=== PATIENT | male | born 1945 | race Caucasian/White ===

== ENCOUNTER → 2017-10-14 12:27 | Outpatient (CLI) | payer MEDICARE, SELFPAY ==
--- NOTE | 2017-10-17 10:13 | PFT ---
INTRODUCTION: The patient is a 72-year-old male that presents for pulmonary function testing secondary to a diagnosis of COPD. Respiratory therapy reports good patient effort. Bronchodilators were used during testing. INTERPRETATION: Forced expiration spirometry demonstrates the presence of a moderate large airways obstructive ventilatory defect. There was no significant response to aerosolized bronchodilators, based upon strict ATS criteria. Spirograms are of good quality and do not plateau indicating slow emptying of the lungs. The respiratory flow volume loop reveals decreased expiratory flow rates at all lung volumes consistent with airways obstruction. Body plethysmography was performed and reveals an elevated TLC and RV, indicative of underlying hyperinflation and air-trapping. Diffusing capacity by single breath CO is relatively preserved at 71% of predicted. When compared to previous pulmonary function studies dated October 2016, there has been a significant improvement in the patient's FEV1, with significant increases in TLC and RV. IMPRESSION: These pulmonary function studies demonstrate the presence of an irreversible moderate large airways obstructive ventilatory defect with associated hyperinflation and air-trapping. There have been changes in the patient's PFTs since 2016, as noted above.
== END ==
PROVIDERS: Family Provider Family Medicine; PCP Family Medicine; Visit Provider Internal Medicine Critical Care Medicine
DX: J44.9 Chronic obstructive pulmonary disease, unspecified (principal)
CPT/HCPCS: 94060; 94726; 94729

== ENCOUNTER → 2017-10-17 12:02 | Outpatient (CLI) | payer MEDICARE, SELFPAY ==
[2017-10-17 12:28] VITALS: PULSE 100; PULSE 60; PULSE 65; PULSE 80; PULSE 83; PULSE 88; PULSE 94; O2SAT 92; O2SAT 93; O2SAT 94; O2SAT 96; O2SAT 98
--- NOTE | 2017-10-17 16:31 | WT_ITS ---
PSN 6 Minute Walk Test - 6 Minute Walk Test 6 Minute Walk Test: 6 Minute Walk Test PSN:6-Minute Walk Test Start: 10/17/17 12: 28 Freq: Status: Active Protocol: RESP.6MINW Document 10/17/17 12:28 MANUELA (Rec: 10/17/17 12:32 MANUELA [id number]) 6 Minute Walk Test Date Performed 10/17/17 Time Performed 12:20 Height 5 ft 10.5 in Weight: 117.934 kg Weight in Pounds 260.[address]: Walter Jimenez Assistive device used: None Pre-test Oxygen Delivery Method Room Air Pulse Ox (%) 98 Pulse Rate (60-100 beats/min) 65 Dyspnea Juliette Scale (0-10) 0 Exertion Juliette Scale (6-20) 6 1st minute Oxygen Delivery Method Room Air Pulse Ox (%) 96 Pulse Rate (60-100 beats/min) 60 2nd minute Oxygen Delivery Method Room Air Pulse Ox (%) 94 Pulse Rate (60-100 beats/min) 80 3rd minute Oxygen Delivery Method Room Air Pulse Ox (%) 94 Pulse Rate (60-100 beats/min) 88 4th minute Oxygen Delivery Method Room Air Pulse Ox (%) 92 Pulse Rate (60-100 beats/min) 83 5th minute Oxygen Delivery Method Room Air Pulse Ox (%) 93 Pulse Rate (60-100 beats/min) 100 6th minute Oxygen Delivery Method Room Air Pulse Ox (%) 94 Pulse Rate (60-100 beats/min) 94 Dyspnea Juliette Scale (0-10) 0.5 Exertion Juliette Scale (6-20) 11 Post-test Oxygen Delivery Method Room Air Pulse Ox (%) 98 Pulse Rate (60-100 beats/min) 80 Full Laps Walked 14 Partial Lap, Number of Tiles Walked 25 Total Distance Walked (ft) 851 - Interpretation Interpretation: The patient was able to ambulate 851 feet over the course of 6 minutes on room air with no assistive devices or breaks. The patient experienced significant desaturation from a baseline of 98%, to as low as 92%. Some reflexive tachycardia was appreciated. These findings are consistent with a respiratory limitation exercise tolerance. - Recommendations Recommendations: No supplemental oxygen is indicated at this time.
== END ==
PROVIDERS: Family Provider Family Medicine; PCP Family Medicine; Visit Provider Internal Medicine Critical Care Medicine
DX: R00.0 Tachycardia, unspecified (principal)
CPT/HCPCS: 94618

== ENCOUNTER → 2018-01-04 12:47 | Outpatient (CLI) | payer MEDICARE, SELFPAY ==
--- NOTE | 2018-01-04 12:49 | ECHOD_ITS ---
Version 2 Reason For Study: MUrmur Procedure This was a 2D Doppler, Color Flow transthoracic echocardiogram. Did not use Definity due to increased PAP. Exam performed in department. Left Ventricle Normal LV size. Mild concentric left ventricular hypertrophy. The estimated ejection fraction is 45 %. Mild global left ventricular systolic dysfunction. Unable to assess diastolic dysfunction due to arrhythmia. No regional wall motion abnormalities noted. Right Ventricle Normal RV size. Normal systolic function. Atria The left atrium is severely enlarged. The right atrium is moderately enlarged. Patent foramen ovale. Mitral Valve Bileaflet diffuse mitral valve thickening. Mild (1+) eccentric mitral valve insufficiency. Tricuspid Valve Normal tricuspid valve. Mild to moderate (1-2+) tricuspid valve insufficiency. Pulmonary artery systolic pressure is 64 mmHg. Severe pulmonary hypertension. Aortic Valve Trisinus/trileaflet aortic valve. Moderate focal aortic valve calcification. Peak aortic valve gradient 68 mmHg. Mean aortic valve gradient 41 mmHg. Severe aortic stenosis. Calculated aortic valve area (continuity equation) is 0.96 cm2. Mild (1+) aortic valve insufficiency. Great Vessels Normal aortic root. The pulmonary artery is normal size. Normal inferior vena cava. Pericardium/Pleural No pericardial effusion. MMode/2D Measurements & Calculations LVIDd: 5.4 cm IVSd: 1.4 cm LVOT diam: 2.2 cm LVIDs: 4.1 cm LVPWd: 1.1 cm LVOT area: 3.8 cm2 RVDd: 4.9 cm FS: 23.9 % Ao root diam: 3.3 cm LAV(MOD-bp): 178.7 ml LA A4 area: 42.8 cm2 LA dimension: 5.5 cm LAV(MOD-bp) Indexed: 77.9 ml/m2 LAV(MOD-sp2): 162.9 ml LAV(MOD-sp4): 191.3 ml RA A4 area: 28.8 cm2 Doppler Measurements & Calculations MV E max simeon: 96.9 cm/sec Ao V2 max: 413.4 cm/sec AI max simeon: 416.5 cm/sec Ao max P.5 mmHg AI max P.7 mmHg Ao V2 mean: 307.2 cm/sec AI dec slope: 222.9 cm/sec2 Ao mean P.4 mmHg AI P1/2t: 547.2 msec Ao V2 VTI: 88.0 cm SABIHA(I,D): 0.88 cm2 SABIHA(V,D): 0.96 cm2 LV V1 max: 105.4 cm/sec SV(LVOT): 77.7 ml PA V2 max: 91.0 cm/sec LV V1 max P.5 mmHg LV V1 mean P.6 mmHg LV V1 mean: 76.3 cm/sec LV V1 VTI: 20.7 cm TR max simeon: 387.6 cm/sec TR max P.1 mmHg Interpretation Summary Normal LV size. Mild concentric left ventricular hypertrophy. The estimated ejection fraction is 45 %. Mild global left ventricular systolic dysfunction. Unable to assess diastolic dysfunction due to arrhythmia. The left atrium is severely enlarged. The right atrium is moderately enlarged. Mild (1+) eccentric mitral valve insufficiency. Severe aortic stenosis. Mean aortic valve gradient 41 mmHg. Pulmonary artery systolic pressure is 64 mmHg. In comparison to the previous the AV area is worse Compared to prior study, changes are noted. Ordering Physician: Usman Aaron Referring Physician: Fer Caruso Performed By: Leandra Diaz RDCS, RVT
== END ==
PROVIDERS: Family Provider Family Medicine; PCP Family Medicine; Referring Provider Internal Medicine Cardiovascular Disease; Visit Provider Internal Medicine Cardiovascular Disease
DX: R01.1 Cardiac murmur, unspecified (principal); G47.33 Obstructive sleep apnea (adult) (pediatric)
CPT/HCPCS: 93306

== ENCOUNTER 2018-01-23 07:41 | Day surgery (SDC) | payer MEDICARE, SELFPAY ==
--- NOTE | 2018-01-09 10:57 | RAD_ITS ---
STUDY: X-RAY CHEST REASON FOR EXAM: Male, 72 years old. Preoperative exam TECHNIQUE: Frontal and lateral views of the chest COMPARISON: 08/28/2015 FINDINGS: The lungs are clear. There are no pleural effusions. There is no pneumothorax. The heart is normal in size. There are stable postsurgical changes in the left shoulder. RAD/Chest PA and Lateral IMPRESSION: No acute thoracic pathology. Electronically Signed: Francesco Ferrer, at 22:04 EDT Tel , Service support ,
[2018-01-09 12:34] LABS: Anion Gap 9 (5-15); BUN 13 mg/dL (7-18); BUN/Creat Ratio 12.7 RATIO (10-20); Calcium,Total 9.3 mg/dL (8.5-10.1); Chloride 100 mmol/L (98-107); Creatinine, Serum 1.02 mg/dL (0.70-1.30); EST Glomerular Filtration Rate 76 mL/min (>60); Est Glom Filt Rate - Afr Amer 92 mL/min (>60); Glucose 247 mg/dL (74-106); Potassium 4.1 mmol/L (3.5-5.1); Sodium Level 140 mmol/L (136-145)
[2018-01-09 14:31] LABS: International Normalized Ratio 2.2; Partial Thromboplast Time 41.4 Seconds (24.1-36.2); Prothrombin Time (Protime)PT. 24.4 SECONDS (11.7-14.9)
[2018-01-09 15:29] LABS: Absolute Neutrophil Count 5.4 X10^3/uL (2.0-7.7); Basophil% 0.3 % (0-1); Eosinophils% 1.1 % (0-5); Hematocrit 39.8 % (40-54); Hemoglobin 13.8 g/dl (13.0-16.5); Lymphocyte # 1.27 X10^3/ul (4.0); Lymphocyte % 17.4 % (19-41); Mean Corp Hgb Conc 34.7 g/gl (32-36); Mean Corpuscular Hgb 32.2 pg (27.0-32.0); Mean Platelet Vol. 11.4 fl (6.2-12.0); Monocyte% 6.9 % (0-10); Platelet Count 200 K/mm3 (150-450); RBC Distribution Width CV 13.6 % (11.6-14.6); RBC Distribution Width SD 44.9 fl (35.1-43.9); Red Blood Count 4.28 M/mm3 (4.6-6.2); White Blood Count 7.3 K/mm3 (4.4-11.0)
[2018-01-09 15:30] LABS: Absolute Lymphocyte Count 1.27 X10^3/ul (0.83-4.51); Basophil# 0.02 X10^3/uL; Eosinophil# 0.08 X10^3/uL; POSITIVE COUNT NO; POSITIVE DIFFERENTIAL NO; POSITIVE MORPHOLOGY NO
[2018-01-20 11:08] VITALS: BMI 38.2
[2018-01-23 08:06] LABS: Prothrombin Time Fingerstick 13.7 SEC (11.9-14.4)
--- NOTE | 2018-01-23 09:55 | CL.D_ITS ---
Patient Name: GABRIEL STEPHENS Study Date: 01/23/2018 Performing: Usman Aaron MD Ht: 70.07 inches 178 cm : 1945 Wt: 266.76 lbs 121 kg Age: 72 Gender: male BSA: 2.36 PROCEDURE(S) PERFORMED DC11-AO ROOT ANGIO WITH HEART CATH NJ21-JMR/LHC/COR CLINICAL PROFILE AND INDICATIONS Indications: Valvular Disease Heart Failure: NYHA Class: 2 Stress/Imaging Stress/Image Study Performed: No CAD Presentations: No Sxs, no angina. CONCLUSIONS Minimal coronary artery disease, moderately severe aortic stenosis, moderate pulmonary hypertension RECOMMENDATIONS Surgery consult for Valve Replacement surgery DESCRIPTION OF PROCEDURE The patient arrived to the procedure lab. The risks and benefits of the procedure as well as a full d escription of our services here and current unavailability of surgical backup were fully explained to the patient and/or their significant other prior to the catheterization. The Timeout was completed, verifying the correct patient and procedure. The patient's procedural site was prepped and draped in the usual fashion. Local anesthetic was given subcutaneously to right groin region with Lidocaine 2%. Using a modified Seldinger technique, arterial access was obtained via the right femoral artery, a 5 Fr sheath was inserted. Venous access was obtained via the right femoral vein, a 7Fr sheath was inser vivek. Left Coronary Artery selective angiography was performed in multiple views using a 5 Fr. JL4 cat heter. Right Coronary Artery selective angiography was then performed in multiple views using a 5 Fr. 3DRC (Lucas) catheter. A 7Fr thermal dilution catheter was inserted and right heart pressures wer e recorded, it was then advanced to PA position for cardiac outputs. Thermal dilution cardiac outputs were then recorded. O2 saturations were then obtained. The Thermal dilution catheter was then remove d.The arterial sheath was pulled and manual compression applied until hemostasis is achieved. CORONARY ANGIOGRAPHY DOMINANCE: Right Dominant LEFT HEART ASSESSMENT RIGHT HEART ASSESSMENT Thermal CO: 7.1 Thermal CI: 3.01 Lu CO: 5.39 Lu CI: 2.28 PW: / 14 PA: 56/22 37 RV: 57/0 4 RA: /11 8 PVR: 259 SVR: 1014 Right Heart pressures - elevated LEFT MAIN: Angiographically normal LEFT ANTERIOR DECENDING ARTERY: Mild luminal irregularities less than 30% CIRCUMFLEX ARTERY: Mild luminal irregularities less than 30% RIGHT CORONARY ARTERY: Mild luminal irregularities less than 30% VALVE FINDINGS: Aortic Valve Stenosis - severe AORTIC ROOT: Dilated COMPLICATIONS No Complications PROCEDURE MEDICATIONS Versed 1 mg IV Versed 1 mg IV SUMMARY OF HEMODYNAMIC DATA Time AIR REST ECG 08:27:38 AO 131/79 (98) SA 09:21:34 RA /11 (8) SV 09:37:21 RV 57/0, 4 09:37:40 PW /19 (14) PV 09:39:00 PA 56/22 (37) PA 09:39:50 Type SV CO (l/m) CI (l/m/ HR Time AIR REST Thermal 84.50 7.10 3.01 84 08:22:11 Lu 64.20 5.39 2.28 84 08:22:11 Label % O2 Pres/Loc Time AIR REST PA 65 PA 09:50:57 RA 64 SV 09:51:01 AO 95 PV 09:51:06 Signed By Usman Aaron MD On 01/23/2018 09:54:30 Usman Aaron MD
[2018-01-23 10:11] LABS: Blood Gas Specimen Type VEN; VBG BASE EXCESS -1 mmol/L (-1.0-3.5); VBG Bicarbonate 23 mmol/L (22-26); VBG Oxygen Content 25 mmol/L (23-33); VBG PO2 34 mmHg (25-40); VBG SO2 65 % (50-70); VBG pCO2 37.2 mmHg (41-51); VBG pH 7.41 (7.32-7.42)
[2018-01-23 10:11] LABS: Blood Gas Specimen Type VEN; VBG BASE EXCESS -2 mmol/L (-1.0-3.5); VBG Bicarbonate 23 mmol/L (22-26); VBG Oxygen Content 24 mmol/L (23-33); VBG PO2 34 mmHg (25-40); VBG SO2 64 % (50-70); VBG pCO2 37.9 mmHg (41-51); VBG pH 7.38 (7.32-7.42)
[2018-01-23 10:11] LABS: Base Excess -3 mmol/L (-2 to +2); Bicarbonate 21.7 mmol/L (22-26); Blood Gas Specimen Type ART; PO2 73 mmHG (75-100); SO2 95 % (95-99); Total Carbon Dioxide 23 mmol/L; pCO2 32.7 mmHg (35-45); pH 7.43 (7.35-7.45)
== END 2018-01-23 15:20 | disposition home or self-care (01) ==
LOC: CLSP 07:43
PROVIDERS: Family Provider Family Medicine; PCP Family Medicine; Referring Provider Internal Medicine Cardiovascular Disease; Visit Provider Internal Medicine Cardiovascular Disease
DX: I25.10 Atherosclerotic heart disease of native coronary artery without angina pectoris (principal); I35.0 Nonrheumatic aortic (valve) stenosis; I27.20 Pulmonary hypertension, unspecified; I50.32 Chronic diastolic (congestive) heart failure; I48.1 Persistent atrial fibrillation; I10 Essential (primary) hypertension; G47.33 Obstructive sleep apnea (adult) (pediatric); Z87.891 Personal history of nicotine dependence; Z79.82 Long term (current) use of aspirin; E78.5 Hyperlipidemia, unspecified
CPT/HCPCS: 36415; 36416; 71046; 80048; 82803; 85025; 85610; 85730; 93457; 93567; 99152; 99153; J7040; Q9967; C1751; C1894

== ENCOUNTER → 2018-03-20 08:57 | Outpatient (CLI) | payer MEDICARE, SELFPAY ==
[2018-01-20 11:08] VITALS: BMI 38.2
[2018-03-20 10:46] LABS: International Normalized Ratio 1.4; Prothrombin Time (Protime)PT. 17.2 SECONDS (11.7-14.9)
== END ==
PROVIDERS: Family Provider Family Medicine; PCP Family Medicine; Referring Provider Internal Medicine Cardiovascular Disease; Visit Provider Internal Medicine Cardiovascular Disease
DX: Z79.01 Long term (current) use of anticoagulants (principal)
CPT/HCPCS: 36415; 85610

== ENCOUNTER 2018-03-31 14:45 | Emergency (ER) | payer MEDICARE, SELFPAY ==
[2018-03-31] VITALS (10 sets, daily range): BP systolic 49–148; BP diastolic 32–83; PULSE 20–60; RESP 11–20; TEMP 36.4; O2SAT 94–100; BMI 36.6
--- NOTE | 2018-03-31 15:09 | EKG12_ITS ---
Test Reason : BRADYCARDIA Blood Pressure : / mmHG Vent. Rate : 045 BPM Atrial Rate : 024 BPM P-R Int : 000 ms QRS Dur : 212 ms QT Int : 592 ms P-R-T Axes : 000 -72 103 degrees QTc Int : 512 ms Ventricular-paced rhythm with failure to capture Abnormal ECG Confirmed by TODD FONTAINE ([id number]), web editor JEWELS GARCIA ([id number]) on 04/03/2018 1:07:14 PM Referred By: JODY Confirmed By:TODD FONTAINE
--- NOTE | 2018-03-31 15:11 | ED.RN ---
PT STATES THAT HIS HEAD FEEL FUZZY.
--- NOTE | 2018-03-31 15:13 | NURSING ---
DR LONDON PAGED
[2018-03-31 15:15] LABS: Bedside Glucose 159 mg/dL (70-110)
[2018-03-31] MEDS: Atropine Sulfate 1 MG/10 ML Syringe 0.5 MG IV (15:15)
--- NOTE | 2018-03-31 15:15 | RAD_ITS ---
STUDY: X-RAY CHEST REASON FOR EXAM: Male, 72 years old. Bradycardia. Hypotension. TECHNIQUE: Single AP portable view of the chest. COMPARISON: Comparison is made with prior study dated January 09, 2018. FINDINGS: EKG electrodes are seen. There is evidence of vascular congestion and mild degree of CHF. There is no demonstrated pleural abnormality. There is mild cardiac enlargement. Normal mediastinum and rangel. Normal visualized pulmonary arteries. There is atherosclerotic tortuosity of the aortic arch and descending thoracic aorta. There are diffuse degenerative changes of the visualized thoracic spine. Fixation device in the proximal left humerus. There is no demonstrated abnormality of the visualized soft tissue structures of the upper abdomen. RAD/Chest 1 View (Portable) IMPRESSION: Cardiomegaly and mild degree of CHF. Electronically Signed: Kenyon Cross MD at 15:36 EST Tel [phone], Service support ,
--- NOTE | 2018-03-31 15:25 | NURSING ---
CALLING [facility] FOR TRANSFER.
[2018-03-31 15:50] LABS: Absolute Lymphocyte Count 1.61 X10^3/ul (0.83-4.51); Absolute Neutrophil Count 7.1 X10^3/uL (2.0-7.7); Basophil# 0.02 X10^3/uL; Basophil% 0.2 % (0-1); Eosinophil# 0.04 X10^3/uL; Eosinophils% 0.4 % (0-5); Hematocrit 43.2 % (40-54); Hemoglobin 14.4 g/dl (13.0-16.5); Lymphocyte # 1.61 X10^3/ul (4.0); Lymphocyte % 16.2 % (19-41); Mean Corp Hgb Conc 33.3 g/gl (32-36); Mean Corpuscular Hgb 31.1 pg (27.0-32.0); Mean Corpuscular Volume 93.3 fL (80-94); Mean Platelet Vol. 12.4 fl (6.2-12.0); Monocyte# 1.11 X10^3/uL; Monocyte% 11.2 % (0-10); Neutrophil # 7.13 X10^3/uL (2.7-7.7); Neutrophil % 71.9 % (47-70); POSITIVE COUNT NO; POSITIVE DIFFERENTIAL NO; POSITIVE MORPHOLOGY NO; Platelet Count 166 K/mm3 (150-450); RBC Distribution Width CV 13.7 % (11.6-14.6); RBC Distribution Width SD 46.5 fl (35.1-43.9); Red Blood Count 4.63 M/mm3 (4.6-6.2); White Blood Count 9.9 K/mm3 (4.4-11.0)
--- NOTE | 2018-03-31 15:50 | ED.RN ---
PT STATES HE DOES NOT FEEL WELL. BEGAN TO VOMIT. SKIN ASHEN, CLAMMY, AND COOL. MENTAL STATUS CHANGE. ER DR IN ROOM WITH PATIENT. EXTERNAL PACING INITIATED. PT TOLERATING WELL.
[2018-03-31] MEDS: Ondansetron 4 MG/2 ML Vial IV (15:55)
[2018-03-31] MEDS: fentaNYL 100 MCG/2 ML Ampul 50 MCG IV ×2 (15:57→16:06)
[2018-03-31 15:58] LABS: Anion Gap 12 (5-15); BUN 19 mg/dL (7-18); BUN/Creat Ratio 11.2 RATIO (10-20); Calcium,Total 9.1 mg/dL (8.5-10.1); Chloride 98 mmol/L (98-107); Creatinine, Serum 1.69 mg/dL (0.70-1.30); EST Glomerular Filtration Rate 43 mL/min (>60); Est Glom Filt Rate - Afr Amer 52 mL/min (>60); Glucose 181 mg/dL (74-106); Potassium 5.3 mmol/L (3.5-5.1); Sodium Level 135 mmol/L (136-145)
--- NOTE | 2018-03-31 16:05 | ED.VISSUMM ---
- ER Visit Summary Date of Service: 03/31/18 Chief Complaint: Decreased blood pressure and weakness History of Present Illness: The patient is a 72 M who presents with low blood pressure and weakness at home. He had an aortic valve replaced at [facility] on Tuesday. After that surgery he had to have a pacemaker placed. He went home yesterday and was feeling well. Today he woke up feeling weak. He checked his blood pressure and it was low. He has some mild chest discomfort but does not describe as chest pain. Physical Examination: Vital signs reviewed. Heart rate is in the 30s. Current blood pressure is 117/54. HEENT exam unremarkable. Heart is bradycardic with no murmurs. Lungs are clear bilaterally. Abdomen soft. Extremity exam reveals some ecchymosis in the right groin secondary to his surgeries. Currently his neurologic exam is normal. Test Results: EKG is a wide complex paced rhythm with a rate in the 30s. Chest x-ray reveals CHF and mild cardiomegaly. Emergency Department Course and Treatment: Give the patient half a milligram of atropine which did nothing. His mental status is normal blood pressure is a little bit low but not hypotensive at this point. I discussed with Dr. Ayon who recommended sending the patient back to [facility]. I discussed with [facility] and they will accept the patient. While awaiting transport the patient started having altered mental status with a long bradycardic pause. He is now externally paced. He was given Zofran, fentanyl and Versed. Patient will be transferred via critical care to [facility] Treatment Plan: [] Disposition: Transfer Impression: Symptomatic bradycardia, pacemaker malfunction, recent aortic valve replacement Critical care time 45 minutes This note was generated with [employer] dictation software. It may contain incorrect words, spelling, and punctuation that were not noted in review of the chart prior to signing ED Disposition - Plan for ED Patient: Chief Complaint: Hypotension Referrals: Fer Caruso MD [Primary Care Provider] -
--- NOTE | 2018-03-31 16:08 | ED.DCSUM_ITS ---
- ER Visit Summary Date of Service: 03/31/18 Chief Complaint: Decreased blood pressure and weakness History of Present Illness: The patient is a 72 M who presents with low blood pressure and weakness at home. He had an aortic valve replaced at [facility] on Tuesday. After that surgery he had to have a pacemaker placed. He went home yesterday and was feeling well. Today he woke up feeling weak. He checked his blood pressure and it was low. He has some mild chest discomfort but does not describe as chest pain. Physical Examination: Vital signs reviewed. Heart rate is in the 30s. Current blood pressure is 117/54. HEENT exam unremarkable. Heart is bradycardic with no murmurs. Lungs are clear bilaterally. Abdomen soft. Extremity exam reveals some ecchymosis in the right groin secondary to his surgeries. Currently his neurologic exam is normal. Test Results: EKG is a wide complex paced rhythm with a rate in the 30s. Chest x-ray reveals CHF and mild cardiomegaly. Emergency Department Course and Treatment: Give the patient half a milligram of atropine which did nothing. His mental status is normal blood pressure is a little bit low but not hypotensive at this point. I discussed with Dr. Ayon who recommended sending the patient back to [facility]. I discussed with [facility] and they will accept the patient. While awaiting transport the patient started having altered mental status with a long bradycardic pause. He is now externally paced. He was given Zofran, fentanyl and Versed. Patient will be transferred via critical care to [facility] Treatment Plan: [] Disposition: Transfer Impression: Symptomatic bradycardia, pacemaker malfunction, recent aortic valve replacement Critical care time 45 minutes This note was generated with [employer] dictation software. It may contain incorrect words, spelling, and punctuation that were not noted in review of the chart prior to signing ED Disposition - Plan for ED Patient: Chief Complaint: Hypotension Referrals: Fer Caruso MD [Primary Care Provider] -
--- NOTE | 2018-03-31 16:10 | NURSING ---
ETA 30 MIN GROUND
--- NOTE | 2018-03-31 16:20 | ED.RN ---
PT IS ON BIPAP PER FAMILY.
--- NOTE | 2018-03-31 17:20 | ED.RN ---
MULTIPLE ATTEMPTS TO CALL REPORT TO [facility] AT [facility] WITH NO ANSWER. REPORT GIVEN TO AUGUSTIN HEARD [employer].
== END 2018-03-31 17:02 | disposition short-term general hospital (02) ==
PROVIDERS: Emergency Provider Emergency Medicine; Family Provider Family Medicine; PCP Family Medicine
DX: R00.1 Bradycardia, unspecified (principal); Z95.2 Presence of prosthetic heart valve; T82.9XXA Unspecified complication of cardiac and vascular prosthetic device, implant and graft, initial encounter; I50.9 Heart failure, unspecified; I51.7 Cardiomegaly
CPT/HCPCS: 71045; 80048; 82962; 84484; 85025; 92953; 93005; 96374; 99285; J7030; A4216; J2405

== ENCOUNTER → 2018-05-04 11:29 | Outpatient (CLI) | payer MEDICARE, SELFPAY ==
[2018-04-25 12:37] VITALS: BMI 35.8
--- NOTE | 2018-05-04 13:06 | PCM.CR.HP2 ---
CR - History & Physical - General Arrival date:: 05/04/18 Arrival time:: 13:06 Date of Referral:: 05/04/18 Date of CR Evaluation:: 05/04/18 Referring Physician: Dr. aSmir Chong Primary Diagnosis: TAVR - History of Present Cardiac Event Onset Date: Enter Onset Date of cardiac illnesses in Comment field below Current stable Angina Pectoris:: No Acute Myocardial Infarction within 12 months:: No Coronary Artery Bypass Graft:: No Heart valve replacement or repair:: Yes - 03/23/18 PTCA or coronary stenting:: No Heart or Heart-Lung Transplant:: No Heart Failure EF <35%:: No Type of Symptoms:: fatigue, sob. Interventions with present event:: Pacer placed 03/24/18 Were there any complications?: pacer, in chronic afib - Medications Home Medications: Ambulatory Orders Medication Instructions Recorded Aspirin [Aspirin, Baby] 81 mg PO DAILY@0800 09/24/14 Glimepiride [Amaryl] 1 mg PO DAILY #30 tab 04/17/15 gabapentin 600 mg tablet 600 mg PO BID #60 tab 05/09/17 metformin 500 mg tablet 1,000 mg PO BID tab 06/07/17 furosemide 40 mg tablet 40 mg PO BID #180 tab 10/21/17 potassium chloride ER 20 mEq 20 meq PO BID #30 tab 01/11/18 tablet,extended release albuterol sulfate HFA 90 2 puff INHALATION Q4H PRN PRN #18 g 01/24/18 mcg/actuation aerosol inhaler spironolactone 25 mg tablet 50 mg PO QDAY #60 tab 02/17/18 metoprolol tartrate 50 mg tablet 75 mg PO BID #90 tab 03/01/18 warfarin 5 mg tablet 5 mg PO DAILY 03/20/18 Glipizide [Glipizide ER] 10 mg PO DAILY 03/31/18 umeclidinium 62.5 mcg/actuation 1 inh INHALATION DAILY #30 ea 04/25/18 blister powder for inhalation Aclidinium [place] [Tudorza 400 mcg IH BID 05/04/18 Pressair] Clopidogrel Bisulfate [Clopidogrel] 75 mg PO DAILY 05/04/18 - Allergies Allergies/Adverse Reactions: Allergies prochlorperazine [From Compazine] Adverse Reaction (Severe, Verified 04/25/18 10:53) Other extrapyramidal symptoms, sedation was taking also pramipexole at the time - Sleep Disorder Evaluation Hx of Sleep Apnea: Yes STOP Results: on bipap already Advanced Directives - Advanced Directives Power of Kiln Firer: Yes Living Will: Yes Advance Directives Information Provided: No Advance Directives on File: Yes Past Medical History - Past Medical Illness Medical History: Past Medical History (Last Reviewed 04/25/18 @ 10:53 by Nadine Cabrera) intermediate current use of anticoagulant (Chronic) Z79.01 Long-term use of high-risk medication (Chronic) Z79.899 Chronic diastolic (congestive) heart failure (Chronic) I50.32 Persistent atrial fibrillation (Chronic) I48.1 Nonrheumatic mitral valve regurgitation (Acute) I34.0 Nonrheumatic tricuspid (valve) insufficiency (Acute) I36.1 Nonrheumatic aortic (valve) stenosis (Chronic) I35.0 Bicuspid aortic valve (Chronic) Q23.1 Cardiomyopathy in disease classified elsewhere (Chronic) I43 Dyspnea (Acute) R06.00 Edema (Acute) R60.9 Benign essential HTN (Chronic) I10 Pulmonary hypertension, moderate to severe (Chronic) I27.2 PASP 57 mmHg Shortness of breath (Acute) R06.02 HLD (hyperlipidemia) (Chronic) E78.5 DENISA (obstructive sleep apnea) G47.33 Stage 3 severe COPD by GOLD classification J44.9 Type 2 diabetes mellitus E11.9 Aortic valve stenosis (Inactive) I35.0 Atrial fibrillation (Inactive) I48.91 on coumadin Bradycardia (Inactive) R00.1 CHF (congestive heart failure) (Inactive) I50.9 COPD, mild (Inactive) J44.9 Diabetes mellitus type II (Inactive) Hypotension (Inactive) I95.9 termite control representative use of drug Z79.899 Moderate aortic stenosis (Inactive) I35.0 Morbid obesity (Inactive) E66.01 Nonrheumatic mitral valve regurgitation I34.0 Nonrheumatic tricuspid valve regurgitation I36.1 DENISA (obstructive sleep apnea) (Inactive) G47.33 Baseline BiPAP 21/17 Stage 3 severe COPD by GOLD classification (Inactive) J44.9 - Past Surgical History Surgical History: Past Surgical History (Last Reviewed 04/25/18 @ 10:53 by Nadine Cabrera) Status post radiofrequency ablation for arrhythmia (Chronic) Z98.890, Z86.79 History of hernia repair Z98.890, Z87.19 History of tonsillectomy Z98.890, Z90.89 History of tonsillectomy (Inactive) Z98.890, Z90.89 Hx of hernia repair (Inactive) Z98.890, Z87.19 Surgical History: herniorrhaphy, tonsillectomy - Family History Summary Family History: Family History (Last Reviewed 04/25/18 @ 10:53 by Nadine Cabrera) Father CAD (coronary artery disease) Hypertension Mother Hypertension Brother Hypertension Hyperlipemia Sister Hypertension Social History - Smoking History Smoking Status: Former smoker Years Smokin Packs Smoked per Day: 5 - cigars only Hx Smoking Cessation Date: Apr 1999 Hx Tobacco Use: No Hx Smoking Exposure: Yes - son, but he smokes outside - Alcohol Use Alcohol Usage: Yes - beer- 1-2 daily - Substance Abuse Hx Substance Use: No - Occupation Occupation (List type of work in comments):: Retired - Hobbies, Recreation, Social Activities Hobbies: Sports Recreational Activities: I am able to engage in all my recreational activities Social Environment - Status Marital Status: - Current Living Arrangements Living Environment:: Family - son and friend live with him - Children How many children do you have?: 1 - 1 living Do any of your children live nearby?: Yes - Safety Do you feel safe in your surroundings?: Yes - Assistance Do you need any assistance at home?: no Review of Systems - Review of Systems Hints: Right click = Denies ([place]). Left click = Reports ([place]) Review of Present Symptoms: Reports: Shortness of Breath with Exertion, Fatigue, Appetite - Special Diet - watches what he eats, uses some Na, eats small portions., Sleep - Normal. Denies: Shortness of Breath at Rest, PVD, Operative Discomfort, Angina, Wound Healing, Dizziness/Lightheadedness, Heart Arrhythmia/Irregularities, Appetite - Normal - 100 lb weight loss over 3 years, Sexual Changes - Pain Is Patient Pain Free?: Yes Previous experience dealing with pain?: Tylenol prn Risk Factor Assessment - Vital Signs Pulse Ox: 96 - Pulse Pulse Rate: 59 Pulse Rhythm: Irregular - Hypertension How long have you been treated?: 1966 in [employer] On medication(s)?: yes Blood Pressure Sitting - Right Arm: 120/62 - Diabetes Diabetic History: Type II Nutrition Referral for Diabetes: Yes - Obesity Height: 5 ft 11 in Weight:: 258 lb Weight in Pounds: 258.0 lbs Weight Source: Standing Scale Body Mass Index (BMI): 35.9 Desired Body Weight: 200 Realistic Weight Goal (Loss of 1-2 lbs/week): 234 Nutritional Referral for Obesity: Yes - Risk Stratification Risk Guidelines: Lowest Risk: Risk Factor for Smoking, Risk Factor for Dyslipidemia, Risk Factor for Hypertension, Risk Factor for Depression, Moderate Risk: Risk Factor for Diabetes, Risk Factor for Obesity, Risk Factor for Sedentary Lifestyle - For Smoking Smoking Risk Guidelines: Smoking Low Risk: None or quit greater than 6 months ago. Smoking Moderate Risk: Smoker or quit 6 months or less ago. Smoking High Risk: Smoker - For Dyslipidemia Dyslipidemia Risk Guidelines: Low Risk: Moderate Risk: High Risk: 15-25% fat 25.1-29% fat >/= 30% fat. <7% sat fat 7-9% sat fat >9% sat fat. <150 mg chol 150-299 mg chol >/= 300 mg chol. LDL <100 LDL 100-129 LDL >/= 130. Chol/HDL ratio <5.0 Chol/HDL ratio 5.0-6.0 Chol/HDL ratio >6.0. Triglycerides <100 Triglycerides 100-149 Triglycerides >/= 150 - For Diabetes Mellitus Diabetes Risk Guidelines: Diabetes Low Risk: HgA1c <6.5% and/or FBG <120. Diabetes Moderate Risk: HgA1c 6.6-7.9% and/or FBG 120-180. Diabetes High Risk: HgA1c >/= 8% and/or FBG >180 - For Obesity/Overweight Obesity/Overweight Risk Guidelines: Obesity Low Risk: BMI <25.0. Obesity Moderate Risk: BMI 25-29.9. Obesity High Risk: BMI >/= 30.0 - For Hypertension Hypertension Risk Guidelines: Hypertension Low Risk: Systolic <120 and Diastolic <80. Hypertension Moderate Risk: Systolic 120-139 and Diastolic 80-89. Hypertension High Risk: Systolic >/= 140 and Diastolic >/= 90 - For Sedentary Lifestyle Sedentary Lifestyle Risk Guidelines: Sedentary Lifestyle Low Risk: >/= 1,500 kcal/week. Sedentary Lifestyle Moderate Risk: 700-1,499 kcal/week. Sedentary Lifestyle High Risk: < 700 kcal/week - For Depression Depression Risk Guidelines: Depression Low Risk: Not clinically depressed. Depression Moderate Risk: Mildly depressed. Depression High Risk: Clinically depressed - Family History Family History: Family History (Last Reviewed 04/25/18 @ 10:53 by Nadine Cabrera) Father CAD (coronary artery disease) Hypertension Mother Hypertension Brother Hypertension Hyperlipemia Sister Hypertension Motivation - Motivation to Participate On a scale of 1 to 10, how prepared are you to commit to attending program?: 10
[2018-05-04 13:56] VITALS: BP 120/62; PULSE 59; O2SAT 96; BMI 35.9
--- NOTE | 2018-05-04 13:59 | PCM.CR.ITP ---
General Information - General Information Admitting Diagnosis: TAVR - Education/Goals Barriers to Learning: None Individual Counseling: Initial Assessment: Abnormal Cholesterol Levels, High Blood Pressure, Overweight/Obesity, Diabetes, Hypertension, Sedentary Lifestyle, Family History of Heart Disease (under 65 years) Cardiac Rehabilitation Goals: 1. Maintain the individual as the primary focus of care. 2. To improve the patient's quality of life. 3. Identification of cardiac risk factors and provide cardiac risk factor management. 4. Enhance the psychosocial status of the patient. 5. Reconditioning enough to allow the patient to resume customary activities. 6. Control symptoms of cardiac disease Scale for measuring improvement of personal goals: Enter appropriate number in Comments. 2 = Unchanged. 3 = Slightly Better. 4 = Moderate Improvement. 5 = Met my Goal Personal Goals: Initial Assessment: Participate in home exercise program, Get back to work, or to resume activities faster, Improve knowledge of cardiac disease, Improve muscle strength and endurance, Improve diet and eating habits (eat healthier), Control risk factors (learn risk factor modification) Exercise - Initial Assessment - Visit Date of Eval: 05/04/18 - Stages of Change Stages of Change:: Action - Exercise Prescription Mode:: Treadmill, Biodyne, Rower, Airdyne, NuStep - Hypertension Do any of the following apply?: Yes, Medication, Diet - Intervention Home Exercise/Activity Goal:: Moderate Exercise 30 min/day x 5 days/wk - Education Goals:: Warm-up, RPE GEREMIAS Scale, S/S, Safe Exercise, Self-Monitoring - Exercise Program Goals Exercise Program Goals: Aerobic Activity >30 min Nutrition - Initial Assessment - Program Goals Nutrition Program Goals: LDL <70. Total Cholesterol <200. HDL >45. Triglycerides <150. HgbA1C <7%. BMI <25 - Visit Date of Assessment:: 05/04/18 - Stages of Change Stages of Change:: Action - Diabetes Diabetes:: Yes Non-Insulin Dependent?: Yes - Weight Management Height: 5 ft 11 in Weight:: 258 lb Weight Goal (kg):: 200 lb Body Fat %:: 35.8 Goal % Body Fat:: 25 - Intervention Referral to dietitian:: Yes Referral to Diabetic Clinic:: Yes Will attend diet classes:: Yes - Education Gave educational materials for:: Signs & symptoms of hypoglycemia, Signs & symptoms of hyperglycemia, Relate diabetes to coronary artery disease, Healthy eating Tobacco - Initial Assessment - Program Goals Tobacco Program Goals: Complete smoking cessation. Attend education classes. Improve Knowledge Test score - Stage of Change Stages of Change:: Maintenance - Learning Barriers Learning Barriers: Ready to Learn Total Score:: 14 - Family Support Do you have family support?: Yes - Tobacco Use Tobacco Use: Non-smoker How long ago did you quit using tobacco products?: Greater than or equal to 6 months ago Years Smokin - cigars Do you use smokeless tobacco?: No - Intervention Smoking Cessation Referral:: No Individual Education/Counseling:: No Education Schedule Given:: Yes - Education Gave educational material for:: Coronary artery disease, Risk factors, Sexuality, Medical compliance, Cardiac A&P, Angina signs & symptoms Psychosocial - Initial Assess - Target Goals Target Goals: Assess presence or absence of depression. Using a valid screening tool, maximizes coping skills. Positive support system - Stages of Change Stages of Change:: Action - Psychosocial Test Tool Used:: HANDS Depression Questionnaire Self-reported stress:: no Total Mood Screening Score:: 6 Self-Efficacy Score:: 9 - Intervention PS - Interventions: Yes Attend Stress Management Classes, Yes Uses Stress Management Skills, No Referral to Mental Health, No Referral to [facility] Case Management, No Referral to Physician - Education Gave educational materials for:: Coping techniques, Signs & symptoms of depression, Stress management, Relaxation techniques - Patient/Program Goal Preventative Medication(s):: Aspirin, SALLY inhibitor, Clopidogrel, Beta bossman, Statin/lipid - Assistive Devices Assistive Devices:: None Fall Risk Assessed:: Yes Patient Health Questionnaire Initial Assessment 1. Little interest or pleasure in doing things: Several days 2. Feeling down, depressed, or hopeless: Not at all 3. Trouble falling or staying asleep, or sleeping too much: Several days 4. Feeling tired or having little energy: Several days 5. Poor appetite or overeating: Several days 6. Feeling bad about yourself -- or that you are a failure or have let yourself or your family down: Not at all 7. Trouble concentrating on things, such as reading the newspaper or watching television: More than half the days 8. Moving or speaking so slowly that other people could have noticed. Or the opposite - being so fidgety or restless that you have been moving around a lot more than usual: Not at all 9. Thoughts that you would be better off , or of hurting yourself in some way: Not at all How difficult have these problems made it for you to do your work, take care of things at home, or get along with other people?: Not difficult at all Total Score: 6 BRADEN-Q SV Test - Statements CAD is a disease of the arteries in the heart: False Examples of risk factors for heart disease: True Angina is chest pain or discomfort: True The benefits of resistance training include: I Don't Know Eating more meat and dairy products: False Anti-platelet medications such as aspirin are important: I Don't Know The only effective way to manage stress: True An exercise warm-up slowly increases heart rate: False Prepared, processed foods usually have high sodium: True Depression is common after a heart attack: True The statin medications lower cholesterol: True To control blood pressure, lower the amount of sodium: True If someone gets chest discomfort during walking: False Transfats are partially hydrogenated vegetable oils: True Sleep apnea that is not treated increases the risk: False To control cholesterol, one should become a vegetarian: True Someone knows if he/she is exercising at the right level: False Diabetes cannot be prevented with exercise & health eating: False Stress is a large risk for heart attack: True A diet that can help lower blood pressure is rich in: True - Total Score Total Correct Responses: 14 Self-Efficacy Initial Assessment We would like to know how confident you are in doing certain activities. Please select your confidence level for:: Select your confidence level for the following using the scale 1-10 where 1 is not at all confident and 10 is totally confident. Your score is the average of all 6 responses. Fatigue: How confident are you that you can keep the fatigue caused by your disease from interfering with the things you want to do? Select Number: 9 Physical Discomfort or Pain: How confident are you that you can keep the physical discomfort or pain of your disease from interfering with the things you want to do? Select Number: 9 Emotional Distress: How confident are you that you can keep the emotional distress caused by your disease from interfering with the things you want to do? Select Number: 8 Other Symptoms or Health Problems: How confident are you that you can keep other symptoms or health problems from interfering with the things you want to do? Select Number: 9 Different Tasks and Activities: How confident are you that you can do the different tasks and activities needed to manage your health condition so as to reduce your need to see a doctor? Select Number: 9 Medication: How confident are you that you can do things other than just taking medication to reduce how much your illness affects your everyday life? Select Number: 10 Total Score:: 9 Nutrition Survey - Nutrition Survey Instructions Scoring Instructions: Scoring is as follows: Yes = 1 points. No = 0 point. Patient score that is >/=12 is considered to be at potential nutritional risk and could benefit from a referral to a registered dietitian. - Nutrition Survey Initial Have you lost >10 lbs over the past 2 months without trying?: Yes Are you following a special diet at home for diabetes, low fat, or low salt?: No Are you interested in meeting with a dietitian for help understanding your diet?: Yes Do you eat less than 3 meals a day?: Yes Do you eat fatty meats (fitzpatrick, sausage, ribs, etc), fried foods, desserts, large amounts of salad dressings, margarine, butter, or cheese most days?: Yes Do you have food allergies? [Enter types in comment field]: No Do you eat in restaurants more than 3 times a week?: No Do you season food with salt, seasoning salt, or garlic salt?: Yes Do you used canned, boxed, frozen meals, or soups, seasoning packets?: Yes Total Score:: 6
== END ==
PROVIDERS: Family Provider Family Medicine; PCP Family Medicine
DX: Z98.890 Other specified postprocedural states (principal); Z86.79 Personal history of other diseases of the circulatory system

== ENCOUNTER 2018-06-04 11:05 | Emergency (ER) | payer MEDICARE, SELFPAY ==
[2018-05-04 13:56] VITALS: BMI 35.9
[2018-06-04 11:06] VITALS: BP 156/86; PULSE 60; RESP 22; TEMP 36.8; O2SAT 92; BMI 36.3
--- NOTE | 2018-06-04 11:25 | EKG12_ITS ---
Test Reason : CP Blood Pressure : / mmHG Vent. Rate : 060 BPM Atrial Rate : 033 BPM P-R Int : 000 ms QRS Dur : 162 ms QT Int : 500 ms P-R-T Axes : 000 -72 104 degrees QTc Int : 500 ms Ventricular-paced rhythm Abnormal ECG Confirmed by SURYA MCBRIDE, ARELI ([id number]), senior editor MARCI VICENTE ([id number]) on 06/06/2018 4:35:10 PM Referred By: Samir Chong Confirmed By:ARELI LONDON MD
--- NOTE | 2018-06-04 11:25 | RAD_ITS ---
STUDY: X-RAY CHEST REASON FOR EXAM: Male, 73 years old. Shortness of breath TECHNIQUE: AP COMPARISON: 03/31/2018 FINDINGS: EKG leads project over the chest. Cardiac monitoring device projects over the left chest. The lungs are clear and expanded. There is no demonstrated pleural abnormality. There is moderate cardiac enlargement. Normal mediastinum and rangel. Normal visualized pulmonary arteries. There is atherosclerotic calcification of the aortic arch with tortuosity. No acute bony process. There are operative changes of the left proximal humerus. There is no demonstrated abnormality of the visualized soft tissue structures of the upper abdomen. RAD/Chest 1 View (Portable) IMPRESSION: Stable, nonacute portable x-ray examination of the chest. Electronically Signed: Edouard Aragon MD at 11:48 EST , Service support ,
[2018-06-04 11:44] LABS: Absolute Lymphocyte Count 0.71 X10^3/ul (0.83-4.51); Absolute Neutrophil Count 5.7 X10^3/uL (2.0-7.7); Basophil# 0.02 X10^3/uL; Basophil% 0.3 % (0-1); Eosinophil# 0.03 X10^3/uL; Eosinophils% 0.4 % (0-5); Hematocrit 44.3 % (40-54); Hemoglobin 14.3 g/dl (13.0-16.5); Lymphocyte # 0.71 X10^3/ul (4.0); Lymphocyte % 10.1 % (19-41); Mean Corp Hgb Conc 32.3 g/gl (32-36); Mean Corpuscular Hgb 30.9 pg (27.0-32.0); Mean Corpuscular Volume 95.7 fL (80-94); Mean Platelet Vol. 12.2 fl (6.2-12.0); Monocyte# 0.55 X10^3/uL; Monocyte% 7.8 % (0-10); Neutrophil # 5.73 X10^3/uL (2.7-7.7); Neutrophil % 81.1 % (47-70); POSITIVE COUNT NO; POSITIVE DIFFERENTIAL NO; POSITIVE MORPHOLOGY NO; Platelet Count 172 K/mm3 (150-450); RBC Distribution Width SD 55.3 fl (35.1-43.9); Red Blood Count 4.63 M/mm3 (4.6-6.2); White Blood Count 7.1 K/mm3 (4.4-11.0)
--- NOTE | 2018-06-04 11:44 | ED.VISSUMM ---
- ER Visit Summary Date of Service: 06/04/18 Chief Complaint: Weakness History of Present Illness: The patient is a 73 M who arrives by EMS. Patient states that when he woke this morning he felt hollow. He states that he noted that his blood pressure was elevated in the 170-180 systolic range. His heart rate was 60.. He states he took his morning medications and his blood pressure came down. He states he may be felt somewhat nauseous but was able to eat breakfast. He had a normal bowel movement. He went to [employer] and started working there. At that point he states that the hollow feeling got worse. He was concerned he may pass out. He did not have chest pain. He states that maybe he had shortness of breath. EMS arrived. He was in a paced rhythm on the monitor. He states he is feeling better now. Physical Examination: Afebrile vital signs are stable Gen: Well-nourished well-developed obese Head: Normocephalic atraumatic Eyes: Perrl EOMI ENT: TMs clear no rhinorrhea moist mucous membranes Neck: Supple no lymphadenopathy no JVD nontender CVS: Regular rate rhythm no murmurs normal S1-S2 Respiratory: No distress clear to auscultation bilaterally chest nontender Abdomen: Soft nontender nondistended normal bowel sounds no masses Back: Nontender Extremity: Nontender 1+ bilateral edema Skin: Normal color no rash Neuro: alert orientated ?3 CN II-XII intact normal strength sensation reflexes gait cerebellar Psych: Normal affect normal mood Test Results: EKG shows a ventricular paced rhythm at a rate of 60. Chest x-ray showed chronic changes no acute. INR is 2.9. Troponin 0.051. Looking over the trend of troponins in the past he is typically 0.04-0.05. Hemoglobin is normal. Creatinine normal. Electrolytes are normal. Chest x-ray showed no acute findings. Emergency Department Course and Treatment: Patient was observed on the monitor. There have been no events on the monitor. He has been observed for over 3 hours. Delta troponin is 0.58. He feels good. Patient will be discharged home. Impression: 1. Weakness This note was generated with [employer] dictation software. It may contain incorrect words, spelling, and punctuation that were not noted in review of the chart prior to signing ED Disposition - Plan for ED Patient: Disposition: Home or Assisted Living Instructions: ED Weakness O Referrals: Fer Caruso MD [Primary Care Provider] - 3-5 Days
[2018-06-04 11:50] LABS: Albumin, Serum 3.8 g/dL (3.2-5.0); BUN 19 mg/dL (7-18); BUN/Creat Ratio 14.7 RATIO (10-20); Creatinine, Serum 1.29 mg/dL (0.70-1.30); EST Glomerular Filtration Rate 58 mL/min (>60); Est Glom Filt Rate - Afr Amer 70 mL/min (>60); Estimated Creatinine Clearance 55.13 ml/min; Glucose 221 mg/dL (74-106); Protein, Total 7.5 g/dL (6.4-8.2)
[2018-06-04 11:51] LABS: AST(SGOT) 28 U/L (15-37); Alanine Aminotransfer ALT/SGPT 23 U/L (16-61); Alkaline Phosphatase 84 U/L (45-117); Anion Gap 13 (5-15); Calcium,Total 8.6 mg/dL (8.5-10.1); Chloride 104 mmol/L (98-107); Globulin 3.7 g/dL (2.2-4.2); Potassium 4.9 mmol/L (3.5-5.1); Sodium Level 139 mmol/L (136-145)
[2018-06-04 11:52] VITALS: BP 142/81; PULSE 61; RESP 21; O2SAT 92
[2018-06-04 11:52] LABS: Bacteria 0 SEEN /hpf (None Seen); Mucous, Urine 0 SEEN /hpf (<or=2+); Red Blood Cells-Urine 0 SEEN /hpf (0-5); Squamous Epithelial Cells - UA 0 SEEN /hpf (0-5); White Blood Cells 0 SEEN /hpf (0-5)
[2018-06-04 11:56] LABS: Color, Urine Yellow (Yellow); Glucose, Dipstick Normal (Normal); Ketone-Dipstick Negative (Negative); Leukocyte Esterase-Dipstick Negative /ul (Negative); Nitrite-Dipstick Negative (Negative); Occult Blood-Urine Negative /ul (Negative); Protein-Dipstick 15 mg/dl (Negative); Specific Gravity, Urine 1.015 (1.002-1.030); Urine Bilirubin Dipstick Negative (Negative); Urine Clarity Clear (Clear); Urine Urobilinogen 4 mg/dl (Normal)
[2018-06-04 12:09] LABS: International Normalized Ratio 2.9; Prothrombin Time (Protime)PT. 30.8 SECONDS (11.7-14.9)
[2018-06-04 13:21] VITALS: BP 134/72; PULSE 62; RESP 22; O2SAT 93
[2018-06-04 14:02] VITALS: BP 140/77; PULSE 59; RESP 18; O2SAT 93
[2018-06-04 14:58] VITALS: BP 127/80; PULSE 60; RESP 16; O2SAT 93
[2018-06-04 15:42] VITALS: BP 136/85; PULSE 60; RESP 13; O2SAT 95
== END 2018-06-04 15:43 | disposition home or self-care (01) ==
PROVIDERS: Emergency Provider Emergency Medicine; Family Provider Family Medicine; PCP Family Medicine
DX: R53.1 Weakness (principal); R11.0 Nausea; E11.9 Type 2 diabetes mellitus without complications; E66.9 Obesity, unspecified; R06.02 Shortness of breath; Z79.01 Long term (current) use of anticoagulants; Z95.2 Presence of prosthetic heart valve
CPT/HCPCS: 36415; 71045; 80053; 81001; 84484; 85025; 85610; 93005; 99285; A4216

== ENCOUNTER 2018-06-07 11:30 | Outpatient (RCR) | payer MEDICARE, SELFPAY ==
[2018-05-04 13:56] VITALS: BMI 35.9
--- NOTE | 2018-06-05 09:41 | CR.ITP_ITS ---
Exercise - 30-day Assessment - Visit Date of Eval: 06/05/18 Session #:: 8 - Patient wa in emergency room c/o weakness and shortness of breath. - Stages of Change Stages of Change:: Relapse - Exercise Prescription Mode:: Treadmill, Airdyne, NuStep Frequency (x/week): 3 Duration:: 30-45 METs - Progression: 0.5-1 MET as tolerated: 2.0 Target Heart Rate:: 104-112 - Hypertension Resting Blood Pressure:: 122/60 Medication Changes:: No - Intervention Home Exercise/Activity Goal:: Moderate Exercise 30 min/day x 5 days/wk - Education Goals:: Warm-up, RPE GEREMIAS Scale, S/S, Safe Exercise, Self-Monitoring - Exercise Program Goals Exercise Program Goals: Aerobic Activity >30 min Nutrition - 30-Day Assessment - Program Goals Nutrition Program Goals: LDL <70. Total Cholesterol <200. HDL >45. Triglycerides <150. HgbA1C <7%. BMI <25 - Visit Date of Eval: 06/05/18 - Stages of Change Stages of Change:: Action - Lipids Has the patient seen the dietitian?: No - Diabetes Diabetes:: No Insulin: No Non-Insulin Dependent?: No - Weight Management Weight:: 258 lb - Intervention Referral to dietitian:: Yes Referral to Diabetic Clinic:: No Will attend diet classes:: Yes - Education Attended class for:: Healthy eating Tobacco - Initial Assessment - Program Goals Tobacco Program Goals: Complete smoking cessation. Attend education classes. Improve Knowledge Test score - Learning Barriers Learning Barriers: Ready to Learn Tobacco - 30-Day Assessment - Program Goals Tobacco Program Goals: Complete smoking cessation. Attend education classes. Improve Knowledge Test score - Stage of Change Stages of Change:: Action - Learning Barriers Learning Barriers: Participates in education - Family Support Do you have family support?: Yes - Tobacco Use Tobacco Use: Non-smoker Do you use smokeless tobacco?: No - Intervention Smoking Cessation Referral:: No Individual Education/Counseling:: No Education Schedule Given:: Yes - Education Attended class for:: Coronary artery disease, Risk factors, Sexuality, Medical compliance, Cardiac A&P, Angina signs & symptoms Psychosocial - Initial Assess - Target Goals Target Goals: Assess presence or absence of depression. Using a valid screening tool, maximizes coping skills. Positive support system - Psychosocial Test Tool Used:: HANDS Depression Questionnaire - Assistive Devices Fall Risk Assessed:: Yes Psychosocial - 30-Day Assess - Target Goals Target Goals: Assess presence or absence of depression. Using a valid screening tool, maximizes coping skills. Positive support system - Stages of Change Stages of Change:: Action - Psychosocial Test Tool Used:: HANDS Depression Questionnaire - Intervention PS - Interventions: Yes Attend Stress Management Classes, No Referral to Mental Health, No Referral to [facility] Case Management, No Referral to Physician, No Uses Stress Management Skills - Education Attended classes for:: Coping techniques, Signs & symptoms of depression, Stress management, Relaxation techniques - Patient/Program Goal Preventative Medication(s):: Aspirin, Clopidogrel, Beta bossman, Statin/lipid - Assistive Devices Assistive Devices:: None, Cane - if walking long distances for balance/stability Fall Risk Assessed:: Yes Patient Health Questionnaire 30-Day Re-eval Assessment 1. Little interest or pleasure in doing things: Not at all 2. Feeling down, depressed, or hopeless: Not at all 3. Trouble falling or staying asleep, or sleeping too much: Not at all 4. Feeling tired or having little energy: Not at all 5. Poor appetite or overeating: Not at all 6. Feeling bad about yourself -- or that you are a failure or have let yourself or your family down: Not at all 7. Trouble concentrating on things, such as reading the newspaper or watching television: Not at all 8. Moving or speaking so slowly that other people could have noticed. Or the opposite - being so fidgety or restless that you have been moving around a lot more than usual: Not at all 9. Thoughts that you would be better off , or of hurting yourself in some way: Not at all Total Score: 0 Self-Efficacy 30-Day Re-eval Assessment We would like to know how confident you are in doing certain activities. Please select your confidence level for:: Select your confidence level for the following using the scale 1-10 where 1 is not at all confident and 10 is totally confident. Your score is the average of all 6 responses. Fatigue: How confident are you that you can keep the fatigue caused by your disease from interfering with the things you want to do? Select Number: 9 Physical Discomfort or Pain: How confident are you that you can keep the physical discomfort or pain of your disease from interfering with the things you want to do? Select Number: 9 Emotional Distress: How confident are you that you can keep the emotional distress caused by your disease from interfering with the things you want to do? Select Number: 10 Other Symptoms or Health Problems: How confident are you that you can keep other symptoms or health problems from interfering with the things you want to do? Select Number: 8 Different Tasks and Activities: How confident are you that you can do the different tasks and activities needed to manage your health condition so as to reduce your need to see a doctor? Select Number: 9 Medication: How confident are you that you can do things other than just taking medication to reduce how much your illness affects your everyday life? Select Number: 9 Total Score:: 9
[2018-06-05 09:44] VITALS: BP 122/60
== END 2018-06-08 23:59 ==
LOC: CR 11:30
PROVIDERS: Family Provider Family Medicine; PCP Family Medicine
DX: Z95.2 Presence of prosthetic heart valve (principal)
CPT/HCPCS: 93798

== ENCOUNTER → 2018-06-12 09:47 | Outpatient (CLI) | payer MEDICARE, SELFPAY ==
[2018-06-12 09:01] VITALS: BMI 34.0
--- NOTE | 2018-06-12 09:48 | RAD_ITS ---
STUDY: X-RAY CHEST REASON FOR EXAM: Male, 73 years old. Cough with increasing shortness of breath TECHNIQUE: PA and lateral views of the chest. COMPARISON: 06/04/2018 and 01/09/2018 FINDINGS: There is hyperinflation of the lungs consistent with chronic obstructive lung disease (COPD). There is probable chronic interstitial thickening throughout the lung bases. No definite acute airspace disease is noted. There is moderate cardiac enlargement. Normal mediastinum and rangel. Normal visualized pulmonary arteries. There is atherosclerotic tortuosity of the aortic arch and descending thoracic aorta. There are diffuse degenerative changes of the visualized thoracic spine. There is degenerative osteoarthritis of the bilateral shoulders. There is no demonstrated abnormality of the visualized soft tissue structures of the upper abdomen. RAD/Chest PA and Lateral IMPRESSION: COPD with appearance of chronic interstitial thickening in the lung bases. No acute findings. Electronically Signed: Iban Swift DO at 9:53 EST Tel , Service support ,
[2018-06-12 11:03] LABS: International Normalized Ratio 1.7; Prothrombin Time (Protime)PT. 19.4 SECONDS (11.7-14.9)
[2018-06-12 11:23] LABS: BNP,B-Type NATRIURETIC PEPTIDE 779.8 pg/mL (0-100)
== END ==
PROVIDERS: Internal Medicine Cardiovascular Disease; Family Provider Family Medicine; PCP Family Medicine; Referring Provider Nurse Practitioner Family; Visit Provider Nurse Practitioner Family
DX: R06.09 Other forms of dyspnea (principal); I48.1 Persistent atrial fibrillation; Z79.01 Long term (current) use of anticoagulants
CPT/HCPCS: 36415; 71046; 83880; 85610

== ENCOUNTER 2018-07-07 11:30 | Outpatient (RCR) | payer MEDICARE, SELFPAY ==
[2018-06-09 00:21] VITALS: BP 122/60; BMI 35.9
--- NOTE | 2018-07-03 09:06 | PCM.CR.ITP ---
General Information - General Information Admitting Diagnosis: TAVR - Education/Goals Cardiac Rehabilitation Goals: 1. Maintain the individual as the primary focus of care. 2. To improve the patient's quality of life. 3. Identification of cardiac risk factors and provide cardiac risk factor management. 4. Enhance the psychosocial status of the patient. 5. Reconditioning enough to allow the patient to resume customary activities. 6. Control symptoms of cardiac disease Scale for measuring improvement of personal goals: Enter appropriate number in Comments. 2 = Unchanged. 3 = Slightly Better. 4 = Moderate Improvement. 5 = Met my Goal Exercise - 60-Day Assessment - Visit Date of Eval: 07/03/18 Session #:: 18 - Stages of Change Stages of Change:: Action - Physician Prescribed Exercise Modalities: Treadmill, Airdyne, NuStep Frequency (days/week): 3 Duration (Minutes):: 30-45 Intensity: 60-80% age predicted maximum heart rate reserve METs - Progression: 0.5-1.0 MET, RPE 11-14 WEEK: 2.1 Target Heart Rate:: 104-112 Max HR 87 - Hypertension Resting Blood Pressure:: 112/64 Peak Exercise Blood Pressure:: 122/78 - Intervention Home Exercise/Activity Goal:: Sitting Time <3 hrs/day - Education Goals:: Warm-up, RPE GEREMIAS Scale, S/S, Safe Exercise, Self-Monitoring - Exercise Program Goals Exercise Program Goals: Aerobic Activity >30 min, B/P <130/80 Nutrition - 60-Day Assessment - Program Goals Nutrition Program Goals: LDL <70. Total Cholesterol <200. HDL >45. Triglycerides <150. HgbA1C <7%. BMI <25 - Visit Date of Eval: 07/03/18 - Stages of Change Stages of Change:: Action - Diabetes Diabetes:: No - Weight Management Weight:: 113.398 kg - Intervention Referral to dietitian:: Yes Referral to Diabetic Clinic:: No Will attend diet classes:: Yes - Education Attended class for:: Signs & symptoms of hypoglycemia, Signs & symptoms of hyperglycemia, Relate diabetes to coronary artery disease, Healthy eating Tobacco - Initial Assessment - Program Goals Tobacco Program Goals: Complete smoking cessation. Attend education classes. Improve Knowledge Test score - Learning Barriers Learning Barriers: Ready to Learn Tobacco - 60-Day Assessment - Program Goals Tobacco Program Goals: Complete smoking cessation. Attend education classes. Improve Knowledge Test score - Learning Barriers Learning Barriers: Participates in education - Family Support Do you have family support?: Yes - Tobacco Use Tobacco Use: Non-smoker Do you use smokeless tobacco?: No - Intervention Smoking Cessation Referral:: No Individual Education/Counseling:: No Education Schedule Given:: Yes - Education Attended class for:: Tobacco triggers, Coronary artery disease, Risk factors, Sexuality, Medical compliance, Cardiac A&P, Angina signs & symptoms Psychosocial - Initial Assess - Target Goals Target Goals: Assess presence or absence of depression. Using a valid screening tool, maximizes coping skills. Positive support system - Psychosocial Test Tool Used:: HANDS Depression Questionnaire - Assistive Devices Fall Risk Assessed:: Yes Psychosocial - 60-Day Assess - Target Goals Target Goals: Assess presence or absence of depression. Using a valid screening tool, maximizes coping skills. Positive support system - Stages of Change Stages of Change:: Action - Psychosocial Test Tool Used:: HANDS Depression Questionnaire - Intervention PS - Interventions: Yes Attend Stress Management Classes, Yes Uses Stress Management Skills, No Referral to Mental Health, No Referral to [facility] Case Management, No Referral to Physician - Education Attended classes for:: Coping techniques, Signs & symptoms of depression, Stress management - Assistive Devices Assistive Devices:: None Fall Risk Assessed:: Yes Patient Health Questionnaire 60-Day Re-eval Assessment 1. Little interest or pleasure in doing things: Not at all 2. Feeling down, depressed, or hopeless: Not at all 3. Trouble falling or staying asleep, or sleeping too much: Not at all 4. Feeling tired or having little energy: Not at all 5. Poor appetite or overeating: Not at all 6. Feeling bad about yourself -- or that you are a failure or have let yourself or your family down: Not at all 7. Trouble concentrating on things, such as reading the newspaper or watching television: Not at all 8. Moving or speaking so slowly that other people could have noticed. Or the opposite - being so fidgety or restless that you have been moving around a lot more than usual: Not at all 9. Thoughts that you would be better off , or of hurting yourself in some way: Not at all How difficult have these problems made it for you to do your work, take care of things at home, or get along with other people?: Not difficult at all Total Score: 0 Self-Efficacy 60-Day Re-eval Assessment We would like to know how confident you are in doing certain activities. Please select your confidence level for:: Select your confidence level for the following using the scale 1-10 where 1 is not at all confident and 10 is totally confident. Your score is the average of all 6 responses. Fatigue: How confident are you that you can keep the fatigue caused by your disease from interfering with the things you want to do? Select Number: 9 Physical Discomfort or Pain: How confident are you that you can keep the physical discomfort or pain of your disease from interfering with the things you want to do? Select Number: 9 Emotional Distress: How confident are you that you can keep the emotional distress caused by your disease from interfering with the things you want to do? Select Number: 10 Other Symptoms or Health Problems: How confident are you that you can keep other symptoms or health problems from interfering with the things you want to do? Select Number: 8 Different Tasks and Activities: How confident are you that you can do the different tasks and activities needed to manage your health condition so as to reduce your need to see a doctor? Select Number: 9 Medication: How confident are you that you can do things other than just taking medication to reduce how much your illness affects your everyday life? Select Number: 9 Total Score:: 9
[2018-07-03 09:13] VITALS: BP 112/64; BP 122/78
== END 2018-07-09 23:59 ==
LOC: CR 11:30
PROVIDERS: Family Provider Family Medicine; PCP Family Medicine
DX: Z95.2 Presence of prosthetic heart valve (principal)
CPT/HCPCS: 93798

== ENCOUNTER 2018-07-11 00:18 | Emergency (ER) | payer MEDICARE, SELFPAY ==
[2018-07-10 14:44] VITALS: BMI 34.0
[2018-07-11 00:19] VITALS: BP 143/89; PULSE 67; RESP 18; TEMP 37.7; O2SAT 98; BMI 35.6
--- NOTE | 2018-07-11 00:59 | EKG12_ITS ---
Test Reason : SOB Blood Pressure : / mmHG Vent. Rate : 078 BPM Atrial Rate : 081 BPM P-R Int : 000 ms QRS Dur : 208 ms QT Int : 464 ms P-R-T Axes : 000 -77 094 degrees QTc Int : 528 ms Ventricular-paced rhythm Abnormal ECG Confirmed by KAYE MCBRIDE, ELVIRA ([id number]), features editor SARAH GUILLEN ([id number]) on 07/14/2018 11:36:50 AM Referred By: Samir Chong Confirmed By:ELVIRA RESTREPO MD
--- NOTE | 2018-07-11 01:03 | ED.DCSUM_ITS ---
History of Present Illness Chief Complaint: Cough Narrative: She stated he has had some progressive weakness over the last several weeks. He does not feel like it is anything in particular but just feels weak. He has had a chronic cough. He feels like he is having some wheezing. He does have an albuterol inhaler. He does have a history of COPD. The patient denies any chest pain. He does have a history of an ICD that was placed just before . He also has a heart valve that was fixed before as well. He is in cardiac rehab for these previous surgeries. He had been done in [facility]. Patient stated that he feels a little bit dehydrated. Came in for further evaluation. Stated he had a negative chest x-ray a few weeks ago. - Past Medical History (1) Dyspnea Status: Acute (2) Dyspnea on exertion Status: Acute (3) Edema Status: Acute (4) Shortness of breath Status: Acute (5) BMI 37.0-37.9, adult Status: Chronic (6) Benign essential HTN Status: Chronic (7) Bicuspid aortic valve Status: Chronic (8) Cardiac pacemaker in situ Status: Chronic Comment: S/P leadless Micra device by Dr. 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 Chong on 03/27/2018 with a 34mm Corevalve Evolute (bio-prosthesis); (15) Nonrheumatic mitral valve regurgitation Status: Chronic (16) Nonrheumatic tricuspid (valve) insufficiency Status: Chronic (17) DENISA (obstructive sleep apnea) Status: Chronic Comment: BiPAP 20/14 cm of water (18) Persistent atrial fibrillation Status: Chronic (19) Pulmonary hypertension, moderate to severe Status: Chronic Comment: PASP 57 mmHg (20) S/p TAVR (transcatheter aortic valve replacement), bioprosthetic Status: Chronic Comment: S/P TAVR at [facility] by Dr. Chong on 03/27/2018 with a 34mm Corevalve Evolute (bio-prosthesis); (21) Stage 2 moderate COPD by GOLD classification Status: Chronic Comment: FEV1 67% of predicted (22) Status post radiofrequency ablation for arrhythmia Status: Chronic (23) Systolic congestive heart failure Status: Chronic Past Medical History - Allergies and Home Meds Allergies/Adverse Reactions: Allergies prochlorperazine [From Compazine] Adverse Reaction (Severe, Verified 07/11/18 00:20) Other extrapyramidal symptoms, sedation was taking also pramipexole at the time Primary Care Physician: Fer Caruso MD [Primary Care Provider] - Prior records reviewed: Yes Surgical History: herniorrhaphy, tonsillectomy Lives: With Family Smoking Status: Never smoker Alcohol: None Drugs: None - Family History Paternal Family History: Family History (Last Reviewed 06/12/18 @ 09:08 by Randa Beasley) Father CAD (coronary artery disease) Hypertension Mother Hypertension Brother Hypertension Hyperlipemia Sister Hypertension Family History: Reports: Heart Disease - CAD; MD; HTN Sibling Family History: Family History (Last Reviewed 06/12/18 @ 09:08 by Randa Beasley) Father CAD (coronary artery disease) Hypertension Mother Hypertension Brother Hypertension Hyperlipemia Sister Hypertension Family History: Reports: Heart Disease - HTN Maternal Family History: Family History (Last Reviewed 06/12/18 @ 09:08 by Randa Beasley) Father CAD (coronary artery disease) Hypertension Mother Hypertension Brother Hypertension Hyperlipemia Sister Hypertension Family History: Reports: Heart Disease - HTN, No pertinent history Review of Systems General: Denies: Chills, Fever, Sweats Eyes: Denies: Visual changes - bilaterally, Diplopia ENT: Denies: Rhinorrhea, Sore throat Cardiovascular: Denies: Chest pain, Palpitations Respiratory: Reports: Cough. Denies: Dyspnea, Dyspnea on exertion Gastrointestinal: Denies: Abdominal pain, Nausea, Vomiting, Diarrhea, Melena, Hematochezia Genitourinary: Denies: Dysuria, Hematuria, Frequency Musculoskeletal: Denies: Back pain, Extremity Pain Skin: Denies: Rash, Wounds Neurological: Reports: Weakness. Denies: Headache, Numbness Physical Exam Vital Signs/Narrative: Vital Signs Temp Pulse Resp BP Pulse Ox 07/11/18 00:19 99.8 F H 67 18 143/89 H 98 General: Well nourished, Well developed, No Acute Distress Head: Normocephalic, Atraumatic Eyes: Perrl, EOMI ENT: Moist mucous membranes, No rhinorrhea Neck: Supple, Nontender Cardiovascular: Regular rate, Regular rhythm, No murmurs Respiratory: No distress, Chest nontender, Wheezing - Diffuse expiratory wheezes throughout all lung cook. Negative for: CTA bilaterally Abdomen: Soft, Nontender, Nondistended, Normal bowel sounds Back: Nontender, Normal Inspection Extremities: Nontender, No edema Skin: Normal color, No rash Neurological: Alert, Oriented x3, Cranial nerves II-XII grossly intact, Normal Strength, Normal Sensation Psychological: Normal affect, Normal Mood Diagnostic/Tx/Re-eval - Medical Decision Making Given breathing treatments. Lab work and chest x-ray and EKG obtained. Chest x-ray shows nothing acute. EKG shows a paced rhythm at a rate of 78. Unchanged from prior. Lab work shows a very slightly low platelet count. CBC and hemoglobin okay. Electrolytes show no significant abnormality. Troponins indeterminate. They have been running indeterminate however over the last several episodes. I do not think this is cardiac related. He felt better after breathing treatments. He had some wheezing that is only slight now. He does have albuterol at home. I do not think any steroids. I feel he can follow-up as an outpatient. ED Disposition - Plan for ED Patient: Diagnosis: Weakness, COPD (chronic obstructive pulmonary disease) Instructions: ED COPD Flare Referrals: Fer Caruso MD [Primary Care Provider] -
[2018-07-11] MEDS: Albuterol 2.5 MG/3 ML VIAL.NEB. INHALATION ×3 (01:09→01:27)
[2018-07-11] MEDS: Ipratropium/Albuterol Sulfate 3 ML AMPUL.NEB INHALATION (01:09)
[2018-07-11 01:10] VITALS: PULSE 80; RESP 21
[2018-07-11 01:15] VITALS: BP 144/85; PULSE 81; RESP 24; O2SAT 98
[2018-07-11 01:18] VITALS: PULSE 80; RESP 21
[2018-07-11 01:27] VITALS: PULSE 84; RESP 19
[2018-07-11 01:36] LABS: Absolute Lymphocyte Count 0.51 X10^3/ul (0.83-4.51); Absolute Neutrophil Count 5.2 X10^3/uL (2.0-7.7); Basophil# 0.02 X10^3/uL; Basophil% 0.3 % (0-1); Eosinophil# 0.01 X10^3/uL; Eosinophils% 0.2 % (0-5); Hemoglobin 14.6 g/dl (13.0-16.5); Lymphocyte # 0.51 X10^3/ul (4.0); Lymphocyte % 7.7 % (19-41); Mean Corpuscular Hgb 31.1 pg (27.0-32.0); Mean Corpuscular Volume 91.7 fL (80-94); Mean Platelet Vol. 11.8 fl (6.2-12.0); Monocyte# 0.92 X10^3/uL; Monocyte% 13.8 % (0-10); Neutrophil # 5.19 X10^3/uL (2.7-7.7); Platelet Count 149 K/mm3 (150-450); RBC Distribution Width CV 15.7 % (11.6-14.6); RBC Distribution Width SD 51.8 fl (35.1-43.9); Red Blood Count 4.69 M/mm3 (4.6-6.2); White Blood Count 6.7 K/mm3 (4.4-11.0)
[2018-07-11 01:37] LABS: Differential Indicated SCAN CRITERIA MET; POSITIVE COUNT NO; POSITIVE DIFFERENTIAL YES; POSITIVE MORPHOLOGY NO
--- NOTE | 2018-07-11 01:40 | RAD_ITS ---
STUDY: X-RAY CHEST REASON FOR EXAM: Male, 73 years old. Cough for one week. TECHNIQUE: Frontal and lateral views of the chest. COMPARISON: None. FINDINGS: The lungs are clear and expanded. There is no demonstrated pleural abnormality. Normal size heart. Normal mediastinum and rangel. Normal visualized pulmonary arteries. There is atherosclerotic tortuosity of the aortic arch and descending thoracic aorta. There are diffuse degenerative changes of the visualized thoracic spine. There is degenerative osteoarthritis of the bilateral shoulders. There is no demonstrated abnormality of the visualized soft tissue structures of the upper abdomen. RAD/Chest PA and Lateral IMPRESSION: Degenerative changes, as described above. No demonstrated acute cardiopulmonary process. Electronically Signed: Cassie Waters, at 3:36 EDT Tel , Service support ,
[2018-07-11 01:44] LABS: Anion Gap 10 (5-15); BUN 18 mg/dL (7-18); BUN/Creat Ratio 16.1 RATIO (10-20); Calcium,Total 8.8 mg/dL (8.5-10.1); Chloride 101 mmol/L (98-107); Creatinine, Serum 1.12 mg/dL (0.70-1.30); EST Glomerular Filtration Rate 68 mL/min (>60); Est Glom Filt Rate - Afr Amer 83 mL/min (>60); Glucose 90 mg/dL (74-106); Sodium Level 134 mmol/L (136-145)
[2018-07-11 04:00] VITALS: BP 134/68; PULSE 70; RESP 20; O2SAT 96
== END 2018-07-11 04:01 | disposition home or self-care (01) ==
PROVIDERS: Emergency Provider Emergency Medicine; Family Provider Family Medicine; PCP Family Medicine
DX: R53.1 Weakness (principal); J44.9 Chronic obstructive pulmonary disease, unspecified; I50.22 Chronic systolic (congestive) heart failure; I27.20 Pulmonary hypertension, unspecified; I48.1 Persistent atrial fibrillation; G47.33 Obstructive sleep apnea (adult) (pediatric); E78.5 Hyperlipidemia, unspecified; Z95.0 Presence of cardiac pacemaker; Q23.1 Congenital insufficiency of aortic valve; I10 Essential (primary) hypertension
CPT/HCPCS: 71046; 80048; 84484; 85025; 87804; 93005; 94640; 96360; 96361; 99285; J7040; A4216

== ENCOUNTER 2018-08-07 11:30 | Outpatient (RCR) | payer MEDICARE, SELFPAY ==
[2018-07-10 00:23] VITALS: BP 112/64; BP 122/78; BMI 36.3
--- NOTE | 2018-08-02 07:22 | PCM.CR.ITP ---
General Information - General Information Admitting Diagnosis: TAVR - Education/Goals Barriers to Learning: None Cardiac Rehabilitation Goals: 1. Maintain the individual as the primary focus of care. 2. To improve the patient's quality of life. 3. Identification of cardiac risk factors and provide cardiac risk factor management. 4. Enhance the psychosocial status of the patient. 5. Reconditioning enough to allow the patient to resume customary activities. 6. Control symptoms of cardiac disease Scale for measuring improvement of personal goals: Enter appropriate number in Comments. 2 = Unchanged. 3 = Slightly Better. 4 = Moderate Improvement. 5 = Met my Goal Exercise - 90-Day Assessment - Visit Date of Eval: 08/02/18 Session #:: 26 - Stages of Change Stages of Change:: Action - Physician Prescribed Exercise Modalities: Treadmill, Airdyne, NuStep Intensity: 60-80% age predicted maximum heart rate reserve METs - Progression: 0.5-1.0 MET, RPE 11-14 WEEK: 2.1 Target Heart Rate:: 104-112 Max HR 79 - Hypertension Resting Blood Pressure:: 120/64 Peak Exercise Blood Pressure:: 126/70 - Intervention Home Exercise/Activity Goal:: Sitting Time <3 hrs/day - Education Goals:: Warm-up, RPE GEREMIAS Scale, S/S, Safe Exercise, Self-Monitoring - Exercise Program Goals Exercise Program Goals: Aerobic Activity >30 min, B/P <130/80 Nutrition - 90-Day Assessment - Program Goals Nutrition Program Goals: LDL <70. Total Cholesterol <200. HDL >45. Triglycerides <150. HgbA1C <7%. BMI <25 - Visit Date of Eval: 08/02/18 - Stages of Change Stages of Change:: Action - Weight Management Weight:: 113.398 kg - Intervention Referral to dietitian:: Yes Referral to Diabetic Clinic:: No Will attend diet classes:: Yes - Education Attended class for:: Signs & symptoms of hypoglycemia, Signs & symptoms of hyperglycemia, Relate diabetes to coronary artery disease, Healthy eating Tobacco - Initial Assessment - Program Goals Tobacco Program Goals: Complete smoking cessation. Attend education classes. Improve Knowledge Test score - Learning Barriers Learning Barriers: Ready to Learn Tobacco - 90-Day Assessment - Program Goals Tobacco Program Goals: Complete smoking cessation. Attend education classes. Improve Knowledge Test score - Stage of Change Stages of Change:: Action - Learning Barriers Learning Barriers: Participates in education - Family Support Do you have family support?: Yes - Tobacco Use Tobacco Use: Non-smoker - Intervention Smoking Cessation Referral:: No Individual Education/Counseling:: No Education Schedule Given:: Yes - Education Attended class for:: Tobacco triggers, Coronary artery disease, Risk factors, Sexuality, Medical compliance, Cardiac A&P, Angina signs & symptoms Psychosocial - Initial Assess - Target Goals Target Goals: Assess presence or absence of depression. Using a valid screening tool, maximizes coping skills. Positive support system - Psychosocial Test Tool Used:: HANDS Depression Questionnaire - Assistive Devices Fall Risk Assessed:: Yes Psychosocial - 90-Day Assess - Target Goals Target Goals: Assess presence or absence of depression. Using a valid screening tool, maximizes coping skills. Positive support system - Stages of Change Stages of Change:: Action - Psychosocial Test Tool Used:: HANDS Depression Questionnaire - Intervention PS - Interventions: Yes Attend Stress Management Classes, Yes Uses Stress Management Skills, No Referral to Mental Health, No Referral to [facility] Case Management, No Referral to Physician - Education Attended classes for:: Coping techniques, Signs & symptoms of depression, Stress management, Relaxation techniques - Assistive Devices Assistive Devices:: None Fall Risk Assessed:: Yes Patient Health Questionnaire 60-Day Re-eval Assessment 1. Little interest or pleasure in doing things: Not at all 2. Feeling down, depressed, or hopeless: Not at all 3. Trouble falling or staying asleep, or sleeping too much: Not at all 4. Feeling tired or having little energy: Not at all 5. Poor appetite or overeating: Not at all 6. Feeling bad about yourself -- or that you are a failure or have let yourself or your family down: Not at all 7. Trouble concentrating on things, such as reading the newspaper or watching television: Not at all 8. Moving or speaking so slowly that other people could have noticed. Or the opposite - being so fidgety or restless that you have been moving around a lot more than usual: Not at all 9. Thoughts that you would be better off , or of hurting yourself in some way: Not at all How difficult have these problems made it for you to do your work, take care of things at home, or get along with other people?: Not difficult at all Total Score: 0 Self-Efficacy 60-Day Re-eval Assessment We would like to know how confident you are in doing certain activities. Please select your confidence level for:: Select your confidence level for the following using the scale 1-10 where 1 is not at all confident and 10 is totally confident. Your score is the average of all 6 responses. Fatigue: How confident are you that you can keep the fatigue caused by your disease from interfering with the things you want to do? Select Number: 9 Physical Discomfort or Pain: How confident are you that you can keep the physical discomfort or pain of your disease from interfering with the things you want to do? Select Number: 9 Emotional Distress: How confident are you that you can keep the emotional distress caused by your disease from interfering with the things you want to do? Select Number: 10 Other Symptoms or Health Problems: How confident are you that you can keep other symptoms or health problems from interfering with the things you want to do? Select Number: 8 Different Tasks and Activities: How confident are you that you can do the different tasks and activities needed to manage your health condition so as to reduce your need to see a doctor? Select Number: 9 Medication: How confident are you that you can do things other than just taking medication to reduce how much your illness affects your everyday life? Select Number: 9 Total Score:: 9
[2018-08-02 07:27] VITALS: BP 120/64; BP 126/70
== END 2018-08-08 23:59 ==
LOC: CR 11:30
PROVIDERS: Family Provider Family Medicine; PCP Family Medicine
DX: Z95.2 Presence of prosthetic heart valve (principal)
CPT/HCPCS: 93798

== ENCOUNTER → 2018-08-14 10:06 | Outpatient (CLI) | payer MEDICARE, SELFPAY ==
[2018-08-14 10:05] VITALS: BMI 35.6
== END ==
PROVIDERS: Family Provider Family Medicine; PCP Family Medicine; Visit Provider Nurse Practitioner Acute Care
DX: R63.4 Abnormal weight loss (principal)

== ENCOUNTER → 2018-08-16 22:56 | Outpatient (CLI) | payer MEDICARE, SELFPAY ==
[2018-08-14 10:05] VITALS: BMI 35.6
== END ==
PROVIDERS: Family Provider Family Medicine; PCP Family Medicine; Referring Provider Nurse Practitioner Acute Care; Visit Provider Nurse Practitioner Acute Care
DX: G47.33 Obstructive sleep apnea (adult) (pediatric) (principal); G47.61 Periodic limb movement disorder
CPT/HCPCS: 93798; 95811

== ENCOUNTER 2018-08-28 11:30 | Outpatient (RCR) | payer MEDICARE, SELFPAY ==
[2018-08-09 00:39] VITALS: BP 120/64; BP 126/70; BMI 34.0
== END 2018-09-08 23:59 ==
LOC: CR 11:30
PROVIDERS: Family Provider Family Medicine; PCP Family Medicine
DX: I35.0 Nonrheumatic aortic (valve) stenosis (principal); Z95.2 Presence of prosthetic heart valve
CPT/HCPCS: 93798

== ENCOUNTER → 2018-09-28 10:35 | Outpatient (CLI) | payer MEDICARE, SELFPAY ==
[2018-04-25 12:37] VITALS: BMI 35.8
[2018-08-14 10:05] VITALS: BMI 35.6
--- NOTE | 2018-09-29 10:53 | PFT ---
INTRODUCTION: The patient is a 73-year-old male that presents for pulmonary function studies secondary to a diagnosis of COPD. Respiratory therapy reports good patient effort. Bronchodilators were used during testing. INTERPRETATION: Forced expiration spirometry demonstrates the presence of a moderate large airways obstructive ventilatory defect. There was a significant response to aerosolized bronchodilators, based upon change noted in FEV1. Spirograms are of good quality and do not plateau indicating slow emptying of the lungs. Body plethysmography was performed and reveals lung volumes to be within normal limits. Diffusing capacity by single breath CO is preserved at 76% of predicted. IMPRESSION: Partially reversible moderate large airways obstructive ventilatory defect.
== END ==
PROVIDERS: Family Provider Family Medicine; PCP Family Medicine; Referring Provider Internal Medicine Critical Care Medicine; Visit Provider Internal Medicine Critical Care Medicine
DX: J44.9 Chronic obstructive pulmonary disease, unspecified (principal); I27.20 Pulmonary hypertension, unspecified
CPT/HCPCS: 94060; 94726; 94729

== ENCOUNTER → 2018-10-03 10:57 | Outpatient (CLI) | payer MEDICARE, SELFPAY ==
[2018-04-25 12:37] VITALS: BMI 35.8
[2018-08-14 10:05] VITALS: BMI 35.6
[2018-10-03 11:34] VITALS: PULSE 101; PULSE 104; PULSE 106; PULSE 86; PULSE 93; PULSE 94; PULSE 98; PULSE 99; O2SAT 91; O2SAT 92; O2SAT 96; O2SAT 98
--- NOTE | 2018-10-03 15:23 | PCM.PSN.6M ---
PSN 6 Minute Walk Test - 6 Minute Walk Test 6 Minute Walk Test: 6 Minute Walk Test PSN:6-Minute Walk Test Start: 10/03/18 11:33 Freq: Status: Active Protocol: [id number].6MINW Document 10/03/18 11:34 SMB (Rec: 10/03/18 11:35 SMB [id number]) 6 Minute Walk Test Date Performed 10/03/18 Time Performed 11:04 Height 5 ft 11 in Weight: 108.862 kg Weight in Pounds 240.[address]: Walter Jimenez Assistive device used: None Pre-test Oxygen Delivery Method Room Air Pulse Ox (%) 98 Pulse Rate (60-100 beats/min) 86 Dyspnea Juliette Scale (0-10) 0 Exertion Juliette Scale (6-20) 11 1st minute Oxygen Delivery Method Room Air Pulse Ox (%) 98 Pulse Rate (60-100 beats/min) 93 2nd minute Oxygen Delivery Method Room Air Pulse Ox (%) 96 Pulse Rate (60-100 beats/min) 98 3rd minute Oxygen Delivery Method Room Air Pulse Ox (%) 92 Pulse Rate (60-100 beats/min) 99 4th minute Oxygen Delivery Method Room Air Pulse Ox (%) 92 Pulse Rate (60-100 beats/min) 101 H 5th minute Oxygen Delivery Method Room Air Pulse Ox (%) 91 Pulse Rate (60-100 beats/min) 104 H 6th minute Oxygen Delivery Method Room Air Pulse Ox (%) 92 Pulse Rate (60-100 beats/min) 106 H Post-test Oxygen Delivery Method Room Air Pulse Ox (%) 98 Pulse Rate (60-100 beats/min) 94 Dyspnea Juliette Scale (0-10) 0 Exertion Juliette Scale (6-20) 12 Full Laps Walked 16 Partial Lap, Number of Tiles Walked 7 Total Distance Walked (ft) 951 - Interpretation Interpretation: The patient was able to ambulate 951 feet over the course of 6 minutes on room air with no assistive devices or breaks. The patient did have significant desaturation from a baseline of 98% to as low as 91% with ambulation. Some reflexive tachycardia was appreciated. These findings are consistent with a respiratory limitation exercise tolerance. - Recommendations Recommendations: No supplemental oxygen is indicated at this time. However, patient will need to be followed closely given level of desaturation.
== END ==
PROVIDERS: Family Provider Family Medicine; PCP Family Medicine; Referring Provider Internal Medicine Critical Care Medicine; Visit Provider Internal Medicine Critical Care Medicine
DX: J44.9 Chronic obstructive pulmonary disease, unspecified (principal); I27.20 Pulmonary hypertension, unspecified
CPT/HCPCS: 94618

== ENCOUNTER → 2018-10-31 13:51 | Outpatient (CLI) | payer MEDICARE, SELFPAY ==
[2018-10-16 11:18] VITALS: BMI 35.6
== END ==
PROVIDERS: Family Provider Family Medicine; PCP Family Medicine; Referring Provider Nurse Practitioner Acute Care; Visit Provider Nurse Practitioner Acute Care
DX: G47.33 Obstructive sleep apnea (adult) (pediatric) (principal)

== ENCOUNTER 2019-03-06 11:02 | Inpatient (IN) | payer MEDICARE, SELFPAY ==
[2019-01-31 06:19] VITALS: BMI 34.4
[2019-03-06] VITALS (8 sets, daily range): BP systolic 124–179; BP diastolic 71–102; PULSE 60–82; RESP 15–20; TEMP 36.8–36.9; O2SAT 91–98; BMI 34.8; BMI 34.9; BMI 32.6
--- NOTE | 2019-03-06 11:36 | CT_ITS ---
STUDY: CT BRAIN WITHOUT CONTRAST REASON FOR EXAM: Male, 73 years old. RADIATION DOSAGE (If Supplied By Facility): CTDIvol = ( 44.99 ) mGy, DLP = ( 846.73 ) mGycm TECHNIQUE: Transaxial CT imaging of the brain was performed without administration of intravenous contrast material. Individualized dose optimization techniques were used for this CT. COMPARISON: No relevant priors. FINDINGS: There is prominence of the ventricular system and cerebral sulci including the sylvian fissures. There are multiple periventricular lucencies represent deep white matter ischemic changes. There is no evidence of epidural, subdural or intraparenchymal hemorrhage. There are atherosclerotic changes are seen involving the vertebral and basilar arteries including the internal carotid. The orbits and sinuses are clear. The skull base and cranial vault are intact. CT/Brain/Head without Contrast IMPRESSION: Deep white matter ischemic changes manifested by periventricular lucencies. Age-related changes Electronically Signed: Sander Michelle, at 12:24 EST Tel , Service support ,
--- NOTE | 2019-03-06 11:38 | RAD_ITS ---
STUDY: X-RAY CHEST REASON FOR EXAM: Male, 73 years old. TECHNIQUE: 1 view COMPARISON: July 11, 2018 FINDINGS: The heart is enlarged with tortuosity and calcification of the thoracic aorta. The lung cook and costophrenic angles are clear. The trachea is in the midline. There is no evidence of pleural effusion or pneumothorax. The visualized bony structures are intact. Partially seen hardware in the proximal humerus on the left . RAD/Chest 1 View (Portable) IMPRESSION: Cardiomegaly the study is otherwise negative. Electronically Signed: Sander Michelle, at 12:29 EST Tel , Service support ,
--- NOTE | 2019-03-06 11:40 | RAD_ITS ---
STUDY: X-RAY - RIGHT SHOULDER REASON FOR EXAM: Male, 73 years old. TECHNIQUE : 2 view(s) of the shoulder. COMPARISON: None. FINDINGS: Normal glenohumeral articulation. Normal acromioclavicular joint. Normal acromion. Normal humeral head and visualized proximal humerus. The soft tissue structures are unremarkable. Normal visualized pulmonary apex. RAD/Shoulder min 2 Views IMPRESSION: Normal x-ray examination of the shoulder. Electronically Signed: Sander Michelle, at 12:29 EST Tel , Service support ,
[2019-03-06 11:55] LABS: Absolute Lymphocyte Count 0.85 X10^3/uL (0.83-4.51); Basophil# 0.04 X10^3/uL; Basophil% 0.4 % (0-1); Eosinophil# 0.01 X10^3/uL; Eosinophils% 0.1 % (0-5); Hematocrit 49.3 % (40-54); Hemoglobin 16.4 g/dL (13.0-16.5); Lymphocyte # 0.85 X10^3/ul (4.0); Lymphocyte % 8.6 % (19-41); Mean Corp Hgb Conc 33.3 g/dL (32-36); Mean Corpuscular Hgb 32.9 pg (27.0-32.0); Mean Corpuscular Volume 98.8 fL (80-94); Mean Platelet Vol. 11.4 fl (6.2-12.0); Monocyte# 0.89 X10^3/uL; Monocyte% 9.1 % (0-10); NRBC Flagged by Analyzer 0 % (0-5); Neutrophil # 7.99 X10^3/uL (2.7-7.7); Neutrophil % 81.3 % (47-70); Platelet Count 162 K/mm3 (150-450); RBC Distribution Width CV 14.3 % (11.6-14.6); RBC Distribution Width SD 51.2 fl (35.1-43.9); Red Blood Count 4.99 M/mm3 (4.6-6.2); White Blood Count 9.8 K/mm3 (4.4-11.0)
[2019-03-06 11:59] LABS: Anion Gap 7 (5-15); BUN 23 mg/dL (7-18); Calcium,Total 9.8 mg/dL (8.5-10.1); Chloride 104 mmol/L (98-107); Creatinine, Serum 1.15 mg/dL (0.70-1.30); EST Glomerular Filtration Rate 66 mL/min (>60); Est Glom Filt Rate - Afr Amer 80 mL/min (>60); Estimated Creatinine Clearance 61.84 ml/min; Glucose 118 mg/dL (74-106); Potassium 4.3 mmol/L (3.5-5.1); Sodium Level 137 mmol/L (136-145)
[2019-03-06 12:01] LABS: International Normalized Ratio 2.6; Partial Thromboplast Time 40.4 Seconds (24.1-36.2); Prothrombin Time (Protime)PT. 27.8 SECONDS (11.7-14.9)
[2019-03-06 12:27] LABS: CPK Total, Creatine Kinase 1179 U/L (39-308)
[2019-03-06] MEDS: 0.9% Normal Saline 1,000 ML 1000 ML IV (13:18)
[2019-03-06 13:48] LABS: Red Blood Cells-Urine 0 SEEN /hpf (0-5)
[2019-03-06 13:50] LABS: Color, Urine Yellow (Yellow); Glucose, Dipstick Normal (Normal); Ketone-Dipstick 50 mg/dl (Negative); Leukocyte Esterase-Dipstick 25 /ul (Negative); Nitrite-Dipstick Negative (Negative); Occult Blood-Urine Negative /ul (Negative); Protein-Dipstick 30 mg/dl (Negative); Specific Gravity, Urine 1.025 (1.002-1.030); Urine Clarity Clear (Clear); Urine Urobilinogen 8 mg/dl (Normal)
[2019-03-06 13:51] LABS: Urine Bilirubin Dipstick 1 mg/dL (Negative)
[2019-03-06 13:59] LABS: Bacteria 1+ /hpf (None Seen); Hyaline Cast 0-5 SEEN /lpf (0-5); Mucous, Urine 1+ /hpf (<or=2+); Squamous Epithelial Cells - UA 0-5 SEEN /hpf (0-5); White Blood Cells 0-5 SEEN /hpf (0-5)
--- NOTE | 2019-03-06 14:58 | ED.VISSUMM ---
- ER Visit Summary Date of Service: 03/06/19 Chief Complaint: Fall History of Present Illness: The patient is a 73 M who presents after a fall last night. Patient fell out of bed. Patient's son found him laying on the floor this morning. Patient has a history of restless leg syndrome and his son states that is what causes him to fall of the bed. Patient fell out of bed 3 nights ago and again last night. Patient states he has pain in his right shoulder, right elbow, and right hip. Patient is on anticoagulant for atrial fibrillation. Patient admits to some leg weakness today and difficulty ambulating. Physical Examination: Vital signs are stable. Patient is afebrile. Patient is in no acute distress. Oral mucosa is pink and somewhat dry. Neck is supple. Trachea is midline. There is no JVD. Heart was regular rate and rhythm. Lungs are clear and equal bilaterally. Abdomen is soft. Bowel sounds are normal. There is no tenderness. Cranial nerves II through XII are intact. Strength is 5/5 bilateral knee upper and lower extremities. There are no sensory deficits noted. Test Results: CT scan of the brain was obtained. There are periventricular white matter ischemic changes but no acute intracranial bleed or infarct. Portable chest was obtained. There is no acute process. X-rays of the right shoulder were obtained. There is no acute fracture. CBC was normal. Basic metabolic profile was essentially within normal limits. INR is 2.6. PTT was 40.4. Urinalysis does not show any evidence of urinary tract infection. Total CK was 1179. Emergency Department Course and Treatment: Patient was given IV fluids here. Case was discussed with the hospitalist. Patient will be admitted to the hospital. Patient family understood and was agreeable with the plan. All questions were answered Disposition: Admit to hospital Impression: 1. Rhabdomyolysis 2. Frequent falls This note was generated with [employer] dictation software. It may contain incorrect words, spelling, and punctuation that were not noted in review of the chart prior to signing ED Disposition - Plan for ED Patient: Disposition: Acute Care Hospital [facility] Diagnosis: Rhabdomyolysis, Frequent falls Referrals: Fer Caruso MD [Primary Care Provider] -
--- NOTE | 2019-03-06 15:20 | HP.PCM_ITS ---
Problem List (1) Rhabdomyolysis Status: Acute (2) Frequent falls Status: Acute (3) Nonrheumatic mitral valve regurgitation Status: Chronic (4) Chronic diastolic (congestive) heart failure Status: Chronic (5) Complete heart block Status: Chronic (6) History of permanent cardiac pacemaker placement Status: Chronic Comment: Medtronic Micra 03/29/2018 (7) H/O aortic valve replacement Status: Chronic Comment: TAVR w/ 34 mm Corevalve Evolute 03/27/2018 (8) Asthma-chronic obstructive pulmonary disease overlap syndrome Status: Chronic (9) detention current use of anticoagulant Status: Chronic (10) DENISA (obstructive sleep apnea) Status: Chronic Comment: BiPAP 20/14 cm of water (11) Persistent atrial fibrillation Status: Chronic (12) Nonrheumatic tricuspid (valve) insufficiency Status: Chronic (13) Nonrheumatic aortic (valve) stenosis Status: Chronic Comment: TAVR with a 34mm Corevalve Evolute (bio-prosthesis) (14) Bicuspid aortic valve Status: Resolved (15) HLD (hyperlipidemia) Status: Chronic Qualifiers: History of Present Illness Date of Admission: 03/06/19 Chief Complaint: falls The patient is a 73 year old M's had several falls over the past few days. First fall was on Tuesday but afterwards, patient was doing well. Then yesterday shortly before midnight, patient fell again. The patient's son, who lives with the patient, called EMS but the patient sent EMS they were away when they arrived. Today, the son came back to find the patient lying on the floor. Patient has from what the son describes very severe restless leg syndrome where patient can literally walk himself out of the bed by just shaking his legs and he feels that that may have been what happened. Patient does not have any specific recollection of how he want up on the floor. Patient was sent to the emergency room after going to the primary care provider's office who directed him to the emergency room. Patient was found to have elevated CPK of 1179. Patient did receive IV fluids. The hospital service was consulted to further treat and evaluate the patient for rhabdomyolysis and debility. Prior to this, patient is very independent, is able to engage in exercise and the son states that the patient can go on a treadmill for extended periods of time and the patient drives himself and is pretty independent overall this was changed. 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) DENISA (obstructive sleep apnea) (Chronic) BiPAP 20/14 cm of water Persistent atrial fibrillation (Chronic) Nonrheumatic tricuspid (valve) insufficiency (Chronic) Nonrheumatic aortic (valve) stenosis (Chronic) TAVR with a 34mm Corevalve Evolute (bio-prosthesis) HLD (hyperlipidemia) (Chronic) Medical History: Medical History (Last Reviewed 03/06/19 @ 15:22 by Eleno Ravi DO) Nonrheumatic mitral valve regurgitation (Chronic) I34.0 Chronic diastolic (congestive) heart failure (Chronic) I50.32 Complete heart block (Chronic) I44.2 DENISA (obstructive sleep apnea) (Chronic) G47.33 BiPAP 20/14 cm of water Persistent atrial fibrillation (Chronic) I48.1 Nonrheumatic tricuspid (valve) insufficiency (Chronic) I36.1 Nonrheumatic aortic (valve) stenosis (Chronic) I35.0 TAVR with a 34mm Corevalve Evolute (bio-prosthesis) Bicuspid aortic valve (Resolved) Q23.1 HLD (hyperlipidemia) (Chronic) E78.5 BMI 37.0-37.9, adult Z68.37 Patent foramen ovale Q21.1 Stage 2 moderate COPD by GOLD classification J44.9 FEV1 71% of predicted Type 2 diabetes mellitus E11.9 Non-ischemic cardiomyopathy I42.8 Allergies prochlorperazine [From Compazine] Adverse Reaction (Severe, Verified 03/06/19 11:07) Other extrapyramidal symptoms, sedation was taking also pramipexole at the time Home Medications: Ambulatory Orders Medication Instructions Recorded Aspirin [Aspirin, Baby] 81 mg PO DAILY@0800 09/24/14 gabapentin 600 mg tablet 600 mg PO BID #60 tab 05/09/17 metformin 500 mg tablet 1,000 mg PO BID tab 06/07/17 Glipizide [Glipizide ER] 10 mg PO DAILY 03/31/18 albuterol sulfate HFA 90 2 puff INHALATION Q4H PRN PRN #18 g 08/11/18 mcg/actuation aerosol inhaler furosemide 40 mg tablet 40 mg PO BID #180 tab 10/23/18 rosuvastatin 10 mg tablet 10 mg PO QHS #90 tab 12/19/18 tiotropium bromide 18 mcg capsule 1 cap INHALATION DAILY #30 inh 01/05/19 with inhalation device potassium chloride ER 20 mEq 20 meq PO BID #180 tab 01/22/19 tablet,extended release Budesonide/Formoterol 160/4.5 2 puff INHALATION QHS 03/06/19 [Symbicort] Metoprolol Tartrate [Lopressor 75 mg PO BID 03/06/19 (beta bossman)] Spironolactone 50 mg PO DAILY 03/06/19 Warfarin [Coumadin (PBKC)] 4 mg PO DAILY 03/06/19 Surgical History: Surgical History (Last Reviewed 03/06/19 @ 15:22 by Eleno Ravi DO) History of permanent cardiac pacemaker placement (Chronic) Onset Date: 03/29/18 Z95.0 Medtronic Micra 03/29/2018 H/O aortic valve replacement (Resolved) Onset Date: 03/27/18 Z95.2 TAVR w/ 34 mm Corevalve Evolute 03/27/2018 Status post radiofrequency ablation for arrhythmia Onset Date: 06/08/12 Z98.890, Z86.79 RFA 06/08/2012 History of hernia repair Z98.890, Z87.19 History of tonsillectomy Z98.890, Z90.89 Surgical History: herniorrhaphy, tonsillectomy Smoking Status: Former smoker Tobacco Use: Cigars - *Family History Paternal Family History: Family History (Last Updated 03/06/19 @ 15:23 by Eleno Ravi DO) Father CAD (coronary artery disease) Hypertension Restless leg syndrome Mother Hypertension Brother Hyperlipemia Hypertension Sister Hypertension Restless leg syndrome History Items: Heart Disease - CAD; VA; HTN Sibling Family History: Family History (Last Updated 03/06/19 @ 15:23 by Eleno Ravi DO) Father CAD (coronary artery disease) Hypertension Restless leg syndrome Mother Hypertension Brother Hyperlipemia Hypertension Sister Hypertension Restless leg syndrome History Items: Heart Disease - HTN Maternal Family History: Family History (Last Updated 03/06/19 @ 15:23 by Eleno Ravi DO) Father CAD (coronary artery disease) Hypertension Restless leg syndrome Mother Hypertension Brother Hyperlipemia Hypertension Sister Hypertension Restless leg syndrome History Items: Heart Disease - HTN, No pertinent history Review of Systems Constitutional: Denies: Anorexia, Chills, Fever Eyes: Denies: Blurred vision, Double vision HEENT: Denies: Head Aches, Sinus Congestion, Sinus Drainage Cardiovascular: Denies: Chest Pain, Palpitations Respiratory: Denies: Cough, Shortness of breath at rest, Sputum production Gastrointestinal: Reports: Nausea. Denies: Abdominal Pain, Vomiting Genitourinary: Denies: Dysuria Musculoskeletal: Reports: Arm Pain - right shoulder pain post fall Skin: Denies: Dryness, Jaundice Neurological: Reports: Balance problems. Denies: Blurred vision, Double vision, Change in Speech Psychiatric: Denies: Depression Endocrine: Denies: Change in Body Habitus, Heat/ Cold Intolerance Hematologic/ Lymphatic: Reports: Easy Bruising. Denies: Easy Bleeding, Hx of blood clot Comment: All review of systems are otherwise negative except for as mentioned above in the review of systems and HPI. VTE Information - Inpt Only VTE Present on Admission: No VTE Mechan Device Prophylaxis: None VTE Pharm Prophylaxis ordered?: No Patient Problems: Active and Suspected Problems (Last Reviewed 01/31/19 @ 10:23 by Mariah richards) Rhabdomyolysis (Acute) Frequent falls (Acute) - Physical Exam Vitals/I&O's: Vital Signs Temp Pulse Resp BP Pulse Ox 36.8 C 71 17 179/90 H 93 03/06/19 11:03 03/06/19 14:40 03/06/19 14:40 03/06/19 14:40 03/06/19 14:40 Oxygen Delivery Method Room Air Weight: 113.398 kg Body Mass Index (BMI) 34.8 Finger Stick Blood Glucose 159 Intake and Output for Last 24 Hours 03/04/19 03/05/19 03/06/19 23:59 23:59 23:59 Intake Total 1500 / 1500 Balance 1500 / 1500 General: Alert, Cooperative, No apparent distress, - - Hard of hearing HEENT: Atraumatic, Normocephalic Oral: No Gingival or Mucosal Lesions/ Ulcerations, Dry Mucosa Neck: No Nodes, Trachea Midline Lungs: Clear to auscultation, Normal air movement, No rhonchi, No wheeze, No rales Cardiovascular: Regular rate, Regular Rhythm, Normal S1, Normal S2, No murmurs Abdomen: Bowel Sounds Present, Soft, Non Tender, Non-Distended, No Hepato- splenomegaly Extremities: No edema, No Calf Tenderness Skin: No rashes, No breakdown Musculoskeletal: No Tenderness to Palpation of Joints or Extremities, No Muscle Wasting Neurological: Cranial nerves II-XII grossly intact, Motor Exam 5/5 strength throughout Psych/Mental Status: Normal Affect, Appropriate Laboratory Results 03/06/19 11:27: WBC 9.8, RBC 4.99, Hgb 16.4, Hct 49.3, MCV 98.8 H, MCH 32.9 H, MCHC 33.3, RDW Std Deviation 51.2 H, RDW Coeff of [place] 14.3, Plt Count 162, MPV 11.4, Immature Gran % (Auto) 0.500, Neut % (Auto) 81.3 H, Lymph % (Auto) 8.6 L, [place] % (Auto) 9.1, Eos % (Auto) 0.1, Baso % (Auto) 0.4, Absolute Neuts (auto) 8.0 H, Absolute Lymphs (auto) 0.85, Nucleated RBC % 0 03/06/19 11:27: PT 27.8 H, INR 2.6, APTT 40.4 H 03/06/19 11:27: Sodium 137, Potassium 4.3, Chloride 104, Carbon Dioxide 26.0, Anion Gap 7, BUN 23 H, Creatinine 1.15, Estim Creat Clear Calc 61.84, Est GFR (MDRD) Af Amer 80, Est GFR (MDRD) Non-Af 66, BUN/Creatinine Ratio 20.0, Glucose 118 H, Calcium 9.8 03/06/19 11:27: Total Creatine Kinase 1179 H 03/06/19 13:40: Urine Color Yellow, Urine Clarity Clear, Urine pH 5.0, Ur Specific [place] 1.025, Urine Protein 30 H, Urine Glucose (UA) Normal, Urine Ketones 50 H, Urine Occult Blood Negative, Urine Nitrite Negative, Urine Bilirubin 1 H, Urine Urobilinogen 8 H, Ur Leukocyte Esterase 25 H, Urine RBC 0 SEEN, Urine WBC 0-5 SEEN, Ur Squamous Epith Cells 0-5 SEEN, Urine Bacteria 1+, Hyaline Casts 0-5 SEEN, Urine Mucus 1+ Clinical Impression(s) from Imaging Studies Brain CT 03/06/19 11:36 IMPRESSION: Deep white matter ischemic changes manifested by periventricular lucencies. Age-related changes Electronically Signed: Sander Michelle, at 12:24 EST Tel , Service support , Chest X-Ray 03/06/19 11:38 IMPRESSION: Cardiomegaly the study is otherwise negative. Electronically Signed: Sander Michelle, at 12:29 EST Tel , Service support , Shoulder X-Ray 03/06/19 11:40 IMPRESSION: Normal x-ray examination of the shoulder. Electronically Signed: Sander Michelle, at 12:29 EST Tel , Service support , Assessment/Plan All Active Problems (Last Reviewed 01/31/19 @ 10:23 by Mariah Mlies) Rhabdomyolysis (Acute) Frequent falls (Acute) Bicuspid aortic valve (Resolved) Dyspnea on exertion (Resolved) 1. Acute rhabdomyolysis * Secondary to fall and being on the ground for several hours, unclear how long patient was actually down * Not severe but the patient will be receiving IV fluids and will check CPK in the morning 2. Dehydration * Clinical * We will continue to give the patient IV fluids as well as hold off on his d iuretics * No evidence of acute kidney injury 3. Debility * Unclear why the dramatic change but patient is dehydrated which is certainly adding to its no clear evidence of any infection at this time * Physical and occupational therapy evaluate and treat to see if patient requires any kind of skilled services. 4. Atrial fibrillation * Patient is paced * Continue with warfarin as well as Toprol as well 5. Heart failure with reduced ejection fraction * Chronic and compensated * EF 45% from echocardiogram on April 01, 2018 * Diuretics being held given the dehydration. Since we will be holding the Lasix, will additionally hold potassium takes along with that. 6. Diabetes mellitus type 2 * Continue with glipizide as well as metformin. Continue with a sliding scale insulin. 7. VTE prophylaxis: Low risk as patient is already properly anticoagulated with warfarin 8. Advanced care planning: Spent an additional 15 minutes discussing with the patient and his son at bedside about advanced care planning. Addressed directly CPR and what that entails with. And stated that no expected decision right now but clarifying that this is a conversation that she be held under more optimal circumstances so that the patient's wishes are fully addressed in the future. Code Visit Inpatient E&M: 93151 Init Hosp L3 Procedures: 69502 Advncd Care Plan 30 Min
[2019-03-06] MEDS: 0.9% Normal Saline 1,000 ML 125 ML IV (16:26)
[2019-03-06] MEDS: 0.9% Saline Lock 10 ML Syringe IV (16:26)
[2019-03-06 16:41] LABS: Bedside Glucose 96 mg/dL (70-110)
[2019-03-06] MEDS: metFORMIN HCl 500 MG Tablet 1000 MG PO (17:31)
[2019-03-06] MEDS: Ipratropium/Albuterol Sulfate 3 ML AMPUL.NEB INHALATION (19:16)
[2019-03-06] MEDS: Budesonide Respules 0.5 MG/2 ML AMPUL.NEB. INHALATION (19:46)
--- NOTE | 2019-03-06 21:00 | NURSING ---
Spoke with patient and pt's son Adeel (pt's POA) OK to give information to Camilo.
[2019-03-06] MEDS: Glucerna Shake 120 ML LIQUID PO (21:08)
[2019-03-06] MEDS: Gabapentin 600 MG Tablet PO (21:09)
[2019-03-06] MEDS: Atorvastatin Calcium 20 MG Tablet PO (21:09)
[2019-03-06] MEDS: Metoprolol Tartrate 50 MG Tablet 75 MG PO (21:09)
[2019-03-06 21:26] LABS: Bedside Glucose 111 mg/dL (70-110)
[2019-03-07] VITALS (17 sets, daily range): BP systolic 110–141; BP diastolic 58–82; PULSE 59–88; RESP 16–20; TEMP 35.7–36.7; O2SAT 93–96
[2019-03-07] MEDS: 0.9% Normal Saline 1,000 ML 125 ML IV (00:22)
--- NOTE | 2019-03-07 04:15 | CPS ---
Pt.'s SpO2 is 92% on Room Air
--- NOTE | 2019-03-07 06:03 | PN_ITS ---
Patient Problems: Active and Suspected Problems (Last Reviewed 03/06/19 @ 15:22 by Eleno Ravi DO) Rhabdomyolysis (Acute) Frequent falls (Acute) Reason for Visit: Follow-up for recurrent falls Subjective: Patient was seen and examined. He admits to feeling much better. He denies any dizziness or palpitations or chest pain. His vitals are stable. Urine output is better Vitals/I&O's: Vital Signs Temp Pulse Resp BP Pulse Ox 98.0 F 59 L 18 141/70 H 96 03/07/19 04:37 03/07/19 04:37 03/07/19 04:37 03/07/19 04:37 03/07/19 04:37 Oxygen Delivery Method Room Air Weight: 105.778 kg Body Mass Index (BMI) 32.6 Finger Stick Blood Glucose 159 Intake and Output for Last 24 Hours 03/05/19 03/06/19 03/07/19 23:59 23:59 23:59 Intake Total 1700 / 2050 1341.67 / 1341.67 Output Total 100 / 300 200 / 200 Balance 1600 / 1750 1141.67 / 1141.67 General: Alert, Oriented x3, Cooperative, No apparent distress, - - obese HEENT: Atraumatic, PERRLA, EOMI, Normocephalic Oral: Moist Mucosa Neck: Supple Lungs: Clear to auscultation, Normal air movement Cardiovascular: Regular rate, Regular Rhythm, Normal S1, Normal S2, No murmurs Abdomen: Bowel Sounds Present, Soft, Non Tender, Non-Distended, No Hepato- splenomegaly Extremities: No edema Skin: No rashes, No breakdown Musculoskeletal: No Tenderness to Palpation of Joints or Extremities Lymphatic: No Cervical, Supraclavicular, or Inguinal Adenopathy Neurological: Cranial nerves II-XII grossly intact, Neuro grossly intact Psych/Mental Status: Normal Affect, Appropriate Laboratory Results 03/06/19 11:: WBC 9.8, RBC 4.99, Hgb 16.4, Hct 49.3, MCV 98.8 H, MCH 32.9 H, MCHC 33.3, RDW Std Deviation 51.2 H, RDW Coeff of [place] 14.3, Plt Count 162, MPV 11.4, Immature Gran % (Auto) 0.500, Neut % (Auto) 81.3 H, Lymph % (Auto) 8.6 L, [place] % (Auto) 9.1, Eos % (Auto) 0.1, Baso % (Auto) 0.4, Absolute Neuts (auto) 8.0 H, Absolute Lymphs (auto) 0.85, Nucleated RBC % 0 03/06/19 11:27: PT 27.8 H, INR 2.6, APTT 40.4 H 03/06/19 11:27: Sodium 137, Potassium 4.3, Chloride 104, Carbon Dioxide 26.0, Anion Gap 7, BUN 23 H, Creatinine 1.15, Estim Creat Clear Calc 61.84, Est GFR (MDRD) Af Amer 80, Est GFR (MDRD) Non-Af 66, BUN/Creatinine Ratio 20.0, Glucose 118 H, Calcium 9.8 03/06/19 11:27: Total Creatine Kinase 1179 H 03/06/19 13:40: Urine Color Yellow, Urine Clarity Clear, Urine pH 5.0, Ur Specific [place] 1.025, Urine Protein 30 H, Urine Glucose (UA) Normal, Urine Ketones 50 H, Urine Occult Blood Negative, Urine Nitrite Negative, Urine Bilirubin 1 H, Urine Urobilinogen 8 H, Ur Leukocyte Esterase 25 H, Urine RBC 0 SEEN, Urine WBC 0-5 SEEN, Ur Squamous Epith Cells 0-5 SEEN, Urine Bacteria 1+, Hyaline Casts 0-5 SEEN, Urine Mucus 1+ 03/06/19 16:24: POC Glucose 96 03/06/19 21:02: POC Glucose 111 H Current Medications Acetaminophen (Tylenol) 650 mg PO Q6H PRN PRN PRN Reason: Pain Score 1-3/Temp > 100.7 F Albuterol Sulfate (Ventolin Aerosols) 2.5 mg INHALATION Q4H PRN PRN Reason: SOB/WHEEZING Albuterol/Ipratropium (Duoneb) 3 ml INHALATION Q6HWA.RT [facility] Last Admin: 03/06/19 19:16 Dose: 3 ml Documented by: Aspirin (Aspirin, Baby) 81 mg PO DAILY@0800 SAM Atorvastatin Calcium (Lipitor) 20 mg PO QHS [facility] Last Admin: 03/06/19 21:09 Dose: 20 mg Documented by: Budesonide (Pulmicort Aerosol) 0.5 mg INHALATION Q12H.RT [facility] Last Admin: 03/06/19 19:46 Dose: 0.5 mg Documented by: Dextrose (D50w Syringe) 0 gm IV X1 PRN; Protocol PRN Reason: Hypoglycemia Gabapentin (Neurontin) 600 mg PO BID [facility] Last Admin: 03/06/19 21:09 Dose: 600 mg Documented by: Glipizide (Glucotrol Xl) 10 mg PO DAILY@0800 [facility] Glucagon () 1 mg IM .X1 PRN PRN Reason: Hypoglycemia Insulin Human Lispro (Humalog Kwikpen (Bkc)) 0 unit SC TIDAC [facility]; Protocol Last Admin: 03/06/19 16:26 Dose: Not Given Documented by: Melatonin (Melatonin) 3 mg PO QHS PRN PRN PRN Reason: INSOMNIA Metformin HCl (Glucophage) 1,000 mg PO BIDCM [facility] Last Admin: 03/06/19 17:31 Dose: 1,000 mg Documented by: Metoprolol Tartrate (Lopressor (Beta Cherie)) 75 mg PO BID [facility] Last Admin: 03/06/19 21:09 Dose: 75 mg Documented by: Nutritional Formula (Lactose Free) (Glucerna Shake) 120 ml PO 4X/DAY [facility] Last Admin: 03/06/19 21:08 Dose: 120 ml Documented by: Ondansetron HCl (Zofran) 4 mg IV Q8H PRN PRN PRN Reason: NAUSEA/VOMITING Sodium Chloride () 10 - 40 ml IV UD PRN PRN Reason: SALINE FLUSH Last Admin: 03/06/19 16:26 Dose: 10 ml Documented by: Warfarin Sodium (Coumadin (Pbkc)) 4 mg PO DAILY@1700 [facility] Last Admin: 03/06/19 17:31 Dose: 4 mg Documented by: STROKE Vital Signs/Narrative: Vital Signs Temp Pulse Resp BP Pulse Ox 03/07/19 04:37 98.0 F 59 L 18 141/70 H 96 Medical Necessity - Tobacco Use Smoking Status: Former smoker Tobacco Use: Cigars Assessment/Plan All Active Problems (Last Reviewed 03/06/19 @ 15:22 by Eleno Ravi DO) Rhabdomyolysis (Acute) Frequent falls (Acute) Bicuspid aortic valve (Resolved) Dyspnea on exertion (Resolved) 53-year-old male with past medical history of chronic CHF, status post Micra pacemaker, status post aortic valve replacement, restless leg syndrome who was admitted with recurrent falls. Patient was said to have fallen out of bed and was on the floor for more than 2 hours before his son found him. 1. Recurrent falls, history of restless leg syndrome On gabapentin. Will wait for PT and OT evaluations We will check vitamin D levels Will have his pacemaker device checked for arrhythmias 2. Elevated CPK, admitted with CK of 1197, not quite 5 times the upper limit of normal CK this morning is 696, Would hold his atorvastatin for now; may need to be resumed if patient is better will continue on gentle IV fluids, Cautious with history of CHF to prevent fluid overload 3. Dehydration, improved with IV fluids Will be careful with IV fluids in the light of history of chronic CHF 4. Chronic atrial fibrillation, INR was therapeutic 2.6 We will continue with Coumadin, metoprolol 5. Type II DM, sugars are controlled on metformin and glipizide Continue with blood glucose checks with insulin sliding scale 6. Restless leg syndrome, continue on gabapentin 7. DVT prophylaxis-INR is therapeutic on Coumadin Code Visit Inpatient E&M: 67273 Subs Hosp L2
[2019-03-07 06:27] LABS: International Normalized Ratio 2.6; Prothrombin Time (Protime)PT. 28.1 SECONDS (11.7-14.9)
[2019-03-07 06:34] LABS: CPK Total, Creatine Kinase 696 U/L (39-308)
[2019-03-07 06:37] LABS: Anion Gap 7 (5-15); BUN 21 mg/dL (7-18); BUN/Creat Ratio 20.4 RATIO (10-20); Calcium,Total 9.1 mg/dL (8.5-10.1); Chloride 109 mmol/L (98-107); Creatinine, Serum 1.03 mg/dL (0.70-1.30); EST Glomerular Filtration Rate 75 mL/min (>60); Est Glom Filt Rate - Afr Amer 91 mL/min (>60); Estimated Creatinine Clearance 66.94 ml/min; Glucose 93 mg/dL (74-106); Potassium 4.1 mmol/L (3.5-5.1); Sodium Level 141 mmol/L (136-145)
[2019-03-07 06:50] LABS: Bedside Glucose 88 mg/dL (70-110)
--- NOTE | 2019-03-07 07:12 | SLEEP ---
Patient uses bipap nightly at home however did not have his with him on admission. He was placed on bipap device from Sleep lab for use overnight at his CURRENT home settings of 27/03 by RT. (Current home settings obtained via [employer])
[2019-03-07] MEDS: Ipratropium/Albuterol Sulfate 3 ML AMPUL.NEB INHALATION ×3 (07:35→20:17)
[2019-03-07] MEDS: Budesonide Respules 0.5 MG/2 ML AMPUL.NEB. INHALATION ×2 (07:35→20:17)
[2019-03-07] MEDS: Aspirin 81 MG TAB.CHEW PO (09:37)
[2019-03-07] MEDS: metFORMIN HCl 500 MG Tablet 1000 MG PO ×2 (09:37→17:01)
[2019-03-07] MEDS: Metoprolol Tartrate 50 MG Tablet 75 MG PO ×2 (09:38→22:53)
[2019-03-07] MEDS: 0.9% Normal Saline 1,000 ML 75 ML IV (09:41)
[2019-03-07] MEDS: glipiZIDE XL 5 MG Tablet 10 MG PO (09:41)
[2019-03-07] MEDS: 0.9% Saline Lock 10 ML Syringe IV (10:12)
[2019-03-07] MEDS: Gabapentin 600 MG Tablet PO ×2 (10:12→22:55)
[2019-03-07 11:35] LABS: Bedside Glucose 131 mg/dL (70-110)
--- NOTE | 2019-03-07 12:44 | CASEMGMT ---
DARRELL LYLE Assessment Presentation: Rhabdo, hx of severe restless leg syndrome which has caused falls from bed per pt. Intro role of CM and purpose of RN CM assessment to patient and his sister, also spoke with son who came to visit. Pt is awake, alert, sister also participated in assessment. Demographics, PCP and Pharmacy verified. Pt states he is independent, does not use ambulatory DME. Pt states his restless legs can be so severe he falls. DARRELL LYLE spoke with son who also states that falls only occur at night from bed when restless leg syndrome is severe. Pt is on medications which do not completely control symptoms. Son states pt goes to gym with him and uses treadmill. PCP: Dr. Caruso Specialists: Dr. Aaron, Dr. Jimenez Preferred Pharmacy: [facility] Insurance: [employer] Prescription Benefit: yes LNOK: Son Adeel Altamirano lives with pt. Living Arrangements: One story home. Pt states currently he is independent with ADL's, but if needed, son could assist. DARRELL LYLE let pt know PT/OT would be evaluating him and may make recommendations for safety at home. DARRELL LYLE called to [facility] OT to update on pt's falls and restless leg syndrome. Transportation: son does most of driving. DME: states no DME @ home. HHC/SNF: HHC in past after valve surgery. Does not remember which agency. Patient DC goals: Home DC PLAN: Anticipate home on dc. PT/OT evals pending. CM informed pt to notify cm if concerns re: dc arise. Bettie HERRERA RN ACM
--- NOTE | 2019-03-07 14:19 | NURSING ---
message left with [facility]- Roxanne Keenan.
--- NOTE | 2019-03-07 14:30 | CASEMGMT ---
DARRELL LYLE updated by OT that patient would benefit from FWW and outpatient therapy at discharge. DARRELL LYLE in to speak with patient, patient wants to wait and see how he does. DARRELL LYLE asked patient's permission to call son, patient agreeable. DARRELL LYLE called and spoke with son Adeel. Son states patient has rollator and wheelchair at home. Son agreeable to have scripts for FWW and outpatient therapy if they would need them. DARRELL LYLE will assist with script and place on patient's chart to give to patient at discharge.
--- NOTE | 2019-03-07 14:56 | CPS ---
Patient's own BiPAP set-up at bedside.
[2019-03-07 16:50] LABS: Bedside Glucose 85 mg/dL (70-110)
[2019-03-07] MEDS: Glucerna Shake 120 ML LIQUID PO ×2 (17:01→22:55)
[2019-03-07 23:31] LABS: Bedside Glucose 85 mg/dL (70-110)
[2019-03-08] VITALS (9 sets, daily range): BP systolic 110–119; BP diastolic 64–71; PULSE 60–71; RESP 16–20; TEMP 36.3–36.6; O2SAT 94–96
[2019-03-08 06:13] LABS: International Normalized Ratio 2.1; Prothrombin Time (Protime)PT. 23.8 SECONDS (11.7-14.9)
[2019-03-08 06:28] LABS: Anion Gap 7 (5-15); BUN 20 mg/dL (7-18); BUN/Creat Ratio 23.4 RATIO (10-20); Calcium,Total 9.1 mg/dL (8.5-10.1); Chloride 109 mmol/L (98-107); Creatinine, Serum 0.85 mg/dL (0.70-1.30); EST Glomerular Filtration Rate 93 mL/min (>60); Est Glom Filt Rate - Afr Amer 113 mL/min (>60); Estimated Creatinine Clearance 81.11 ml/min; Glucose 73 mg/dL (74-106); Potassium 3.8 mmol/L (3.5-5.1); Sodium Level 141 mmol/L (136-145)
[2019-03-08 06:51] LABS: Bedside Glucose 83 mg/dL (70-110)
[2019-03-08] MEDS: Ipratropium/Albuterol Sulfate 3 ML AMPUL.NEB INHALATION ×2 (07:26→12:47)
[2019-03-08] MEDS: Budesonide Respules 0.5 MG/2 ML AMPUL.NEB. INHALATION (07:36)
[2019-03-08] MEDS: Aspirin 81 MG TAB.CHEW PO (09:17)
[2019-03-08] MEDS: glipiZIDE XL 5 MG Tablet 10 MG PO (09:17)
[2019-03-08] MEDS: metFORMIN HCl 500 MG Tablet 1000 MG PO (09:17)
[2019-03-08] MEDS: Gabapentin 600 MG Tablet PO (09:17)
[2019-03-08] MEDS: Glucerna Shake 120 ML LIQUID PO ×2 (09:19→14:12)
[2019-03-08 10:07] LABS: CPK Total, Creatine Kinase 461 U/L (39-308)
--- NOTE | 2019-03-08 10:11 | PCM.PN.HOSP ---
Patient Problems: Active and Suspected Problems (Last Reviewed 03/06/19 @ 15:22 by Eleno Ravi DO) Rhabdomyolysis (Acute) Frequent falls (Acute) Reason for Visit: The patient was admitted with recurrent fall and has rhabdomyolysis. The patient has a pacemaker and heart rate is in 60s. He states his pacemaker is small implanted in his heart, Medtronic Micra. 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 Vitals/I&O's: Vital Signs Temp Pulse Resp BP Pulse Ox 97.8 F 60 16 114/68 95 03/08/19 09:05 03/08/19 09:16 03/08/19 09:05 03/08/19 09:05 03/08/19 09:05 Oxygen Delivery Method Room Air Weight: 233 lb 3.209 oz Body Mass Index (BMI) 32.6 Finger Stick Blood Glucose 159 Orthostatic Vital Signs Start: 03/07/19 10:14 Freq: q24h Status: Active Protocol: Activity Type Activity Date Activity User E-Sign Co-Sign Detail Recorded Client Recorded Date Recorded By Document 03/07/19 10:14 MIKEL [id number] 03/07/19 10:15 MIKEL 03/07/19 10:14 Orthostatic Vitals Standing -Blood Pressure (90/60-120/80) 141/76 H -Extremity Use Left Arm -Pulse Rate (60-100) 79 Sitting -Blood Pressure (90/60-120/80) 139/82 H -Extremity Use Left Arm -Pulse Rate (60-100) 83 Lying -Blood Pressure (90/60-120/80) 132/74 H -Extremity Use Left Arm -Pulse Rate (60-100) 88 Intake and Output for Last 24 Hours 03/06/19 03/07/19 03/08/19 23:59 23:59 23:59 Intake Total 1700 / 2050 3726.25 / 3726.25 600 / 600 Output Total 100 / 300 450 / 450 400 / 400 Balance 1600 / 1750 3276.25 / 3276.25 200 / 200 General: Alert, Oriented x3, Cooperative HEENT: Atraumatic, PERRLA, EOMI, Normocephalic Neck: Supple, No JVD, Negative Carotid Bruits Lungs: Clear to auscultation, No rhonchi, No wheeze, No rales, Diminished Cardiovascular: Regular rate, Normal S1, Normal S2, Irregular Rate, Murmur - Systolic murmur over left lower sternal border and apex, - - Patient rhythm on diagnostic cardiac sonographer Abdomen: Bowel Sounds Present, Soft, Non Tender, Non-Distended Extremities: No edema, Capillary Refill Less than 3 Seconds Skin: No rashes, No breakdown Musculoskeletal: No Tenderness to Palpation of Joints or Extremities, Arthritic Changes Neurological: Cranial nerves II-XII grossly intact, Neuro grossly intact Psych/Mental Status: Normal Affect, Appropriate Laboratory Results 03/07/19 11:26: POC Glucose 131 H 03/07/19 16:45: POC Glucose 85 03/07/19 22:39: POC Glucose 85 03/08/19 05:17: PT 23.8 H, INR 2.1 03/08/19 05:17: Sodium 141, Potassium 3.8, Chloride 109 H, Carbon Dioxide 25.0, Anion Gap 7, BUN 20 H, Creatinine 0.85, Estim Creat Clear Calc 81.11, Est GFR (MDRD) Af Amer 113, Est GFR (MDRD) Non-Af 93, BUN/Creatinine Ratio 23.4 H, Glucose 73 L, Calcium 9.1 03/08/19 05:17: Total Creatine Kinase 461 H 03/08/19 06:45: POC Glucose 83 Current Medications Acetaminophen (Tylenol) 650 mg PO Q6H PRN PRN PRN Reason: Pain Score 1-3/Temp > 100.7 F Albuterol Sulfate (Ventolin Aerosols) 2.5 mg INHALATION Q4H PRN PRN Reason: SOB/WHEEZING Albuterol/Ipratropium (Duoneb) 3 ml INHALATION Q6HWA.RT [facility] Last Admin: 03/08/19 07:26 Dose: 3 ml Documented by: Aspirin (Aspirin, Baby) 81 mg PO DAILY@0800 [facility] Last Admin: 03/08/19 09:17 Dose: 81 mg Documented by: Atorvastatin Calcium (Lipitor) 20 mg PO QHS [facility] Last Admin: 03/06/19 21:09 Dose: 20 mg Documented by: Budesonide (Pulmicort Aerosol) 0.5 mg INHALATION Q12H.RT [facility] Last Admin: 03/08/19 07:36 Dose: 0.5 mg Documented by: Dextrose (D50w Syringe) 0 gm IV X1 PRN; Protocol PRN Reason: Hypoglycemia Gabapentin (Neurontin) 600 mg PO BID [facility] Last Admin: 03/08/19 09:17 Dose: 600 mg Documented by: Glipizide (Glucotrol Xl) 10 mg PO DAILY@0800 [facility] Last Admin: 03/08/19 09:17 Dose: 10 mg Documented by: Glucagon () 1 mg IM .X1 PRN PRN Reason: Hypoglycemia Insulin Human Lispro (Humalog Kwikpen (Bkc)) 0 unit SC TIDAC [facility]; Protocol Last Admin: 03/08/19 06:52 Dose: Not Given Documented by: Melatonin (Melatonin) 3 mg PO QHS PRN PRN PRN Reason: INSOMNIA [facility] Admin: 03/08/19 09:17 Dose: 1,000 mg Documented by: Metoprolol Tartrate (Lopressor (Beta Cherie)) 50 mg PO BID [facility] Nutritional Formula (Lactose Free) (Glucerna Shake) 120 ml PO 4X/DAY [facility] Last Admin: 03/08/19 09:19 Dose: 120 ml Documented by: Ondansetron HCl (Zofran) 4 mg IV Q8H PRN PRN PRN Reason: NAUSEA/VOMITING Sodium Chloride () 10 - 40 ml IV UD PRN PRN Reason: SALINE FLUSH Last Admin: 03/07/19 10:12 Dose: 10 ml Documented by: Warfarin Sodium (Coumadin (Pbkc)) 5 mg PO DAILY@1700 [facility] STROKE Vital Signs/Narrative: Vital Signs Temp Pulse Resp BP Pulse Ox 03/08/19 09:16 60 03/08/19 09:05 97.8 F 60 16 114/68 95 03/08/19 07:26 61 20 H 95 Medical Necessity - Tobacco Use Smoking Status: Former smoker Tobacco Use: Cigars Assessment/Plan All Active Problems (Last Reviewed 03/06/19 @ 15:22 by Eleno Ravi DO) Rhabdomyolysis (Acute) Frequent falls (Acute) Bicuspid aortic valve (Resolved) Dyspnea on exertion (Resolved) This is 53-year-old male with past medical history of chronic CHF, status post Micra pacemaker, status post TAVR, restless leg syndrome who was admitted with recurrent falls. Patient was said to have fallen out of bed and was on the floor for more than 2 hours before his son found him. 1. Recurrent falls, history of restless leg syndrome; seems mainly mechanical secondary to restless leg syndrome/musculoskeletal arthritis. On gabapentin. PT and OT evaluation. Vitamin D level ordered. The patient had pacemaker placed about a year ago and was last checked about 5 months ago and adjusted couple months ago. Pacemaker interrogation is ordered. 2. Elevated CPK, admitted with CK of 1197, not quite 5 times the upper limit of normal CK this morning is 461. IV fluids 75 mill per hour. Watch for fluid overload. 3. Chronic systolic heart failure: Echo in 12/2017 reported as EF 45% with severe LA enlargement, RA moderately enlarged. Mild eccentric MR, mild to moderate 4. Chronic atrial fibrillation, INR was therapeutic 2.6; 2.1. Coumadin dose increased to 5 mg daily. Metoprolol decreased to 50 mg twice daily as heart rate, 60/min with holding parameters. 5. Type II DM, sugars are controlled; continue glipizide. Hold metformin Continue with blood glucose checks with insulin sliding scale 6. Restless leg syndrome, continue on gabapentin 7. DVT prophylaxis-INR is therapeutic on Coumadin Discussed with the patient's son, Ronald and patient's brother about the clinical course. PT and OT pending further decision about inpatient rehab or outpatient rehab to be made Code Visit Inpatient E&M: 23306 Subs Hosp L2
[2019-03-08] MEDS: 0.9% Saline Lock 10 ML Syringe IV (10:49)
[2019-03-08] MEDS: 0.9% Normal Saline 1,000 ML 75 ML IV (10:49)
--- NOTE | 2019-03-08 11:23 | DCINST_ITS ---
- Discharge Diagnoses Current Active Problems: Current Active and Chronic Problems (Last Reviewed 03/06/19 @ 15:22 by Eleno Ravi DO) Rhabdomyolysis (Acute) Frequent falls (Acute) You will use the following diet at home:: Calorie/Carbohydrate Controlled (specify 1200, 1400, etc) - 1600 ADA diet, Cardiac Your food should be the consistency of: Regular Discharge Activity: May Not Drive Weight Bearing Status: Weight bearing as tolerated Additional Activity Instructions:: Outpatient rehab to strengthen muscular strength and balance and equilibrium Call your doctor if you observe: Fever of 101 or Higher, Numbness or Tingling, Change in Color, Inability to urinate, Inability to have a bowel movement, Shortness of breath, Dizziness, Fainting spells, Swelling in the ankles Allergies/Adverse Reactions: Allergies prochlorperazine [From Compazine] Adverse Reaction (Severe, Verified 03/06/19 11:07) Other extrapyramidal symptoms, sedation was taking also pramipexole at the time Medications to take at Discharge Aspirin [Aspirin, Baby] 81 mg PO DAILY@0800 09/24/14 gabapentin 600 mg tablet 600 mg PO BID #60 tab 05/09/17 Glipizide [Glipizide ER] 10 mg PO DAILY 03/31/18 albuterol sulfate HFA 90 mcg/actuation aerosol inhaler 2 puff INHALATION Q4H PRN PRN #18 g 08/11/18 tiotropium bromide 18 mcg capsule with inhalation device 1 cap INHALATION DAILY #30 inh 01/05/19 Budesonide/Formoterol 160/4.5 [Symbicort 160/4.5 Mcg Inhaler (SP)] 2 puff INHALATION QHS 03/06/19 Furosemide 40 mg PO BID #180 tab 03/08/19 Metformin HCl [Glucophage] 1,000 mg PO BID #0 tab 03/08/19 Metoprolol Tartrate [Lopressor (beta bossman)] 50 mg PO BID #0 03/08/19 Potassium Chloride [K-Tab ER] 20 meq PO BID #180 tab 03/08/19 Rosuvastatin Calcium 10 mg PO QHS #90 tab 03/08/19 Spironolactone 50 mg PO DAILY #0 03/08/19 Warfarin [Coumadin] 4 mg PO DAILY #0 03/08/19 Primary Care Physician: Fer Caruso MD [Primary Care Provider] - Please follow up with your Primary Care Physician in: in 1-2 week Test Results: Test results from this visit will be discussed in further detail at your follow- up appointment, if applicable. Please Follow Up With: Usman Aaron MD When: as scheduled Please Follow Up With: Walter Jimenez MD
[2019-03-08 11:41] LABS: Bedside Glucose 142 mg/dL (70-110)
--- NOTE | 2019-03-08 13:26 | DS.PCM_ITS ---
Discharge Date and Diagnosis - Problem List Patient Problems: Active and Suspected Problems (Last Reviewed 03/06/19 @ 15:22 by Eleno Ravi DO) Rhabdomyolysis (Acute) Frequent falls (Acute) Date of Admission: 03/06/19 Date of Discharge: 03/08/19 - Primary Discharge Diagnosis Active and Suspected Problems (Last Reviewed 03/06/19 @ 15:22 by Eleno Ravi DO) Rhabdomyolysis (Acute) Frequent falls (Acute) - Secondary Discharge Diagnosis Chronic Problems (Last Reviewed 03/06/19 @ 15:22 by Eleno Ravi DO) Nonrheumatic mitral valve regurgitation (Chronic) Chronic diastolic (congestive) heart failure (Chronic) Complete heart block (Chronic) History of permanent cardiac pacemaker placement (Chronic 03/29/18) Medtronic Micra 03/29/2018 H/O aortic valve replacement (Chronic 03/27/18) TAVR w/ 34 mm Corevalve Evolute 03/27/2018 Asthma-chronic obstructive pulmonary disease overlap syndrome (Chronic) snf current use of anticoagulant (Chronic) DENISA (obstructive sleep apnea) (Chronic) BiPAP 20/14 cm of water Persistent atrial fibrillation (Chronic) Nonrheumatic tricuspid (valve) insufficiency (Chronic) Nonrheumatic aortic (valve) stenosis (Chronic) TAVR with a 34mm Corevalve Evolute (bio-prosthesis) HLD (hyperlipidemia) (Chronic) Hospital Course and Treatment Operations: None Summary of Care Provided: [] This is 53-year-old male with past medical history of chronic CHF, status post Micra pacemaker, status post TAVR, restless leg syndrome who was admitted with recurrent falls. Patient was said to have fallen out of bed and was on the floor for more than 2 hours before his son found him. 1. Recurrent falls, history of restless leg syndrome; seems mainly mechanical secondary to restless leg syndrome/musculoskeletal arthritis. On gabapentin. PT and OT evaluation. Patient can have vitamin D checked as an outpatient. Empirically prescription for vitamin D3 5000 units daily given. The patient had pacemaker placed about a year ago and was last checked about 5 months ago and adjusted couple months ago. Follow-up with Dr. headley and [employer] agronomy technician. 2. Elevated CPK, admitted with CK of 1197, not quite 5 times the upper limit of normal CK this morning is 461. Will need further follow-up with CK after 1 week to check if it gets normal. 3. Chronic systolic heart failure: Echo in 12/2017 reported as EF 45% with severe LA enlargement, RA moderately enlarged. Mild eccentric MR, mild to moderate Resume Lasix, spironolactone along with potassium supplement. 4. Chronic atrial fibrillation, INR was therapeutic 2.6; 2.1. Coumadin dose increased to 5 mg today and then back to 4 mg daily. Metoprolol decreased to 50 mg twice daily as heart rate, 60/min with holding parameters. 5. Type II DM, sugars are controlled; continue glipizide. Hold metformin Continue with blood glucose checks with insulin sliding scale 6. Restless leg syndrome, continue on gabapentin 7. DVT prophylaxis-INR is therapeutic on Coumadin Patient was evaluated by PT and OT. Patient walked more than 200 feet. As per PT note, recommended additional therapy. Patient had decreased strength endurance and balance. Need outpatient PT. Discharge medication reconciliation done. Discharge follow-up instructions completed. Discharge process discussed with the patient and all questions were answered to patient's satisfaction. Total time spent, exact 35 minutes on discharge meds reconciliation, examination, review of imaging and blood test and discussion with the patient on follow-up instructions. Patient Problems: Active and Suspected Problems (Last Reviewed 03/06/19 @ 15:22 by Eleno Ravi DO) Rhabdomyolysis (Acute) Frequent falls (Acute) Subjective: Patient was seen and examined. Lab findings reviewed. Patient wants to go home. Patient is discharged home. Please see progress note of today for subjective and objective physical findings. - Physical Exam Vitals/I&O's: Vital Signs Temp Pulse Resp BP Pulse Ox 97.8 F 60 20 H 114/68 95 03/08/19 09:05 03/08/19 12:47 03/08/19 12:47 03/08/19 09:05 03/08/19 09:05 Oxygen Delivery Method Room Air Weight: 233 lb 3.209 oz Body Mass Index (BMI) 32.6 Finger Stick Blood Glucose 159 Orthostatic Vital Signs Start: 03/07/19 10:14 Freq: q24h Status: Active Protocol: Activity Type Activity Date Activity User E-Sign Co-Sign Detail Recorded Client Recorded Date Recorded By Document 03/07/19 10:14 MIKEL [id number] 03/07/19 10:15 MIKEL 03/07/19 10:14 Orthostatic Vitals Standing -Blood Pressure (90/60-120/80) 141/76 H -Extremity Use Left Arm -Pulse Rate (60-100) 79 Sitting -Blood Pressure (90/60-120/80) 139/82 H -Extremity Use Left Arm -Pulse Rate (60-100) 83 Lying -Blood Pressure (90/60-120/80) 132/74 H -Extremity Use Left Arm -Pulse Rate (60-100) 88 Intake and Output for Last 24 Hours 03/06/19 03/07/19 03/08/19 23:59 23:59 23:59 Intake Total 1700 / 2050 3726.25 / 3726.25 600 / 600 Output Total 100 / 300 450 / 450 400 / 400 Balance 1600 / 1750 3276.25 / 3276.25 200 / 200 Laboratory Results 03/07/19 16:45: POC Glucose 85 03/07/19 22:39: POC Glucose 85 03/08/19 05:17: PT 23.8 H, INR 2.1 03/08/19 05:17: Sodium 141, Potassium 3.8, Chloride 109 H, Carbon Dioxide 25.0, Anion Gap 7, BUN 20 H, Creatinine 0.85, Estim Creat Clear Calc 81.11, Est GFR (MDRD) Af Amer 113, Est GFR (MDRD) Non-Af 93, BUN/Creatinine Ratio 23.4 H, Glucose 73 L, Calcium 9.1 03/08/19 05:17: Total Creatine Kinase 461 H 03/08/19 06:45: POC Glucose 83 03/08/19 10:52: POC Glucose 142 H Current Medications Acetaminophen (Tylenol) 650 mg PO Q6H PRN PRN PRN Reason: Pain Score 1-3/Temp > 100.7 F Albuterol Sulfate (Ventolin Aerosols) 2.5 mg INHALATION Q4H PRN PRN Reason: SOB/WHEEZING Albuterol/Ipratropium (Duoneb) 3 ml INHALATION Q6HWA.RT [facility] Last Admin: 03/08/19 12:47 Dose: 3 ml Documented by: Aspirin (Aspirin, Baby) 81 mg PO DAILY@0800 [facility] Last Admin: 03/08/19 09:17 Dose: 81 mg Documented by: Atorvastatin Calcium (Lipitor) 20 mg PO QHS [facility] Last Admin: 03/06/19 21:09 Dose: 20 mg Documented by: Budesonide (Pulmicort Aerosol) 0.5 mg INHALATION Q12H.RT [facility] Last Admin: 03/08/19 07:36 Dose: 0.5 mg Documented by: Dextrose (D50w Syringe) 0 gm IV X1 PRN; Protocol PRN Reason: Hypoglycemia Gabapentin (Neurontin) 600 mg PO BID [facility] Last Admin: 03/08/19 09:17 Dose: 600 mg Documented by: Glipizide (Glucotrol Xl) 10 mg PO DAILY@0800 [facility] Last Admin: 03/08/19 09:17 Dose: 10 mg Documented by: Glucagon () 1 mg IM .X1 PRN PRN Reason: Hypoglycemia Sodium Chloride () 1,000 mls @ 75 mls/hr IV .[id number] [facility] Stop: 03/08/19 23:44 Last Admin: 03/08/19 10:49 Dose: 75 mls/hr Documented by: Insulin Human Lispro (Humalog Kwikpen (Bkc)) 0 unit SC TIDAC [facility]; Protocol Last Admin: 03/08/19 10:53 Dose: Not Given Documented by: Melatonin (Melatonin) 3 mg PO QHS PRN PRN PRN Reason: INSOMNIA Metoprolol Tartrate (Lopressor (Beta Cherie)) 50 mg PO BID [facility] Nutritional Formula (Lactose Free) (Glucerna Shake) 120 ml PO 4X/DAY [facility] Last Admin: 03/08/19 09:19 Dose: 120 ml Documented by: Ondansetron HCl (Zofran) 4 mg IV Q8H PRN PRN PRN Reason: NAUSEA/VOMITING Sodium Chloride () 10 - 40 ml IV UD PRN PRN Reason: SALINE FLUSH Last Admin: 03/08/19 10:49 Dose: 10 ml Documented by: Warfarin Sodium (Coumadin (Pbkc)) 5 mg PO DAILY@1700 [facility] Discharge Activity: May Not Drive Weight Bearing Status: Weight bearing as tolerated Additional Activity Instructions:: Outpatient rehab to strengthen muscular strength and balance and equilibrium Call your doctor if you observe: Fever of 101 or Higher, Numbness or Tingling, Change in Color, Inability to urinate, Inability to have a bowel movement, Shortness of breath, Dizziness, Fainting spells, Swelling in the ankles Home Medications: Medications to take at Discharge Aspirin [Aspirin, Baby] 81 mg PO DAILY@0800 09/24/14 gabapentin 600 mg tablet 600 mg PO BID #60 tab 05/09/17 Glipizide [Glipizide ER] 10 mg PO DAILY 03/31/18 albuterol sulfate HFA 90 mcg/actuation aerosol inhaler 2 puff INHALATION Q4H PRN PRN #18 g 08/11/18 tiotropium bromide 18 mcg capsule with inhalation device 1 cap INHALATION DAILY #30 inh 01/05/19 Budesonide/Formoterol 160/4.5 [Symbicort 160/4.5 Mcg Inhaler (SP)] 2 puff INHALATION QHS 03/06/19 Furosemide 40 mg PO BID #180 tab 03/08/19 Metformin HCl [Glucophage] 1,000 mg PO BID #0 tab 03/08/19 Metoprolol Tartrate [Lopressor (beta cherie)] 50 mg PO BID #0 03/08/19 Potassium Chloride [K-Tab ER] 20 meq PO BID #180 tab 03/08/19 Rosuvastatin Calcium 10 mg PO QHS #90 tab 03/08/19 Spironolactone 50 mg PO DAILY #0 03/08/19 Warfarin [Coumadin] 4 mg PO DAILY #0 03/08/19 Primary Care Physician: Fer Caruso MD [Primary Care Provider] - Please follow up with your Primary Care Physician in: in 1-2 week Please Follow Up With: Usman Headley MD When: as scheduled Please Follow Up With: Walter Jimenez MD Medical Necessity - Tobacco Use Smoking Status: Former smoker Tobacco Use: Cigars Meaningful Use Info Meaningful Use Diagnoses (Choose all that apply): None applicable Code Visit Please disregard the progress note charge. Inpatient E&M: 35075 Disch Hosp
--- NOTE | 2019-03-08 16:03 | NURSING ---
PTS BROTHER, HONEY, WAS NOTIFIED THAT THE PT WAS TO HOLD HIS CRESTOR 10MG FOR [address] SAVAGE
--- NOTE | 2019-03-09 14:59 | CASEMGMT ---
DARRELL LYLE Discharge Follow-Up Phone Call. Padmini: Segundo Strata: 3 Discharge Date: 03/08/19 Adm Dx: Rhabdomyolysis. Call to pt to inquire about how he has been doing since being discharged from the hospital. Pt initially answered but was unable to hear DARRELL LYLE. Pt's son then got on the phone and states pt is [place] and thinks he may need new hearing aides. Son agreeable to talking with DARRELL LYLE. Son states pt has been doing well, stating he's been up walking a lot today. Son states he even went to [place] with him today and did well walking around, just needing to rest some on/off. Son states he does not have any questions about the discharge instructions,medications, or follow-up appts. He states he plans to call today yet to make an appt with Dr Caruso. He states he is aware pt is to hold the Crestor for 7 days. DARRELL LYLE thanked him for choosing [facility]. Albert HERRERA RN, CM
== END 2019-03-08 15:10 | disposition home or self-care (01) | DRG 565 ==
LOC: ED 15:03 → MS3 15:21
PROVIDERS: Internal Medicine; Emergency Provider Emergency Medicine; Family Provider Family Medicine; PCP Family Medicine; Visit Provider Internal Medicine
DX: T79.6XXA Traumatic ischemia of muscle, initial encounter (principal); I44.2 Atrioventricular block, complete; I48.19 Other persistent atrial fibrillation; M35.1 Other overlap syndromes; Q23.1 Congenital insufficiency of aortic valve; Q21.1 Atrial septal defect; I50.32 Chronic diastolic (congestive) heart failure; W06.XXXA Fall from bed, initial encounter; R29.6 Repeated falls; I34.0 Nonrheumatic mitral (valve) insufficiency; Z95.0 Presence of cardiac pacemaker; Z95.2 Presence of prosthetic heart valve; G47.33 Obstructive sleep apnea (adult) (pediatric); Z79.01 Long term (current) use of anticoagulants; E11.9 Type 2 diabetes mellitus without complications; I36.1 Nonrheumatic tricuspid (valve) insufficiency; Z91.81 History of falling; Z82.49 Family history of ischemic heart disease and other diseases of the circulatory system; J44.9 Chronic obstructive pulmonary disease, unspecified; F17.290 Nicotine dependence, other tobacco product, uncomplicated; E78.5 Hyperlipidemia, unspecified; G25.81 Restless legs syndrome
CPT/HCPCS: 36415; 70450; 71045; 73030; 80048; 81001; 82550; 82962; 85025; 85610; 85730; 92526; 92610; 94002; 94003; 94640; 97161; 97166; 97535; 97802; 99251; 99285; J7030; P9612; A4216; G0463

== ENCOUNTER 2019-05-08 15:04 | Inpatient (IN) | payer MEDICARE, SELFPAY ==
[2019-04-26 11:44] VITALS: BMI 32.5
[2019-05-08] VITALS (11 sets, daily range): BP systolic 122–149; BP diastolic 79–86; PULSE 60–71; RESP 18–59; TEMP 36.4–36.8; O2SAT 94–97; BMI 34.2; BMI 34.3; BMI 33.3
--- NOTE | 2019-05-08 15:43 | EKG12_ITS ---
Test Reason : CP Blood Pressure : / mmHG Vent. Rate : 063 BPM Atrial Rate : 073 BPM P-R Int : 000 ms QRS Dur : 208 ms QT Int : 474 ms P-R-T Axes : 000 -80 097 degrees QTc Int : 485 ms Ventricular-paced rhythm with occasional Premature ventricular complexes Abnormal ECG Confirmed by TODD FNOTAINE ([id number]), assistant production editor RICARDO LUND ([id number]) on 05/10/2019 10:23:40 AM Referred By: HADLEY Confirmed By:TODD FONTAINE
--- NOTE | 2019-05-08 15:44 | RAD_ITS ---
STUDY: X-RAY CHEST REASON FOR EXAM: Male, 74 years old. CHEST PAIN; -- PACER, VALVE REPLACEMENT TECHNIQUE: Single AP portable view of the chest. COMPARISON: Comparison is made with prior study dated March 06, 2019. FINDINGS: EKG electrodes are seen. There is evidence of vascular congestion and CHF. Mild degree of bibasilar atelectasis. There is no demonstrated pleural abnormality. There is moderate cardiac enlargement. Normal mediastinum and rangel. Normal visualized pulmonary arteries. There is atherosclerotic calcification of the aortic arch with tortuosity. Normal visualized thoracic spine. Prior ORIF of the proximal left humerus. There is no demonstrated abnormality of the visualized soft tissue structures of the upper abdomen. RAD/Chest 1 View (Portable) IMPRESSION: Cardia megaly. History congestion and CHF with bibasilar atelectasis Electronically Signed: [place], at 16:01 EST , Service support ,
[2019-05-08 15:54] LABS: Absolute Neutrophil Count 5.3 X10^3/uL (2.0-7.7); Basophil# 0.04 X10^3/uL; Basophil% 0.5 % (0-1); Eosinophil# 0.01 X10^3/uL; Eosinophils% 0.1 % (0-5); Hematocrit 45.4 % (40-54); Lymphocyte % 18.3 % (19-41); Mean Corpuscular Hgb 32.1 pg (27.0-32.0); Mean Platelet Vol. 11.4 fl (6.2-12.0); Monocyte# 0.84 X10^3/uL; NRBC Flagged by Analyzer 0 % (0-5); Neutrophil # 5.32 X10^3/uL (2.7-7.7); Neutrophil % 69.6 % (47-70); Platelet Count 152 K/mm3 (150-450); RBC Distribution Width SD 50.4 fl (35.1-43.9); Red Blood Count 4.68 M/mm3 (4.6-6.2); White Blood Count 7.7 K/mm3 (4.4-11.0)
[2019-05-08] MEDS: Aspirin 81 MG TAB.CHEW 324 MG PO (16:01)
[2019-05-08 16:02] LABS: International Normalized Ratio 2.6
[2019-05-08 16:06] LABS: Anion Gap 6 (5-15); BUN 14 mg/dL (7-18); BUN/Creat Ratio 12.8 RATIO (10-20); Calcium,Total 9.4 mg/dL (8.5-10.1); Chloride 105 mmol/L (98-107); Creatinine, Serum 1.09 mg/dL (0.70-1.30); EST Glomerular Filtration Rate 71 mL/min (>60); Est Glom Filt Rate - Afr Amer 85 mL/min (>60); Estimated Creatinine Clearance 64.29 ml/min; Glucose 133 mg/dL (74-106); Potassium 4.3 mmol/L (3.5-5.1); Sodium Level 137 mmol/L (136-145)
--- NOTE | 2019-05-08 16:42 | PCM.HP.STD ---
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 (9) DENISA (obstructive sleep apnea) Status: Chronic Comment: BiPAP 20/14 cm of water (10) Persistent atrial fibrillation Status: Chronic (11) Nonrheumatic tricuspid (valve) insufficiency Status: Chronic (12) Nonrheumatic aortic (valve) stenosis Status: Chronic Comment: TAVR with a 34mm Corevalve Evolute (bio-prosthesis) (13) HLD (hyperlipidemia) Status: Chronic Qualifiers: Hyperlipidemia type: unspecified Qualified Code(s): E78.5 - Hyperlipidemia, unspecified (14) Acute CHF Status: Acute History of Present Illness Date of Admission: 05/08/19 Chief Complaint: Shortness of breath and chest discomfort The patient is a 74 year old M with past medical history single for congestive heart failure with preserved ejection fraction, chronic A. fib, valvular heart disease with history of TAVR who presented with progressive shortness of breath, swelling involving lower extremities as well as chest discomfort. Per patient his breathing has gotten more labored for the past couple of days. He apparently had his medication adjusted by his primary care provider. Patient was on Aldactone 50 mg this was cut back to 25. He has since noticed increasing swelling involving both lower extremities. On the morning of his admission patient did develop chest discomfort which persisted subsequently presented to the emergency department. In the ED checks x-ray obtained was consistent with vascular congestion. Troponin was slightly elevated. Patient admitted to a monitored bed for further management. 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 (Chronic) DENISA (obstructive sleep apnea) (Chronic) BiPAP 20/14 cm of water Persistent atrial fibrillation (Chronic) Nonrheumatic tricuspid (valve) insufficiency (Chronic) Nonrheumatic aortic (valve) stenosis (Chronic) TAVR with a 34mm Corevalve Evolute (bio-prosthesis) HLD (hyperlipidemia) (Chronic) Medical History: Medical History (Last Reviewed 05/08/19 @ 16:43 by Fer Flores MD) Nonrheumatic mitral valve regurgitation (Chronic) I34.0 Chronic diastolic (congestive) heart failure (Chronic) I50.32 Complete heart block (Chronic) I44.2 DENISA (obstructive sleep apnea) (Chronic) G47.33 BiPAP 20/14 cm of water Persistent atrial fibrillation (Chronic) I48.1 Nonrheumatic tricuspid (valve) insufficiency (Chronic) I36.1 Nonrheumatic aortic (valve) stenosis (Chronic) I35.0 TAVR with a 34mm Corevalve Evolute (bio-prosthesis) Bicuspid aortic valve (Resolved) Q23.1 HLD (hyperlipidemia) (Chronic) E78.5 BMI 37.0-37.9, adult Z68.37 Patent foramen ovale Q21.1 Stage 2 moderate COPD by GOLD classification J44.9 FEV1 71% of predicted Type 2 diabetes mellitus E11.9 Non-ischemic cardiomyopathy I42.8 Allergies prochlorperazine [From Compazine] Adverse Reaction (Severe, Verified 05/08/19 15:06) Other extrapyramidal symptoms, sedation was taking also pramipexole at the time Home Medications: Ambulatory Orders Medication Instructions Recorded Aspirin [Aspirin, Baby] 81 mg PO DAILY 09/24/14 gabapentin 600 mg tablet 600 mg PO BID #60 tab 05/09/17 Glipizide [Glipizide ER] 10 mg PO DAILY 03/31/18 albuterol sulfate 90 mcg/actuation 2 puff INHALATION Q4H PRN PRN #18 g 08/11/18 aerosol inhaler tiotropium bromide 18 mcg capsule 1 cap INHALATION DAILY #30 inh 01/05/19 with inhalation device Budesonide/Formoterol 160/4.5 2 puff INHALATION QHS 03/06/19 [Symbicort 160/4.5 Mcg Inhaler (SP)] Furosemide 40 mg PO BID #180 tab 03/08/19 Metformin HCl [Glucophage] 1,000 mg PO BID #0 tab 03/08/19 Potassium Chloride [K-Tab ER] 20 meq PO BID #180 tab 03/08/19 Rosuvastatin Calcium 10 mg PO QHS #90 tab 03/08/19 Warfarin [Coumadin] 4 mg PO DAILY #0 03/08/19 metoprolol tartrate 50 mg tablet 50 mg PO BID #60 tab 04/19/19 spironolactone 25 mg tablet 25 mg PO DAILY #30 tab 04/26/19 Surgical History: Surgical History (Last Reviewed 05/08/19 @ 16:43 by Fer Flores MD) History of permanent cardiac pacemaker placement (Chronic) Onset Date: 03/29/18 Z95.0 Medtronic Micra 03/29/2018 H/O aortic valve replacement (Chronic) Onset Date: 03/27/18 Z95.2 TAVR w/ 34 mm Corevalve Evolute 03/27/2018 Status post radiofrequency ablation for arrhythmia Onset Date: 06/08/12 Z98.890, Z86.79 RFA 06/08/2012 History of hernia repair Z98.890, Z87.19 History of tonsillectomy Z98.890, Z90.89 Surgical History: herniorrhaphy, tonsillectomy Smoking Status: Former smoker Tobacco Use: Cigars - *Family History Paternal Family History: Family History (Last Reviewed 05/08/19 @ 16:43 by Fer Flores MD) Father CAD (coronary artery disease) Hypertension Restless leg syndrome Mother Hypertension Brother Hyperlipemia Hypertension Sister Hypertension Restless leg syndrome History Items: Heart Disease - CAD; [place]; HTN Sibling Family History: Family History (Last Reviewed 05/08/19 @ 16:43 by Fer Flores MD) Father CAD (coronary artery disease) Hypertension Restless leg syndrome Mother Hypertension Brother Hyperlipemia Hypertension Sister Hypertension Restless leg syndrome History Items: Heart Disease - HTN Maternal Family History: Family History (Last Reviewed 05/08/19 @ 16:43 by Fer Flores MD) Father CAD (coronary artery disease) Hypertension Restless leg syndrome Mother Hypertension Brother Hyperlipemia Hypertension Sister Hypertension Restless leg syndrome History Items: Heart Disease - HTN, No pertinent history Review of Systems Constitutional: Denies: Anorexia, Chills, Fever, Night Sweats, Weight Change HEENT: Denies: Head Aches, Sinus Congestion, Sinus Drainage Cardiovascular: Reports: Chest Pain, Edema. Denies: Orthopnea, Palpitations, Paroxysmal Noc. Dyspnea Respiratory: Reports: Shortness of breath at rest, Shortness of breath upon exertion. Denies: Cough Gastrointestinal: Denies: Abdominal Pain, Hematemesis, Hematochezia, Nausea, Melena Genitourinary: Denies: Dysuria, Frequency, Hematuria, Urgency Musculoskeletal: Denies: Joint Pain, Joint Tenderness Skin: Denies: Rash Neurological: Denies: Focal weakness, Numbness, Tingling Psychiatric: Denies: Homicidal Ideations, Suicidal Ideations Hematologic/ Lymphatic: Denies: Easy Bruising, Easy Bleeding VTE Information - Inpt Only VTE Present on Admission: No VTE Mechan Device Prophylaxis: None VTE Pharm Prophylaxis ordered?: Yes Patient Problems: Active and Suspected Problems (Last Reviewed 05/08/19 @ 16:43 by Fer Flores MD) Acute CHF (Acute) Acute heart failure with preserved ejection fraction (HFpEF) (Acute) Objective: GENERAL: cooperative dyspneic at rest HEENT: Atraumatic; EYES; Anicteric, Normal Conjunctiva NECK; supple, normal thyroid, RESPIRATORY: Diminished to auscultation CARDIOVASCULAR: Irregularly irregular GI: soft, normoactive bowel sounds, : No Renal angle tenderness; EXTREMITIES: Bipedal edema MUSCULOSKELETAL: no muscle waisting NEURO: Awake; no lateralizing signs. SKIN: No Rash PSYCH; Flat affect - Physical Exam Vitals/I&O's: Vital Signs Temp Pulse Resp BP Pulse Ox 98.3 F 60 21 H 136/86 H 96 05/08/19 15:06 05/08/19 16:05 05/08/19 16:05 05/08/19 16:05 05/08/19 16:05 Oxygen Delivery Method Room Air Weight: 111.4 kg Body Mass Index (BMI) 34.2 Finger Stick Blood Glucose 159 Laboratory Results 05/08/19 15:15: WBC 7.7, RBC 4.68, Hgb 15.0, Hct 45.4, MCV 97.0 H, MCH 32.1 H, MCHC 33.0, RDW Std Deviation 50.4 H, RDW Coeff of [place] 14.0, Plt Count 152, MPV 11.4, Immature Gran % (Auto) 0.500, Neut % (Auto) 69.6, Lymph % (Auto) 18.3 L, [place] % (Auto) 11.0 H, Eos % (Auto) 0.1, Baso % (Auto) 0.5, Absolute Neuts (auto) 5.3, Absolute Lymphs (auto) 1.40, Nucleated RBC % 0 05/08/19 15:15: PT 28.0 H, INR 2.6 05/08/19 15:15: Sodium 137, Potassium 4.3, Chloride 105, Carbon Dioxide 26.0, Anion Gap 6, BUN 14, Creatinine 1.09, Estim Creat Clear Calc 64.29, Est GFR (MDRD) Af Amer 85, Est GFR (MDRD) Non-Af 71, BUN/Creatinine Ratio 12.8, Glucose 133 H, Calcium 9.4, Troponin I 0.083 H Assessment/Plan All Active Problems (Last Reviewed 05/08/19 @ 16:43 by Fer Flores MD) Acute CHF (Acute) Acute heart failure with preserved ejection fraction (HFpEF) (Acute) Rhabdomyolysis (Resolved) Bicuspid aortic valve (Resolved) Dyspnea on exertion (Resolved) Patient is a 74-year-old gentleman with multiple comorbidities admitted with progressive shortness of breath bipedal edema as well as chest pain 1. Acute congestive heart failure with preserved ejection fraction ?Attributed to recent adjustment of patient diuretic therapy. Admitted to monitored bed, placed on strict input and output, daily weight, fluid restriction of 1.5 L per 24 hours patient also placed on Lasix and a 2D echo ordered for subsequent evaluation 2. Chest pain Patient initial troponin was slightly elevated. As stated above patient has been admitted to monitored bed subsequent serial cardiac enzymes ordered in addition to 2D echo and consultation placed to cardiology 3. Valvular heart disease - with history of TAVR on 03/27/2018 4. Conduction system disorder with history of complete heart block -status post pacemaker placement 5. Hypertension ~ blood pressure controlled, home medications continued with dose adjustment as needed 6. Dyslipidemia ~patient is on statin therapy, continued at home dose 7. Overlap syndrome (asthma and COPD) ?Did continue patient home aerosol regimen 8. Obstructive sleep apnea ?Patient is on BiPAP 20/14 cm of water at at bedtime 9. Chronic A. fib ?Rate controlled, Patient is on systemic anticoagulation with Coumadin with therapeutic INR. Did continue with daily monitoring of INR 10. Dyslipidemia ~patient is on statin therapy, continued at home dose 11. DVT prophylaxis ?Patient is on Coumadin 12. Diabetic neuropathy ?Patient is on gabapentin did continue Advance planning; did discuss with the patient and patient's son regarding advanced directives as well as CODE STATUS. Did explain the various scenarios involved ( FULL CODE, DNR CCA, DNR CCA with no intubation, and DNR CC and what each meant) patient elected remain full code with intubation and CPR if warranted patient also did express the fact that he would not like to be on artificial life support for prolonged.. Did explain to patient that this point his son will have to make a decision if he ever came to the. Order was placed. Time spent on discussion 18 minutes. Code Visit Inpatient E&M: 12582 Subs Hosp L3 Procedures: 80231 Advncd Care Plan 30 Min
--- NOTE | 2019-05-08 16:46 | ECHOCS_ITS ---
Reason For Study: CHF Procedure This was a 2D Doppler, Color Flow transthoracic echocardiogram. The study was technically difficult. Contrast injection was performed. Exam performed portable in patient room. Left Ventricle Normal LV size. Moderate concentric left ventricular hypertrophy. Mild global left ventricular systolic dysfunction. The estimated ejection fraction is 45 %. Right Ventricle Normal RV size. Normal systolic function. Atria The left atrium is severely enlarged. The right atrium is severely enlarged. No doppler evidence for ASD. Mitral Valve There is mild mitral annular calcification. Mild focal mitral valve calcification of the anterior leaflet. Moderate (2+) eccentric mitral valve insufficiency. Tricuspid Valve Mild diffuse thickening of the tricuspid valve. Moderate (2+) eccentric tricuspid valve insufficiency. Right ventricular systolic pressure estimated to be 64 mmHg. Aortic Valve Mild aortic stenosis. Stable appearing bioprosthetic aortic valve apparatus. Mild perivalvular insufficiency of the aortic valve. Pulmonic Valve The pulmonic valve is not well visualized. Trivial pulmonic valve insufficiency. Great Vessels The aortic root is not well visualized. Pericardium/Pleural No pericardial effusion. Medication Diluted definity 3ml given slow IV push to enhance endocardial definition. MMode/2D Measurements & Calculations LVIDd: 4.6 cm IVSd: 1.4 cm LVOT diam: 1.9 cm LVIDs: 3.3 cm LVPWd: 1.6 cm RVDd: 4.3 cm FS: 28.5 % LVOT area: 2.9 cm2 LAV(MOD-bp): 174.0 ml LA A4 area: 41.9 cm2 RA A4 area: 34.2 cm2 LAV(MOD-bp) Indexed: 76.5 ml/m2 LAV(MOD-sp2): 162.9 ml LAV(MOD-sp4): 173.9 ml Time Measurements MV dec time: 0.18 sec Doppler Measurements & Calculations MV E max moses: 99.0 cm/sec Lat Peak E' Moses: 12.8 cm/sec Med Peak E' Moses: 5.6 cm/sec MV A max moses: 17.2 cm/sec E/E' lat: 7.7 E/E' med: 17.8 MV E/A: 5.8 MV V2 max: 96.6 cm/sec MV P1/2t max moses: 97.5 cm/sec Ao V2 max: 263.4 cm/sec MV max P.7 mmHg MV P1/2t: 66.7 msec Ao max P.7 mmHg MV V2 mean: 45.2 cm/sec MV dec slope: 428.1 cm/sec2 Ao V2 mean: 161.4 cm/sec MV mean P.1 mmHg Ao mean P.6 mmHg MV V2 VTI: 25.2 cm MVA(P1/2t): 3.3 cm2 Ao V2 VTI: 43.7 cm MVA(VTI): 3.1 cm2 SABIHA(I,D): 1.8 cm2 SABIHA(V,D): 1.5 cm2 AI max moses: 396.0 cm/sec LV V1 max: 138.6 cm/sec SV(LVOT): 77.8 ml AI max P.7 mmHg LV V1 max P.7 mmHg LV V1 mean P.9 mmHg AI dec slope: 162.3 cm/sec2 LV V1 mean: 90.7 cm/sec AI P1/2t: 714.6 msec LV V1 VTI: 26.5 cm PA V2 max: 165.6 cm/sec PI end-d moses: 184.9 cm/sec TR max moses: 373.2 cm/sec TR max P.7 mmHg Interpretation Summary The study was technically difficult. Contrast injection was performed. Mild global left ventricular systolic dysfunction. The estimated ejection fraction is 45 %. Moderate concentric left ventricular hypertrophy. The left atrium is severely enlarged. The right atrium is severely enlarged. There is mild mitral annular calcification. Mild focal mitral valve calcification of the anterior leaflet. Moderate (2+) eccentric mitral valve insufficiency. Mild diffuse thickening of the tricuspid valve. Moderate (2+) eccentric tricuspid valve insufficiency. Stable appearing bioprosthetic aortic valve apparatus. Mild aortic stenosis. Mild perivalvular insufficiency of the aortic valve. Trivial pulmonic valve insufficiency. Right ventricular systolic pressure estimated to be 64 mmHg. Transmitral diastolic flow velocities suggest diastolic dysfunction (pseudonormal pattern). Ordering Physician: Fer Flores Referring Physician: Fer Caruso Performed By: Raymond Ndiaye RCS
--- NOTE | 2019-05-08 16:48 | ED.VISSUMM ---
- ER Visit Summary Date of Service: 05/08/19 Chief Complaint: Chest pain History of Present Illness: The patient is a [address] Jones and Dr. Jassi sheppard. He reports that he is 10 chest pain that began at 9:00 this morning while he was at rest. Is been a continuous dull pain that is 7 out of 10 at worst and 4-10 currently. Is worsened by exertion, turning his torso, breathing, or laying back. Is relieved by nothing. Does report is made him nauseated, lightheaded, and short of breath. Patient reports that he was seen by Dr. Jones's nurse practitioner on April 26 and had a spironolactone decreased from 50 mg a day to 25 mg a day. He does report he is had increased peripheral edema since that time. He does not do daily weights. Physical Examination: Vitals: Stable. Afebrile. General: Well-nourished and well-developed. Head: Normocephalic atraumatic. Neck: Supple, no lymphadenopathy. No JVD. Nontender. Cardiovascular: Regular rate and rhythm. 2 out of 6 systolic murmur. Respiratory: No respiratory distress. Clear to auscultation bilaterally. Abdominal: Soft, nontender, nondistended, normal bowel sounds. No guarding, rebound, or peritoneal signs. Back: Nontender. Extremities: Nontender, 3+ pitting edema lower extremities bilaterally. Skin: Normal color, no rash. Neurologic: Alert and oriented ?3. Cranial nerves II through XII are intact. Normal strength and sensation. Psych: Normal affect. Test Results: EKG is ventricular paced at 63 with a PVC. Initial troponin 0 0.083. However, review of labs since 2018 shows that he has not had a negative troponin since then. INR is 2.6. Chem-7 shows a glucose 133. CBC shows lymphocytes of 18 monocytes of 11. Chest x-ray shows vascular congestion with CHF. He does have bibasilar atelectasis as well. Emergency Department Course and Treatment: Patient is not hypoxic. He was treated with aspirin p.o. and Lasix IV. He is resting comfortably. Treatment Plan: Patient was discussed with Dr. Jones and Dr. Flores. He will be admitted to the hospital for further ablation and treatment. Disposition: Admitted in stable condition. Impression: 1. CHF. 2. Chest pain. 3. RIOS score of 3. This note was generated with [employer] dictation software. It may contain incorrect words, spelling, and punctuation that were not noted in review of the chart prior to signing ED Disposition - Plan for ED Patient: Referrals: Fer Caruso MD [Primary Care Provider] -
--- NOTE | 2019-05-08 16:53 | NURSING ---
PCU [facility] CHF, CP
[2019-05-08] MEDS: Furosemide 40 MG/4 ML Vial IV ×2 (18:00→19:31)
[2019-05-08] MEDS: Gabapentin 600 MG Tablet PO (18:37)
[2019-05-08] MEDS: 0.9% Saline Lock 10 ML Syringe IV (19:31)
[2019-05-08] MEDS: Budesonide Respules 0.5 MG/2 ML AMPUL.NEB. INHALATION (19:35)
[2019-05-08] MEDS: Ipratropium/Albuterol Sulfate 3 ML AMPUL.NEB INHALATION (19:35)
--- NOTE | 2019-05-08 20:39 | CON.PCM_ITS ---
Problem List (1) Acute CHF Status: Acute Qualifiers: Heart failure type: diastolic Qualified Code(s): I50.31 - Acute diastolic (congestive) heart failure (2) H/O aortic valve replacement Status: Chronic Comment: TAVR w/ 34 mm Corevalve Evolute 03/27/2018 (3) Persistent atrial fibrillation Status: Chronic (4) S/P ablation of atrial fibrillation Status: Chronic (5) History of permanent cardiac pacemaker placement Status: Chronic Comment: Medtronic Micra 03/29/2018 (6) HLD (hyperlipidemia) Status: Chronic Qualifiers: Hyperlipidemia type: unspecified Qualified Code(s): E78.5 - Hyperlipidemia, unspecified Reason for Consult Date of Consultation: 05/08/19 History of Present Illness: The patient is a 74 year [id number] white male with a past cardiovascular history of aortic valve disease/stenosis, status post transcatheter aortic valve replacement on 03-27-18 at [facility] with a 34 mm Corevalve Evolute, atrial fibrillation status post EPS/RFA-remote, status post permanent pacemaker placement-leadless Micra implant (March,), chronic diastolic mediated CHF, and hyperlipidemia who presents with concerns of chest discomfort and shortness of breath/dyspnea and findings concerning for acute on chronic diastolic mediated CHF. The patient states he presented to the emergency department because he had discomfort-he points to his left lower quadrant area and states it radiated up through his abdomen and throughout his body. He states he felt more short of breath and dyspneic both at rest and when up and ambulating. He does not recall any episodes of nausea, emesis, or diaphoresis. There is been no near syncope or syncope. He presented to the [facility] emergency department for evaluation. There he had an indeterminate troponin I level. He has been found to have a history of indeterminate troponin I levels. He was in a ventricular paced rhythm. His chest x-ray was reported as suggesting evidence of increased pulmonary vascularity. He was recommended for admission for concerns of acute on chronic diastolic mediated CHF. He initiated medical therapy with IV diuresis. He was placed in the PCU for further evaluation. Since being in the PCU he states, after diuresis, he feels much better. He states his left lower quadrant discomfort has improved as his breathing has improved. He was also noting an element of lower extremity peripheral pitting edema at home. He states it is still present but it is also improved since he has started IV diuresis. During this time he has had a repeat troponin I level that has had no significant change. [] Past Medical History Allergies/Adverse Reactions: Allergies prochlorperazine [From Compazine] Adverse Reaction (Severe, Verified 05/08/19 16:58) extrapyramidal symptoms, sedation extrapyramidal symptoms, sedation was taking also pramipexole at the time Home Medications: Ambulatory Orders Medication Instructions Recorded Aspirin [Aspirin, Baby] 81 mg PO DAILY 09/24/14 gabapentin 600 mg tablet 600 mg PO BID #60 tab 05/09/17 Glipizide [Glipizide ER] 10 mg PO DAILY 03/31/18 albuterol sulfate 90 mcg/actuation 2 puff INHALATION Q4H PRN PRN #18 g 08/11/18 aerosol inhaler tiotropium bromide 18 mcg capsule 1 cap INHALATION DAILY #30 inh 01/05/19 with inhalation device Budesonide/Formoterol 160/4.5 2 puff INHALATION QHS 03/06/19 [Symbicort 160/4.5 Mcg Inhaler (SP)] Furosemide 40 mg PO BID #180 tab 03/08/19 Metformin HCl [Glucophage] 1,000 mg PO BID #0 tab 03/08/19 Potassium Chloride [K-Tab ER] 20 meq PO BID #180 tab 03/08/19 Rosuvastatin Calcium 10 mg PO QHS #90 tab 03/08/19 Warfarin [Coumadin] 4 mg PO DAILY #0 03/08/19 metoprolol tartrate 50 mg tablet 50 mg PO BID #60 tab 04/19/19 spironolactone 25 mg tablet 25 mg PO DAILY #30 tab 04/26/19 Past Medical History (Chronic Problems): Chronic Problems (Last Reviewed 05/08/19 @ 16:43 by Fer Flores MD) S/P ablation of atrial fibrillation (Chronic) Nonrheumatic mitral valve regurgitation (Chronic) Chronic diastolic (congestive) heart failure (Chronic) Complete heart block (Chronic) History of permanent cardiac pacemaker placement (Chronic 03/29/18) Medtronic Micra 03/29/2018 H/O aortic valve replacement (Chronic 03/27/18) TAVR w/ 34 mm Corevalve Evolute 03/27/2018 Asthma-chronic obstructive pulmonary disease overlap syndrome (Chronic) 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) DENISA (obstructive sleep apnea) (Chronic) BiPAP 20/14 cm of water Persistent atrial fibrillation (Chronic) Nonrheumatic tricuspid (valve) insufficiency (Chronic) Nonrheumatic aortic (valve) stenosis (Chronic) TAVR with a 34mm Corevalve Evolute (bio-prosthesis) HLD (hyperlipidemia) (Chronic) Surgical History: herniorrhaphy, tonsillectomy - *Family History Paternal Family History: Family History (Last Reviewed 05/08/19 @ 16:43 by Fer Flores MD) Father CAD (coronary artery disease) Hypertension Restless leg syndrome Mother Hypertension Brother Hyperlipemia Hypertension Sister Hypertension Restless leg syndrome History Items: Heart Disease - CAD; CO; HTN Sibling Family History: Family History (Last Reviewed 05/08/19 @ 16:43 by Fer Flores MD) Father CAD (coronary artery disease) Hypertension Restless leg syndrome Mother Hypertension Brother Hyperlipemia Hypertension Sister Hypertension Restless leg syndrome History Items: Heart Disease - HTN Maternal Family History: Family History (Last Reviewed 05/08/19 @ 16:43 by Fer Flores MD) Father CAD (coronary artery disease) Hypertension Restless leg syndrome Mother Hypertension Brother Hyperlipemia Hypertension Sister Hypertension Restless leg syndrome History Items: Heart Disease - HTN, No pertinent history Smoking Status: Former smoker Tobacco Use: Cigars Alcohol: None Drugs: None Review of Systems - Review of Systems General: Denies: Fever, Night Sweats, Fatigue Cardiovascular: Reports: Chest Discomfort, Shortness of Breath, Shortness of Breath at Rest, Shortness of Breath with Exertion, Peripheral Edema. Denies: Orthopnea, PND, Palpitations, Lightheadedness, Dizziness, Near Syncope, Syncope Respiratory: Reports: Shortness of Breath. Denies: Cough, Sputum Production, Hemoptysis Gastrointestinal: Denies: Hematemesis, Hematochezia, Melena Genitourinary: Denies: Dysuria, Hematuria Skin: Denies: Rash Subjectve: This is a 74-year-old hard of hearing gentleman who appears to be resting comfortably at the moment in no acute distress. Objective: Vital Signs Temp Pulse Resp BP Pulse Ox 98.3 F 71 20 H 122/79 H 94 05/08/19 15:06 05/08/19 18:29 05/08/19 17:45 05/08/19 17:45 05/08/19 17:45 Oxygen Delivery Method Room Air Weight: 239 lb 6.752 oz Body Mass Index (BMI) 33.3 Finger Stick Blood Glucose 159 General: Awake, Alert, Oriented x 3, Cooperative, No Acute Distress, Obese HEENT: Atraumatic, Normocephalic, PERRL, EOMI, Sclera Non Icteric Oral: Moist Mucosa Neck: Supple, Good ROM, No JVD Lungs: Diminished Taurus Bases Cardiovascular: Regular Rhythm, Normal S1, Normal S2 Murmur Murmur: Grade 2/6, Holosystolic, [place], Axilla Vascular: No Carotid Bruits Abdomen: Bowel Sounds Present, Soft, Non Tender Extremities: Moderate RLE Edema, Moderate LLE Edema Psych/Mental Status: Appropriate 05/08/19 15:15: WBC 7.7, RBC 4.68, Hgb 15.0, Hct 45.4, MCV 97.0 H, MCH 32.1 H, MCHC 33.0, Plt Count 152, MPV 11.4, Immature Gran % (Auto) 0.500, Neut % (Auto) 69.6, Lymph % (Auto) 18.3 L, [place] % (Auto) 11.0 H, Eos % (Auto) 0.1, Baso % (Auto) 0.5, Absolute Neuts (auto) 5.3, Nucleated RBC % 0 05/08/19 15:15: PT 28.0 H, INR 2.6 05/08/19 15:15: Sodium 137, Potassium 4.3, Chloride 105, Carbon Dioxide 26.0, Anion Gap 6, BUN 14, Creatinine 1.09, Est GFR (MDRD) Af Amer 85, Est GFR (MDRD) Non-Af 71, BUN/Creatinine Ratio 12.8, Glucose 133 H, Calcium 9.4, Troponin I 0.083 H 05/08/19 18:26: Troponin I 0.082 H Rhythm: Electronic ventricular paced rhythm EKG: Electronic ventricular paced rhythm ECHO: 05-10-2018: [facility]: Left ventricle: Mild concentric LVH; LVEF 54%; severe biatrial enlargement; moderate MR; aortic valve with a 34 mm Medtronic porcine bioprosthesis-Evolute with mild perivalvular AI; mild to moderate TR Cardiac Cath: 01-23-18 CORONARY ANGIOGRAPHY DOMINANCE: Right Dominant LEFT HEART ASSESSMENT RIGHT HEART ASSESSMENT Thermal CO: 7.1 Thermal CI: 3.01 Lu CO: 5.39 Lu CI: 2.28 PW: /19 14 PA: 56/22 37 RV: 57/0 4 RA: /11 8 PVR: 259 SVR: 1014 Right Heart pressures - elevated LEFT MAIN: Angiographically normal LEFT ANTERIOR DECENDING ARTERY: Mild luminal irregularities less than 30% CIRCUMFLEX ARTERY: Mild luminal irregularities less than 30% RIGHT CORONARY ARTERY: Mild luminal irregularities less than 30% VALVE FINDINGS: Aortic Valve Stenosis - severe AORTIC ROOT: Dilated Transcatheter aortic valve replacement: 03-27-18: [facility]: 34 mm Corevalve Evolute CXR: As noted above: Please see official report Assessment/Plan 1. Acute on chronic diastolic mediated CHF The patient has acute on chronic diastolic mediated CHF symptoms and findings. He is undergoing further evaluation. This is to include a follow-up transthoracic echocardiogram to reassess his valvular anatomy and physiology as well as his left ventricular wall motion and systolic function. He is being treated with medical management. This includes IV diuresis. 2. Aortic valve disease/stenosis status post transcatheter aortic valve replacement The patient has undergone noninvasive and invasive evaluation of his valvular anatomy in the past. This led to a transcatheter aortic valve replacement. He states overall he is done better since this procedure. His last transthoracic echocardiogram appears to been on 05-10-2018. At the present time he will continue to be followed. He will continue medical management for his concerns of acute on chronic diastolic mediated CHF. With respect to his valvular heart disease he does need to continue AHA antibiotic prophylaxis. He will also have a follow-up echocardiogram to reassess his valvular anatomy and physiology. 3. Atrial fibrillation status post EPS/RFA He has a history of atrial fibrillation. He is undergone previous EPS/RFA in the past. At the present time he has been reported is remaining in atrial fibrillation. He is now status post permanent pacemaker placement as well. He will continue medical management. He has been on anticoagulant therapy. 4. Permanent pacemaker: Micra The patient has a leadless Micra pacemaker in place. He is concerned about his pacemaker function and whether or not it is functioning appropriately with respect to his lower rate limit. Thus a request will be made to have his pacemaker interrogated. 5. Hyperlipidemia He will continue medical management as deemed appropriate. Comment: The patient's case has been previously discussed with Dr. Deutsch of the [facility] emergency department staff as well as with the patient and his son who was present at the time. This note was generated using a voice recognition system and there may be incorrect words, spelling or punctuation that were not noted when reviewing the office note prior to saving.
[2019-05-08] MEDS: Atorvastatin Calcium 20 MG Tablet PO (20:59)
[2019-05-08] MEDS: Metoprolol Tartrate 50 MG Tablet PO (20:59)
[2019-05-08 21:30] LABS: Bedside Glucose 127 mg/dL (70-110)
[2019-05-09 02:45] VITALS: BP 117/76; PULSE 80; RESP 18; TEMP 36.4; O2SAT 93
[2019-05-09 03:04] VITALS: PULSE 66
[2019-05-09 06:24] LABS: Absolute Lymphocyte Count 1.37 X10^3/uL (0.83-4.51); Absolute Neutrophil Count 4.8 X10^3/uL (2.0-7.7); Basophil# 0.04 X10^3/uL; Basophil% 0.6 % (0-1); Eosinophil# 0.03 X10^3/uL; Eosinophils% 0.4 % (0-5); Hematocrit 42.6 % (40-54); Hemoglobin 14.6 g/dL (13.0-16.5); Lymphocyte # 1.37 X10^3/ul (4.0); Lymphocyte % 19.7 % (19-41); Mean Corp Hgb Conc 34.3 g/dL (32-36); Mean Corpuscular Hgb 32.4 pg (27.0-32.0); Mean Corpuscular Volume 94.7 fL (80-94); Mean Platelet Vol. 11.3 fl (6.2-12.0); Monocyte% 10.1 % (0-10); NRBC Flagged by Analyzer 0 % (0-5); Neutrophil # 4.79 X10^3/uL (2.7-7.7); Neutrophil % 68.9 % (47-70); Platelet Count 143 K/mm3 (150-450); RBC Distribution Width CV 13.8 % (11.6-14.6)
[2019-05-09 06:25] LABS: Anion Gap 7 (5-15); BUN 15 mg/dL (7-18); BUN/Creat Ratio 14.6 RATIO (10-20); Chloride 106 mmol/L (98-107); Creatinine, Serum 1.03 mg/dL (0.70-1.30); EST Glomerular Filtration Rate 75 mL/min (>60); Est Glom Filt Rate - Afr Amer 91 mL/min (>60); Estimated Creatinine Clearance 68.03 ml/min; Glucose 106 mg/dL (74-106); Potassium 3.8 mmol/L (3.5-5.1); Sodium Level 138 mmol/L (136-145)
[2019-05-09] MEDS: 0.9% Saline Lock 10 ML Syringe IV (06:32)
[2019-05-09] MEDS: Furosemide 40 MG/4 ML Vial IV (06:32)
[2019-05-09 06:45] LABS: Bedside Glucose 99 mg/dL (70-110)
[2019-05-09 07:00] VITALS: PULSE 87
[2019-05-09 07:10] VITALS: PULSE 69; RESP 16; O2SAT 96
[2019-05-09] MEDS: Ipratropium/Albuterol Sulfate 3 ML AMPUL.NEB INHALATION (07:10)
[2019-05-09] MEDS: Budesonide Respules 0.5 MG/2 ML AMPUL.NEB. INHALATION (07:10)
--- NOTE | 2019-05-09 07:27 | PCM.PN.HOSP ---
Patient Problems: Active and Suspected Problems (Last Reviewed 05/08/19 @ 16:43 by Fer Flores MD) Acute CHF (Acute) Acute heart failure with preserved ejection fraction (HFpEF) (Acute) Reason for Visit: Follow-up acute congestive heart failure Subjective: Admitted with acute congestive heart failure to a monitored bed. Started on Lasix currently negative fluid balance. Patient scheduled to undergo 2D echo for EF assessment. Patient was also seen in consultation by Dr. Jones with cardiology his note and recommendations reviewed Objective: GENERAL: cooperative dyspneic at rest HEENT: Atraumatic; EYES; Anicteric, Normal Conjunctiva NECK; supple, normal thyroid, RESPIRATORY: Diminished to auscultation CARDIOVASCULAR: Irregularly irregular GI: soft, normoactive bowel sounds, : No Renal angle tenderness; EXTREMITIES: Bipedal edema MUSCULOSKELETAL: no muscle waisting NEURO: Awake; no lateralizing signs. SKIN: No Rash PSYCH; Flat affect Vitals/I&O's: Vital Signs Temp Pulse Resp BP Pulse Ox 97.5 F L 66 18 117/76 93 05/09/19 02:45 05/09/19 03:04 05/09/19 02:45 05/09/19 02:45 05/09/19 02:45 Oxygen Delivery Method Room Air Weight: 108.6 kg Body Mass Index (BMI) 33.3 Finger Stick Blood Glucose 159 Intake and Output for Last 24 Hours 05/07/19 05/08/19 05/09/19 23:59 23:59 23:59 Intake Total 240 / 240 120 / 120 Output Total 2800 / 2800 400 / 400 Balance -2560 / -2560 -280 / -280 Laboratory Results 05/08/19 15:15: WBC 7.7, RBC 4.68, Hgb 15.0, Hct 45.4, MCV 97.0 H, MCH 32.1 H, MCHC 33.0, RDW Std Deviation 50.4 H, RDW Coeff of [place] 14.0, Plt Count 152, MPV 11.4, Immature Gran % (Auto) 0.500, Neut % (Auto) 69.6, Lymph % (Auto) 18.3 L, [place] % (Auto) 11.0 H, Eos % (Auto) 0.1, Baso % (Auto) 0.5, Absolute Neuts (auto) 5.3, Absolute Lymphs (auto) 1.40, Nucleated RBC % 0 05/08/19 15:15: PT 28.0 H, INR 2.6 05/08/19 15:15: Sodium 137, Potassium 4.3, Chloride 105, Carbon Dioxide 26.0, Anion Gap 6, BUN 14, Creatinine 1.09, Estim Creat Clear Calc 64.29, Est GFR (MDRD) Af Amer 85, Est GFR (MDRD) Non-Af 71, BUN/Creatinine Ratio 12.8, Glucose 133 H, Calcium 9.4, Troponin I 0.083 H 05/08/19 18:26: Troponin I 0.082 H 05/08/19 20:58: POC Glucose 127 H 05/08/19 21:08: Troponin I 0.076 H 05/09/19 05:35: WBC 7.0, RBC 4.50 L, Hgb 14.6, Hct 42.6, MCV 94.7 H, MCH 32.4 H, MCHC 34.3, RDW Std Deviation 48.0 H, RDW Coeff of [place] 13.8, Plt Count 143 L, MPV 11.3, Immature Gran % (Auto) 0.300, Neut % (Auto) 68.9, Lymph % (Auto) 19.7, [place] % (Auto) 10.1 H, Eos % (Auto) 0.4, Baso % (Auto) 0.6, Absolute Neuts (auto) 4.8, Absolute Lymphs (auto) 1.37, Nucleated RBC % 0 05/09/19 05:35: Sodium 138, Potassium 3.8, Chloride 106, Carbon Dioxide 25.0, Anion Gap 7, BUN 15, Creatinine 1.03, Estim Creat Clear Calc 68.03, Est GFR (MDRD) Af Amer 91, Est GFR (MDRD) Non-Af 75, BUN/Creatinine Ratio 14.6, Glucose 106, Calcium 9.0 05/09/19 06:29: POC Glucose 99 Current Medications Acetaminophen (Tylenol) 650 mg PO Q6H PRN PRN PRN Reason: Pain Score 1-3/Temp > 100.7 F Al Hydroxide/Mg Hydroxide (Mylanta Ii) 30 ml PO Q6H PRN PRN PRN Reason: Gastric Burning Albuterol Sulfate (Ventolin Aerosols) 2.5 mg INHALATION Q2H PRN PRN PRN Reason: SOB/Wheezing Albuterol/Ipratropium (Duoneb) 3 ml INHALATION Q6HWA.RT [facility] Last Admin: 05/09/19 07:10 Dose: 3 ml Documented by: Aspirin (Aspirin, Baby) 81 mg PO DAILY@0800 SAM Atorvastatin Calcium (Lipitor) 20 mg PO QHS [facility] Last Admin: 05/08/19 20:59 Dose: 20 mg Documented by: Budesonide (Pulmicort Aerosol) 0.5 mg INHALATION Q12H.RT [facility] Last Admin: 05/09/19 07:10 Dose: 0.5 mg Documented by: Furosemide (Lasix) 40 mg IV Q8 [facility] Last Admin: 05/09/19 06:32 Dose: 40 mg Documented by: [facility]) [facility] Last Admin: 05/08/19 18:37 Dose: 600 mg Documented by: Glucagon () 1 mg IM .X1 PRN PRN Reason: Hypoglycemia Dextrose (Dextrose 10%-Water) 250 mls @ 999 mls/hr IV .Q16M PRN; Protocol PRN Reason: HYPOGLYCEMIA Insulin Human Lispro (Humalog Kwikpen (Bkc)) 0 unit SC [facility]; Protocol Last Admin: 05/09/19 06:32 Dose: Not Given Documented by: Magnesium Hydroxide (Milk Of Magnesia) 30 ml PO DAILY PRN PRN PRN Reason: Constipation Melatonin (Melatonin) 3 mg PO QHS PRN PRN PRN Reason: INSOMNIA Metoprolol Tartrate (Lopressor (Beta Cherie)) 50 mg PO BID [facility] Last Admin: 05/08/19 20:59 Dose: 50 mg Documented by: Nitroglycerin (Nitrostat) 0.4 mg SUBLINGUAL Q5M PRN PRN Reason: CARDIAC/CHEST PAIN Ondansetron HCl (Zofran) 4 mg IV Q8H PRN PRN PRN Reason: NAUSEA/VOMITING Oxycodone HCl (Oxyir) 5 mg PO Q4H PRN PRN PRN Reason: Pain Score 4-5/10 Oxycodone HCl (Oxyir) 10 mg PO Q4H PRN PRN PRN Reason: Pain Score 6-10/10 Potassium Chloride (K[facility]Dur) [facility] Last Admin: 05/08/19 18:36 Dose: 20 meq Documented by: Sodium Chloride () 10 - 40 ml IV UD PRN PRN Reason: SALINE FLUSH Last Admin: 05/09/19 06:32 Dose: 10 ml Documented by: Spironolactone (Aldactone) 25 mg PO DAILY [facility] Warfarin Sodium (Coumadin (Pbkc)) 4 mg PO DAILY@1700 [facility] Last Admin: 05/08/19 18:36 Dose: 4 mg Documented by: Medical Necessity - Tobacco Use Smoking Status: Former smoker Tobacco Use: Cigars Assessment/Plan All Active Problems (Last Reviewed 05/08/19 @ 16:43 by Fer Flores MD) Acute CHF (Acute) Acute heart failure with preserved ejection fraction (HFpEF) (Acute) Rhabdomyolysis (Resolved) Bicuspid aortic valve (Resolved) Dyspnea on exertion (Resolved) Patient is a 74-year-old gentleman with multiple comorbidities admitted with progressive shortness of breath bipedal edema as well as chest pain 1. Acute congestive heart failure with preserved ejection fraction ?Attributed to recent adjustment of patient diuretic therapy. Admitted to monitored bed, placed on strict input and output, daily weight, fluid restriction of 1.5 L per 24 hours patient also placed on Lasix and a 2D echo ordered for subsequent evaluation -05/09/2019 admitted with acute congestive heart failure to a monitored bed. Started on Lasix currently negative fluid balance. Patient scheduled to undergo 2D echo for EF assessment. Patient was also seen in consultation by Dr. Jones with cardiology his note and recommendations reviewed 2. Chest pain Patient initial troponin was slightly elevated. As stated above patient has been admitted to monitored bed subsequent serial cardiac enzymes ordered in addition to 2D echo and consultation placed to cardiology 3. Valvular heart disease - with history of TAVR on 03/27/2018 4. Conduction system disorder with history of complete heart block -status post pacemaker placement 5. Hypertension ~ blood pressure controlled, home medications continued with dose adjustment as needed 6. Dyslipidemia ~patient is on statin therapy, continued at home dose 7. Overlap syndrome (asthma and COPD) ?Did continue patient home aerosol regimen 8. Obstructive sleep apnea ?Patient is on BiPAP 20/14 cm of water at at bedtime 9. Chronic A. fib ?Rate controlled, Patient is on systemic anticoagulation with Coumadin with therapeutic INR. Did continue with daily monitoring of INR 10. Dyslipidemia ~patient is on statin therapy, continued at home dose 11. DVT prophylaxis ?Patient is on Coumadin 12. Diabetic neuropathy ?Patient is on gabapentin did continue Code Visit Inpatient E&M: 49328 Subs Hosp L2
[2019-05-09 08:45] VITALS: BP 105/54; PULSE 70; RESP 16; TEMP 37.2; O2SAT 94
[2019-05-09] MEDS: Aspirin 81 MG TAB.CHEW PO (08:49)
[2019-05-09 08:50] VITALS: PULSE 70
[2019-05-09] MEDS: Metoprolol Tartrate 50 MG Tablet PO (08:50)
[2019-05-09] MEDS: Gabapentin 600 MG Tablet PO (08:50)
[2019-05-09] MEDS: Spironolactone 25 MG Tablet PO (08:50)
--- NOTE | 2019-05-09 10:30 | CASEMGMT ---
RN DARIELA HUNTING SALES ASSOCIATE CM to room to meet with patient for initial transition planning/care coordination assessment. DARRELL LYLE introduced self and role at [facility]. Pt voices understanding and consents to assessment at this time. Pt resting in bed in no distress at this time. Pt is A/O at this time and answers all questions appropriately. Care providers, pharmacy, and demographics verified at this time. PCP: Dr Caruso Specialists: Dr Jones--cardiology, Dr Jimenez--pulmonology, Dr Ross--orthopedic, Dr Astudillo--ENT in [facility] Pharmacy: [facility] Insurance: [employer] [facility] Prescription Benefit: Yes Living Will/HPOA: has both LW and Healthcare POA, who is his son, Adeel. Made aware these are not on file @ [facility]. LNOK: SonAdeel Living Arrangements: Pt lives in Ranch-style home. 3 steps to enter. His son, Adeel, lives with him. Pt states he is Independent with ADL's and IADL's. States his son is supportive and helps w/meals and home mgmt tasks. Transportation: Pt states drives self and states no transportation concerns at this time. SonAdeel also drives. DME: has the following DME: grab bars, hand held shower, nebulizer, BIPAP. States has oxygen he got through [employer] but I have not used it for a long time and I need to return it. Has a shower chair available but does not use it. Pt states no need for further DME at this time. HHC/SNF: No history of either. Denies need for HHC or OP therapy. Made aware, if in the future, he feels he would benefit from OP therapy or HHC, to discuss this with his PCP. Pt voices understanding. Pt wishes to return home and states has no concerns with going home at time of discharge. CM to follow for any discharge planning/needs. Pt voices no concerns/needs at this time. Advised pt to ask for CM if any questions/concerns/needs arise. Voices understanding. PLAN: Home Albert HERRERA RN, CM
[2019-05-09 11:31] LABS: Bedside Glucose 184 mg/dL (70-110)
--- NOTE | 2019-05-09 13:07 | DCINST_ITS ---
- Discharge Diagnoses Current Active Problems: Current Active and Chronic Problems (Last Reviewed 05/08/19 @ 16:43 by Fer Flores MD) Acute CHF (Acute) Acute heart failure with preserved ejection fraction (HFpEF) (Acute) S/P ablation of atrial fibrillation (Chronic) You will use the following diet at home:: Fluid restricted (specify 2000 mls, 1500 mls) - 200 Your food should be the consistency of: Regular Discharge Activity: Return to Normal Activity Allergies/Adverse Reactions: Allergies prochlorperazine [From Compazine] Adverse Reaction (Severe, Verified 05/08/19 16:58) extrapyramidal symptoms, sedation extrapyramidal symptoms, sedation was taking also pramipexole at the time Medications to take at Discharge Aspirin [Aspirin, Baby] 81 mg PO DAILY 09/24/14 gabapentin 600 mg tablet 600 mg PO BID #60 tab 05/09/17 Glipizide [Glipizide ER] 10 mg PO DAILY 03/31/18 albuterol sulfate 90 mcg/actuation aerosol inhaler 2 puff INHALATION Q4H PRN PRN #18 g 08/11/18 tiotropium bromide 18 mcg capsule with inhalation device 1 cap INHALATION DAILY #30 inh 01/05/19 Budesonide/Formoterol 160/4.5 [Symbicort 160/4.5 Mcg Inhaler (SP)] 2 puff INHALATION QHS 03/06/19 Furosemide 40 mg PO BID #180 tab 03/08/19 Metformin HCl [Glucophage] 1,000 mg PO BID #0 tab 03/08/19 Potassium Chloride [K-Tab ER] 20 meq PO BID #180 tab 03/08/19 Rosuvastatin Calcium 10 mg PO QHS #90 tab 03/08/19 Warfarin [Coumadin] 4 mg PO DAILY #0 03/08/19 metoprolol tartrate 50 mg tablet 50 mg PO BID #60 tab 04/19/19 spironolactone 25 mg tablet 25 mg PO DAILY #30 tab 04/26/19 Primary Care Physician: Fer Caruso MD [Primary Care Provider] - Please follow up with your Primary Care Physician in: IN 1WEEK Test Results: Test results from this visit will be discussed in further detail at your follow- up appointment, if applicable. Please Follow Up With: Usman Aaron MD When: IN 2-3 WEEKS Proposed Discharge Date: 05/09/19
--- NOTE | 2019-05-09 13:10 | PCM.DC.SUM ---
Discharge Date and Diagnosis - Problem List Patient Problems: Active and Suspected Problems (Last Reviewed 05/08/19 @ 16:43 by Fer Flores MD) Acute CHF (Acute) Acute heart failure with preserved ejection fraction (HFpEF) (Acute) Date of Admission: 05/08/19 Date of Discharge: 05/09/19 - Primary Discharge Diagnosis Active and Suspected Problems (Last Reviewed 05/08/19 @ 16:43 by Fer Florse MD) Acute CHF (Acute) Acute heart failure with preserved ejection fraction (HFpEF) (Acute) - Secondary Discharge Diagnosis Chronic Problems (Last Reviewed 05/08/19 @ 16:43 by Fer Flores MD) S/P ablation of atrial fibrillation (Chronic) Nonrheumatic mitral valve regurgitation (Chronic) Chronic diastolic (congestive) heart failure (Chronic) Complete heart block (Chronic) History of permanent cardiac pacemaker placement (Chronic 03/29/18) Medtronic Micra 03/29/2018 H/O aortic valve replacement (Chronic 03/27/18) TAVR w/ 34 mm Corevalve Evolute 03/27/2018 Asthma-chronic obstructive pulmonary disease overlap syndrome (Chronic) shelter current use of anticoagulant (Chronic) DENISA (obstructive sleep apnea) (Chronic) BiPAP 20/14 cm of water Persistent atrial fibrillation (Chronic) Nonrheumatic tricuspid (valve) insufficiency (Chronic) Nonrheumatic aortic (valve) stenosis (Chronic) TAVR with a 34mm Corevalve Evolute (bio-prosthesis) HLD (hyperlipidemia) (Chronic) Hospital Course and Treatment Imaging Results: Mild global left ventricular systolic dysfunction. The estimated ejection fraction is 45 %. Moderate concentric left ventricular hypertrophy. The left atrium is severely enlarged. The right atrium is severely enlarged. There is mild mitral annular calcification. Mild focal mitral valve calcification of the anterior leaflet. Moderate (2+) eccentric mitral valve insufficiency. Mild diffuse thickening of the tricuspid valve. Moderate (2+) eccentric tricuspid valve insufficiency. Stable appearing bioprosthetic aortic valve apparatus. Mild aortic stenosis. Mild perivalvular insufficiency of the aortic valve. Trivial pulmonic valve insufficiency. Right ventricular systolic pressure estimated to be 64 mmHg. Transmitral diastolic flow velocities suggest diastolic dysfunction (pseudonormal pattern). Operations: None Summary of Care Provided: Patient is a 74-year-old gentleman with multiple comorbidities admitted with progressive shortness of breath bipedal edema as well as chest pain 1. Acute congestive heart failure with preserved ejection fraction ?Attributed to recent adjustment of patient diuretic therapy. Admitted to monitored bed, placed on strict input and output, daily weight, fluid restriction of 1.5 L per 24 hours patient also placed on Lasix and a 2D echo ordered for subsequent evaluation -05/09/2019 admitted with acute congestive heart failure to a monitored bed. Started on Lasix currently negative fluid balance. Patient scheduled to undergo 2D echo for EF assessment. Patient was also seen in consultation by Dr. Jones with cardiology his note and recommendations reviewed. 2D echo obtained demonstrated EF of 45%. Lisinopril 2.5 was added to patient medication regimen on discharge. 2. Chest pain Patient initial troponin was slightly elevated. As stated above patient has been admitted to monitored bed subsequent serial cardiac enzymes ordered in addition to 2D echo and consultation placed to cardiology 3. Valvular heart disease - with history of TAVR on 03/27/2018 4. Conduction system disorder with history of complete heart block -status post pacemaker placement 5. Hypertension ~ blood pressure controlled, home medications continued with dose adjustment as needed 6. Dyslipidemia ~patient is on statin therapy, continued at home dose 7. Overlap syndrome (asthma and COPD) ?Did continue patient home aerosol regimen 8. Obstructive sleep apnea ?Patient is on BiPAP 20/14 cm of water at at bedtime 9. Chronic A. fib ?Rate controlled, Patient is on systemic anticoagulation with Coumadin with therapeutic INR. Did continue with daily monitoring of INR 10. Dyslipidemia ~patient is on statin therapy, continued at home dose 11. DVT prophylaxis ?Patient is on Coumadin 12. Diabetic neuropathy ?Patient is on gabapentin did continue Patient Problems: Active and Suspected Problems (Last Reviewed 05/08/19 @ 16:43 by Fer Flores MD) Acute CHF (Acute) Acute heart failure with preserved ejection fraction (HFpEF) (Acute) Objective: GENERAL: cooperative HEENT: Atraumatic; EYES; Anicteric, Normal Conjunctiva NECK; supple, normal thyroid, RESPIRATORY: Diminished to auscultation CARDIOVASCULAR: Irregularly irregular GI: soft, normoactive bowel sounds, : No Renal angle tenderness; EXTREMITIES: Bipedal edema MUSCULOSKELETAL: no muscle waisting NEURO: Awake; no lateralizing signs. SKIN: No Rash PSYCH; Flat affect - Physical Exam Vitals/I&O's: Vital Signs Temp Pulse Resp BP Pulse Ox 99.0 F 70 16 105/54 L 94 01/29/20 08:45 05/09/19 08:50 05/09/19 08:45 05/09/19 08:45 05/09/19 08:45 Oxygen Delivery Method Room Air Weight: 108.6 kg Body Mass Index (BMI) 33.3 Finger Stick Blood Glucose 159 Intake and Output for Last 24 Hours 05/07/19 05/08/19 05/09/19 23:59 23:59 23:59 Intake Total 240 / 240 620 / 620 Output Total 2800 / 2800 2300 / 2300 Balance -2560 / -2560 -1680 / -1680 Laboratory Results 05/08/19 15:15: WBC 7.7, RBC 4.68, Hgb 15.0, Hct 45.4, MCV 97.0 H, MCH 32.1 H, MCHC 33.0, RDW Std Deviation 50.4 H, RDW Coeff of [place] 14.0, Plt Count 152, MPV 11.4, Immature Gran % (Auto) 0.500, Neut % (Auto) 69.6, Lymph % (Auto) 18.3 L, [place] % (Auto) 11.0 H, Eos % (Auto) 0.1, Baso % (Auto) 0.5, Absolute Neuts (auto) 5.3, Absolute Lymphs (auto) 1.40, Nucleated RBC % 0 05/08/19 15:15: PT 28.0 H, INR 2.6 05/08/19 15:15: Sodium 137, Potassium 4.3, Chloride 105, Carbon Dioxide 26.0, Anion Gap 6, BUN 14, Creatinine 1.09, Estim Creat Clear Calc 64.29, Est GFR (MDRD) Af Amer 85, Est GFR (MDRD) Non-Af 71, BUN/Creatinine Ratio 12.8, Glucose 133 H, Calcium 9.4, Troponin I 0.083 H 05/08/19 18:26: Troponin I 0.082 H 05/08/19 20:58: POC Glucose 127 H 05/08/19 21:08: Troponin I 0.076 H 05/09/19 05:35: WBC 7.0, RBC 4.50 L, Hgb 14.6, Hct 42.6, MCV 94.7 H, MCH 32.4 H, MCHC 34.3, RDW Std Deviation 48.0 H, RDW Coeff of [place] 13.8, Plt Count 143 L, MPV 11.3, Immature Gran % (Auto) 0.300, Neut % (Auto) 68.9, Lymph % (Auto) 19.7, [place] % (Auto) 10.1 H, Eos % (Auto) 0.4, Baso % (Auto) 0.6, Absolute Neuts (auto) 4.8, Absolute Lymphs (auto) 1.37, Nucleated RBC % 0 05/09/19 05:35: Sodium 138, Potassium 3.8, Chloride 106, Carbon Dioxide 25.0, Anion Gap 7, BUN 15, Creatinine 1.03, Estim Creat Clear Calc 68.03, Est GFR (MDRD) Af Amer 91, Est GFR (MDRD) Non-Af 75, BUN/Creatinine Ratio 14.6, Glucose 106, Calcium 9.0 05/09/19 06:29: POC Glucose 99 05/09/19 11:17: POC Glucose 184 H Current Medications Acetaminophen (Tylenol) 650 mg PO Q6H PRN PRN PRN Reason: Pain Score 1-3/Temp > 100.7 F Al Hydroxide/Mg Hydroxide (Mylanta Ii) 30 ml PO Q6H PRN PRN PRN Reason: Gastric Burning Albuterol Sulfate (Ventolin Aerosols) 2.5 mg INHALATION Q2H PRN PRN PRN Reason: SOB/Wheezing Albuterol/Ipratropium (Duoneb) 3 ml INHALATION Q6HWA.RT [facility] Last Admin: 05/09/19 07:10 Dose: 3 ml Documented by: Aspirin (Aspirin, Baby) 81 mg PO DAILY@0800 [facility] Last Admin: 05/09/19 08:49 Dose: 81 mg Documented by: Atorvastatin Calcium (Lipitor) 20 mg PO QHS [facility] Last Admin: 05/08/19 20:59 Dose: 20 mg Documented by: Budesonide (Pulmicort Aerosol) 0.5 mg INHALATION Q12H.RT [facility] Last Admin: 05/09/19 07:10 Dose: 0.5 mg Documented by: Furosemide (Lasix) 40 mg IV Q8 [facility] Last Admin: 05/09/19 06:32 Dose: 40 mg Documented by: Gabapentin (Neurontin) 600 mg PO BIDCM [facility] Last Admin: 05/09/19 08:50 Dose: 600 mg Documented by: Glucagon () 1 mg IM .X1 PRN PRN Reason: Hypoglycemia Dextrose (Dextrose 10%-Water) 250 mls @ 999 mls/hr IV .Q16M PRN; Protocol PRN Reason: HYPOGLYCEMIA Insulin Human Lispro (Humalog Kwikpen (Bkc)) 0 unit SC ACHS [facility]; Protocol Last Admin: 05/09/19 11:20 Dose: Not Given Documented by: Magnesium Hydroxide (Milk Of Magnesia) 30 ml PO DAILY PRN PRN PRN Reason: Constipation Melatonin (Melatonin) 3 mg PO QHS PRN PRN PRN Reason: INSOMNIA Metoprolol Tartrate (Lopressor (Beta Cherie)) 50 mg PO BID [facility] Last Admin: 05/09/19 08:50 Dose: 50 mg Documented by: Nitroglycerin (Nitrostat) 0.4 mg SUBLINGUAL Q5M PRN PRN Reason: CARDIAC/CHEST PAIN Ondansetron HCl (Zofran) 4 mg IV Q8H PRN PRN PRN Reason: NAUSEA/VOMITING Oxycodone HCl (Oxyir) 5 mg PO Q4H PRN PRN PRN Reason: Pain Score 4-5/10 Oxycodone HCl (Oxyir) 10 mg PO Q4H PRN PRN PRN Reason: Pain Score 6-10/10 [facility] Admin: 05/09/19 08:49 Dose: 20 meq Documented by: Sodium Chloride () 10 - 40 ml IV UD PRN PRN Reason: SALINE FLUSH Last Admin: 05/09/19 06:32 Dose: 10 ml Documented by: Spironolactone (Aldactone) 25 mg PO DAILY [facility] Last Admin: 05/09/19 08:50 Dose: 25 mg Documented by: Warfarin Sodium (Coumadin (Pbkc)) 4 mg PO DAILY@1700 [facility] Last Admin: 05/08/19 18:36 Dose: 4 mg Documented by: Discharge Diet: 2000 mg Sodium Diet Discharge Activity: Return to Normal Activity Home Medications: Medications to take at Discharge Aspirin [Aspirin, Baby] 81 mg PO DAILY 09/24/14 gabapentin 600 mg tablet 600 mg PO BID #60 tab 05/09/17 Glipizide [Glipizide ER] 10 mg PO DAILY 12/21/18 albuterol sulfate 90 mcg/actuation aerosol inhaler 2 puff INHALATION Q4H PRN PRN #18 g 08/11/18 tiotropium bromide 18 mcg capsule with inhalation device 1 cap INHALATION DAILY #30 inh 01/05/19 Budesonide/Formoterol 160/4.5 [Symbicort 160/4.5 Mcg Inhaler (SP)] 2 puff INHALATION QHS 03/06/19 Furosemide 40 mg PO BID #180 tab 03/08/19 Metformin HCl [Glucophage] 1,000 mg PO BID #0 tab 03/08/19 Potassium Chloride [K-Tab ER] 20 meq PO BID #180 tab 03/08/19 Rosuvastatin Calcium 10 mg PO QHS #90 tab 03/08/19 Warfarin [Coumadin] 4 mg PO DAILY #0 03/08/19 metoprolol tartrate 50 mg tablet 50 mg PO BID #60 tab 04/19/19 spironolactone 25 mg tablet 25 mg PO DAILY #30 tab 04/26/19 Lisinopril 2.5 mg PO DAILY #30 tab 05/09/19 Following Prescrptions Were Given to Patient: Lisinopril 2.5 mg PO DAILY #30 tab Transmission Status: Pending to [facility] Primary Care Physician: Fer Caruso MD [Primary Care Provider] - Please follow up with your Primary Care Physician in: IN 1WEEK Please Follow Up With: Usman Aaron MD When: IN 2-3 WEEKS Disposition: Home Minutes spent on discharge:: 35 Patient Condition:: Stable Medical Necessity - Tobacco Use Smoking Status: Former smoker Tobacco Use: Cigars Meaningful Use Info Meaningful Use Diagnoses (Choose all that apply): CHF - CHF SALLY/ARB ordered at discharge?: Yes Documented LVEF (%): 45 Code Visit Inpatient E&M: 76140 Disch Hosp
--- NOTE | 2019-05-09 13:20 | CASEMGMT ---
Pt made aware by CM that LW/POA forms are not on file at [facility]. FERNANDO Gipson
--- NOTE | 2019-05-09 14:16 | CHAPLAIN ---
Type of Pastoral Visit _x__ Initial Visit ___ Follow-up Visit ___ On-call Visit ___ General Patient Visit ___ Spiritual Assessment ___ Family Conference ___ Bereavement ___ Rapid Response ___ Code Blue ___ Other (describe below) Pastoral Care Referral From _x__ Patient ___ Family ___ Nurse ___ Physician ___ Kitchen Hand ___ Road Patcher ___ Other (describe below) Sacrament/Intervention _x__ Active listening ___ Anointing ___ Hinduism ___ Bereavement ___ Communion ___ Jewels exploration ___ ___ Life review ___ Prayer ___ Reconciliation ___ Sacrament of Sick ___ Supportive presence ___ Wedding ___ Other (describe below) Pastoral Comments
--- NOTE | 2019-05-10 11:31 | CASEMGMT ---
DARRELL LYLE DC PHONE CALL DC DATE: 05.09.2019 DC Disposition: Home Diagnosis on Discharge: CHF LACE/STRATA: 01/11 Intro role of CM to patient via phone. Pt states he does not have questions re: instructions, has medications and DARRELL LYLE reviewed f/u appts with pt. Pt states he is not sure who will take him to appt, thinks his son will. DARRELL LYLE recommended he call son, let him know appt date and time and also encouraged pt, even if feeling improved, to go to this f/u. Pt states he will do this. No care improvement suggestions. Pt states his care was very good at hospital and he appreciated staff. Bettie RAMÍREZ BSN ACM
== END 2019-05-09 14:15 | disposition home or self-care (01) | DRG 292 ==
LOC: ED 15:51 → PCU 16:56
PROVIDERS: Admitting Provider Internal Medicine; Emergency Provider Emergency Medicine; PCP Family Medicine; Visit Provider Internal Medicine
DX: I11.0 Hypertensive heart disease with heart failure (principal); M35.1 Other overlap syndromes; I48.19 Other persistent atrial fibrillation; I50.33 Acute on chronic diastolic (congestive) heart failure; Z95.0 Presence of cardiac pacemaker; Z95.2 Presence of prosthetic heart valve; J44.9 Chronic obstructive pulmonary disease, unspecified; Z79.01 Long term (current) use of anticoagulants; Z79.82 Long term (current) use of aspirin; Z79.51 Long term (current) use of inhaled steroids; Z79.899 Other long term (current) drug therapy; Z87.891 Personal history of nicotine dependence; E78.5 Hyperlipidemia, unspecified; G47.33 Obstructive sleep apnea (adult) (pediatric); E11.40 Type 2 diabetes mellitus with diabetic neuropathy, unspecified; Z79.84 Long term (current) use of oral hypoglycemic drugs; I34.0 Nonrheumatic mitral (valve) insufficiency; I36.1 Nonrheumatic tricuspid (valve) insufficiency; I35.0 Nonrheumatic aortic (valve) stenosis
CPT/HCPCS: 36415; 71045; 80048; 82962; 84484; 85025; 85610; 93005; 93306; 94640; 99251; 99285; Q9957; A4216; C8929; G0463; J1940

== ENCOUNTER → 2019-09-06 | Outpatient (CLI) | payer MEDICARE, SELFPAY ==
[2019-08-01 12:22] VITALS: BMI 33.3
== END | disposition home or self-care (01) ==
LOC: PSN 11:20
PROVIDERS: PCP Family Medicine; Referring Provider Internal Medicine Critical Care Medicine; Visit Provider Internal Medicine Critical Care Medicine
DX: G47.33 Obstructive sleep apnea (adult) (pediatric) (principal)
CPT/HCPCS: 98960; G0463

== ENCOUNTER 2019-10-13 15:49 | Emergency (ER) | payer MEDICARE, SELFPAY ==
[2019-08-01 12:22] VITALS: BMI 33.3
[2019-10-13 15:51] VITALS: BP 121/78; PULSE 63; RESP 18; TEMP 36.6; O2SAT 94; BMI 32.5
--- NOTE | 2019-10-13 16:03 | ED.DCSUM_ITS ---
History of Present Illness Chief Complaint: Laceration Informant: Patient, Family Narrative: 74-year-old male who presents to the emergency department for skin tear of his left elbow. Yesterday he was trying to get up steps whenever he tripped. He fell against the door hinge on his left arm. He presented to the hospital today because the wound has still been bleeding. He tried using wraps which did not help. He is on Coumadin for history of atrial fibrillation. His last INR check was over 2 weeks ago. He denies any loss of sensation in that extremity. He has full range of motion without any significant pain. He denies hitting his head or losing consciousness during the fall. No other injury noted. Past Medical History - Allergies and Home Meds Allergies/Adverse Reactions: Allergies prochlorperazine [From Compazine] Adverse Reaction (Severe, Verified 10/13/19 15:53) extrapyramidal symptoms, sedation extrapyramidal symptoms, sedation was taking also pramipexole at the time Primary Care Physician: Fer Caruso MD [Primary Care Provider] - 2 Days (Please call your doctor by tomorrow before taking dose Coumadin about your INR being 4.1.) Prior records reviewed: Yes Past Medical History: - - Atrial fibrillation on anticoagulation, aortic valve replacement, CHF hyperlipidemia Surgical History: herniorrhaphy, tonsillectomy Smoking Status: Former smoker - Family History Paternal Family History: Family History (Last Reviewed 08/01/19 @ 12:50 by FELICITAS Briseno) Father CAD (coronary artery disease) Hypertension Restless leg syndrome Mother Hypertension Brother Hyperlipemia Hypertension Sister Hypertension Restless leg syndrome Family History: Reports: Heart Disease - CAD; [place]; HTN Sibling Family History: Family History (Last Reviewed 08/01/19 @ 12:50 by FELICITAS Briseno) Father CAD (coronary artery disease) Hypertension Restless leg syndrome Mother Hypertension Brother Hyperlipemia Hypertension Sister Hypertension Restless leg syndrome Family History: Reports: Heart Disease - HTN Maternal Family History: Family History (Last Reviewed 08/01/19 @ 12:50 by FELICITAS Briseno) Father CAD (coronary artery disease) Hypertension Restless leg syndrome Mother Hypertension Brother Hyperlipemia Hypertension Sister Hypertension Restless leg syndrome Family History: Reports: Heart Disease - HTN, No pertinent history Review of Systems General: Denies: Chills, Fever ENT: Denies: Rhinorrhea, Sore throat Cardiovascular: Denies: Chest pain, Palpitations Respiratory: Denies: Dyspnea, Cough, Dyspnea on exertion Gastrointestinal: Denies: Abdominal pain, Nausea, Vomiting Genitourinary: Denies: Dysuria, Hematuria, Frequency Musculoskeletal: Denies: Back pain, Extremity Pain Skin: Reports: Abrasions - Left elbow skin tear. Denies: Rash Neurological: Denies: Headache, Weakness, Numbness Hematologic: Reports: Easy bruising, Easy bleeding Physical Exam Vital Signs/Narrative: Vital Signs Temp Pulse Resp BP Pulse Ox 10/13/19 15:51 98 F 63 18 121/78 H 94 Inital Vital Signs reviewed: Yes General: Well nourished, Well developed, No Acute Distress Head: Normocephalic, Atraumatic Eyes: Perrl, EOMI ENT: Moist mucous membranes, No rhinorrhea Neck: Supple, Nontender Cardiovascular: Regular rate, Regular rhythm Respiratory: No distress, CTA bilaterally, Chest nontender Abdomen: Soft, Nontender, Nondistended, Normal bowel sounds Back: Nontender, Normal Inspection Extremities: Nontender, No edema, - - Full range of motion of the shoulder, elbow wrist. No pain with palpation of underlying structures. Does have plate at the proximal humerus from previous surgery. Skin: Normal color, No rash, - - Skin tear with venous oozing present over the left elbow. Laceration present. No evidence of cellulitis. Neurological: Alert, Oriented x3, Normal Strength, Normal Sensation Psychological: Normal affect, Normal Mood Diagnostic/Tx/Re-eval - Medical Decision Making Patient presents the emerge department after a fall yesterday causing a skin tear over his left elbow. He still having some bleeding. He is on Coumadin. We will check his INR as he has not had this checked in over 2 weeks. We will also check blood count and platelet count with CBC. Will trial TXA soaked gauze over the elbow and wrapped. After elbow was wrapped with nonadherent bandage with the TXA the bleeding was stopped. I did leave this dressed for them. CBC did not show any significant thrombocytopenia. INR was elevated at 4.1. He is to contact his PCP about potential dose adjustment. He understands and is agreeable with this plan. Will discharge home in stable condition. ED Disposition - Plan for ED Patient: [facility] Diagnosis: Skin tear of left elbow without complication, Coagulopathy Instructions: ED AVULSION LACERATION Referrals: Fer Caruso MD [Primary Care Provider] - 2 Days (Please call your doctor by tomorrow before taking dose Coumadin about your INR being 4.1.)
[2019-10-13 16:31] LABS: Absolute Lymphocyte Count 1.25 X10^3/uL (0.83-4.51); Absolute Neutrophil Count 4.9 X10^3/uL (2.0-7.7); Basophil# 0.04 X10^3/uL; Basophil% 0.6 % (0-1); Eosinophil# 0.04 X10^3/uL; Eosinophils% 0.6 % (0-5); Hematocrit 44.7 % (40-54); Hemoglobin 14.8 g/dL (13.0-16.5); Lymphocyte # 1.25 X10^3/ul (4.0); Lymphocyte % 17.8 % (19-41); Mean Corp Hgb Conc 33.1 g/dL (32-36); Mean Corpuscular Hgb 32.6 pg (27.0-32.0); Mean Corpuscular Volume 98.5 fL (80-94); Mean Platelet Vol. 10.7 fl (6.2-12.0); Monocyte# 0.84 X10^3/uL; Monocyte% 11.9 % (0-10); NRBC Flagged by Analyzer 0 % (0-5); Neutrophil # 4.85 X10^3/uL (2.7-7.7); Neutrophil % 68.8 % (47-70); Platelet Count 173 K/mm3 (150-450); RBC Distribution Width CV 13.2 % (11.6-14.6); RBC Distribution Width SD 47.7 fl (35.1-43.9); Red Blood Count 4.54 M/mm3 (4.6-6.2)
[2019-10-13 16:42] LABS: Prothrombin Time (Protime)PT. 39.5 SECONDS (11.7-14.9)
[2019-10-13] MEDS: TRANEXAMIC ACID 1,000 MG/10 ML ML 1000 MG IRRIGATION (17:00)
[2019-10-13 17:03] LABS: International Normalized Ratio 4.1
== END 2019-10-13 17:52 | disposition home or self-care (01) ==
PROVIDERS: Emergency Provider Emergency Medicine; PCP Family Medicine
DX: S51.012A Laceration without foreign body of left elbow, initial encounter (principal); I48.91 Unspecified atrial fibrillation; Z79.01 Long term (current) use of anticoagulants; Z87.891 Personal history of nicotine dependence; W26.8XXA Contact with other sharp object(s), not elsewhere classified, initial encounter; Y93.01 Activity, walking, marching and hiking; Y92.008 Other place in unspecified non-institutional (private) residence as the place of occurrence of the external cause; Y99.8 Other external cause status
CPT/HCPCS: 36415; 85025; 85610; 99282

== ENCOUNTER → 2019-10-31 | Outpatient (CLI) | payer MEDICARE, SELFPAY ==
[2019-10-13 15:51] VITALS: BMI 32.5
== END | disposition home or self-care (01) ==
PROVIDERS: PCP Family Medicine; Referring Provider Internal Medicine Cardiovascular Disease; Visit Provider Internal Medicine Cardiovascular Disease
DX: G47.33 Obstructive sleep apnea (adult) (pediatric) (principal); I34.0 Nonrheumatic mitral (valve) insufficiency; I44.2 Atrioventricular block, complete; I50.32 Chronic diastolic (congestive) heart failure; J44.9 Chronic obstructive pulmonary disease, unspecified; T82.03XA Leakage of heart valve prosthesis, initial encounter; Z79.01 Long term (current) use of anticoagulants; Z95.0 Presence of cardiac pacemaker; Z95.2 Presence of prosthetic heart valve
CPT/HCPCS: 87635; G2023; U0003

== ENCOUNTER → 2019-11-02 | Outpatient (CLI) | payer MEDICARE, SELFPAY ==
[2019-11-02 11:38] VITALS: BMI 33.3
[2019-11-02 12:31] LABS: Base Excess -4 mmol/L (-2 to +2); Bicarbonate 19.7 mmol/L (22-26); PO2 104 mmHG (75-100); SO2 98 % (95-99); Total Carbon Dioxide 21 mmol/L; pCO2 28.4 mmHg (35-45); pH 7.45 (7.35-7.45)
[2019-11-02 12:35] LABS: Absolute Lymphocyte Count 0.86 X10^3/uL (0.83-4.51); Absolute Neutrophil Count 5.7 X10^3/uL (2.0-7.7); Basophil# 0.03 X10^3/uL; Basophil% 0.4 % (0-1); Eosinophil# 0.03 X10^3/uL; Eosinophils% 0.4 % (0-5); Hematocrit 47.3 % (40-54); Hemoglobin 15.6 g/dL (13.0-16.5); Lymphocyte # 0.86 X10^3/ul (4.0); Lymphocyte % 12.2 % (19-41); Mean Corpuscular Hgb 32.8 pg (27.0-32.0); Mean Corpuscular Volume 99.4 fL (80-94); Mean Platelet Vol. 10.9 fl (6.2-12.0); Monocyte# 0.43 X10^3/uL; Monocyte% 6.1 % (0-10); NRBC Flagged by Analyzer 0 % (0-5); Neutrophil % 80.8 % (47-70); Platelet Count 169 K/mm3 (150-450); RBC Distribution Width CV 13.3 % (11.6-14.6); RBC Distribution Width SD 48.7 fl (35.1-43.9); Red Blood Count 4.76 M/mm3 (4.6-6.2); White Blood Count 7.1 K/mm3 (4.4-11.0)
[2019-11-02 13:12] LABS: ALB/GLOB Ratio 0.9 RATIO (0.9-2.4); AST(SGOT) 22 U/L (15-37); Alanine Aminotransfer ALT/SGPT 18 U/L (16-61); Albumin, Serum 3.7 g/dL (3.2-5.0); Alkaline Phosphatase 105 U/L (45-117); Anion Gap 6 (5-15); BUN 11 mg/dL (7-18); BUN/Creat Ratio 9.4 RATIO (10-20); Calcium,Total 9.3 mg/dL (8.5-10.1); Chloride 107 mmol/L (98-107); Creatinine, Serum 1.17 mg/dL (0.70-1.30); EST Glomerular Filtration Rate 65 mL/min (>60); Est Glom Filt Rate - Afr Amer 79 mL/min (>60); Globulin 3.9 g/dL (2.2-4.2); Glucose 148 mg/dL (74-106); Magnesium 2.1 mg/dL (1.6-2.6); Potassium 4.1 mmol/L (3.5-5.1); Protein, Total 7.6 g/dL (6.4-8.2); Sodium Level 139 mmol/L (136-145); Thyroid Stim Hormone (TSH) 1.73 uIU/mL (0.358-3.74); Uric Acid 8.6 mg/dL (3.5-7.2)
[2019-11-02 13:13] LABS: Hemoglobin A1c 6.4 % (3.8-5.6)
[2019-11-02 14:22] LABS: Vitamin B12 381 pg/mL (211-911)
[2019-11-03 07:56] LABS: Blood Gas Specimen Type ART
== END | disposition home or self-care (01) ==
LOC: PSN 11:43
PROVIDERS: PCP Family Medicine; Referring Provider Family Medicine; Visit Provider Family Medicine
DX: E11.40 Type 2 diabetes mellitus with diabetic neuropathy, unspecified (principal); I10 Essential (primary) hypertension; R41.0 Disorientation, unspecified; M10.9 Gout, unspecified; E53.8 Deficiency of other specified B group vitamins; I48.91 Unspecified atrial fibrillation
CPT/HCPCS: 36415; 36600; 80053; 82140; 82607; 82803; 83036; 83735; 84443; 84550; 85025

== ENCOUNTER → 2019-11-05 | Outpatient (CLI) | payer MEDICARE, SELFPAY ==
[2019-10-13 15:51] VITALS: BMI 32.5
[2019-10-31 12:02] LABS: International Normalized Ratio 4.3
[2019-10-31 12:11] LABS: Anion Gap 4 (5-15); BUN 10 mg/dL (7-18); Calcium,Total 8.9 mg/dL (8.5-10.1); Chloride 108 mmol/L (98-107); Creatinine, Serum 0.91 mg/dL (0.70-1.30); EST Glomerular Filtration Rate 87 mL/min (>60); Est Glom Filt Rate - Afr Amer 105 mL/min (>60); Glucose 113 mg/dL (74-106); Potassium 4.1 mmol/L (3.5-5.1); Sodium Level 139 mmol/L (136-145)
[2019-11-02 11:38] VITALS: BMI 33.3
--- NOTE | 2019-11-05 11:47 | ECHOTEE_ITS ---
Reason For Study: Perivalvular Regurgitation Medication JOSE probe 6VT-D (SN [id number]) passed without difficulty. No complications were noted. Cetacaine Topical Desdemona given X4 orally. Versed 2 mg given slow IVP. Fentanyl 50 mcg given slow IVP. Performed a rapid injection of agitated mix of 9 cc saline and 1cc air to assess for atrial septal defect. Left Ventricle Normal LV size. The estimated ejection fraction is 40 %. There is mild to moderate global hypokinesis of the left ventricle. Right Ventricle Normal RV size. ICD or pacer leads identified within the right ventricle. Normal systolic function. Atria Patent foramen ovale. The left atrium is severely enlarged. There is moderate sponatenous contrast in the left atrium. The right atrium is mildly enlarged. Mitral Valve Normal mitral valve. Mild-Moderate (1-2+) eccentric mitral valve insufficiency. Tricuspid Valve Normal tricuspid valve. Mild (1+) tricuspid valve insufficiency. Aortic Valve Bioprosthetic aortic valve. Mild perivalvular insufficiency of the aortic valve. Pulmonic Valve Normal pulmonic valve. Vessels Normal arch. Mild atherosclerosis of the aortic arch. Spontaneous contrast. Pericardium No pericardial effusion. Interpretation Summary Normal LV size. The estimated ejection fraction is 40 %. There is mild to moderate global hypokinesis of the left ventricle. Bioprosthetic aortic valve. Mild perivalvular insufficiency of the aortic valve. There is moderate sponatenous contrast in the left atrium. Mild-Moderate (1-2+) eccentric mitral valve insufficiency. Ordering Physician: Usman Aaron Referring Physician: Fer Caruso Performed By: Leandra Diaz, RDCS, RVT
== END | disposition home or self-care (01) ==
LOC: CVS 11:42
PROVIDERS: PCP Family Medicine; Referring Provider Internal Medicine Cardiovascular Disease; Visit Provider Internal Medicine Cardiovascular Disease
DX: T82.03XA Leakage of heart valve prosthesis, initial encounter (principal); I42.8 Other cardiomyopathies; I35.0 Nonrheumatic aortic (valve) stenosis; I36.1 Nonrheumatic tricuspid (valve) insufficiency; I34.0 Nonrheumatic mitral (valve) insufficiency; I42.0 Dilated cardiomyopathy; I50.42 Chronic combined systolic (congestive) and diastolic (congestive) heart failure; Z95.2 Presence of prosthetic heart valve; Z86.79 Personal history of other diseases of the circulatory system; Z98.890 Other specified postprocedural states
CPT/HCPCS: 36415; 80048; 85610; 93312; 93320; 93325; J7040; A4216

== ENCOUNTER → 2019-12-13 | Outpatient (CLI) | payer MEDICARE, SELFPAY ==
[2019-12-13 15:21] VITALS: BMI 32.3
[2019-12-13 17:02] LABS: Anion Gap 6 (5-15); BUN 44 mg/dL (7-18); BUN/Creat Ratio 28.9 RATIO (10-20); Chloride 102 mmol/L (98-107); Creatinine, Serum 1.52 mg/dL (0.70-1.30); EST Glomerular Filtration Rate 48 mL/min (>60); Est Glom Filt Rate - Afr Amer 58 mL/min (>60); Glucose 70 mg/dL (74-106); Potassium 4.9 mmol/L (3.5-5.1); Sodium Level 133 mmol/L (136-145)
== END | disposition home or self-care (01) ==
LOC: LAB 15:56
PROVIDERS: PCP Family Medicine; Referring Provider Internal Medicine Cardiovascular Disease; Visit Provider Internal Medicine Cardiovascular Disease
DX: E87.5 Hyperkalemia (principal)
CPT/HCPCS: 36415; 80048

== ENCOUNTER 2019-12-18 20:28 | Inpatient (IN) | payer MEDICARE, SELFPAY ==
[2019-12-13 15:21] VITALS: BMI 32.3
[2019-12-18 20:30] VITALS: BP 143/78; PULSE 68; RESP 27; TEMP 37.1; O2SAT 91; BMI 35.4
[2019-12-18 20:36] VITALS: BP 143/78; PULSE 67; RESP 26; TEMP 37.1; O2SAT 91
--- NOTE | 2019-12-18 20:55 | CT_ITS ---
STUDY: CT BRAIN WITHOUT CONTRAST REASON FOR EXAM: Male, 74 years old. Altered mental status. Fever. Sinusitis RADIATION DOSAGE (If Supplied By Facility): CTDIvol = ( 44.99 ) mGy, DLP = ( 880.47 ) mGycm TECHNIQUE: Transaxial CT imaging of the brain was performed without administration of intravenous contrast material. Individualized dose optimization techniques were used for this CT. COMPARISON: 03/06/19 FINDINGS: There is no acute bleed or infarct. There are stable chronic ischemic and atrophic changes. The ventricles are normal in configuration. There is no hydrocephalus. The visualized paranasal sinuses are clear. There is a left mastoid effusion. The right mastoid air cells are well aerated. There is no skull fracture. CT/Brain/Head without Contrast IMPRESSION: Stable chronic ischemic and atrophic changes. No acute intracranial abnormality. Left mastoid effusion. Clear sinuses. Electronically Signed: Francesco Ferrer, at 22:01 EDT Tel , Service support ,
--- NOTE | 2019-12-18 20:55 | EKG12_ITS ---
Test Reason : WEAKNESS Blood Pressure : / mmHG Vent. Rate : 076 BPM Atrial Rate : 073 BPM P-R Int : 000 ms QRS Dur : 198 ms QT Int : 442 ms P-R-T Axes : 000 -78 103 degrees QTc Int : 497 ms Ventricular-paced rhythm with occasional Premature ventricular complexes Abnormal ECG Confirmed by KYRA MCBRIDE, LUIGI ([id number]), purchasing expeditor SARAH GUILLEN ([id number]) on 12/21/2019 1:29:15 PM Referred By: Bettina Dahl Confirmed By:RICKEY RAE MD
[2019-12-18 21:01] VITALS: O2SAT 94
[2019-12-18 21:05] VITALS: BP 143/85; PULSE 72; RESP 23
[2019-12-18 21:07] LABS: Absolute Lymphocyte Count 0.42 X10^3/uL (0.83-4.51); Basophil# 0.02 X10^3/uL; Basophil% 0.2 % (0-1); Eosinophil# 0.02 X10^3/uL; Eosinophils% 0.2 % (0-5); Hemoglobin 15.7 g/dL (13.0-16.5); Lymphocyte # 0.42 X10^3/ul (4.0); Lymphocyte % 3.9 % (19-41); Mean Corp Hgb Conc 33.4 g/dL (32-36); Mean Corpuscular Hgb 31.3 pg (27.0-32.0); Mean Corpuscular Volume 93.6 fL (80-94); Mean Platelet Vol. 11.3 fl (6.2-12.0); Monocyte% 2.8 % (0-10); NRBC Flagged by Analyzer 0 % (0-5); Neutrophil # 9.98 X10^3/uL (2.7-7.7); Neutrophil % 92.5 % (47-70); POSITIVE DIFFERENTIAL YES; Platelet Count 167 K/mm3 (150-450); RBC Distribution Width CV 13.3 % (11.6-14.6); RBC Distribution Width SD 45.2 fl (35.1-43.9); Red Blood Count 5.02 M/mm3 (4.6-6.2); White Blood Count 10.8 K/mm3 (4.4-11.0)
[2019-12-18 21:10] LABS: Differential Indicated SCAN CRITERIA MET; Partial Thromboplast Time 34.8 Seconds (24.1-36.2)
[2019-12-18 21:23] LABS: Anion Gap 5 (5-15); BUN 23 mg/dL (7-18); BUN/Creat Ratio 23.4 RATIO (10-20); Calcium,Total 9.3 mg/dL (8.5-10.1); Chloride 107 mmol/L (98-107); Creatinine, Serum 0.98 mg/dL (0.70-1.30); EST Glomerular Filtration Rate 79 mL/min (>60); Est Glom Filt Rate - Afr Amer 96 mL/min (>60); Estimated Creatinine Clearance 69.32 ml/min; Glucose 82 mg/dL (74-106); Potassium 3.9 mmol/L (3.5-5.1); Sodium Level 139 mmol/L (136-145)
[2019-12-18 21:31] LABS: Allen Test Positive; Base Excess -3 mmol/L (-2 to +2); Bicarbonate 20.3 mmol/L (22-26); Blood Gas Specimen Type ART; FI02 2; O2 Delivery Device Cannula; PO2 67 mmHG (75-100); SITE R Radial; SO2 95 % (95-99); Total Carbon Dioxide 21 mmol/L; pCO2 27.8 mmHg (35-45); pH 7.47 (7.35-7.45)
--- NOTE | 2019-12-18 21:40 | RAD_ITS ---
STUDY: X-RAY CHEST REASON FOR EXAM: Male, 74 years old. Shortness of breath. Cough. TECHNIQUE: Frontal view of the chest COMPARISON: 05/08/19 FINDINGS: There is right perihilar airspace opacity. The lungs are otherwise clear. There are no pleural effusions. There is no pneumothorax. The heart is stable in size. There are postsurgical changes noted in the left humerus. RAD/Chest 1 View (Portable) IMPRESSION: Right perihilar airspace opacity which is likely infectious in etiology. Electronically Signed: Francesco Ferrer, at 22:05 EDT Tel , Service support ,
--- NOTE | 2019-12-18 21:43 | ED.VISSUMM ---
- ER Visit Summary Date of Service: 12/18/19 Chief Complaint: Not feeling well History of Present Illness: The patient is a 74 M presenting for not feeling well. Per patient's brother he went to anabaptism and was not feeling well so he went home. Family went to check on him and he was found in his car confused. He complains of subjective fever, shortness of breath, cough. He denies chest pain or abdominal pain. No known exposure to COVID. Patient was recently taken off his spironolactone and potassium per cardiology. Patient answers questions appropriately but is slow to respond. Physical Examination: Vitals are stable. Patient is afebrile. Alert no acute distress. HEENT exam is unremarkable. Neck is supple. No meningismus Lungs are diminished bilaterally. Heart is regular rate and rhythm. Abdomen is soft nontender nondistended. No guarding or rebound Extremities are unremarkable. Skin is warm and dry. No focal neurologic deficit. Normal strength and sensation. Alert and oriented x2 Remainder of exam is unremarkable. Emergency Department Course and Treatment: EKG is paced at rate of 76. CBC, chemistries show BUN 23. Troponin 0.220. INR 2.0. pH 7.47, PCO2 27.8, PO2 67. CT head shows stable chronic ischemic and atrophic changes. No acute intracranial abnormality. Left mastoid effusion. Clear sinuses. Chest x-ray shows right perihilar airspace opacity which is likely infectious in etiology. Carboxyhemoglobin level 2.2. COVID negative. Lactic acid normal. Blood cultures were sent. Patient was given Rocephin, Zithromax. Will discuss with hospitalist for admission. Disposition: Admission Impression: Altered mental status, community-acquired pneumonia This note was generated with [employer] dictation software. It may contain incorrect words, spelling, and punctuation that were not noted in review of the chart prior to signing ED Disposition - Plan for ED Patient: Referrals: Fer Caruso MD [Primary Care Provider] -
[2019-12-18 22:03] LABS: Lactic Acid 1.6 mmol/L (0.4-1.9)
[2019-12-18 22:22] LABS: Bacteria 0 SEEN /hpf (None Seen); Mucous, Urine 0 SEEN /hpf (<or=2+); Red Blood Cells-Urine 0 SEEN /hpf (0-5); Squamous Epithelial Cells - UA 0 SEEN /hpf (0-5); White Blood Cells 0 SEEN /hpf (0-5)
[2019-12-18 22:27] LABS: Color, Urine Yellow (Yellow); Glucose, Dipstick Normal (Normal); Ketone-Dipstick Negative (Negative); Leukocyte Esterase-Dipstick Negative /ul (Negative); Nitrite-Dipstick Negative (Negative); Occult Blood-Urine Negative /ul (Negative); Protein-Dipstick Negative (Negative); Urine Bilirubin Dipstick Negative (Negative); Urine Clarity Clear (Clear); Urine Urobilinogen Normal (Normal)
[2019-12-18 22:40] VITALS: BP 123/79; PULSE 63; RESP 22; TEMP 36.3; O2SAT 97
[2019-12-18 22:46] LABS: Carboxyhemoglobin Frac (CO) 2.2 % (0.0-1.5)
[2019-12-18 22:49] LABS: Probe Check PASS; Specimen Processing Control PASS
[2019-12-18 23:01] VITALS: BP 119/64; PULSE 62; PULSE 64; RESP 19; TEMP 36.3; O2SAT 94; O2SAT 97
--- NOTE | 2019-12-18 23:08 | HP.PCM_ITS ---
Problem List (1) Encephalopathy acute Status: Acute (2) Hypoxia Status: Acute (3) Pneumonia Status: Acute Qualifiers: Pneumonia type: due to unspecified organism Laterality: right Lung location: unspecified part of lung Qualified Code(s): J18.9 - Pneumonia, unspecified organism (4) Cardiac enzymes elevated Status: Acute (5) Diabetes mellitus, type II Status: Chronic Qualifiers: Diabetes mellitus termite technician insulin use: without termite technician use Diabetes mellitus complication status: with other specified complication Qualified Code(s): E11.69 - Type 2 diabetes mellitus with other specified complication (6) DENISA treated with BiPAP Status: Chronic (7) H/O aortic valve replacement Status: Chronic Comment: TAVR w/ 34 mm Corevalve Evolute 03/27/2018 (8) History of permanent cardiac pacemaker placement Status: Chronic Comment: Medtronic Micra 03/29/2018 (9) Complete heart block Status: Chronic (10) Persistent atrial fibrillation Status: Chronic (11) Cardiomyopathy, dilated, nonischemic Status: Chronic (12) Chronic combined systolic and diastolic CHF (congestive heart failure) Status: Chronic (13) HLD (hyperlipidemia) Status: Chronic Qualifiers: Hyperlipidemia type: unspecified Qualified Code(s): E78.5 - Hyperlipidemia, unspecified History of Present Illness Date of Admission: 12/18/19 Chief Complaint: Cough, congestion, dyspnea, mental status change. The patient is a 74 y/o M w/ PMHx: Asthma/COPD, Non-ischemic dilated Cardiomyopathy, Chronic Systolic/Diastolic CHF, Hx Complete Heart Block s/p pacemaker placement, HTN, HLD, Valvular Heart Disease s/p TAVR, DENISA on BIPAP q HS, Persistent atrial fibrillation w/ Hx RFA, Obesity, Known Patent Foramen Ovale, Diabetes mellitus type II who presents to the [facility] ED on 12/18/19 with history of complaints of fatigue, malaise, subjective fever and chills with mild cough as well as dyspnea onset earlier in the day with confusion while he been at nondenominational, noting his intention to go home however he was found in the car notably confused and transition to the ED for evaluation given this significant change in mental status. He had been evaluated recently by his broom stitcher approximately 1 week prior and noted that at that time his spironolactone and potassium were discontinued. Patient denies any recent chest discomfort or palpitations. In the ED he was initially oriented x2 per ED physician report however he did improve following initial interventions but remained slow in his responses and continued to be ill-appearing. Patient denied any recent abdominal discomfort, diarrhea, alteration to sense of taste or smell concurrently. He denies any recent ill COVID sick contacts. Work-up in the ED included T 98.7, heart rate 68, BP 143/78, respiratory rate 27, initially 91% on room air with improvement to 97% on 2 L nasal cannula, CBC with WBC 10.8, hemoglobin 15.7, platelet 167 with left shift with concurrent lymphopenia, coags with PT 22, INR 2.0, PTT 34.8, ABG with pH 7.47, bicarb 20.3, O2 saturation 95%, PCO2 27.8, PO2 67, VBG carboxyhemoglobin 2.2, BMP with BUN/creatinine 23/0.98, lactic acid 1.6, troponin 0.220, urinalysis with elevated specific gravity 1.020 otherwise unremarkable, COVID testing negative, chest x-ray with right perihilar airspace opacity concerning for pneumonia, CT of the brain with chronic stable ischemic and atrophic changes with no acute intracranial abnormality with a left mastoid effusion and clear sinuses. In the ED patient ministered Rocephin and azithromycin. Past Medical History Past Medical History (Chronic Problems): Chronic Problems (Last Reviewed 12/13/19 @ 15:[address] 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) T82.03XA Complete heart block (Chronic) I44.2 Persistent atrial fibrillation (Chronic) I48.1 Cardiomyopathy, dilated, nonischemic (Chronic) I42.0 Chronic combined systolic and diastolic CHF (congestive heart failure) (Chronic) I50.42 HLD (hyperlipidemia) (Chronic) E78.5 Asthma-chronic obstructive pulmonary disease overlap syndrome J44.9 BMI 37.0-37.9, adult Z68.37 Nonrheumatic mitral valve regurgitation I34.0 DENISA (obstructive sleep apnea) G47.33 BiPAP 20/14 cm of water Patent foramen ovale Q21.1 Stage 2 moderate COPD by GOLD classification J44.9 FEV1 71% of predicted Type 2 diabetes mellitus E11.9 Bicuspid aortic valve Q23.1 Non-ischemic cardiomyopathy I42.8 Rhabdomyolysis M62.82 Chronic diastolic (congestive) heart failure (Inactive) I50.32 Frequent falls R29.6 Nonrheumatic tricuspid (valve) insufficiency (Inactive) I36.1 Allergies prochlorperazine [From Compazine] Adverse Reaction (Severe, Verified 12/18/19 20:30) extrapyramidal symptoms, sedation extrapyramidal symptoms, sedation was taking also pramipexole at the time Home Medications: Ambulatory Orders Medication Instructions Recorded Aspirin [Aspirin, Baby] 81 mg PO DAILY 09/24/14 gabapentin 600 mg tablet 600 mg PO BID #60 tab 05/09/17 Glipizide [Glipizide ER] 10 mg PO DAILY 03/31/18 albuterol sulfate 90 mcg/actuation 2 puff INHALATION Q4H PRN PRN #18 g 08/11/18 aerosol inhaler tiotropium bromide 18 mcg capsule 1 cap INHALATION DAILY #30 inh 01/05/19 with inhalation device Budesonide/Formoterol 160/4.5 2 puff INHALATION QHS 03/06/19 [Symbicort 160/4.5 Mcg Inhaler (SP)] Rosuvastatin Calcium 10 mg PO QHS #90 tab 03/08/19 lisinopril 2.5 mg tablet 2.5 mg PO DAILY #90 tab 05/30/19 metoprolol tartrate 50 mg tablet 50 mg PO BID #180 tab 05/30/19 furosemide 40 mg tablet 40 mg PO BID #180 tab 09/07/19 warfarin 4 mg tablet 4 mg PO DAILY #0 10/26/19 metformin 500 mg tablet,extended 1,000 mg PO DAILY tab 12/13/19 release 24 hr Surgical History: Surgical History (Last Reviewed 12/13/19 @ 15:[address] Usman Aaron MD) H/O aortic valve replacement (Chronic) Onset Date: 03/27/18 Z95.2 TAVR w/ 34 mm Corevalve Evolute 03/27/2018 History of permanent cardiac pacemaker placement (Chronic) Onset Date: 03/29/18 Z95.0 Medtronic Micra 03/29/2018 History of hernia repair Z98.890, Z87.19 History of radiofrequency ablation procedure for cardiac arrhythmia Onset Date: 06/08/12 Z98.890 RFA 06/08/2012 History of tonsillectomy Z98.890, Z90.89 Surgical History: herniorrhaphy, tonsillectomy, - - Tonsillectomy, pacemaker placement, hernia repair, TAVR, RFA. Psychiatric History: No pertinent psych hx Lives: With Family - Notes that his son lives with him. Smoking Status: Former smoker - Patient quit cigarette tobacco usage in 2007 with prior to this he notes 4 to 5 cigars/day since youth. Tobacco Use: Non-smoker Alcohol: Occasional Drugs: None - *Family History Paternal Family History: Family History (Last Reviewed 12/13/19 @ 15:[address] Usman Aaron MD) Father CAD (coronary artery disease) Hypertension Restless leg syndrome Mother Hypertension Brother Hyperlipemia Hypertension Sister Hypertension Restless leg syndrome History Items: Heart Disease - CAD; AR; HTN Sibling Family History: Family History (Last Reviewed 12/13/19 @ 15:[address] Usman Aaron MD) Father CAD (coronary artery disease) Hypertension Restless leg syndrome Mother Hypertension Brother Hyperlipemia Hypertension Sister Hypertension Restless leg syndrome History Items: Heart Disease - HTN Maternal Family History: Family History (Last Reviewed 12/13/19 @ 15:[address] Usman Aaron MD) Father CAD (coronary artery disease) Hypertension Restless leg syndrome Mother Hypertension Brother Hyperlipemia Hypertension Sister Hypertension Restless leg syndrome History Items: Heart Disease - HTN Review of Systems Constitutional: Reports: Anorexia, Chills, Fever, Malaise, Weakness, Fatigue. Denies: Weight Change HEENT: Denies: Head Aches, Nasal Congestion, Sinus Congestion, Sinus Drainage, Sore Throat, Visual Changes Cardiovascular: Denies: Chest Pain, Chest Pressure, Chest Tightness, Heaviness, Light Headedness, Orthopnea, Palpitations, Syncope Respiratory: Reports: Cough, Shortness of Breath, Shortness of breath at rest, Shortness of breath upon exertion, Sputum production, Wheezing Gastrointestinal: Denies: Abdominal Pain, Nausea, Vomiting Genitourinary: Denies: Dysuria Musculoskeletal: Denies: Joint Pain, Joint Tenderness Skin: Denies: Rash, Wounds Neurological: Reports: Confusion. Denies: Focal weakness, Numbness, Tingling Psychiatric: Denies: Anxiety, Depression, Homicidal Ideations, Suicidal Ideations Hematologic/ Lymphatic: Reports: Easy Bruising, Easy Bleeding VTE Information - Inpt Only VTE Present on Admission: No VTE Mechan Device Prophylaxis: SCD's VTE Pharm Prophylaxis ordered?: No Reason prophylaxis not ordered:: Treatment Not Indicated - On coumadin, INR therapeutic, will continue. Patient Problems: Active and Suspected Problems (Last Reviewed 12/13/19 @ 15:[address] Usman Aaron MD) Encephalopathy acute (Acute) Hypoxia (Acute) Pneumonia (Acute) Cardiac enzymes elevated (Acute) Subjective: Laying in the ED bed, fatigued and ill-appearing, improve mental status since initial ED presentation, able to answer orientation question x3 however slow responses. Objective: Physical Examination: General: awake, alert, oriented to self, place, year and president, slow responses however still ongoing, improving since initial ED presentation, remains cooperative, seated upright in the ED bed, fatigued and ill-appearing, no obvious distress. Skin: normal color, turgor, no icterus, cyanosis except noted bilateral lower extremity chronic venous stasis skin changes. HEENT: AT/NC, EOMI, PERRLA, dry MM, no carotid bruits or JVD noted. Lungs: Diminished breath sounds bilaterally, greater bilateral bases, occasional end expiratory wheeze, occasional rhonchi primarily right mid and base, mildly increased respiratory rate, no accessory muscle usage. Heart: Regular rate and rhythm (paced); no gallop, rub audible. Abdomen: soft, obese, NTTP, ND, normal BS, no HSM. Extremities: no cyanosis, clubbing, mild bilateral lower extremity ankle nonpitting edema, see skin. Neurological: patient awake, alert, oriented as noted; cognitive function improving, still not baseline intact; pupils equally reactive to light and accomodation; cranial nerves II-XII grossly normal, moving all 4 extremities, no focal deficits, strength severely global decrease secondary to acute presentation. Psychiatric: affect appears fatigued, ill-appearing, no acute evidence of depressive or anxiety feelings. - Physical Exam Vitals/I&O's: Vital Signs Temp Pulse Resp BP Pulse Ox 97.3 F L 64 19 H 119/64 97 12/18/19 23:01 12/18/19 23:01 12/18/19 23:01 12/18/19 23:01 12/18/19 23:01 Oxygen Flow Rate (L/min) 2 Oxygen Delivery Method Room Air Weight: 247 lb 5.738 oz Body Mass Index (BMI) 35.4 Finger Stick Blood Glucose 159 Laboratory Results 12/18/19 20:45: WBC 10.8, RBC 5.02, Hgb 15.7, Hct 47.0, MCV 93.6, MCH 31.3, MCHC 33.4, RDW Std Deviation 45.2 H, RDW Coeff of [place] 13.3, Plt Count 167, MPV 11.3, Immature Gran % (Auto) 0.400, Neut % (Auto) 92.5 H, Lymph % (Auto) 3.9 L, Slope % (Auto) 2.8, Eos % (Auto) 0.2, Baso % (Auto) 0.2, Absolute Neuts (auto) 10.0 H, Absolute Lymphs (auto) 0.42 L, Nucleated RBC % 0, Differential Comment COMMENT 12/18/19 20:45: PT 22.0 H, INR 2.0, APTT 34.8 12/18/19 20:45: Sodium 139, Potassium 3.9, Chloride 107, Carbon Dioxide 27.0, Anion Gap 5, BUN 23 H, Creatinine 0.98, Estim Creat Clear Calc 69.32, Est GFR (MDRD) Af Amer 96, Est GFR (MDRD) Non-Af 79, BUN/Creatinine Ratio 23.4 H, Glucose 82, Calcium 9.3, Troponin I 0.220 H 12/18/19 20:45: Lactic Acid 1.6 12/18/19 21:10: COVID-19 (SANDI) Negative 12/18/19 21:24: Specimen Type ART, Sample Site R Radial, pH 7.47 H, Bicarbonate Actual 20.3 L, Total CO2 21, Base Excess -3 L, O2 Saturation 95, O2 % 2, ABG pCO2 27.8 L, ABG pO2 67 L, [place] Test Positive, O2 Delivery Device Cannula 12/18/19 22:15: Urine Color Yellow, Urine Clarity Clear, Urine pH 5.0, Ur Specific [place] 1.020, Urine Protein Negative, Urine Glucose (UA) Normal, Urine Ketones Negative, Urine Occult Blood Negative, Urine Nitrite Negative, Urine Bilirubin Negative, Urine Urobilinogen Normal, Ur Leukocyte Esterase Negative, Urine RBC 0 SEEN, Urine WBC 0 SEEN, Ur Squamous Epith Cells 0 SEEN, Urine Bacteria 0 SEEN, Urine Mucus 0 SEEN 12/18/19 22:18: VBG Carboxyhemoglobin 2.2 H Current Medications Azithromycin 500 mg/ Dextrose 255 mls @ 250 mls/hr IV X1 ONE Stop: 12/18/19 23:57 Ceftriaxone Sodium (Rocephin) 1 gm in 50 mls @ 100 mls/hr IV X1 ONE Stop: 12/18/19 23:25 Assessment/Plan All Active Problems (Last Reviewed 12/13/19 @ 15:[address] Usman Aaron MD) Encephalopathy acute (Acute) Hypoxia (Acute) Pneumonia (Acute) Cardiac enzymes elevated (Acute) Hyperkalemia (Acute) Dyspnea on exertion (Resolved) The patient is a 74 y/o M w/ PMHx: Asthma/COPD, Non-ischemic dilated Cardiomyopathy, Chronic Systolic/Diastolic CHF, Hx Complete Heart Block s/p pacemaker placement, HTN, HLD, Valvular Heart Disease s/p TAVR, DENISA on BIPAP q HS, Persistent atrial fibrillation w/ Hx RFA, Obesity, Known Patent Foramen Ovale, Diabetes mellitus type II who presents to the [facility] ED on 12/18/19 with history of complaints of fatigue, malaise, subjective fever and chills with mild cough as well as dyspnea onset earlier in the day with confusion while he been at nondenominational, noting his intention to go home however he was found in the car notably confused and transition to the ED for evaluation given this significant change in mental status. 1. Acute encephalopathy secondary to Acute hypoxia secondary to Pneumonia and suspected Acute on Chronic COPD Exacerbation: CXR in the ED w/ R perihilar infiltrate. Admission CBC w/ no marked WBC elevation but L shift, negative COVID testing. Will admit to PCU, maintain on oxygen with wean as tolerated to room air, continue ATC duonebs, PRN albuterol, maintain on IV solumedrol, maintain on IV Rocephin and Azithromycin, HOB, IS parameters w/ pending sputum cultures, respiratory viral panel and urine antigens. Bld cx x 2 obtained in the ED. Will obtain AM oxygenation trial for discharge planning daily. 2. Indeterminate cardiac enzyme: EKG in ED paced with no evidence of acute ischemia, CXR w/ R perihilar airspace opacity, initial trop 0.220. Will place on a monitored bed to assure no acute myocardial infarction with serial cardiac enzymes and EKGs. Likely secondary to acute presentation #1, continue Coumadin with INR trending. Cardiology consulted per ED upon presentation, will continue. ASA, NG, morphine. 3. Valvular heart disease: Status post TAVR, 10/10/2019 echocardiogram from [facility] with noted severely decreased systolic function, EF 29%, mildly dilated RV, severely dilated LA, moderately dilated RA, moderate 2+ and RRR, evidence 34 mm porcine bioprosthetic aortic valve, mild to moderate 1-2+ perivalvular regurgitation, moderate 2+ TR, mild to moderate 1-2+ pulmonic valve regurgitation, pulmonary artery systolic pressure moderately increased to 68 mmHg. 4. Nonischemic dilated cardiomyopathy, chronic systolic/diastolic CHF: That is post pacemaker placement, echocardiogram recently as noted with follow-up transesophageal echocardiogram on 11/05/2019 with normal LV size, EF 40%, mild to moderate global hypokinesis LV, bioprosthetic aortic valve, mild perivalvular insufficiency of the aortic valve, moderate spontaneous contrast to the left atrium, mild to moderate eccentric MVI, continued on aspirin, Coumadin with INR trending, Lasix, lisinopril, metoprolol, statin therapies. 5. Persistent atrial fibrillation: Status post RFA attempts, status post pacemaker placement, continue Coumadin with INR trending, continue patient home metoprolol regimen. 6. History of complete heart block: Status post pacemaker placement, interrogation requested. 7. Hypertension: Continue home regimen including Lasix, lisinopril, metoprolol with hold parameters, PRN hydralazine. 8. Hyperlipidemia: Continue home statin regimen. 9. Diabetes mellitus type II: Hold oral home regimen, ADA diet until n.p.o. status, accu checks w/ ISS. 10. Obesity: Weight loss and lifestyle changes encouraged. 11. DENISA: We will continue BiPAP nightly. 12. DVT prophylaxis: SCDs, continue coumadin with INR trending. 13. CODE status: Patient CARMEN is his son Adeel Cardenas and living will is currently in place. Discussed CODE status at length including difference between FULL code, DNR-CCA and DNR-CC status. Following discussions about the differences in these status, requested full CODE STATUS. Patient during discussions able to give correct and appropriate orientation answers although slow responses, improved since initial ED presentation. Advanced Care Planning Face to Face Time: 16 minutes. Inpatient E&M: 40469 Init Hosp L3 Procedures: 93932 Advncd Care Plan 30 Min
[2019-12-18] MEDS: Ceftriaxone 1 GM/50 ML BAG IV (23:32)
[2019-12-19] VITALS (22 sets, daily range): BP systolic 105–142; BP diastolic 62–74; PULSE 61–80; RESP 14–20; TEMP 36.1–37.4; O2SAT 93–96; BMI 33.3
[2019-12-19 01:11] LABS: CRP < 2.90 mg/L (0.0-3.0); Ferritin 318 ng/mL (26-388); LDH 198 U/L (87-241); Magnesium 1.6 mg/dL (1.6-2.6)
[2019-12-19] MEDS: 0.9% Normal Saline 1,000 ML 100 ML IV (02:15)
[2019-12-19] MEDS: MethylPREDNISolone 125 MG/2 ML Vial IV (02:18)
[2019-12-19 03:50] LABS: Absolute Neutrophil Count 19.1 X10^3/uL (2.0-7.7); Basophil# 0.04 X10^3/uL; Basophil% 0.2 % (0-1); Eosinophil# 0.08 X10^3/uL; Eosinophils% 0.4 % (0-5); Hematocrit 42.8 % (40-54); Hemoglobin 14.5 g/dL (13.0-16.5); Lymphocyte % 1.9 % (19-41); Mean Corp Hgb Conc 33.9 g/dL (32-36); Mean Corpuscular Hgb 31.5 pg (27.0-32.0); Mean Corpuscular Volume 92.8 fL (80-94); Mean Platelet Vol. 11.1 fl (6.2-12.0); Monocyte# 1.04 X10^3/uL; Monocyte% 4.9 % (0-10); NRBC Flagged by Analyzer 0 % (0-5); Neutrophil # 19.14 X10^3/uL (2.7-7.7); Neutrophil % 91.1 % (47-70); POSITIVE DIFFERENTIAL YES; Platelet Count 155 K/mm3 (150-450); RBC Distribution Width CV 13.3 % (11.6-14.6); RBC Distribution Width SD 45.3 fl (35.1-43.9); Red Blood Count 4.61 M/mm3 (4.6-6.2)
[2019-12-19 03:58] LABS: Differential Indicated SCAN CRITERIA MET
[2019-12-19 04:01] LABS: Prothrombin Time (Protime)PT. 22.1 SECONDS (11.7-14.9)
[2019-12-19 04:10] LABS: ALB/GLOB Ratio 0.9 RATIO (0.9-2.4); AST(SGOT) 18 U/L (15-37); Alanine Aminotransfer ALT/SGPT 15 U/L (16-61); Albumin, Serum 3.3 g/dL (3.2-5.0); Alkaline Phosphatase 62 U/L (45-117); Anion Gap 9 (5-15); BUN 24 mg/dL (7-18); BUN/Creat Ratio 26.7 RATIO (10-20); Calcium,Total 8.6 mg/dL (8.5-10.1); Chloride 107 mmol/L (98-107); EST Glomerular Filtration Rate 88 mL/min (>60); Est Glom Filt Rate - Afr Amer 106 mL/min (>60); Estimated Creatinine Clearance 77.86 ml/min; Globulin 3.8 g/dL (2.2-4.2); Glucose 122 mg/dL (74-106); Potassium 3.5 mmol/L (3.5-5.1); Protein, Total 7.1 g/dL (6.4-8.2); Sodium Level 138 mmol/L (136-145)
[2019-12-19 04:27] LABS: Differential Comment SCANNED
--- NOTE | 2019-12-19 05:55 | EKG12_ITS ---
Test Reason : AM EKG Blood Pressure : / mmHG Vent. Rate : 063 BPM Atrial Rate : 063 BPM P-R Int : 000 ms QRS Dur : 216 ms QT Int : 490 ms P-R-T Axes : 000 -77 096 degrees QTc Int : 501 ms Ventricular-paced rhythm Abnormal ECG When compared with ECG of 18-DEC-2019 21:12, MANUAL COMPARISON REQUIRED, DATA IS UNCONFIRMED Confirmed by KYRA MCBRIDE, LUIGI ([id number]), editor producer RICARDO LUND ([id number]) on 12/24/2019 1:32:48 PM Referred By: Bettina Dahl Confirmed By:RICKEY RAE MD
[2019-12-19] MEDS: Ipratropium/Albuterol Sulfate 3 ML AMPUL.NEB INHALATION ×4 (06:47→19:37)
[2019-12-19] MEDS: Insulin Lispro 100 UNIT/ML INSULN.PEN SC ×4 (06:55→21:25)
[2019-12-19 06:56] LABS: Bedside Glucose 173 mg/dL (70-110)
[2019-12-19] MEDS: Aspirin 81 MG TAB.CHEW PO (08:03)
[2019-12-19] MEDS: Metoprolol Tartrate 50 MG Tablet PO ×2 (08:03→21:19)
[2019-12-19] MEDS: Furosemide 40 MG Tablet PO ×2 (08:03→16:23)
[2019-12-19] MEDS: Lisinopril 2.5 MG Tablet PO (08:04)
[2019-12-19] MEDS: Famotidine 20 MG Tablet PO ×2 (08:04→21:19)
[2019-12-19] MEDS: Gabapentin 600 MG Tablet PO ×2 (08:04→21:19)
--- NOTE | 2019-12-19 08:53 | PN_ITS ---
Patient Problems: Active and Suspected Problems (Last Reviewed 12/13/19 @ 15:[address] Usman Aaron MD) Encephalopathy acute (Acute) Hypoxia (Acute) Pneumonia (Acute) Cardiac enzymes elevated (Acute) Reason for Visit: Patient did not had fever while in the hospital, T-max 99.4 Fahrenheit. At home he had fever of 2 to 3 days, confusion, altered mental status and generalized weakness. He also had shortness of breath, cough but denies chest pain or abdominal pain. No significant change in bowel movement except bowel movement consistencies semisolid to liquid. No nausea or vomiting. Objective: Physical exam General: Alert, Oriented x3, Cooperative HEENT: Atraumatic, PERRLA, EOMI, Normocephalic. Bilateral hearing loss most likely sensorineural hearing loss Oral: No Gingival or Mucosal Lesions/ Ulcerations Neck: Supple, No JVD, Negative Carotid Bruits Lungs: Air entry diminished in bilateral lung bases. No crepitation/rhonchi Cardiovascular: Paced rhythm. Normal S1, Normal S2, ejection systolic and early diastolic murmur present over aortic valve. Pacemaker over left subclavicular region Abdomen: Bowel Sounds Present, Soft, Non Tender, Non-Distended : No renal angle tenderness. No suprapubic tenderness. Extremities: No edema, Capillary Refill Less than 3 Seconds Skin: No rashes, No breakdown Musculoskeletal: No Tenderness to Palpation of Joints or Extremities Neurological: Cranial nerves II-XII grossly intact, Deep Tendon Reflexes 2+/4 and Symmetrical, Neuro grossly intact Psych/Mental Status: Normal Affect, Appropriate. Vitals/I&O's: Vital Signs Temp Pulse Resp BP Pulse Ox 97.8 F 61 18 122/70 H 95 12/19/19 05:11 12/19/19 08:03 12/19/19 05:11 12/19/19 08:03 12/19/19 05:11 Oxygen Flow Rate (L/min) 2 Oxygen Delivery Method Nasal Cannula Weight: 238 lb 15.697 oz Body Mass Index (BMI) 33.3 Finger Stick Blood Glucose 159 Intake and Output for Last 24 Hours 12/17/19 12/18/19 12/19/19 23:59 23:59 23:59 Intake Total 545 / 545 Output Total 300 / 300 Balance 245 / 245 Microbiology Past 72 Hours 12/18/19 21:10 Interface Orders Respiratory Panel (PCR) - Final 12/19/19 01:30 Urine, Random Legionella Antigen - Final 12/19/19 01:30 Urine, Clean Catch Streptococcus pneumoniae Antigen (M - Final Laboratory Results 12/18/19 00:14: Magnesium 1.6, Ferritin 318, Lactate Dehydrogenase 198, C-React Prot Ext Range < 2.90 12/18/19 20:45: WBC 10.8, RBC 5.02, Hgb 15.7, Hct 47.0, MCV 93.6, MCH 31.3, MCHC 33.4, RDW Std Deviation 45.2 H, RDW Coeff of [place] 13.3, Plt Count 167, MPV 11.3, Immature Gran % (Auto) 0.400, Neut % (Auto) 92.5 H, Lymph % (Auto) 3.9 L, Fisher % (Auto) 2.8, Eos % (Auto) 0.2, Baso % (Auto) 0.2, Absolute Neuts (auto) 10.0 H, Absolute Lymphs (auto) 0.42 L, Nucleated RBC % 0, Differential Comment COMMENT 12/18/19 20:45: PT 22.0 H, INR 2.0, APTT 34.8 12/18/19 20:45: Sodium 139, Potassium 3.9, Chloride 107, Carbon Dioxide 27.0, Anion Gap 5, BUN 23 H, Creatinine 0.98, Estim Creat Clear Calc 69.32, Est GFR (MDRD) Af Amer 96, Est GFR (MDRD) Non-Af 79, BUN/Creatinine Ratio 23.4 H, Glucose 82, Calcium 9.3, Troponin I 0.220 H 12/18/19 20:45: Lactic Acid 1.6 12/18/19 20:45: Procalcitonin 0.10 H 12/18/19 21:10: COVID-19 (SANDI) Negative 12/18/19 21:24: Specimen Type ART, Sample Site R Radial, pH 7.47 H, Bicarbonate Actual 20.3 L, Total CO2 21, Base Excess -3 L, O2 Saturation 95, O2 % 2, ABG pCO2 27.8 L, ABG pO2 67 L, [place] Test Positive, O2 Delivery Device Cannula 12/18/19 22:15: Urine Color Yellow, Urine Clarity Clear, Urine pH 5.0, Ur Specific [place] 1.020, Urine Protein Negative, Urine Glucose (UA) Normal, Urine Ketones Negative, Urine Occult Blood Negative, Urine Nitrite Negative, Urine Bilirubin Negative, Urine Urobilinogen Normal, Ur Leukocyte Esterase Negative, Urine RBC 0 SEEN, Urine WBC 0 SEEN, Ur Squamous Epith Cells 0 SEEN, Urine Bacteria 0 SEEN, Urine Mucus 0 SEEN 12/18/19 22:18: VBG Carboxyhemoglobin 2.2 H 12/19/19 00:45: Troponin I 0.237 H 12/19/19 03:35: WBC 21.0 H, RBC 4.61, Hgb 14.5, Hct 42.8, MCV 92.8, MCH 31.5, MCHC 33.9, RDW Std Deviation 45.3 H, RDW Coeff of [place] 13.3, Plt Count 155, MPV 11.1, Immature Gran % (Auto) 1.500 H, Neut % (Auto) 91.1 H, Lymph % (Auto) 1.9 L , Fisher % (Auto) 4.9, Eos % (Auto) 0.4, Baso % (Auto) 0.2, Absolute Neuts (auto) 19.1 H, Absolute Lymphs (auto) 0.40 L, Nucleated RBC % 0, Differential Comment SCANNED 12/19/19 03:35: PT 22.1 H, INR 2.0 12/19/19 03:35: Sodium 138, Potassium 3.5, Chloride 107, Carbon Dioxide 22.0, Anion Gap 9, BUN 24 H, Creatinine 0.90, Estim Creat Clear Calc 77.86, Est GFR (MDRD) Af Amer 106, Est GFR (MDRD) Non-Af 88, BUN/Creatinine Ratio 26.7 H, Glucose 122 H, Calcium 8.6, Total Bilirubin 1.40 H, AST 18, ALT 15 L, Alkaline Phosphatase 62, Total Protein 7.1, Albumin 3.3, Globulin 3.8, Albumin/Globulin Ratio 0.9 12/19/19 03:35: Troponin I 0.234 H 12/19/19 06:50: POC Glucose 173 H Current Medications Acetaminophen (Tylenol) 650 mg PO Q6H PRN PRN PRN Reason: Pain Score 1-10/Temp > 100.7 F Al Hydroxide/Mg Hydroxide (Mylanta Ii) 30 ml PO Q6H PRN PRN PRN Reason: Gastric Burning Albuterol Sulfate (Ventolin Aerosols) 2.5 mg INHALATION Q2H PRN PRN PRN Reason: Dyspnea, wheezing Albuterol/Ipratropium (Duoneb) 3 ml INHALATION Q4HWA.RT [facility] Last Admin: 12/19/19 06:47 Dose: 3 ml Documented by: Aspirin (Aspirin, Baby) 81 mg PO DAILYCM [facility] Last Admin: 12/19/19 08:03 Dose: 81 mg Documented by: Atorvastatin Calcium (Lipitor) 20 mg PO QHS [facility] Famotidine (Pepcid) 20 mg PO BID [facility] Last Admin: 12/19/19 08:04 Dose: 20 mg Documented by: Furosemide (Lasix) 40 mg PO BIDLX [facility] Last Admin: 12/19/19 08:03 Dose: 40 mg Documented by: Gabapentin (Neurontin) 600 mg PO BID [facility] Last Admin: 12/19/19 08:04 Dose: 600 mg Documented by: Guaifenesin (Robitussin) 20 ml PO Q4H PRN PRN PRN Reason: COUGH Hydralazine HCl (Apresoline Iv) 10 mg IV Q4H PRN PRN PRN Reason: SBP > 160 Sodium Chloride () 1,000 mls @ 100 mls/hr IV .Q10H [facility] Stop: 12/19/19 10:13 Last Admin: 12/19/19 02:15 Dose: 100 mls/hr Documented by: Ceftriaxone Sodium 2 gm/ (Sodium Chloride) 50 mls @ 100 mls/hr IV Q24@2200 [facility] Azithromycin 500 mg/ Dextrose 255 mls @ 250 mls/hr IV Q24@2200 [facility] Sodium Chloride () 250 mls @ 15 mls/hr IV .[id number] PRN PRN Reason: Saline Flush Sodium Chloride () 250 mls @ 15 mls/hr IV .[id number] PRN PRN Reason: Additional IVPB Infusion Insulin Human Lispro (Humalog Kwikpen (Bkc)) 0 unit SC ACHS [facility]; Protocol Last Admin: 12/19/19 06:55 Dose: 1 units Documented by: Lisinopril (Zestril) 2.5 mg PO DAILY [facility] Last Admin: 12/19/19 08:04 Dose: 2.5 mg Documented by: Magnesium Hydroxide (Milk Of Magnesia) 30 ml PO DAILY PRN PRN PRN Reason: Constipation Melatonin (Melatonin) 3 mg PO QHS PRN PRN PRN Reason: INSOMNIA Methylprednisolone (Solu-Medrol) 40 mg IV Q8 [facility] Last Admin: 12/19/19 05:20 Dose: 40 mg Documented by: Metoprolol Tartrate (Lopressor (Beta Cherie)) 50 mg PO BID [facility] Last Admin: 12/19/19 08:03 Dose: 50 mg Documented by: Morphine Sulfate () 2 mg IV Q3H PRN PRN PRN Reason: Pain Score 6-10/10 Nitroglycerin (Nitrostat) 0.4 mg SUBLINGUAL Q5M PRN PRN Reason: CARDIAC/CHEST PAIN Ondansetron HCl (Zofran) 4 mg IV Q8H PRN PRN PRN Reason: NAUSEA/VOMITING Oxycodone HCl (Oxyir) 5 mg PO Q4H PRN PRN PRN Reason: Pain Score 4-5/10 Psyllium Hydrophilic Mucilloid (Metamucil) 1 packet PO DAILY PRN PRN PRN Reason: Constipation Senna/Docusate Sodium (Senokot-S, Brook-Colace) 2 tablet PO BID PRN PRN PRN Reason: Constipation Sodium Chloride () 10 - 40 ml IV UD PRN PRN Reason: SALINE FLUSH Throat Lozenges (Cepacol Sore Throat Lozenge) 1 lozenge MUCOUS MEM Q2H PRN PRN PRN Reason: SORE THROAT Warfarin Sodium (Jantoven) 4 mg PO SuTuThSa@1700 [facility] Warfarin Sodium (Jantoven) 6 mg PO MoWeFr@1700 [facility] STROKE Vital Signs/Narrative: Vital Signs Temp Pulse Resp BP Pulse Ox 12/19/19 08:03 61 122/70 H 12/19/19 05:11 97.8 F 65 18 117/70 95 Medical Necessity - Tobacco Use Smoking Status: Former smoker - Patient quit cigarette tobacco usage in 2007 with prior to this he notes 4 to 5 cigars/day since youth. Tobacco Use: Non-smoker Assessment/Plan All Active Problems (Last Reviewed 12/13/19 @ 15:[address] Usman Aaron MD) Encephalopathy acute (Acute) Hypoxia (Acute) Pneumonia (Acute) Cardiac enzymes elevated (Acute) Hyperkalemia (Acute) Dyspnea on exertion (Resolved) The patient is a 74 y/o M with multiple comorbidities including chronic systolic and diastolic heart failure, COPD/asthma, nonischemic dilated cardiomyopathy, status post AVR is being admitted for fever, altered mental status, shortness of breath, cough and chest x-ray finding of right perihilar infiltrate consistent with pneumonia 1. Acute encephalopathy most likely infectious and metabolic in etiology: Patient is back to the normal mental status. Resolved. 2. COPD exacerbation most likely secondary to right perihilar pneumonia with gram-negative vandana bacteremia: Initial Gram stain of blood culture is positive of aerobic gram-negative vandana. Antibiotic is broadened to IV Zosyn. Continue Zithromax. COVID-19 PCR, respiratory panel and urinary antigens are negative. UA is negative. Urine culture added. Patient has leukocytosis. Lactic acid normal. 3. Mild elevated troponin most likely demand ischemia: Patient does not have chest pain or pressure. EKG in ED showed no evidence of acute ischemia. Serial troponins are flat and indeterminate range, 0.220, 0.237 and 0.234. Patient seen by drop hammer mechanic. It seems mainly secondary to demand ischemia from infection/pneumonia 4. Cardiac disease: Aortic valve stenosis status post TAVR with perivalvular leak of prosthetic valve, complete heart block with permanent pacemaker, persistent A. fib, dilated nonischemic cardiomyopathy with chronic systolic and diastolic combined, biventricular heart failure: Last echo dated 10/10/2019 from [facility] reported severely decreased systolic function, EF 29%, mildly dilated RV, severely dilated LA, moderately dilated RA, moderate 2+ MR , 34 mm porcine bioprosthetic aortic valve, mild to moderate 1-2+ perivalvular regurgitation, moderate 2+ TR, mild to moderate 1-2+ pulmonic valve regurgitation, pulmonary artery systolic pressure moderately increased to 68 mmHg. Patient also had transesophageal echo on 11/05/2019 which showed mild perivalvular leak of prosthetic aortic valve. Patient is on aspirin, Coumadin, Lasix, lisinopril, metoprolol and a statin. INR is therapeutic. 5. Persistent atrial fibrillation: Status post RFA, status post pacemaker lam cement, continue Coumadin and metoprolol. 6. History of complete heart block: Status post pacemaker placement, interrogation requested. 7. Hypertension: Continue home regimen including Lasix, lisinopril, metoprolol with hold parameters, PRN hydralazine. 8. Hyperlipidemia: Continue home statin regimen. 9. Diabetes mellitus type II: Hold oral home regimen, ADA diet until n.p.o. status, accu checks w/ ISS. 10. Obesity: Weight loss and lifestyle changes encouraged. 11. DENISA: We will continue BiPAP nightly. 12. DVT prophylaxis: SCDs, continue coumadin Total time of the visit including total time spent in counseling or coordination of care, (more than 50% of the total time, spent in obtaining medical information from nurses and other ancillary care providers), discussion with the patient's niece who is a nurse practitioner in neurology, discussion with recruiting and selection consultant, review of labs and imaging is 30 minutes. Inpatient E&M: 47714 Subs Hosp L3
--- NOTE | 2019-12-19 09:07 | PCM.CONS.C ---
Problem List (1) Cardiac enzymes elevated Status: Acute (2) H/O aortic valve replacement Status: Chronic Comment: TAVR w/ 34 mm Corevalve Evolute 03/27/2018 (3) Persistent atrial fibrillation Status: Chronic (4) History of permanent cardiac pacemaker placement Status: Chronic Comment: Medtronic Micra 03/29/2018 (5) Cardiomyopathy, dilated, nonischemic Status: Chronic (6) Chronic combined systolic and diastolic CHF (congestive heart failure) Status: Chronic (7) HLD (hyperlipidemia) Status: Chronic Qualifiers: Hyperlipidemia type: unspecified Qualified Code(s): E78.5 - Hyperlipidemia, unspecified (8) Pneumonia Status: Acute Qualifiers: Pneumonia type: due to unspecified organism Laterality: right Lung location: unspecified part of lung Qualified Code(s): J18.9 - Pneumonia, unspecified organism (9) Hypoxia Status: Acute (10) Encephalopathy acute Status: Acute Reason for Consult Date of Consultation: 12/19/19 History of Present Illness: The patient is a 74 year old white male with a past cardiovascular history of aortic valve disease/stenosis, status post transcatheter aortic valve replacement on 03-27-18 at [facility] with a 34 mm Corevalve Evolute, atrial fibrillation status post EPS/RFA-remote, status post permanent pacemaker placement-leadless Micra implant (March,), cardiomyopathy, chronic diastolic mediated CHF, and hyperlipidemia who presents with concerns of mental status changes subsequently thought secondary to hypoxemia thought secondary to the development of a pneumonia (COVID-19 negative) who is being referred for evaluation of abnormal cardiac enzymes. To the best of his recollection he does not describe any ongoing chest discomfort. He states he has chronic shortness of breath and dyspnea. He does not recall any acute orthopnea or PND or worsening peripheral pitting edema. He does not recall any syncopal events. He states he does not recall some of the events that transpired prior to his hospitalization. He was reported as being somewhat different mentally and thus brought to the emergency department where he was found to have hypoxemia and an underlying pneumonia. During this time his troponin I levels were checked which were reported as indeterminate. He has a history, since 2018, of chronically indeterminate troponin I levels. His ECG demonstrated an electronic ventricular paced rhythm. A chest x-ray reported a right perihilar infiltrate. He was subsequently treated with supplemental oxygen as well as IV antibiotics and placed in the PCU for further evaluation care. His troponin I levels have been rechecked and remained indeterminate. His cardiac rhythm has demonstrated an electronic ventricular paced rhythm. States he is feeling better overall compared to prior to his hospitalization. [] Past Medical History Allergies/Adverse Reactions: Allergies prochlorperazine [From Compazine] Adverse Reaction (Severe, Verified 12/18/19 20:30) extrapyramidal symptoms, sedation extrapyramidal symptoms, sedation was taking also pramipexole at the time Home Medications: Ambulatory Orders Medication Instructions Recorded Aspirin [Aspirin, Baby] 81 mg PO DAILY 09/24/14 gabapentin 600 mg tablet 600 mg PO BID #60 tab 05/09/17 Glipizide [Glipizide ER] 10 mg PO DAILY 03/31/18 albuterol sulfate 90 mcg/actuation 2 puff INHALATION Q4H PRN PRN #18 g 08/11/18 aerosol inhaler tiotropium bromide 18 mcg capsule 1 cap INHALATION DAILY #30 inh 01/05/19 with inhalation device Budesonide/Formoterol 160/4.5 2 puff INHALATION QHS 03/06/19 [Symbicort 160/4.5 Mcg Inhaler (SP)] Rosuvastatin Calcium 10 mg PO QHS #90 tab 03/08/19 lisinopril 2.5 mg tablet 2.5 mg PO DAILY #90 tab 05/30/19 metoprolol tartrate 50 mg tablet 50 mg PO BID #180 tab 05/30/19 furosemide 40 mg tablet 40 mg PO BID #180 tab 09/07/19 warfarin 4 mg tablet 4 mg PO DAILY #0 10/26/19 metformin 500 mg tablet,extended 1,000 mg PO DAILY tab 12/13/19 release 24 hr Past Medical History (Chronic Problems): Chronic Problems (Last Reviewed 12/13/19 @ 15:[address] 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 Psychiatric History: No pertinent psych hx - *Family History Paternal Family History: Family History (Last Reviewed 12/13/19 @ 15:[address] Usman Aaron MD) Father CAD (coronary artery disease) Hypertension Restless leg syndrome Mother Hypertension Brother Hyperlipemia Hypertension Sister Hypertension Restless leg syndrome History Items: Heart Disease - CAD; [place]; HTN Sibling Family History: Family History (Last Reviewed 12/13/19 @ 15:[address] Usman Aaron MD) Father CAD (coronary artery disease) Hypertension Restless leg syndrome Mother Hypertension Brother Hyperlipemia Hypertension Sister Hypertension Restless leg syndrome History Items: Heart Disease - HTN Maternal Family History: Family History (Last Reviewed 12/13/19 @ 15:[address] Usman Aaron MD) Father CAD (coronary artery disease) Hypertension Restless leg syndrome Mother Hypertension Brother Hyperlipemia Hypertension Sister Hypertension Restless leg syndrome History Items: Heart Disease - HTN Lives: With Family - Notes that his son lives with him. Smoking Status: Former smoker - Patient quit cigarette tobacco usage in 2007 with prior to this he notes 4 to 5 cigars/day since youth. Tobacco Use: Non-smoker Alcohol: Occasional Drugs: None Review of Systems - Review of Systems General: Denies: Fever, Night Sweats, Fatigue Cardiovascular: Reports: Shortness of Breath. Denies: Chest Discomfort, Orthopnea, PND, Peripheral Edema, Palpitations, Lightheadedness, Dizziness, Near Syncope, Syncope Respiratory: Reports: Shortness of Breath. Denies: Cough, Sputum Production, Hemoptysis Gastrointestinal: Denies: Hematemesis, Hematochezia, Melena Genitourinary: Denies: Dysuria, Hematuria Skin: Denies: Rash Neurological: Reports: Confusion Subjectve: Is a 74-year-old white male who appears to be resting comfortably at the moment in no acute distress. Objective: Vital Signs Temp Pulse Resp BP Pulse Ox 97.8 F 61 18 122/70 H 95 12/19/19 05:11 12/19/19 08:03 12/19/19 05:11 12/19/19 08:03 12/19/19 05:11 Oxygen Flow Rate (L/min) 2 Oxygen Delivery Method Nasal Cannula Weight: 238 lb 15.697 oz Body Mass Index (BMI) 33.3 Finger Stick Blood Glucose 159 Intake and Output for Last 24 Hours 12/17/19 12/18/19 12/19/19 23:59 23:59 23:59 Intake Total 545 / 545 Output Total 300 / 300 Balance 245 / 245 General: Awake, Alert, Oriented x 3, Cooperative, No Acute Distress HEENT: Atraumatic, Normocephalic, PERRL, EOMI, Sclera Non Icteric Neck: Supple, Good ROM Chest Wall: Midline Sternotomy Incision Lungs: Diminished [place] Bases Cardiovascular: Regular Rhythm, Normal S1, Normal S2 Abdomen: Bowel Sounds Present, Soft Extremities: Trace RLE Edema, Trace LLE Edema Psych/Mental Status: Appropriate 12/18/19 00:14: Magnesium 1.6, Ferritin 318 12/18/19 20:45: WBC 10.8, RBC 5.02, Hgb 15.7, Hct 47.0, MCV 93.6, MCH 31.3, MCHC 33.4, Plt Count 167, MPV 11.3, Immature Gran % (Auto) 0.400, Neut % (Auto) 92.5 H, Lymph % (Auto) 3.9 L, [place] % (Auto) 2.8, Eos % (Auto) 0.2, Baso % (Auto) 0.2, Absolute Neuts (auto) 10.0 H, Nucleated RBC % 0 12/18/19 20:45: PT 22.0 H, INR 2.0, APTT 34.8 12/18/19 20:45: Sodium 139, Potassium 3.9, Chloride 107, Carbon Dioxide 27.0, Anion Gap 5, BUN 23 H, Creatinine 0.98, Est GFR (MDRD) Af Amer 96, Est GFR (MDRD) Non-Af 79, BUN/Creatinine Ratio 23.4 H, Glucose 82, Calcium 9.3, Troponin I 0.220 H 12/18/19 20:45: Lactic Acid 1.6 12/18/19 21:24: pH 7.47 H, Bicarbonate Actual 20.3 L, Base Excess -3 L, O2 Saturation 95, ABG pCO2 27.8 L, ABG pO2 67 L, [place] Test Positive 12/18/19 22:15: Urine Color Yellow, Urine Clarity Clear, Urine pH 5.0, Ur Specific [place] 1.020, Urine Protein Negative, Urine Glucose (UA) Normal, Urine Ketones Negative, Urine Occult Blood Negative, Urine Nitrite Negative, Urine Bilirubin Negative, Urine Urobilinogen Normal, Ur Leukocyte Esterase Negative, Urine RBC 0 SEEN, Urine WBC 0 SEEN 12/19/19 00:45: Troponin I 0.237 H 12/19/19 03:35: WBC 21.0 H, RBC 4.61, Hgb 14.5, Hct 42.8, MCV 92.8, MCH 31.5, MCHC 33.9, Plt Count 155, MPV 11.1, Immature Gran % (Auto) 1.500 H, Neut % (Auto) 91.1 H, Lymph % (Auto) 1.9 L, [place] % (Auto) 4.9, Eos % (Auto) 0.4, Baso % (Auto) 0.2, Absolute Neuts (auto) 19.1 H, Nucleated RBC % 0 12/19/19 03:35: PT 22.1 H, INR 2.0 12/19/19 03:35: Sodium 138, Potassium 3.5, Chloride 107, Carbon Dioxide 22.0, Anion Gap 9, BUN 24 H, Creatinine 0.90, Est GFR (MDRD) Af Amer 106, Est GFR (MDRD) Non-Af 88, BUN/Creatinine Ratio 26.7 H, Glucose 122 H, Calcium 8.6, Total Bilirubin 1.40 H 12/19/19 03:35: Troponin I 0.234 H Rhythm: Electronic ventricular paced rhythm EKG: Electronic ventricular paced rhythm ECHO: 05-10-2018: [facility]: Left ventricle: Mild concentric LVH; LVEF 54%; severe biatrial enlargement; moderate MR; aortic valve with a 34 mm Medtronic porcine bioprosthesis-Evolute with mild perivalvular AI; mild to moderate TR JOSE: 11-05-2019 Interpretation Summary Normal LV size. The estimated ejection fraction is 40 %. There is mild to moderate global hypokinesis of the left ventricle. Bioprosthetic aortic valve. Mild perivalvular insufficiency of the aortic valve. There is moderate sponatenous contrast in the left atrium. Mild-Moderate (1-2+) eccentric mitral valve insufficiency. Cardiac Cath: 01-23-18 CORONARY ANGIOGRAPHY DOMINANCE: Right Dominant LEFT HEART ASSESSMENT RIGHT HEART ASSESSMENT Thermal CO: 7.1 Thermal CI: 3.01 Lu CO: 5.39 Lu CI: 2.28 PW: /19 14 PA: 56/22 37 RV: 57/0 4 RA: /11 8 PVR: 259 SVR: 1014 Right Heart pressures - elevated LEFT MAIN: Angiographically normal LEFT ANTERIOR DECENDING ARTERY: Mild luminal irregularities less than 30% CIRCUMFLEX ARTERY: Mild luminal irregularities less than 30% RIGHT CORONARY ARTERY: Mild luminal irregularities less than 30% VALVE FINDINGS: Aortic Valve Stenosis - severe AORTIC ROOT: Dilated Transcatheter aortic valve replacement: 03-27-18: [facility]: 34 mm Corevalve Evolute CXR: As noted above: Please see official report Assessment/Plan 1. Abnormal cardiac enzymes The patient has indeterminate troponin I levels. He has a history since 2018 of indeterminate troponin I levels. He is undergone previous noninvasive and invasive evaluation in the past as noted. At the moment he appears to be without any symptoms of acute coronary syndrome. He has chronic CHF thought to be a combination of systolic and diastolic superimposed upon a history of an underlying cardiomyopathy. At the present time his indeterminate troponin levels may be exacerbated by his underlying hypoxemia secondary to his pneumonia process superimposed upon his cardiovascular condition. At the moment he will continue to be monitored and his cardiac enzyme levels can be followed. He will continue noncardiac evaluation and care of his underlying pulmonary condition. Depending upon his clinical course he may or may not need any further cardiac diagnostic studies, etc. He will continue cardiovascular medical therapy as deemed appropriate. 2. Aortic valve disease/stenosis status post transcatheter aortic valve replacement The patient has undergone noninvasive and invasive evaluation of his valvular anatomy in the past. This led to a transcatheter aortic valve replacement. He states overall he is done better since this procedure. His previous noninvasive studies including a recent JOSE is as noted. He will continue AHA antibiotic prophylaxis. 3. Atrial fibrillation status post EPS/RFA He has a history of atrial fibrillation. He is undergone previous EPS/RFA in the past. At the present time he has been reported is remaining in atrial fibrillation. He is now status post permanent pacemaker placement as well. He will continue medical management. He has been on anticoagulant therapy. 4. Permanent pacemaker: Micra The patient has a leadless Micra pacemaker in place. It appears he remains in an underlying electronic ventricular paced rhythm. His pacemaker can be re-interrogated as needed. 5. Cardiomyopathy He does have reports of diminished LV wall motion/systolic function compatible with an underlying cardiomyopathy. At the present time he will continue medical management. 6. Chronic CHF: Systolic/diastolic mediated At the moment he appears without acute symptoms. He will continue his medical management. 7. Hyperlipidemia He will continue medical therapy as deemed appropriate. 8. Pneumonia He will continue evaluation care per internal medicine. 9. Hypoxemia He was reported as being hypoxemic which may explain his mental status changes. He will continue evaluation and care per internal medicine. 10. Mental status changes He appears to be symptomatically improved this morning. Hopefully this was related to his hypoxemia secondary to concerns of his pneumonia. He will continue evaluation care per internal medicine. He will continue medical management as deemed appropriate. Comment: The patient's case has been discussed and reviewed with the patient and previously with the [facility] emergency department staff.
[2019-12-19 10:45] LABS: Bedside Glucose 232 mg/dL (70-110)
--- NOTE | 2019-12-19 13:05 | CASEMGMT ---
This RN CM to room to complete CM assessment at this time, but pt is sleeping without distress at this time and does not awaken to verbal stimuli at this time. Son at bedside. This RN CM will attempt again later. SStaten RN CM
[2019-12-19] MEDS: 0.9% Saline Lock 10 ML Syringe IV ×2 (13:25→21:19)
--- NOTE | 2019-12-19 14:33 | CASEMGMT ---
DARRELL LYLE assessment: Face to Face with patient for initial transition planning/care coordination assessment. DARRELL LYLE introduced self and role at [facility], pt voices understanding and consents to assessment at this time. Pt is sitting up in bed in no distress at this time. Pt is A/Ox4 at this time and answers all questions appropriately at this time. Care providers, pharmacy, and demographics verified at this time. Presentation: Per EMS report, pt with SOB, cough, sinus drainage, fever and AMS-pt found in car confused after driving [place] Admitting dx: Pna, Elev trop, hypoxia PCP: Zuly Specialists: Karen, cardio; Tony pulm; Vandana, pod; Wilda, ENT Preferred [facility]acy: [facility] Insurance: AeR Prescription Benefit: AeR Living Will/HPOA: Pt states has LW/HPOA and is aware that they are on file at [facility] at this time. Pt states his son, Adeel Altamirano, is HPOA. LNOK: Adeel Altamirano, son; Lamonte Altamirano, brother Living Arrangements: Pt states lives with son in 1 story home with 3 steps in and states no concerns at home at this time. Pt states is normally independent with ADL's. Pt states son works 5-6days/week from [id number]. Transportation: Pt states drives self and states no transportation concerns at this time. DME/HHC: Pt states has the following DME: grab bars, shower chair, hand held shower, nebulizer, bipap, and home oxygen(states rarely uses). Pt states no need for any further DME. Pt states no hx of HHC or SNF in the past. Pt states no concerns with going home at time of discharge. Pt is retired. Pt states does not smoke cigarettes but does drink a beer daily. Pt states no further concerns/needs at this time. CM to follow for PT/OT evals and any further discharge planning/needs. Advised pt to ask for CM if any further questions/concerns/needs arise, voices understanding. Pt Goal: Home Plan: Home, pending PT/OT evals. SStaten DARRELL LYLE
[2019-12-19 16:21] LABS: Bedside Glucose 225 mg/dL (70-110)
[2019-12-19] MEDS: Atorvastatin Calcium 20 MG Tablet PO (21:19)
[2019-12-19 22:00] LABS: Bedside Glucose 240 mg/dL (70-110)
[2019-12-20] VITALS (14 sets, daily range): BP systolic 123–149; BP diastolic 73–86; PULSE 59–70; RESP 16–20; TEMP 36.6–36.7; O2SAT 93–96
[2019-12-20] MEDS: 0.9% Saline Lock 10 ML Syringe IV ×5 (00:37→23:22)
--- NOTE | 2019-12-20 00:59 | PCM.RX.CS ---
Consult Pharmacy has been consulted to manage selected antiobiotic: Vancomycin Type of Consult: New start Suspected Infection: Pneumonia Labs: Sodium 138 mmol/L (136-145) 12/19/19 03:35 Potassium 3.5 mmol/L (3.5-5.1) 12/19/19 03:35 Chloride 107 mmol/L (98-107) 12/19/19 03:35 Carbon Dioxide 22.0 mmol/L (21.0-32.0) 12/19/19 03:35 Anion Gap 9 (5-15) 12/19/19 03:35 BUN 24 mg/dL (7-18) H 12/19/19 03:35 Creatinine 0.90 mg/dL (0.70-1.30) 12/19/19 03:35 Est GFR (MDRD) Af Amer 106 mL/min (>60) 12/19/19 03:35 Est GFR (MDRD) Non-Af 88 mL/min (>60) 12/19/19 03:35 BUN/Creatinine Ratio 26.7 RATIO (10-20) H 12/19/19 03:35 Glucose 122 mg/dL (74-106) H 12/19/19 03:35 Microbiology: Microbiology 12/18/19 20:45 Blood Culture (Wb) - Venous Blood Culture - Preliminary 12/18/19 20:35 Blood Culture (Wb) - Venous Blood Culture - Preliminary 12/18/19 21:10 Interface Orders Respiratory Panel (PCR) - Final 12/19/19 01:30 Urine, Random Legionella Antigen - Final 12/19/19 01:30 Urine, Clean Catch Streptococcus pneumoniae Antigen (M - Final Weight used for dosin kg Estimated Creatinine Clearance: 91.4 Goal Trough: 15-20 mcg/mL Pharmacy Plan for Drug Dosing: Pharmacy Service will continue to monitor and adjust dosing as required. Medications Vancomycin HCl 2,000 mg/ (Sodium Chloride) 540 mls @ 250 mls/hr IV Q12H SAM Vancomycin HCl 2,000 mg/ (Sodium Chloride) 540 mls @ 250 mls/hr IV X1 ONE Stop: 12/20/19 02:39 Last Admin: 12/20/19 00:37 Dose: 250 mls/hr Documented by: Follow-Up Labs: Trough Vancomycin Labs to be done on [date and time ordered]: 12/20 @ 1200
[2019-12-20 04:30] LABS: Absolute Lymphocyte Count 0.38 X10^3/uL (0.83-4.51); Absolute Neutrophil Count 18.2 X10^3/uL (2.0-7.7); Basophil# 0.02 X10^3/uL; Basophil% 0.1 % (0-1); Hematocrit 41.9 % (40-54); Hemoglobin 14.2 g/dL (13.0-16.5); Lymphocyte # 0.38 X10^3/ul (4.0); Lymphocyte % 1.9 % (19-41); Mean Corp Hgb Conc 33.9 g/dL (32-36); Mean Corpuscular Hgb 31.7 pg (27.0-32.0); Mean Corpuscular Volume 93.5 fL (80-94); Mean Platelet Vol. 11.6 fl (6.2-12.0); Monocyte# 1.04 X10^3/uL; Monocyte% 5.2 % (0-10); NRBC Flagged by Analyzer 0 % (0-5); Neutrophil # 18.16 X10^3/uL (2.7-7.7); Neutrophil % 91.4 % (47-70); POSITIVE DIFFERENTIAL YES; POSITIVE MORPHOLOGY YES; Platelet Count 140 K/mm3 (150-450); RBC Distribution Width CV 13.4 % (11.6-14.6); RBC Distribution Width SD 45.6 fl (35.1-43.9); Red Blood Count 4.48 M/mm3 (4.6-6.2); White Blood Count 19.9 K/mm3 (4.4-11.0)
[2019-12-20 04:36] LABS: Differential Indicated SCAN CRITERIA MET
[2019-12-20 04:38] LABS: International Normalized Ratio 2.3; Prothrombin Time (Protime)PT. 24.8 SECONDS (11.7-14.9)
[2019-12-20 04:46] LABS: Anion Gap 8 (5-15); BUN 27 mg/dL (7-18); BUN/Creat Ratio 27.8 RATIO (10-20); Chloride 105 mmol/L (98-107); Creatinine, Serum 0.97 mg/dL (0.70-1.30); EST Glomerular Filtration Rate 81 mL/min (>60); Est Glom Filt Rate - Afr Amer 97 mL/min (>60); Estimated Creatinine Clearance 72.24 ml/min; Glucose 196 mg/dL (74-106); Sodium Level 136 mmol/L (136-145)
[2019-12-20 05:48] LABS: Differential Comment SCANNED
[2019-12-20] MEDS: Insulin Lispro 100 UNIT/ML INSULN.PEN SC ×3 (06:32→21:31)
[2019-12-20 06:50] LABS: Bedside Glucose 193 mg/dL (70-110)
[2019-12-20] MEDS: Ipratropium/Albuterol Sulfate 3 ML AMPUL.NEB INHALATION ×4 (07:20→18:49)
[2019-12-20] MEDS: Aspirin 81 MG TAB.CHEW PO (08:29)
[2019-12-20] MEDS: Famotidine 20 MG Tablet PO ×2 (08:30→21:35)
[2019-12-20] MEDS: Lisinopril 2.5 MG Tablet PO (08:30)
[2019-12-20] MEDS: Metoprolol Tartrate 50 MG Tablet PO ×2 (08:30→21:32)
[2019-12-20] MEDS: Furosemide 40 MG Tablet PO ×2 (08:30→18:25)
[2019-12-20] MEDS: Gabapentin 600 MG Tablet PO (08:30)
--- NOTE | 2019-12-20 10:07 | CASEMGMT ---
Patient has a Healthcare Living Will and a Healthcare Power of Lever Miller. He is aware they are not on file at [facility]. His son Adeel is his Healthcare Power of Lever Miller. Latha TOLENTINO
--- NOTE | 2019-12-20 10:31 | CON.PCM_ITS ---
Problem List (1) Bacteremia due to Gram-negative bacteria Status: Acute Reason for Consult: bacteremia Consulted by: Dr. Chen History of Present Illness: The patient is a 74 year old M with h/o TAVR, presented 12/17 with acute onset fatigue, confusion, fever, nausea, and reported mild cough/dyspnea. Came to ED, started on azithro/ceftriaxone, now broadened to vanc/zosyn/azithro due to (+) bcx. Feeling much better. Denies dysuria, no abd pain, no rash/aches. No current cough or sputum. Full ROS performed and neg except as noted above. - Medical History Past Medical History (Chronic Problems): Chronic Problems (Last Reviewed 12/13/19 @ 15:[address] 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 placement (Chronic 03/29/18) Medtronic Micra 03/29/2018 Complete heart block (Chronic) Persistent atrial fibrillation (Chronic) Cardiomyopathy, dilated, nonischemic (Chronic) Chronic combined systolic and diastolic CHF (congestive heart failure) (Chronic) HLD (hyperlipidemia) (Chronic) [facility] current use of anticoagulant (Chronic) Allergies/Adverse Reactions: Allergies prochlorperazine [From Compazine] Adverse Reaction (Severe, Verified 12/18/19 20:30) extrapyramidal symptoms, sedation extrapyramidal symptoms, sedation was taking also pramipexole at the time Home Medications: Ambulatory Orders Medication Instructions Recorded Aspirin [Aspirin, Baby] 81 mg PO DAILY 09/24/14 albuterol sulfate 90 mcg/actuation 2 puff INHALATION Q4H PRN PRN #18 g 08/11/18 aerosol inhaler tiotropium bromide 18 mcg capsule 1 cap INHALATION DAILY #30 inh 01/05/19 with inhalation device Budesonide/Formoterol 160/4.5 2 puff INHALATION QHS 03/06/19 [Symbicort 160/4.5 Mcg Inhaler (SP)] Rosuvastatin Calcium 10 mg PO QHS #90 tab 03/08/19 lisinopril 2.5 mg tablet 2.5 mg PO DAILY #90 tab 05/30/19 metoprolol tartrate 50 mg tablet 50 mg PO BID #180 tab 05/30/19 furosemide 40 mg tablet 40 mg PO BID #180 tab 09/07/19 warfarin 4 mg tablet 4 mg PO DAILY #0 10/26/19 metformin 500 mg tablet,extended 1,000 mg PO BID tab 12/13/19 release 24 hr Gabapentin 1,200 mg PO QHS 12/20/19 Gabapentin 600 mg PO DINNER 12/20/19 Glipizide [Glipizide ER] 2.5 mg PO DAILY 12/20/19 - Social History SMOKING STATUS:: Former smoker Vital Signs Temp Pulse Resp BP Pulse Ox 98 F 67 17 134/73 H 94 12/20/19 08:28 12/20/19 08:30 12/20/19 08:28 12/20/19 08:30 12/20/19 08:28 Oxygen Flow Rate (L/min) 2 Oxygen Delivery Method Room Air Weight: 109.1 kg Body Mass Index (BMI) 33.3 Finger Stick Blood Glucose 159 Microbiology Past 72 Hours 12/18/19 20:45 Blood Culture - Preliminary Blood Culture (Wb) - Venous Gram negative vandana 12/18/19 20:35 Blood Culture - Preliminary Blood Culture (Wb) - Venous Gram negative vandana 12/18/19 21:10 Respiratory Panel (PCR) - Final Interface Orders 12/19/19 01:30 Legionella Antigen - Final Urine, Random 12/19/19 01:30 Streptococcus pneumoniae Antigen (M - Final Urine, Clean Catch Laboratory Tests Past 24 Hrs 12/20/19 12/20/19 12/20/19 04:05 04:05 04:05 WBC 19.9 H RBC 4.48 L Hgb 14.2 Hct 41.9 MCV 93.5 MCH 31.7 MCHC 33.9 RDW Std Deviation 45.6 H RDW Coeff of [place] 13.4 Plt Count 140 L MPV 11.6 Immature Gran % (Auto) 1.400 H Neut % (Auto) 91.4 H Lymph % (Auto) 1.9 L [place] % (Auto) 5.2 Eos % (Auto) 0.0 Baso % (Auto) 0.1 Absolute Neuts (auto) 18.2 H Absolute Lymphs (auto) 0.38 L Nucleated RBC % 0 Differential Comment SCANNED PT 24.8 H INR 2.3 Sodium 136 Potassium 4.0 Chloride 105 Carbon Dioxide 23.0 Anion Gap 8 BUN 27 H Creatinine 0.97 Estim Creat Clear Calc 72.24 Est GFR (MDRD) Af Amer 97 Est GFR (MDRD) Non-Af 81 BUN/Creatinine Ratio 27.8 H Glucose 196 H Calcium 9.0 - Other Studies Radiology: [] reviewed Other Studies: [] Route of nutrition/ use of supplements: [] Nutritional Intake: [] IV Site: [] [place] Catheter: [] - Physical Exam General: Alert, Oriented x3, Cooperative, No apparent distress HEENT: Atraumatic, PERRLA, EOMI Neck: Supple, No Nodes Lungs: Clear to auscultation, Normal air movement Cardiovascular: Regular rate, Regular Rhythm Abdomen: Soft, Non Tender, Non-Distended Extremities: Edema Skin: No rashes IV Site: Peripheral, without redness Musculoskeletal: No Tenderness to Palpation of Joints or Extremities Neurological: Cranial nerves II-XII grossly intact - Assessment/Plan Antibiotics: [] Assessment/Plan: [] Active and Suspected Problems (Last Reviewed 12/13/19 @ 15:[address] Usman Aaron MD) Encephalopathy acute (Acute) Hypoxia (Acute) Pneumonia (Acute) Cardiac enzymes elevated (Acute) GNR bacteremia in Bcx x2, suspected source is CAP - single bcx with GPC seen on gram stain, which is a possible contaminant. Wbc elevated, feeling better. UAgs neg. Covid and resp pcr panel neg. No fever here. Stop azitho, cont vanc/zosyn while cxs pending. Will follow, thank you, d/w Dr. Chen
[2019-12-20 11:40] LABS: Bedside Glucose 225 mg/dL (70-110)
--- NOTE | 2019-12-20 12:47 | PN_ITS ---
Patient Problems: Active and Suspected Problems (Last Reviewed 12/13/19 @ 15:[address] Usman Aaron MD) Encephalopathy acute (Acute) Hypoxia (Acute) Pneumonia (Acute) Cardiac enzymes elevated (Acute) Bacteremia due to Gram-negative bacteria (Acute) Reason for Visit: Gram-negative vandana bacteremia and pneumonia. Multiple comorbidities Objective: Patient did not had fever since admission. Blood culture came positive of gram- negative vandana and gram-positive cocci. Empirically started on IV vancomycin and Zosyn. ID consult called and discussed. No tachycardia, tachypnea or hypoxia. Physical exam General: Alert, Oriented x3, Cooperative HEENT: Atraumatic, PERRLA, EOMI, Normocephalic. Bilateral hearing loss most likely sensorineural hearing loss Oral: No Gingival or Mucosal Lesions/ Ulcerations Neck: Supple, No JVD, Negative Carotid Bruits Lungs: Air entry diminished in bilateral lung bases. No crepitation/rhonchi Cardiovascular: Paced rhythm. Normal S1, Normal S2, ejection systolic and early diastolic murmur present over aortic valve. Systolic murmur over left lower sternal border. Pacemaker over left subclavicular region Abdomen: Bowel Sounds Present, Soft, Non Tender, Non-Distended : No renal angle tenderness. No suprapubic tenderness. Extremities: No edema, Capillary Refill Less than 3 Seconds Skin: No rashes, No breakdown Musculoskeletal: No Tenderness to Palpation of Joints or Extremities Neurological: Cranial nerves II-XII grossly intact, Deep Tendon Reflexes 2+/4 and Symmetrical, Neuro grossly intact Psych/Mental Status: Normal Affect, Appropriate. Vitals/I&O's: Vital Signs Temp Pulse Resp BP Pulse Ox 98 F 67 17 134/73 H 94 12/20/19 08:28 12/20/19 08:30 12/20/19 08:28 12/20/19 08:30 12/20/19 08:28 Oxygen Flow Rate (L/min) 2 Oxygen Delivery Method Room Air Weight: 240 lb 8.389 oz Body Mass Index (BMI) 33.3 Finger Stick Blood Glucose 159 Intake and Output for Last 24 Hours 12/18/19 12/19/19 12/20/19 23:59 23:59 23:59 Intake Total 2540 / 2540 1360 / 1360 Output Total 600 / 600 200 / 200 Balance 1940 / 1940 1160 / 1160 Microbiology Past 72 Hours 12/18/19 20:35 Blood Culture (Wb) - Venous Blood Culture - Preliminary Gram negative vandana 12/18/19 20:45 Blood Culture (Wb) - Venous Blood Culture - Preliminary Gram negative vandana 12/18/19 21:10 Interface Orders Respiratory Panel (PCR) - Final 12/19/19 01:30 Urine, Random Legionella Antigen - Final 12/19/19 01:30 Urine, Clean Catch Streptococcus pneumoniae Antigen (M - Final Laboratory Results 12/19/19 16:16: POC Glucose 225 H 12/19/19 21:24: POC Glucose 240 H 12/20/19 04:05: WBC 19.9 H, RBC 4.48 L, Hgb 14.2, Hct 41.9, MCV 93.5, MCH 31.7, MCHC 33.9, RDW Std Deviation 45.6 H, RDW Coeff of [place] 13.4, Plt Count 140 L, MPV 11.6, Immature Gran % (Auto) 1.400 H, Neut % (Auto) 91.4 H, Lymph % (Auto) 1.9 L , Hickman % (Auto) 5.2, Eos % (Auto) 0.0, Baso % (Auto) 0.1, Absolute Neuts (auto) 18.2 H, Absolute Lymphs (auto) 0.38 L, Nucleated RBC % 0, Differential Comment SCANNED 12/20/19 04:05: PT 24.8 H, INR 2.3 12/20/19 04:05: Sodium 136, Potassium 4.0, Chloride 105, Carbon Dioxide 23.0, Anion Gap 8, BUN 27 H, Creatinine 0.97, Estim Creat Clear Calc 72.24, Est GFR (MDRD) Af Amer 97, Est GFR (MDRD) Non-Af 81, BUN/Creatinine Ratio 27.8 H, Glucose 196 H, Calcium 9.0 12/20/19 06:31: POC Glucose 193 H 12/20/19 11:34: POC Glucose 225 H Current Medications Acetaminophen (Tylenol) 650 mg PO Q6H PRN PRN PRN Reason: Pain Score 1-10/Temp > 100.7 F Al Hydroxide/Mg Hydroxide (Mylanta Ii) 30 ml PO Q6H PRN PRN PRN Reason: Gastric Burning Albuterol Sulfate (Ventolin Aerosols) 2.5 mg INHALATION Q2H PRN PRN PRN Reason: Dyspnea, wheezing Albuterol/Ipratropium (Duoneb) 3 ml INHALATION Q4HWA.RT [facility] Last Admin: 12/20/19 11:35 Dose: 3 ml Documented by: Aspirin (Aspirin, Baby) 81 mg PO DAILYCM [facility] Last Admin: 12/20/19 08:29 Dose: 81 mg Documented by: Atorvastatin Calcium (Lipitor) 20 mg PO QHS [facility] Last Admin: 12/19/19 21:19 Dose: 20 mg Documented by: Famotidine (Pepcid) 20 mg PO BID [facility] Last Admin: 12/20/19 08:30 Dose: 20 mg Documented by: Furosemide (Lasix) 40 mg PO BIDLX [facility] Last Admin: 12/20/19 08:30 Dose: 40 mg Documented by: Gabapentin (Neurontin) 600 mg PO DINNER SAM Gabapentin (Neurontin) 1,200 mg PO QHS [facility] Guaifenesin (Robitussin) 20 ml PO Q4H PRN PRN PRN Reason: COUGH Hydralazine HCl (Apresoline Iv) 10 mg IV Q4H PRN PRN PRN Reason: SBP > 160 Sodium Chloride () 250 mls @ 15 mls/hr IV .[id number] PRN PRN Reason: Saline Flush Sodium Chloride () 250 mls @ 15 mls/hr IV .[id number] PRN PRN Reason: Additional IVPB Infusion Piperacillin Sod/Tazobactam (Sod 3.375 gm/ Sodium Chloride) 50 mls @ 12.5 mls/hr IV Q8 [facility] Last Infusion: 12/20/19 10:25 Dose: Infused Documented by: Vancomycin IV Pharmacy to Dose (1 ea/ Sodium Chloride) 500 mls @ 250 mls/hr IV X1 PRN; Protocol PRN Reason: Rx to Dose Vancomycin HCl 2,000 mg/ (Sodium Chloride) 540 mls @ 250 mls/hr IV Q12H [facility] Last Admin: 12/20/19 11:21 Dose: 250 mls/hr Documented by: Insulin Human Lispro (Humalog Kwikpen (Bkc)) 0 unit SC ACHS [facility]; Protocol Last Admin: 12/20/19 11:44 Dose: 2 units Documented by: Lisinopril (Zestril) 2.5 mg PO DAILY [facility] Last Admin: 12/20/19 08:30 Dose: 2.5 mg Documented by: Melatonin (Melatonin) 3 mg PO QHS PRN PRN PRN Reason: INSOMNIA Methylprednisolone (Solu-Medrol) 40 mg IV Q8 [facility] Last Admin: 12/20/19 06:30 Dose: 40 mg Documented by: Metoprolol Tartrate (Lopressor (Beta Cherie)) 50 mg PO BID [facility] Last Admin: 12/20/19 08:30 Dose: 50 mg Documented by: Morphine Sulfate () 2 mg IV Q3H PRN PRN PRN Reason: Pain Score 6-10/10 Nitroglycerin (Nitrostat) 0.4 mg SUBLINGUAL Q5M PRN PRN Reason: CARDIAC/CHEST PAIN Ondansetron HCl (Zofran) 4 mg IV Q8H PRN PRN PRN Reason: NAUSEA/VOMITING Oxycodone HCl (Oxyir) 5 mg PO Q4H PRN PRN PRN Reason: Pain Score 4-5/10 Psyllium Hydrophilic Mucilloid (Metamucil) 1 packet PO DAILY PRN PRN PRN Reason: Constipation Senna/Docusate Sodium (Senokot-S, Brook-Colace) 2 tablet PO BID PRN PRN PRN Reason: Constipation Sodium Chloride () 10 - 40 ml IV UD PRN PRN Reason: SALINE FLUSH Last Admin: 12/20/19 06:30 Dose: 20 ml Documented by: Throat Lozenges (Cepacol Sore Throat Lozenge) 1 lozenge MUCOUS MEM Q2H PRN PRN PRN Reason: SORE THROAT Warfarin Sodium (Jantoven) 4 mg PO SuTuThSa@1700 [facility] Warfarin Sodium (Jantoven) 6 mg PO MoWeFr@1700 [facility] Last Admin: 12/19/19 16:22 Dose: 6 mg Documented by: Medical Necessity - Tobacco Use Smoking Status: Former smoker - Patient quit cigarette tobacco usage in 2007 with prior to this he notes 4 to 5 cigars/day since youth. Tobacco Use: Non-smoker Assessment/Plan All Active Problems (Last Reviewed 12/13/19 @ 15:[address] Usman Aaron MD) Encephalopathy acute (Acute) Hypoxia (Acute) Pneumonia (Acute) Cardiac enzymes elevated (Acute) Bacteremia due to Gram-negative bacteria (Acute) Hyperkalemia (Acute) Dyspnea on exertion (Resolved) The patient is a 74 y/o M with multiple comorbidities including chronic systolic and diastolic heart failure, COPD/asthma, nonischemic dilated cardiomyopathy, status post AVR is being admitted for fever, altered mental status, shortness of breath, cough and chest x-ray finding of right perihilar infiltrate consistent with pneumonia 1. Acute encephalopathy most likely infectious and metabolic in etiology: Patient is back to the normal mental status. Resolved. 2. COPD exacerbation most likely secondary to right perihilar pneumonia with gram-negative vandana bacteremia: Initial Gram stain of blood culture is positive of aerobic gram-negative vandana. Antibiotic is broadened to IV Zosyn. Continue Zithromax. COVID-19 PCR, respiratory panel and urinary antigens are negative. UA is negative. Urine culture added. Patient has leukocytosis. Lactic acid normal. 12/19: 2 bottles of blood culture shows gram-negative rods in 1 bottle gram- positive cocci. Yesterday antibiotic was broadened to vancomycin and Zosyn. Seen by ID. Further follow-up blood culture. DC Zithromax. Overall, patient shortness of breath, confusion, cough has improved. 3. Mild elevated troponin most likely demand ischemia: Patient does not have chest pain or pressure. EKG in ED showed no evidence of acute ischemia. Serial troponins are flat and indeterminate range, 0.220, 0.237 and 0.234. Patient seen by body and fender mechanic apprentice. It seems mainly secondary to demand ischemia from infection/pneumonia 4. Cardiac disease: Aortic valve stenosis status post TAVR with perivalvular leak of prosthetic valve, complete heart block with permanent pacemaker, persistent A. fib, dilated nonischemic cardiomyopathy with chronic systolic and diastolic combined, biventricular heart failure: Last echo dated 10/10/2019 from [facility] reported severely decreased systolic function, EF 29%, mildly dilated RV, severely dilated LA, moderately dilated RA, moderate 2+ MR , 34 mm porcine bioprosthetic aortic valve, mild to moderate 1-2+ perivalvular regurgitation, moderate 2+ TR, mild to moderate 1-2+ pulmonic valve regurgitation, pulmonary artery systolic pressure moderately increased to 68 mmHg. Patient also had transesophageal echo on 11/05/2019 which showed mild perivalvular leak of prosthetic aortic valve. Patient is on aspirin, Coumadin, Lasix, lisinopril, metoprolol and a statin. INR is therapeutic. 5. Persistent atrial fibrillation: Status post RFA, status post pacemaker plac ement, continue Coumadin and metoprolol. 6. History of complete heart block: Status post pacemaker placement, interrogation requested. 7. Hypertension: Continue home regimen including Lasix, lisinopril, metoprolol with hold parameters, PRN hydralazine. 8. Hyperlipidemia: Continue home statin regimen. 9. Diabetes mellitus type II: Hold oral home regimen, ADA diet until n.p.o. status, accu checks w/ ISS. 12/19: Blood sugar elevated. Started on Lantus 8 units subcut q. dinner daily. Continue glipizide 2.5 mg daily. 10. Obesity: Weight loss and lifestyle changes encouraged. 11. DENISA: We will continue BiPAP nightly. 12. DVT prophylaxis: SCDs, continue coumadin Total time of the visit including total time spent in counseling or coordination of care, (more than 50% of the total time, spent in obtaining medical information from nurses and other ancillary care providers), discussion with gift consultant, review of labs and imaging is 30 minutes. Inpatient E&M: [id number] [facility] L[facility]
[2019-12-20 17:00] LABS: Bedside Glucose 147 mg/dL (70-110)
[2019-12-20] MEDS: Atorvastatin Calcium 20 MG Tablet PO (21:32)
[2019-12-20] MEDS: Gabapentin 600 MG Tablet 1200 MG PO (21:35)
[2019-12-20] MEDS: Haloperidol Lactate 5 MG/ML Vial 1 MG IV ×2 (23:14→23:22)
--- NOTE | 2019-12-20 23:34 | PCM.HOSP.N ---
Hospitalist Note Patient agitated. Code Arlene called. Patient perseverating that the hospital staff are in fact agents coming to take his land and farm. Patient given haldol. Will place on monitor. Family contacted to assist in calming patient now. Able to assist back to bed. Eventually patient allowed VS assessment with HR 70s, oxygenation appropriate on room air.
--- NOTE | 2019-12-20 23:59 | NURSING ---
Around 2300, this RN entered the room to respond to his chair alarm going off. Pt was becoming increasingly agitated and violent toward staff's attempts to redirect him and help him sit back down in his chair. Pt was attempting to exit room and pull out his IVs. Dr. Dahl paged and this RN spoke to her and told her of the situation. Dr. Dahl ordered haldol IV to be given d/t increasing agitation and violence that was not relieved with reorientation and redirection by multiple staff members. During this time, a code jason was called and Dr. Dahl arrived at the bedside and ordered another dose of haldol to be given. Pt worried that staff was going to take his land and belongings and was very angry with them. Pt was assisted to sit in bed and this RN called his sister Richa and let pt speak with her. Pt also spoke to his brother and son who attempted to reorient and calm him down. Pt assisted up to bathroom, vital signs obtained, and tele monitor applied by this RN. Pt resting in bed now with eyes closed and bed exit on. Will continue to monitor for increased agitation. DARRELL Hensley
[2019-12-21] VITALS (15 sets, daily range): BP systolic 123–148; BP diastolic 77–88; PULSE 60–92; RESP 16–22; TEMP 36.3–37.2; O2SAT 93–97
[2019-12-21 00:45] LABS: Bedside Glucose 241 mg/dL (70-110)
[2019-12-21] MEDS: 0.9% Saline Lock 10 ML Syringe IV ×4 (05:21→21:37)
[2019-12-21 06:34] LABS: Absolute Lymphocyte Count 0.41 X10^3/uL (0.83-4.51); Absolute Neutrophil Count 13.6 X10^3/uL (2.0-7.7); Basophil# 0.02 X10^3/uL; Basophil% 0.1 % (0-1); Hematocrit 41.1 % (40-54); Hemoglobin 13.8 g/dL (13.0-16.5); Lymphocyte # 0.41 X10^3/ul (4.0); Lymphocyte % 2.8 % (19-41); Mean Corp Hgb Conc 33.6 g/dL (32-36); Mean Corpuscular Hgb 31.4 pg (27.0-32.0); Mean Corpuscular Volume 93.6 fL (80-94); Mean Platelet Vol. 11.6 fl (6.2-12.0); Monocyte# 0.42 X10^3/uL; Monocyte% 2.9 % (0-10); NRBC Flagged by Analyzer 0 % (0-5); Neutrophil # 13.57 X10^3/uL (2.7-7.7); Neutrophil % 93.8 % (47-70); POSITIVE DIFFERENTIAL YES; Platelet Count 151 K/mm3 (150-450); RBC Distribution Width CV 13.5 % (11.6-14.6); RBC Distribution Width SD 46.9 fl (35.1-43.9); Red Blood Count 4.39 M/mm3 (4.6-6.2); White Blood Count 14.5 K/mm3 (4.4-11.0)
[2019-12-21] MEDS: Insulin Lispro 100 UNIT/ML INSULN.PEN SC ×4 (06:45→21:38)
[2019-12-21 06:49] LABS: International Normalized Ratio 2.8; Prothrombin Time (Protime)PT. 29.1 SECONDS (11.7-14.9)
[2019-12-21 06:57] LABS: Anion Gap 10 (5-15); BUN 29 mg/dL (7-18); BUN/Creat Ratio 29.4 RATIO (10-20); Calcium,Total 8.8 mg/dL (8.5-10.1); Chloride 105 mmol/L (98-107); Creatinine, Serum 0.99 mg/dL (0.70-1.30); EST Glomerular Filtration Rate 79 mL/min (>60); Est Glom Filt Rate - Afr Amer 95 mL/min (>60); Estimated Creatinine Clearance 70.78 ml/min; Glucose 195 mg/dL (74-106); Potassium 3.7 mmol/L (3.5-5.1); Sodium Level 138 mmol/L (136-145)
[2019-12-21 07:00] LABS: Bedside Glucose 191 mg/dL (70-110)
[2019-12-21 07:11] LABS: Differential Indicated SCAN CRITERIA MET
[2019-12-21 07:23] LABS: Differential Comment SCANNED
[2019-12-21] MEDS: Haloperidol Lactate 5 MG/ML Vial IV (07:31)
[2019-12-21] MEDS: Aspirin 81 MG TAB.CHEW PO (08:38)
[2019-12-21] MEDS: Furosemide 40 MG Tablet PO ×2 (08:38→17:14)
[2019-12-21] MEDS: proMETHazine 25 MG/ML Syringe IV (08:38)
[2019-12-21] MEDS: Metoprolol Tartrate 50 MG Tablet PO ×2 (08:39→21:42)
[2019-12-21] MEDS: Lisinopril 2.5 MG Tablet PO (08:43)
[2019-12-21] MEDS: Famotidine 20 MG Tablet PO ×2 (08:43→21:42)
[2019-12-21] MEDS: Ipratropium/Albuterol Sulfate 3 ML AMPUL.NEB INHALATION ×3 (11:21→18:52)
--- NOTE | 2019-12-21 11:24 | CASEMGMT ---
RN DARIELA Note: intro role of CM to patient and his son who was in room. Patient is still confused, unable to participate in conversation. RN DARIELA discussed possible need for home health care on dc. Son does not know if he would like this, however wishes to see how patient does closer to dc as he is still confused. List of [facility] given to him ([facility]; [place], [place]; [facility], [place]- would need to check distance; [facility], [place]). Son is home with patient and brother lives nearby to assist if needed. Bettie CHRISN RN ACM
[2019-12-21 12:21] LABS: Bedside Glucose 199 mg/dL (70-110)
--- NOTE | 2019-12-21 13:17 | PN.ID_ITS ---
Patient Problems: Active and Suspected Problems (Last Reviewed 12/13/19 @ 15:[address] Usman Aaron MD) Encephalopathy acute (Acute) Hypoxia (Acute) Pneumonia (Acute) Cardiac enzymes elevated (Acute) Bacteremia due to Gram-negative bacteria (Acute) Subjective: Some confusion and agitation. Son at bedside. Overall feeling better. - Physical Exam Vitals/I&O's: Vital Signs Temp Pulse Resp BP Pulse Ox 97.5 F L 63 20 H 123/78 H 96 12/21/19 11:50 12/21/19 11:50 12/21/19 11:50 12/21/19 11:50 12/21/19 11:50 Oxygen Flow Rate (L/min) 2 Oxygen Delivery Method Room Air Weight: 109.1 kg Body Mass Index (BMI) 33.3 Finger Stick Blood Glucose 159 Intake and Output for Last 24 Hours 12/19/19 12/20/19 12/21/19 23:59 23:59 23:59 Intake Total 2540 / 2540 2430 / 2550 1240 / 1240 Output Total 600 / 600 200 / 200 Balance 1940 / 1940 2230 / 2350 1240 / 1240 General: No apparent distress, Confused Lungs: Clear to auscultation, Normal air movement Cardiovascular: Regular rate, Regular Rhythm Abdomen: Soft, Non Tender, Non-Distended Skin: No rashes Microbiology Past 72 Hours 12/19/19 21:20 Urine, Clean Catch Urine Culture - Preliminary Culture exhibits no growth. 12/18/19 20:35 Blood Culture (Wb) - Venous Blood Culture - Preliminary Morganella morganii sp morgani Gram positive vandana 12/18/19 20:45 Blood Culture (Wb) - Venous Blood Culture - Preliminary Gram negative vandana 12/18/19 21:10 Interface Orders Respiratory Panel (PCR) - Final 12/19/19 01:30 Urine, Random Legionella Antigen - Final 12/19/19 01:30 Urine, Clean Catch Streptococcus pneumoniae Antigen (M - Final Laboratory Results 12/20/19 16:55: POC Glucose 147 H 12/20/19 21:30: POC Glucose 241 H 12/21/19 05:25: WBC 14.5 H, RBC 4.39 L, Hgb 13.8, Hct 41.1, MCV 93.6, MCH 31.4, MCHC 33.6, RDW Std Deviation 46.9 H, RDW Coeff of [place] 13.5, Plt Count 151, MPV 11.6, Immature Gran % (Auto) 0.400, Neut % (Auto) 93.8 H, Lymph % (Auto) 2.8 L, Morton % (Auto) 2.9, Eos % (Auto) 0.0, Baso % (Auto) 0.1, Absolute Neuts (auto) 13.6 H, Absolute Lymphs (auto) 0.41 L, Nucleated RBC % 0, Differential Comment SCANNED 12/21/19 05:25: PT 29.1 H, INR 2.8 12/21/19 05:25: Sodium 138, Potassium 3.7, Chloride 105, Carbon Dioxide 23.0, Anion Gap 10, BUN 29 H, Creatinine 0.99, Estim Creat Clear Calc 70.78, Est GFR (MDRD) Af Amer 95, Est GFR (MDRD) Non-Af 79, BUN/Creatinine Ratio 29.4 H, Glucose 195 H, Calcium 8.8 12/21/19 06:43: POC Glucose 191 H 12/21/19 12:07: POC Glucose 199 H 12/21/19 12:15: Vancomycin Trough Pending Current Medications Acetaminophen (Tylenol) 650 mg PO Q6H PRN PRN PRN Reason: Pain Score 1-10/Temp > 100.7 F Al Hydroxide/Mg Hydroxide (Mylanta Ii) 30 ml PO Q6H PRN PRN PRN Reason: Gastric Burning Albuterol Sulfate (Ventolin Aerosols) 2.5 mg INHALATION Q2H PRN PRN PRN Reason: Dyspnea, wheezing Albuterol/Ipratropium (Duoneb) 3 ml INHALATION Q4HWA.RT [facility] Last Admin: 12/21/19 11:21 Dose: 3 ml Documented by: Aspirin (Aspirin, Baby) 81 mg PO DAILYCM [facility] Last Admin: 12/21/19 08:38 Dose: 81 mg Documented by: Atorvastatin Calcium (Lipitor) 20 mg PO QHS [facility] Last Admin: 12/20/19 21:32 Dose: 20 mg Documented by: Famotidine (Pepcid) 20 mg PO BID [facility] Last Admin: 12/21/19 08:43 Dose: 20 mg Documented by: Furosemide (Lasix) 40 mg PO BIDLX [facility] Last Admin: 12/21/19 08:38 Dose: 40 mg Documented by: Gabapentin (Neurontin) 600 mg PO DINNER [facility] Gabapentin (Neurontin) 1,200 mg PO QHS [facility] Last Admin: 12/20/19 21:35 Dose: 1,200 mg Documented by: Glipizide (Glipizide Er) 2.5 mg PO DAILY@0800 [facility] Last Admin: 12/21/19 08:38 Dose: 2.5 mg Documented by: Guaifenesin (Robitussin) 20 ml PO Q4H PRN PRN PRN Reason: COUGH Haloperidol Lactate (Haldol) 2 mg IV Q6H PRN PRN PRN Reason: AGITATION Hydralazine HCl (Apresoline Iv) 10 mg IV Q4H PRN PRN PRN Reason: SBP > 160 Sodium Chloride () 250 mls @ 15 mls/hr IV .[id number] PRN PRN Reason: Saline Flush Last Admin: 12/21/19 05:21 Dose: 15 mls/hr Documented by: Sodium Chloride () 250 mls @ 15 mls/hr IV .[id number] PRN PRN Reason: Additional IVPB Infusion Piperacillin Sod/Tazobactam (Sod 3.375 gm/ Sodium Chloride) 50 mls @ 12.5 mls/hr IV Q8 [facility] Last Infusion: 12/21/19 09:21 Dose: Infused Documented by: Insulin Glargine (Lantus (Bk)) 8 units SC DINNER [facility] Last Admin: 12/20/19 18:29 Dose: 8 units Documented by: Insulin Human Lispro (Humalog Kwikpen (Bk)) 0 unit SC ACHS [facility]; Protocol Last Admin: 12/21/19 12:20 Dose: 2 units Documented by: Lisinopril (Zestril) 2.5 mg PO DAILY [facility] Last Admin: 12/21/19 08:43 Dose: 2.5 mg Documented by: Melatonin (Melatonin) 3 mg PO QHS PRN PRN PRN Reason: INSOMNIA Metoprolol Tartrate (Lopressor (Beta Cherie)) 50 mg PO BID [facility] Last Admin: 12/21/19 08:39 Dose: 50 mg Documented by: Morphine Sulfate () 2 mg IV Q3H PRN PRN PRN Reason: Pain Score 6-10/10 Nitroglycerin (Nitrostat) 0.4 mg SUBLINGUAL Q5M PRN PRN Reason: CARDIAC/CHEST PAIN Oxycodone HCl (Oxyir) 5 mg PO Q4H PRN PRN PRN Reason: Pain Score 4-5/10 Prednisone () 40 mg PO DAILY@0800 [facility] Promethazine HCl (Phenergan) 12.5 mg IV Q6H PRN PRN PRN Reason: NAUSEA/VOMITING Psyllium Hydrophilic Mucilloid (Metamucil) 1 packet PO DAILY PRN PRN PRN Reason: Constipation Quetiapine Fumarate (Seroquel) 50 mg PO BID [facility] Senna/Docusate Sodium (Senokot-S, Brook-Colace) 2 tablet PO BID PRN PRN PRN Reason: Constipation Sodium Chloride () 10 - 40 ml IV UD PRN PRN Reason: SALINE FLUSH Last Admin: 12/21/19 08:38 Dose: 10 ml Documented by: Throat Lozenges (Cepacol Sore Throat Lozenge) 1 lozenge MUCOUS MEM Q2H PRN PRN PRN Reason: SORE THROAT Warfarin Sodium (Jantoven) 4 mg PO SuTuThSa@1700 [facility] Last Admin: 12/20/19 18:25 Dose: 4 mg Documented by: Warfarin Sodium (Jantoven) 6 mg PO MoWeFr@1700 [facility] Last Admin: 12/19/19 16:22 Dose: 6 mg Documented by: Medical Necessity - Tobacco Use Smoking Status: Former smoker - Patient quit cigarette tobacco usage in 2007 with prior to this he notes 4 to 5 cigars/day since youth. Tobacco Use: Non-smoker Route of nutrition/ use of supplements: [] Nutritional Intake: [] IV Site: [] [place] Catheter: [] - Assessment/Plan Antibiotics: [] Assessment/Plan: [] Active and Suspected Problems (Last Reviewed 12/13/19 @ 15:[address] Usman Aaron MD) Encephalopathy acute (Acute) Hypoxia (Acute) Pneumonia (Acute) Cardiac enzymes elevated (Acute) morganella bacteremia in Bcx x2, suspected source is CAP - single bcx with GPR, likely contaminant. Feeling better. UAgs neg. Covid and resp pcr panel neg. No fever here. Narrow abx to zosyn now, plan on d/c home on 4 more days of po levaquin 500mg qday. Will follow
[2019-12-21 13:21] LABS: Vancomycin, Trough Level 22.1 ug/mL (5.0-15.0)
--- NOTE | 2019-12-21 14:36 | PCM.PN.HOSP ---
Patient Problems: Active and Suspected Problems (Last Reviewed 12/13/19 @ 15:[address] Usman Aaron MD) Encephalopathy acute (Acute) Hypoxia (Acute) Pneumonia (Acute) Cardiac enzymes elevated (Acute) Bacteremia due to Gram-negative bacteria (Acute) Reason for Visit: Follow-up for acute encephalopathy, pneumonia and bacteremia Objective: Patient was agitated, restless, confused, disoriented and required Haldol last night. Patient did not had fever or chills. Heart rate and blood pressure is controlled. No chest pain. Patient was lethargic and restless in the morning and had 0.5 mg Haldol. too. He is started on Seroquel 50 mg twice daily I talked to the patient's brother and updated the clinical status. Physical exam General: Lethargic, intermittent confusion and disorientation. HEENT: Atraumatic, PERRLA, EOMI, Normocephalic. Bilateral hearing loss most likely sensorineural hearing loss Oral: No Gingival or Mucosal Lesions/ Ulcerations Neck: Supple, No JVD, Negative Carotid Bruits Lungs: Air entry diminished in bilateral lung bases. No crepitation/rhonchi Cardiovascular: Paced rhythm. Normal S1, Normal S2, ejection systolic and early diastolic murmur present over aortic valve. Systolic murmur over left lower sternal border. Pacemaker over left subclavicular region Abdomen: Bowel Sounds Present, Soft, Non Tender, Non-Distended : No renal angle tenderness. No suprapubic tenderness. Extremities: No edema, Capillary Refill Less than 3 Seconds Skin: No rashes, No breakdown Musculoskeletal: No Tenderness to Palpation of Joints or Extremities Neurological: Cranial nerves II-XII grossly intact, Deep Tendon Reflexes 2+/4 and Symmetrical, Neuro grossly intact Psych/Mental Status: Normal Affect, Appropriate. Vitals/I&O's: Vital Signs Temp Pulse Resp BP Pulse Ox 97.5 F L 63 20 H 123/78 H 96 12/21/19 11:50 12/21/19 11:50 12/21/19 11:50 12/21/19 11:50 12/21/19 11:50 Oxygen Flow Rate (L/min) 2 Oxygen Delivery Method Room Air Weight: 240 lb 8.389 oz Body Mass Index (BMI) 33.3 Finger Stick Blood Glucose 159 Intake and Output for Last 24 Hours 12/19/19 12/20/19 12/21/19 23:59 23:59 23:59 Intake Total 2540 / 2540 2430 / 2550 1240 / 1240 Output Total 600 / 600 200 / 200 Balance 1940 / 1940 2230 / 2350 1240 / 1240 Microbiology Past 72 Hours 12/19/19 21:20 Urine, Clean Catch Urine Culture - Preliminary Culture exhibits no growth. 12/18/19 20:35 Blood Culture (Wb) - Venous Blood Culture - Preliminary Morganella morganii sp morgani Gram positive vandana 12/18/19 20:45 Blood Culture (Wb) - Venous Blood Culture - Preliminary Gram negative vandana 12/18/19 21:10 Interface Orders Respiratory Panel (PCR) - Final 12/19/19 01:30 Urine, Random Legionella Antigen - Final 12/19/19 01:30 Urine, Clean Catch Streptococcus pneumoniae Antigen (M - Final Laboratory Results 12/20/19 16:55: POC Glucose 147 H 12/20/19 21:30: POC Glucose 241 H 12/21/19 05:25: WBC 14.5 H, RBC 4.39 L, Hgb 13.8, Hct 41.1, MCV 93.6, MCH 31.4, MCHC 33.6, RDW Std Deviation 46.9 H, RDW Coeff of [place] 13.5, Plt Count 151, MPV 11.6, Immature Gran % (Auto) 0.400, Neut % (Auto) 93.8 H, Lymph % (Auto) 2.8 L, [place] % (Auto) 2.9, Eos % (Auto) 0.0, Baso % (Auto) 0.1, Absolute Neuts (auto) 13.6 H, Absolute Lymphs (auto) 0.41 L, Nucleated RBC % 0, Differential Comment SCANNED 12/21/19 05:25: PT 29.1 H, INR 2.8 12/21/19 05:25: Sodium 138, Potassium 3.7, Chloride 105, Carbon Dioxide 23.0, Anion Gap 10, BUN 29 H, Creatinine 0.99, Estim Creat Clear Calc 70.78, Est GFR (MDRD) Af Amer 95, Est GFR (MDRD) Non-Af 79, BUN/Creatinine Ratio 29.4 H, Glucose 195 H, Calcium 8.8 12/21/19 06:43: POC Glucose 191 H 12/21/19 12:07: POC Glucose 199 H 12/21/19 12:15: Vancomycin Trough 22.1 H Current Medications Acetaminophen (Tylenol) 650 mg PO Q6H PRN PRN PRN Reason: Pain Score 1-10/Temp > 100.7 F Al Hydroxide/Mg Hydroxide (Mylanta Ii) 30 ml PO Q6H PRN PRN PRN Reason: Gastric Burning Albuterol Sulfate (Ventolin Aerosols) 2.5 mg INHALATION Q2H PRN PRN PRN Reason: Dyspnea, wheezing Albuterol/Ipratropium (Duoneb) 3 ml INHALATION Q4HWA.RT [facility] Last Admin: 12/21/19 11:21 Dose: 3 ml Documented by: Aspirin (Aspirin, Baby) 81 mg PO DAILYCM [facility] Last Admin: 12/21/19 08:38 Dose: 81 mg Documented by: Atorvastatin Calcium (Lipitor) 20 mg PO QHS [facility] Last Admin: 12/20/19 21:32 Dose: 20 mg Documented by: Famotidine (Pepcid) 20 mg PO BID [facility] Last Admin: 12/21/19 08:43 Dose: 20 mg Documented by: Furosemide (Lasix) 40 mg PO BIDLX [facility] Last Admin: 12/21/19 08:38 Dose: 40 mg Documented by: Gabapentin (Neurontin) 600 mg PO DINNER [facility] Gabapentin (Neurontin) 1,200 mg PO QHS [facility] Last Admin: 12/20/19 21:35 Dose: 1,200 mg Documented by: Glipizide (Glipizide Er) 2.5 mg PO DAILY@0800 [facility] Last Admin: 12/21/19 08:38 Dose: 2.5 mg Documented by: Guaifenesin (Robitussin) 20 ml PO Q4H PRN PRN PRN Reason: COUGH Haloperidol Lactate (Haldol) 2 mg IV Q6H PRN PRN PRN Reason: AGITATION Hydralazine HCl (Apresoline Iv) 10 mg IV Q4H PRN PRN PRN Reason: SBP > 160 Sodium Chloride () 250 mls @ 15 mls/hr IV .[id number] PRN PRN Reason: Saline Flush Last Admin: 12/21/19 05:21 Dose: 15 mls/hr Documented by: Sodium Chloride () 250 mls @ 15 mls/hr IV .[id number] PRN PRN Reason: Additional IVPB Infusion Piperacillin Sod/Tazobactam (Sod 3.375 gm/ Sodium Chloride) 50 mls @ 12.5 mls/hr IV Q8 [facility] Last Infusion: 12/21/19 09:21 Dose: Infused Documented by: Insulin Glargine (Lantus ([facility])) 8 units SC DINNER [facility] Last Admin: 12/20/19 18:29 Dose: 8 units Documented by: Insulin Human Lispro (Humalog Kwikpen ([facility])) 0 unit SC ACHS [facility]; Protocol Last Admin: 12/21/19 12:20 Dose: 2 units Documented by: Lisinopril (Zestril) 2.5 mg PO DAILY [facility] Last Admin: 12/21/19 08:43 Dose: 2.5 mg Documented by: Melatonin (Melatonin) 3 mg PO QHS PRN PRN PRN Reason: INSOMNIA Metoprolol Tartrate (Lopressor (Beta Cherie)) 50 mg PO BID [facility] Last Admin: 12/21/19 08:39 Dose: 50 mg Documented by: Morphine Sulfate () 2 mg IV Q3H PRN PRN PRN Reason: Pain Score 6-10/10 Nitroglycerin (Nitrostat) 0.4 mg SUBLINGUAL Q5M PRN PRN Reason: CARDIAC/CHEST PAIN Oxycodone HCl (Oxyir) 5 mg PO Q4H PRN PRN PRN Reason: Pain Score 4-5/10 Prednisone () 40 mg PO DAILY@0800 [facility] Promethazine HCl (Phenergan) 12.5 mg IV Q6H PRN PRN PRN Reason: NAUSEA/VOMITING Psyllium Hydrophilic Mucilloid (Metamucil) 1 packet PO DAILY PRN PRN PRN Reason: Constipation Quetiapine Fumarate (Seroquel) 50 mg PO BID [facility] Senna/Docusate Sodium (Senokot-S, Brook-Colace) 2 tablet PO BID PRN PRN PRN Reason: Constipation Sodium Chloride () 10 - 40 ml IV UD PRN PRN Reason: SALINE FLUSH Last Admin: 12/21/19 08:38 Dose: 10 ml Documented by: Throat Lozenges (Cepacol Sore Throat Lozenge) 1 lozenge MUCOUS MEM Q2H PRN PRN PRN Reason: SORE THROAT Warfarin Sodium (Jantoven) 4 mg PO SuTuThSa@1700 [facility] Last Admin: 12/20/19 18:25 Dose: 4 mg Documented by: Warfarin Sodium (Jantoven) 6 mg PO MoWeFr@1700 [facility] Last Admin: 12/19/19 16:22 Dose: 6 mg Documented by: STROKE Vital Signs/Narrative: Vital Signs Temp Pulse Resp BP Pulse Ox 12/21/19 11:50 97.5 F L 63 20 H 123/78 H 96 12/21/19 11:42 64 16 Medical Necessity - Tobacco Use Smoking Status: Former smoker - Patient quit cigarette tobacco usage in 2007 with prior to this he notes 4 to 5 cigars/day since youth. Tobacco Use: Non-smoker Assessment/Plan All Active Problems (Last Reviewed 12/13/19 @ 15:[address] Usman Aaron MD) Encephalopathy acute (Acute) Hypoxia (Acute) Pneumonia (Acute) Cardiac enzymes elevated (Acute) Bacteremia due to Gram-negative bacteria (Acute) Hyperkalemia (Acute) Dyspnea on exertion (Resolved) The patient is a 74 y/o M with multiple comorbidities including chronic systolic and diastolic heart failure, COPD/asthma, nonischemic dilated cardiomyopathy, status post AVR is being admitted for fever, altered mental status, shortness of breath, cough and chest x-ray finding of right perihilar infiltrate consistent with pneumonia 1. Acute encephalopathy most likely infectious and metabolic in etiology: Patient is back to the normal mental status. 12/20: Acute encephalopathy, agitation probably secondary to mixed etiology, steroid, bacteremia, polypharmacy and metabolic encephalopathy. Solu-Medrol discontinued. Started on low-dose prednisone 20 mg daily from tomorrow a.m. 2. COPD exacerbation most likely secondary to right perihilar pneumonia with gram-negative vandana bacteremia: Initial Gram stain of blood culture is positive of aerobic gram-negative vandana. Antibiotic is broadened to IV Zosyn. Continue Zithromax. COVID-19 PCR, respiratory panel and urinary antigens are negative. UA is negative. Urine culture added. Patient has leukocytosis. Lactic acid normal. 12/19: 2 bottles of blood culture shows gram-negative rods in 1 bottle gram-positive cocci. Yesterday antibiotic was broadened to vancomycin and Zosyn. Seen by ID. Further follow-up blood culture. DC Zithromax. Overall, patient shortness of breath, confusion, cough has improved. 12/21: Blood culture showing Morganella morganii and gram-positive vandana. Seen by ID. Vancomycin discontinued full culture pending. Continue IV Zosyn as patient is improving. 3. Mild elevated troponin most likely demand ischemia: Patient does not have chest pain or pressure. EKG in ED showed no evidence of acute ischemia. Serial troponins are flat and indeterminate range, 0.220, 0.237 and 0.234. Patient seen by news library director. It seems mainly secondary to demand ischemia from infection/pneumonia 4. Cardiac disease: Aortic valve stenosis status post TAVR with perivalvular leak of prosthetic valve, complete heart block with permanent pacemaker, persistent A. fib, dilated nonischemic cardiomyopathy with chronic systolic and diastolic combined, biventricular heart failure: Last echo dated 10/10/2019 from [facility] reported severely decreased systolic function, EF 29%, mildly dilated RV, severely dilated LA, moderately dilated RA, moderate 2+ MR , 34 mm porcine bioprosthetic aortic valve, mild to moderate 1-2+ perivalvular regurgitation, moderate 2+ TR, mild to moderate 1-2+ pulmonic valve regurgitation, pulmonary artery systolic pressure moderately increased to 68 mmHg. Patient also had transesophageal echo on 11/05/2019 which showed mild perivalvular leak of prosthetic aortic valve. Patient is on aspirin, Coumadin, Lasix, lisinopril, metoprolol and a statin. INR is therapeutic. INR 2.8. Hold today's Coumadin dose. 5. Persistent atrial fibrillation: Status post RFA, status post pacemaker placement, continue Coumadin and metoprolol. 6. History of complete heart block: Status post pacemaker placement, interrogation requested. 7. Hypertension: Continue home regimen including Lasix, lisinopril, metoprolol with hold parameters, PRN hydralazine. 8. Hyperlipidemia: Continue home statin regimen. 9. Diabetes mellitus type II: Hold oral home regimen, ADA diet until n.p.o. status, accu checks w/ ISS. 12/19: Blood sugar elevated. Started on Lantus 8 units subcut q. dinner daily. Continue glipizide 2.5 mg daily. 12/20: Lantus increased to 10 units subcutaneous dinner daily. Solu-Medrol is discontinued. 10. Obesity: Weight loss and lifestyle changes encouraged. 11. DENISA: We will continue BiPAP nightly. 12. DVT prophylaxis: SCDs, continue coumadin Total time of the visit including total time spent in counseling or coordination of care, (more than 50% of the total time, spent in obtaining medical information from nurses and other ancillary care providers), discussion with business consultant and family members, review of labs and imaging is 30 minutes. Inpatient E&M: [id number] [facility] L3
[2019-12-21] MEDS: Gabapentin 600 MG Tablet PO (17:12)
[2019-12-21 17:26] LABS: Bedside Glucose 203 mg/dL (70-110)
[2019-12-21] MEDS: Atorvastatin Calcium 20 MG Tablet PO (21:39)
[2019-12-21] MEDS: QUEtiapine 25 MG Tablet 50 MG PO (21:42)
[2019-12-21] MEDS: Gabapentin 600 MG Tablet 1200 MG PO (21:42)
[2019-12-21 22:31] LABS: Bedside Glucose 291 mg/dL (70-110)
[2019-12-22] VITALS (8 sets, daily range): BP systolic 103–138; BP diastolic 64–80; PULSE 61–75; RESP 16–20; TEMP 36.3–36.6; O2SAT 92–97
[2019-12-22] MEDS: Haloperidol Lactate 5 MG/ML Vial 2 MG IV (01:15)
[2019-12-22] MEDS: 0.9% Saline Lock 10 ML Syringe IV (01:16)
[2019-12-22] MEDS: Ipratropium/Albuterol Sulfate 3 ML AMPUL.NEB INHALATION ×2 (06:48→11:18)
[2019-12-22 07:10] LABS: Bedside Glucose 107 mg/dL (70-110)
[2019-12-22 07:33] LABS: Absolute Lymphocyte Count 0.89 X10^3/uL (0.83-4.51); Absolute Neutrophil Count 10.2 X10^3/uL (2.0-7.7); Basophil# 0.01 X10^3/uL; Basophil% 0.1 % (0-1); Hematocrit 41.9 % (40-54); Lymphocyte # 0.89 X10^3/ul (4.0); Lymphocyte % 7.4 % (19-41); Mean Corp Hgb Conc 33.4 g/dL (32-36); Mean Corpuscular Hgb 31.3 pg (27.0-32.0); Mean Corpuscular Volume 93.5 fL (80-94); Mean Platelet Vol. 11.7 fl (6.2-12.0); Monocyte# 0.87 X10^3/uL; Monocyte% 7.2 % (0-10); NRBC Flagged by Analyzer 0 % (0-5); Neutrophil # 10.18 X10^3/uL (2.7-7.7); Neutrophil % 84.2 % (47-70); Platelet Count 161 K/mm3 (150-450); RBC Distribution Width CV 13.7 % (11.6-14.6); RBC Distribution Width SD 47.3 fl (35.1-43.9); Red Blood Count 4.48 M/mm3 (4.6-6.2); White Blood Count 12.1 K/mm3 (4.4-11.0)
[2019-12-22 07:43] LABS: International Normalized Ratio 3.1; Prothrombin Time (Protime)PT. 31.5 SECONDS (11.7-14.9)
[2019-12-22 07:57] LABS: Anion Gap 7 (5-15); BUN 29 mg/dL (7-18); Calcium,Total 8.8 mg/dL (8.5-10.1); Chloride 109 mmol/L (98-107); Creatinine, Serum 0.94 mg/dL (0.70-1.30); EST Glomerular Filtration Rate 84 mL/min (>60); Est Glom Filt Rate - Afr Amer 102 mL/min (>60); Estimated Creatinine Clearance 74.54 ml/min; Glucose 89 mg/dL (74-106); Potassium 3.4 mmol/L (3.5-5.1); Sodium Level 141 mmol/L (136-145)
[2019-12-22] MEDS: Metoprolol Tartrate 50 MG Tablet PO (08:25)
[2019-12-22] MEDS: predniSONE 20 MG Tablet PO (08:25)
[2019-12-22] MEDS: Furosemide 40 MG Tablet PO (08:26)
[2019-12-22] MEDS: Lisinopril 2.5 MG Tablet PO (08:26)
[2019-12-22] MEDS: Famotidine 20 MG Tablet PO (08:26)
[2019-12-22] MEDS: Aspirin 81 MG TAB.CHEW PO (08:26)
[2019-12-22 11:40] LABS: Bedside Glucose 137 mg/dL (70-110)
--- NOTE | 2019-12-22 11:49 | DCINST_ITS ---
- Discharge Diagnoses Current Active Problems: Current Active and Chronic Problems (Last Reviewed 12/13/19 @ 15:[address] Usman Aaron MD) Encephalopathy acute (Acute) Hypoxia (Acute) Pneumonia (Acute) Cardiac enzymes elevated (Acute) Diabetes mellitus, type II (Chronic) DENISA treated with BiPAP (Chronic) Bacteremia due to Gram-negative bacteria (Acute) You will use the following diet at home:: Calorie/Carbohydrate Controlled (specify 1200, 1400, etc) - 1800 ADA diet, Cardiac Your food should be the consistency of: Regular Discharge Activity: May Not Drive Weight Bearing Status: Weight bearing as tolerated Call your doctor if you observe: Fever of 101 or Higher, Coldness, Increased Pain, Numbness or Tingling, Inability to urinate, Inability to have a bowel movement, Shortness of breath, Dizziness, Fainting spells, Swelling in the ankles, Chest pain, Prolonged hiccoughing, Increased palpitations (irregular heartbeat) Allergies/Adverse Reactions: Allergies prochlorperazine [From Compazine] Adverse Reaction (Severe, Verified 12/18/19 20:30) extrapyramidal symptoms, sedation extrapyramidal symptoms, sedation was taking also pramipexole at the time Medications to take at Discharge Aspirin [Aspirin, Baby] 81 mg PO DAILY 09/24/14 albuterol sulfate 90 mcg/actuation aerosol inhaler 2 puff INHALATION Q4H PRN PRN #18 g 08/11/18 tiotropium bromide 18 mcg capsule with inhalation device 1 cap INHALATION DAILY #30 inh 01/05/19 Budesonide/Formoterol 160/4.5 [Symbicort 160/4.5 Mcg Inhaler (SP)] 2 puff INHALATION QHS 03/06/19 Rosuvastatin Calcium 10 mg PO QHS #90 tab 03/08/19 lisinopril 2.5 mg tablet 2.5 mg PO DAILY #90 tab 05/30/19 metoprolol tartrate 50 mg tablet 50 mg PO BID #180 tab 05/30/19 furosemide 40 mg tablet 40 mg PO BID #180 tab 09/07/19 Gabapentin 1,200 mg PO QHS 12/20/19 Gabapentin 600 mg PO DINNER 12/20/19 Glipizide [Glipizide ER] 2.5 mg PO DAILY 12/20/19 Potassium Chloride [K-Dur] 20 meq PO DAILYCM #30 tab 12/22/19 Prednisone 10 mg PO DAILY #30 tab 12/22/19 Warfarin [Coumadin] 4 mg PO DAILY #0 12/22/19 levoFLOXacin tablet [Levaquin tablet] 500 mg PO DAILY #4 tab 12/22/19 metFORMIN (XR) [Glucophage Xr] 1,000 mg PO BID #0 tab 12/22/19 The following prescriptions were given: Potassium Chloride [K-Dur] 20 meq PO DAILYCM #30 tab Transmission Status: Pending to [facility] levoFLOXacin tablet [Levaquin tablet] 500 mg PO DAILY #4 tab Transmission Status: Pending to [facility] Prednisone 10 mg PO DAILY #30 tab Transmission Status: Pending to [facility] Primary Care Physician: Fer Caruso MD [Primary Care Provider] - Please follow up with your Primary Care Physician in: In 1 to 2 weeks Test Results: Test results from this visit will be discussed in further detail at your follow- up appointment, if applicable.
--- NOTE | 2019-12-22 12:08 | PCM.DC.SUM ---
Discharge Date and Diagnosis - Problem List Patient Problems: Active and Suspected Problems (Last Reviewed 12/13/19 @ 15:[address] Usman Aaron MD) Encephalopathy acute (Acute) Hypoxia (Acute) Pneumonia (Acute) Cardiac enzymes elevated (Acute) Bacteremia due to Gram-negative bacteria (Acute) Date of Admission: 12/18/19 Date of Discharge: 12/22/19 - Primary Discharge Diagnosis Acute Problems: Active Problems (Last Reviewed 12/13/19 @ 15:[address] Usman Aaron MD) Encephalopathy acute (Acute) Hypoxia (Acute) Pneumonia (Acute) Cardiac enzymes elevated (Acute) Bacteremia due to Gram-negative bacteria (Acute) - Secondary Discharge Diagnosis Chronic Problems: Chronic Problems (Last Reviewed 12/13/19 @ 15:[address] 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 Acute encephalopathy most likely mixed etiology secondary to bacteremia, steroid, polypharmacy and metabolic encephalopathy: Patient is back to the normal mental status. Acute encephalopathy resolved. 2. COPD exacerbation most likely secondary to right perihilar pneumonia with gram-negative vandana bacteremia: Initial Gram stain of blood culture is positive of aerobic gram-negative vandana. Antibiotic is broadened to IV Zosyn and vancomycin. COVID-19 PCR, respiratory panel and urinary antigens are negative. UA is negative. Urine culture added. Patient has leukocytosis. Lactic acid normal. Blood culture showing Morganella morganii and gram-positive vandana. Gram-positive rods since contamination. Seen by ID. Vancomycin discontinued. Continue IV Zosyn as patient is improving. Patient is discharged on Levaquin for more days as per ID recommendation. 3. Mild elevated troponin most likely demand ischemia: Patient does not have chest pain or pressure. EKG in ED showed no evidence of acute ischemia. Serial troponins are flat and indeterminate range, 0.220, 0.237 and 0.234. Patient seen by motor coach driver. It seems mainly secondary to demand ischemia from infection/pneumonia 4. Cardiac disease: Aortic valve stenosis status post TAVR with perivalvular leak of prosthetic valve, complete heart block with permanent pacemaker, persistent A. fib, dilated nonischemic cardiomyopathy with chronic systolic and diastolic combined, biventricular heart failure: Last echo dated 10/10/2019 from [facility] reported severely decreased systolic function, EF 29%, mildly dilated RV, severely dilated LA, moderately dilated RA, moderate 2+ MR , 34 mm porcine bioprosthetic aortic valve, mild to moderate 1-2+ perivalvular regurgitation, moderate 2+ TR, mild to moderate 1-2+ pulmonic valve regurgitation, pulmonary artery systolic pressure moderately increased to 68 mmHg. Patient also had transesophageal echo on 11/05/2019 which showed mild perivalvular leak of prosthetic aortic valve. Patient is on aspirin, Coumadin, Lasix, lisinopril, metoprolol and a statin. INR is elevated, last one 3.1. Acute interaction with antibiotic, Zosyn, INR is elevated. I anticipate INR will need further elevated on Levaquin therefore continue holding Coumadin. Check INR as an outpatient on 12/24/2019 follow-up PCP to further titrate the dose. 5. Persistent atrial fibrillation: Status post RFA, status post pacemaker placement, continue Coumadin and metoprolol. 6. History of complete heart block: Status post pacemaker placement, interrogation requested. 7. Hypertension: Continue home regimen including Lasix, lisinopril, metoprolol with hold parameters, PRN hydralazine. 8. Hyperlipidemia: Continue home statin regimen. 9. Diabetes mellitus type II: Hold oral home regimen, ADA diet until n.p.o. status, accu checks w/ ISS. 12/19: Blood sugar elevated. Started on Lantus 8 units subcut q. dinner daily. Continue glipizide 2.5 mg daily. 12/20: Lantus increased to 10 units subcutaneous dinner daily. Solu-Medrol is discontinued. 10. Obesity: Weight loss and lifestyle changes encouraged. 11. DENISA: We will continue BiPAP nightly. 12. DVT prophylaxis: SCDs, continue coumadin Discharge medication reconciliation done. Discharge follow-up instructions completed. Discharge process discussed with the patient and all questions were answered to patient's satisfaction. Discharge process discussed with the patient's son on phone. Prescription sent to the patient's pharmacy. Discharge home with home health healthcare advisory services manager Total time spent, exact 35 minutes on discharge meds reconciliation, examination, coordination of care with nurses and ancillary staff, review of imaging and blood test and discussion with the patient on follow-up instructions Patient Problems: Active and Suspected Problems (Last Reviewed 12/13/19 @ 15:[address] Usman Aaron MD) Encephalopathy acute (Acute) Hypoxia (Acute) Pneumonia (Acute) Cardiac enzymes elevated (Acute) Bacteremia due to Gram-negative bacteria (Acute) Objective: Patient was was mildly confused and restless last night. Was given Haldol 2 mg. Patient is quite, oriented x3 and follows simple command in the morning. I talked to the patient's son Mason on phone. As per son, he gets confused, disoriented and restless at home at nighttime. No fever or chills. Physical exam General: Alert, oriented x3. Patient is a speech coherent. Follows simple command. HEENT: Atraumatic, PERRLA, EOMI, Normocephalic. Bilateral hearing loss most likely sensorineural hearing loss Oral: No Gingival or Mucosal Lesions/ Ulcerations Neck: Supple, No JVD, Negative Carotid Bruits Lungs: Air entry diminished in bilateral lung bases. No crepitation/rhonchi Cardiovascular: Paced rhythm. Normal S1, Normal S2, ejection systolic and early diastolic murmur present over aortic valve. Systolic murmur over left lower sternal border. Pacemaker over left subclavicular region Abdomen: Bowel Sounds Present, Soft, Non Tender, Non-Distended : No renal angle tenderness. No suprapubic tenderness. Extremities: No edema, Capillary Refill Less than 3 Seconds Skin: No rashes, No breakdown Musculoskeletal: No Tenderness to Palpation of Joints or Extremities Neurological: Cranial nerves II-XII grossly intact, Deep Tendon Reflexes 2+/4 and Symmetrical, Neuro grossly intact Psych/Mental Status: Normal Affect, Appropriate. - Physical Exam Vitals/I&O's: Vital Signs Temp Pulse Resp BP Pulse Ox 97.4 F L 61 18 111/66 97 12/22/19 08:30 12/22/19 08:30 12/22/19 08:30 12/22/19 08:30 12/22/19 08:30 Oxygen Flow Rate (L/min) 2 Oxygen Delivery Method Room Air Weight: 246 lb 14.684 oz Body Mass Index (BMI) 33.3 Finger Stick Blood Glucose 159 Intake and Output for Last 24 Hours 12/20/19 12/21/19 12/22/19 23:59 23:59 23:59 Intake Total 2430 / 2550 2332.75 / 2812.75 580 / 580 Output Total 200 / 200 415 / 1065 850 / 850 Balance 2230 / 2350 1917.75 / 1747.75 -270 / -270 Microbiology Past 72 Hours 12/18/19 20:45 Blood Culture (Wb) - Venous Blood Culture - Preliminary Gram negative vandana 12/19/19 21:20 Urine, Clean Catch Urine Culture - Final Culture exhibits no growth. 12/18/19 20:35 Blood Culture (Wb) - Venous Blood Culture - Preliminary Morganella morganii sp morgani Gram positive vandana Laboratory Results 12/21/19 12:07: POC Glucose 199 H 12/21/19 12:15: Vancomycin Trough 22.1 H 12/21/19 17:02: POC Glucose 203 H 12/21/19 21:26: POC Glucose 291 H 12/22/19 07:06: PT 31.5 H, INR 3.1 12/22/19 07:06: WBC 12.1 H, RBC 4.48 L, Hgb 14.0, Hct 41.9, MCV 93.5, MCH 31.3, MCHC 33.4, RDW Std Deviation 47.3 H, RDW Coeff of [place] 13.7, Plt Count 161, MPV 11.7, Immature Gran % (Auto) 1.100 H, Neut % (Auto) 84.2 H, Lymph % (Auto) 7.4 L, [place] % (Auto) 7.2, Eos % (Auto) 0.0, Baso % (Auto) 0.1, Absolute Neuts (auto) 10.2 H, Absolute Lymphs (auto) 0.89, Nucleated RBC % 0 12/22/19 07:06: Sodium 141, Potassium 3.4 L, Chloride 109 H, Carbon Dioxide 25.0, Anion Gap 7, BUN 29 H, Creatinine 0.94, Estim Creat Clear Calc 74.54, Est GFR (MDRD) Af Amer 102, Est GFR (MDRD) Non-Af 84, BUN/Creatinine Ratio 31.0 H, Glucose 89, Calcium 8.8 12/22/19 07:08: POC Glucose 107 12/22/19 11:29: POC Glucose 137 H Current Medications Acetaminophen (Tylenol) 650 mg PO Q6H PRN PRN PRN Reason: Pain Score 1-10/Temp > 100.7 F Al Hydroxide/Mg Hydroxide (Mylanta Ii) 30 ml PO Q6H PRN PRN PRN Reason: Gastric Burning Albuterol Sulfate (Ventolin Aerosols) 2.5 mg INHALATION Q2H PRN PRN PRN Reason: Dyspnea, wheezing Albuterol/Ipratropium (Duoneb) 3 ml INHALATION Q4HWA.RT [facility] Last Admin: 12/22/19 11:18 Dose: 3 ml Documented by: Aspirin (Aspirin, Baby) 81 mg PO DAILYCM [facility] Last Admin: 12/22/19 08:26 Dose: 81 mg Documented by: Atorvastatin Calcium (Lipitor) 20 mg PO QHS [facility] Last Admin: 12/21/19 21:39 Dose: 20 mg Documented by: Famotidine (Pepcid) 20 mg PO BID [facility] Last Admin: 12/22/19 08:26 Dose: 20 mg Documented by: Furosemide (Lasix) 40 mg PO BIDLX [facility] Last Admin: 12/22/19 08:26 Dose: 40 mg Documented by: Gabapentin (Neurontin) 600 mg PO DINNER [facility] Last Admin: 12/21/19 17:12 Dose: 600 mg Documented by: Gabapentin (Neurontin) 1,200 mg PO QHS [facility] Last Admin: 12/21/19 21:42 Dose: 1,200 mg Documented by: Glipizide (Glipizide Er) 2.5 mg PO DAILY@0800 [facility] Last Admin: 12/22/19 08:26 Dose: 2.5 mg Documented by: Guaifenesin (Robitussin) 20 ml PO Q4H PRN PRN PRN Reason: COUGH Haloperidol Lactate (Haldol) 2 mg IV Q6H PRN PRN PRN Reason: AGITATION Last Admin: 12/22/19 01:15 Dose: 2 mg Documented by: Hydralazine HCl (Apresoline Iv) 10 mg IV Q4H PRN PRN PRN Reason: SBP > 160 Sodium Chloride () 250 mls @ 15 mls/hr IV .[id number] PRN PRN Reason: Saline Flush Last Infusion: 12/22/19 10:29 Dose: 15 mls/hr Documented by: Sodium Chloride () 250 mls @ 15 mls/hr IV .[id number] PRN PRN Reason: Additional IVPB Infusion Piperacillin Sod/Tazobactam (Sod 3.375 gm/ Sodium Chloride) 50 mls @ 12.5 mls/hr IV Q8 [facility] Last Infusion: 12/22/19 10:29 Dose: Infused Documented by: Insulin Glargine (Lantus (Bk)) 10 units SC DINNER [facility] Last Admin: 12/21/19 17:11 Dose: 10 units Documented by: Insulin Human Lispro (Humalog Kwikpen (Bk)) 0 unit SC ACHS [facility]; Protocol Last Admin: 12/22/19 07:32 Dose: Not Given Documented by: Lisinopril (Zestril) 2.5 mg PO DAILY [facility] Last Admin: 12/22/19 08:26 Dose: 2.5 mg Documented by: Melatonin (Melatonin) 3 mg PO QHS PRN PRN PRN Reason: INSOMNIA Metoprolol Tartrate (Lopressor (Beta Cherie)) 50 mg PO BID [facility] Last Admin: 12/22/19 08:25 Dose: 50 mg Documented by: Morphine Sulfate () 2 mg IV Q3H PRN PRN PRN Reason: Pain Score 6-10/10 Nitroglycerin (Nitrostat) 0.4 mg SUBLINGUAL Q5M PRN PRN Reason: CARDIAC/CHEST PAIN Oxycodone HCl (Oxyir) 5 mg PO Q4H PRN PRN PRN Reason: Pain Score 4-5/10 Potassium Chloride (K-Dur) 40 meq PO DAILYCM [facility] Stop: 12/23/19 08:01 Prednisone () 20 mg PO DAILY@0800 [facility] Last Admin: 12/22/19 08:25 Dose: 20 mg Documented by: Promethazine HCl (Phenergan) 12.5 mg IV Q6H PRN PRN PRN Reason: NAUSEA/VOMITING Psyllium Hydrophilic Mucilloid (Metamucil) 1 packet PO DAILY PRN PRN PRN Reason: Constipation Quetiapine Fumarate (Seroquel) 50 mg PO QHS [facility] Last Admin: 12/21/19 21:42 Dose: 50 mg Documented by: Senna/Docusate Sodium (Senokot-S, Brook-Colace) 2 tablet PO BID PRN PRN PRN Reason: Constipation Sodium Chloride () 10 - 40 ml IV UD PRN PRN Reason: SALINE FLUSH Last Admin: 12/22/19 01:16 Dose: 10 ml Documented by: Throat Lozenges (Cepacol Sore Throat Lozenge) 1 lozenge MUCOUS MEM Q2H PRN PRN PRN Reason: SORE THROAT Warfarin Sodium (Jantoven) 4 mg PO SuTuThSa@1700 [facility] Last Admin: 12/20/19 18:25 Dose: 4 mg Documented by: Warfarin Sodium (Jantoven) 6 mg PO MoWeFr@1700 [facility] Last Admin: 12/19/19 16:22 Dose: 6 mg Documented by: Discharge Activity: May Not Drive Weight Bearing Status: Weight bearing as tolerated Call your doctor if you observe: Fever of 101 or Higher, Coldness, Increased Pain, Numbness or Tingling, Inability to urinate, Inability to have a bowel movement, Shortness of breath, Dizziness, Fainting spells, Swelling in the ankles, Chest pain, Prolonged hiccoughing, Increased palpitations (irregular heartbeat) Home Medications: Medications to take at Discharge Aspirin [Aspirin, Baby] 81 mg PO DAILY 09/24/14 albuterol sulfate 90 mcg/actuation aerosol inhaler 2 puff INHALATION Q4H PRN PRN #18 g 08/11/18 tiotropium bromide 18 mcg capsule with inhalation device 1 cap INHALATION DAILY #30 inh 01/05/19 Budesonide/Formoterol 160/4.5 [Symbicort 160/4.5 Mcg Inhaler (SP)] 2 puff INHALATION QHS 03/06/19 Rosuvastatin Calcium 10 mg PO QHS #90 tab 03/08/19 lisinopril 2.5 mg tablet 2.5 mg PO DAILY #90 tab 05/30/19 metoprolol tartrate 50 mg tablet 50 mg PO BID #180 tab 05/30/19 furosemide 40 mg tablet 40 mg PO BID #180 tab 09/07/19 Gabapentin 1,200 mg PO QHS 12/20/19 Gabapentin 600 mg PO DINNER 12/20/19 Glipizide [Glipizide ER] 2.5 mg PO DAILY 12/20/19 Potassium Chloride [K-Dur] 20 meq PO DAILYCM #30 tab 12/22/19 Prednisone 10 mg PO DAILY #30 tab 12/22/19 Warfarin [Coumadin] 4 mg PO DAILY #0 12/22/19 levoFLOXacin tablet [Levaquin tablet] 500 mg PO DAILY #4 tab 12/22/19 metFORMIN (XR) [Glucophage Xr] 1,000 mg PO BID #0 tab 12/22/19 Following Prescriptions Were Given to Patient: Potassium Chloride [K-Dur] 20 meq PO DAILYCM #30 tab Prescription Printed levoFLOXacin tablet [Levaquin tablet] 500 mg PO DAILY #4 tab Prescription Printed Prednisone 10 mg PO DAILY #30 tab Prescription Printed Primary Care Physician: Fer Caruso MD [Primary Care Provider] - Please follow up with your Primary Care Physician in: In 1 to 2 weeks Medical Necessity - Tobacco Use Smoking Status: Former smoker - Patient quit cigarette tobacco usage in 2007 with prior to this he notes 4 to 5 cigars/day since youth. Tobacco Use: Non-smoker Meaningful Use Info Meaningful Use Diagnoses (Choose all that apply): None applicable Inpatient E&M: 98367 Disch Hosp
--- NOTE | 2019-12-22 13:21 | CASEMGMT ---
This RN CM to room to discuss discharge plan with pt/son at this time. Pt is still somewhat confused at this time. Son states no concerns with taking pt home at discharge and is agreeable to [facility] at this time. Son states that family will be able to be with pt when son is at work. Son states 1st choice as [facility] and then [facility]. Son aware that CM cannot set up HHC until Tuesday12/24/2019, voices understanding. This RN DARIELA to fax referral to [facility] today and then f/u with them on tuesday. Pt/son voice no further questions/concerns/needs at this time. SStaten DARRELL LYLE
--- NOTE | 2019-12-24 09:17 | CASEMGMT ---
Addendum entered by Bella Grant 12/24/19 10:53: Call from Ashly at [facility] stating that they will accept pt at this time. Trevon RAMÍREZ CM Original Note: Call to [facility] and they state referral received and they will let this RN CM know if they can accept pt. D/C summ faxed to [facility] at this time. [facility] is aware the pt was discharged on 12/22/2019. Trevon RAMÍREZ CM
--- NOTE | 2019-12-24 14:28 | CASEMGMT ---
DARRELL LYLE DC PHONE CALL DC DATE: 12/22/2019 DC DISPOSITION: Home with [facility] DC DIAGNOSIS: pneumonia, hypoxia LACE/STRATA: 21/06 F/U APPTS MADE PRIOR TO DC: no, weekend discharge PRESCRIPTIONS ACQUIRED BY PT: yes Intro role of CM to patient via phone. The patient states he is feeling better, his son got his prescriptions, and has reviewed the instructions with him. Pt's son was also available and wished to speak with CM. Patient lives with son who is caregiver and assists patient with any needs. Son states they understand medications and had INR drawn today at dr office which was 1.8. The nurse told pt to restart coumadin tomorrow and have another redraw of INR on Tuesday. Son questioned a dentist appointment for cleaning that is scheduled for and whether pt should attend as normally, pt would need amoxicillin prior the appointment, and coumadin held. DARRELL LYLE recommended son review this with PCP and dentist as pt is already on Levaquin and coumadin is being adjusted, or reschedule appointment for another week when his antibiotic is finished and coumadin is stable. Son stated patient is not having dental issues, so this sounded like the safest course and will postpone cleaning for a later date. -son was updated that [facility] has accepted patient and would be calling to set up first visit. No further questions, and no care improvement suggestions were given.Bettie HERRERA RN ACM
== END 2019-12-22 14:15 | disposition home health service (06) | DRG 193 ==
LOC: ED 23:20 → PCU 23:50
PROVIDERS: Admitting Provider Family Medicine; Emergency Provider Emergency Medicine; PCP Family Medicine; Referring Provider Family Medicine; Visit Provider Internal Medicine
DX: J18.9 Pneumonia, unspecified organism (principal); G93.41 Metabolic encephalopathy; G92 Toxic encephalopathy; J44.0 Chronic obstructive pulmonary disease with (acute) lower respiratory infection; I48.19 Other persistent atrial fibrillation; I50.42 Chronic combined systolic (congestive) and diastolic (congestive) heart failure; J44.1 Chronic obstructive pulmonary disease with (acute) exacerbation; I42.0 Dilated cardiomyopathy; I11.0 Hypertensive heart disease with heart failure; R09.02 Hypoxemia; B96.89 Other specified bacterial agents as the cause of diseases classified elsewhere; Z95.0 Presence of cardiac pacemaker; E78.5 Hyperlipidemia, unspecified; E66.9 Obesity, unspecified; Z79.01 Long term (current) use of anticoagulants; Z79.84 Long term (current) use of oral hypoglycemic drugs; Z79.899 Other long term (current) drug therapy; Z79.51 Long term (current) use of inhaled steroids; Z87.891 Personal history of nicotine dependence; Z68.35 Body mass index [BMI] 35.0-35.9, adult; G47.33 Obstructive sleep apnea (adult) (pediatric); R79.89 Other specified abnormal findings of blood chemistry; I37.1 Nonrheumatic pulmonary valve insufficiency; I35.0 Nonrheumatic aortic (valve) stenosis; Z95.2 Presence of prosthetic heart valve; E11.65 Type 2 diabetes mellitus with hyperglycemia; R45.1 Restlessness and agitation; T38.0X5A Adverse effect of glucocorticoids and synthetic analogues, initial encounter
CPT/HCPCS: 36415; 36600; 70450; 71045; 80048; 80053; 80202; 81001; 82375; 82728; 82803; 82962; 83605; 83615; 83735; 84145; 84484; 85025; 85610; 85730; 86140; 87040; 87077; 87086; 87186; 87449; 87633; 87635; 93005; 94640; 97116; 97162; 97166; 97530; 99251; 99285; C9803; J7030; J7040; J7050; A4216; G0463; U0003

== ENCOUNTER 2020-03-24 11:40 | Inpatient (IN) | payer MEDICARE, SELFPAY ==
[2019-12-19 00:13] VITALS: BMI 33.3
[2020-03-24] VITALS (15 sets, daily range): BP systolic 111–152; BP diastolic 58–108; PULSE 63–100; RESP 11–18; TEMP 36.3–37; O2SAT 88–100; BMI 32.8; BMI 28.3; BMI 28.4
--- NOTE | 2020-03-24 11:55 | EKG12_ITS ---
Test Reason : SOB Blood Pressure : / mmHG Vent. Rate : 063 BPM Atrial Rate : 062 BPM P-R Int : 000 ms QRS Dur : 192 ms QT Int : 470 ms P-R-T Axes : 000 -81 089 degrees QTc Int : 480 ms Ventricular-paced rhythm with occasional Premature ventricular complexes Abnormal ECG Confirmed by KAYE MCBRIDE, ELVIRA ([id number]), editor news SARAH GUILLEN ([id number]) on 03/26/2020 9:38:49 AM Referred By: JOE Confirmed By:ELVIRA RESTREPO MD
--- NOTE | 2020-03-24 11:57 | ED.VISSUMM ---
- ER Visit Summary Date of Service: 03/24/20 Chief Complaint: [Generalized weakness] History of Present Illness: The patient is a 74 M [presents to the emergency department with complaint of generalized weakness today. Patient apparently was diagnosed with COVID-19 and tested +6 days ago. Per patient's son who lives with him patient unable to care for self. Patient has been urinating on himself and defecating on himself. He has been less active. Patient is hard of hearing and somewhat of a poor historian but currently denies any chest pain or shortness of breath. He does not wear home O2. Patient denies any fevers. Patient does have history of diabetes and hypertension. Patient states he has had a heart valve replaced.] Physical Examination: [HEENT-PERRLA, EOMI. Cranial nerves II through XII grossly intact. TMs clear. Mucous membranes moist. No adenopathy. Cardiovascular-regular rate and 2/6 systolic ejection murmur noted. Lungs-clear to auscultation, chest wall stable without crepitus or subcu emphysema Abdomen-normoactive bowel sounds, soft, nontender, no rebound or rigidity, no peritoneal signs. Extremities-intact ?4, normal range of motion, normal pulses, atraumatic. Patient has +1 edema both lower extremities and cap refill is proximately 4 seconds. Difficult to palpate pulses in the dorsal pedal and posterior tibial regions of his feet. Feet are slightly cool to the touch. Patient has normal range of motion of his lower extremities and feet. Patient is noted to have stool on his feet.] Test Results: [EKG obtained arrival showed a paced rhythm with a ventricular rate of 63 bpm. CBC with differential showed a white count of 8.4, hemoglobin 15, hematocrit 475, placed 204. Chemistry showed a sodium 140, potassium 7.4, chloride 112, CO2 26, glucose 102, BUN 67 creatinine 2.58. Troponin was 0.096. Chest x-ray showed some mild cardiomegaly and some vascular congestion.] Emergency Department Course and Treatment: [ Established on arrival. Patient was given normal saline. Patient was started on calcium gluconate 1 g IV as well as sodium bicarb 1 amp IV. Patient was given insulin 5 units IV as well as dextrose 25 g IV. Patient was ordered Kayexalate p.o.] Treatment Plan: [Admit] Disposition: [Admit] Impression: [Generalized weakness Hyperkalemia Acute kidney injury COVID-19 infection] This note was generated with [employer] dictation software. It may contain incorrect words, spelling, and punctuation that were not noted in review of the chart prior to signing ED Disposition - Plan for ED Patient: Referrals: Fer Caruso MD [Primary Care Provider] -
--- NOTE | 2020-03-24 12:10 | RAD_ITS ---
STUDY: X-RAY CHEST REASON FOR EXAM: Male, 74 years old. INCREASED WEAKNESS AND BILAT LOWER EXTREMITY MOTTLING, COVID + TECHNIQUE: Single AP portable view of the chest. COMPARISON: Comparison is made with prior study dated 12/18/2019. FINDINGS: EKG electrodes are seen. Mild degree of vascular congestion. There is no demonstrated pleural abnormality. There is borderline cardiomegaly. Normal mediastinum and rangel. Normal visualized pulmonary arteries. There is atherosclerotic calcification of the aortic arch with tortuosity. There are degenerative changes of the visualized thoracic spine. Prior ORIF of the proximal left humerus. There is no demonstrated abnormality of the visualized soft tissue structures of the upper abdomen. RAD/Chest 1 View (Portable) IMPRESSION: Borderline cardiomegaly and mild degree of vascular congestion. Electronically Signed: Kenyon Cross, at 12:36 EST , Service support ,
[2020-03-24] MEDS: 0.9% Normal Saline 1,000 ML 150 ML IV (12:35)
[2020-03-24 12:39] LABS: Absolute Lymphocyte Count 1.04 X10^3/uL (0.83-4.51); Absolute Neutrophil Count 6.6 X10^3/uL (2.0-7.7); Basophil# 0.04 X10^3/uL; Basophil% 0.5 % (0-1); Eosinophil# 0.08 X10^3/uL; Hematocrit 47.5 % (40-54); Hemoglobin 15.4 g/dL (13.0-16.5); Lymphocyte # 1.04 X10^3/ul (4.0); Lymphocyte % 12.4 % (19-41); Mean Corp Hgb Conc 32.4 g/dL (32-36); Mean Corpuscular Hgb 32.2 pg (27.0-32.0); Mean Corpuscular Volume 99.2 fL (80-94); Mean Platelet Vol. 11.1 fl (6.2-12.0); Monocyte# 0.62 X10^3/uL; Monocyte% 7.4 % (0-10); NRBC Flagged by Analyzer 0 % (0-5); Neutrophil # 6.58 X10^3/uL (2.7-7.7); Neutrophil % 78.3 % (47-70); Platelet Count 204 K/mm3 (150-450); RBC Distribution Width CV 13.8 % (11.6-14.6); RBC Distribution Width SD 50.4 fl (35.1-43.9); Red Blood Count 4.79 M/mm3 (4.6-6.2); White Blood Count 8.4 K/mm3 (4.4-11.0)
[2020-03-24 13:04] LABS: Lactic Acid 1.7 mmol/L (0.4-1.9)
[2020-03-24 13:05] LABS: ALB/GLOB Ratio 0.8 RATIO (0.9-2.4); AST(SGOT) 22 U/L (15-37); Alanine Aminotransfer ALT/SGPT 18 U/L (16-61); Albumin, Serum 3.8 g/dL (3.2-5.0); Alkaline Phosphatase 86 U/L (45-117); Anion Gap 2 (5-15); BUN 67 mg/dL (7-18); Calcium,Total 9.4 mg/dL (8.5-10.1); Chloride 112 mmol/L (98-107); Creatinine, Serum 2.58 mg/dL (0.70-1.30); EST Glomerular Filtration Rate 26 mL/min (>60); Est Glom Filt Rate - Afr Amer 32 mL/min (>60); Estimated Creatinine Clearance 27.16 ml/min; Globulin 4.9 g/dL (2.2-4.2); Glucose 102 mg/dL (74-106); Potassium 7.4 mmol/L (3.5-5.1); Protein, Total 8.7 g/dL (6.4-8.2); Sodium Level 140 mmol/L (136-145)
--- NOTE | 2020-03-24 13:08 | EKG12_ITS ---
Test Reason : AM EKG Blood Pressure : / mmHG Vent. Rate : 061 BPM Atrial Rate : 062 BPM P-R Int : 000 ms QRS Dur : 208 ms QT Int : 484 ms P-R-T Axes : 000 -84 107 degrees QTc Int : 487 ms Electronic ventricular pacemaker Confirmed by KAYE MCBRIDE, ELVIRA ([id number]), fan mail editor RICARDO LUND ([id number]) on 04/03/2020 8:50:54 AM Referred By: JANETTE Confirmed By:ELVIRA RESTREPO MD
--- NOTE | 2020-03-24 13:20 | HP.PCM_ITS ---
Problem List (1) COVID-19 virus infection Status: Acute (2) Hypoxia Status: Acute (3) ANA (acute kidney injury) Status: Acute (4) Hyperkalemia Status: Acute (5) Cardiac enzymes elevated Status: Acute (6) Diabetes mellitus, type II Status: Chronic Qualifiers: Diabetes mellitus longterm insulin use: without supervisor intermediates use Diabetes mellitus complication status: with other specified complication Qualified Code(s): E11.69 - Type 2 diabetes mellitus with other specified complication (7) DENISA treated with BiPAP Status: Chronic (8) H/O aortic valve replacement Status: Chronic Comment: TAVR w/ 34 mm Corevalve Evolute 03/27/2018 (9) History of permanent cardiac pacemaker placement Status: Chronic Comment: Medtronic Micra 03/29/2018 (10) Complete heart block Status: Chronic (11) Persistent atrial fibrillation Status: Chronic (12) Cardiomyopathy, dilated, nonischemic Status: Chronic (13) Chronic combined systolic and diastolic CHF (congestive heart failure) Status: Chronic (14) HLD (hyperlipidemia) Status: Chronic Qualifiers: Hyperlipidemia type: unspecified Qualified Code(s): E78.5 - Hyperlipidemia, unspecified History of Present Illness Date of Admission: 03/24/20 Chief Complaint: Generalized weakness The patient is a 74 y/o M w/ PMHx: Chronic Asthma/COPD, Chronic systolic and diastolic CHF/Dilated Nonischemic Cardiomyopathy, Persistent atrial fibrillationb on coumadin, Diabetes mellitus type II, Valvular Heart Disease s/p TAVR 33 mm Corevalve Evolute Bioprosthesis, Hx complete heart block s/p pacemaker placement, HTN, HLD, DENISA on BIPAP q HS who presents to the [facility] ED on 03/24/20 with history of testing positive with COVID-19 approximately 6+ days prior to current presentation, currently living with his son and notes he is unable to care for himself with urinary incontinence, stooling on himself with significant debility prompting eventual ED presentation for worsening weakness and unable to care for self. He notes history of some dyspnea but not severe with increased cough, nonproductive with nausea occasionally, rare emesis, mild abdominal cramping and ongoing loose diarrhea with no specific fevers or chills. He does not know where he got the virus but states he was tested by his primary care physician. He denies any alteration to sense of taste or smell, headaches, severe body aches. Work-up in the ED included T 97.4, heart 63, BP 139/88, respiratory rate 18, initially 88% on room air, 91% on 3 L nasal cannula, CBC with WBC 8.4, hemoglobin 15.4, platelet 204 without significant shift, CMP with potassium 7.4, chloride 112, BUN/creatinine 67/2.58 with prior noted baseline 0.9-1.2 with underlying history of chronic kidney disease stage II, lactic acid 1.7, troponin 0.096 with most recent noted prior on 12/19/2019 0.2342 pending per ED, chest x-ray with borderline cardiomegaly and mild degree of vascular congestion, EKG paced ventricularly. In the ED patient ministered normal saline, calcium gluconate 1 g IV x1, dextrose 25 g IV x1, insulin 5 unit IV x1, sodium bicarb 50 mEq IV x1. Past Medical History Past Medical History (Chronic Problems): Chronic Problems (Last Reviewed 12/13/19 @ 15:[address] 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) T82.03XA Complete heart block (Chronic) I44.2 Persistent atrial fibrillation (Chronic) I48.1 Cardiomyopathy, dilated, nonischemic (Chronic) I42.0 Chronic combined systolic and diastolic CHF (congestive heart failure) (Chronic) I50.42 HLD (hyperlipidemia) (Chronic) E78.5 Asthma-chronic obstructive pulmonary disease overlap syndrome J44.9 BMI 37.0-37.9, adult Z68.37 Nonrheumatic mitral valve regurgitation I34.0 DENISA (obstructive sleep apnea) G47.33 BiPAP 20/14 cm of water Patent foramen ovale Q21.1 Stage 2 moderate COPD by GOLD classification J44.9 FEV1 71% of predicted Type 2 diabetes mellitus E11.9 Bicuspid aortic valve Q23.1 Non-ischemic cardiomyopathy I42.8 Rhabdomyolysis M62.82 Chronic diastolic (congestive) heart failure (Inactive) I50.32 Frequent falls R29.6 Nonrheumatic tricuspid (valve) insufficiency (Inactive) I36.1 Allergies prochlorperazine [From Compazine] Adverse Reaction (Severe, Verified 12/18/19 20:30) extrapyramidal symptoms, sedation extrapyramidal symptoms, sedation was taking also pramipexole at the time Home Medications: Ambulatory Orders Medication Instructions Recorded Aspirin [Aspirin, Baby] 81 mg PO DAILY 09/24/14 Rosuvastatin Calcium 10 mg PO QHS #90 tab 03/08/19 lisinopril 2.5 mg tablet 2.5 mg PO DAILY #90 tab 05/30/19 Gabapentin 600 mg PO DAILY 12/20/19 Gabapentin 900 mg PO DAILY 12/20/19 Potassium Chloride [K-Dur] 20 meq PO DAILYCM #30 tab 12/22/19 Warfarin [Coumadin] 4 mg PO DAILY #0 12/22/19 budesonide-formoterol HFA 160 2 puff INHALATION QHS #10.2 g 01/15/20 mcg-4.5 mcg/actuation aerosol inhaler metoprolol tartrate 50 mg tablet 50 mg PO BID #180 tab 03/03/20 Spironolactone 25 mg PO BID 03/24/20 Trazodone HCl 25 - 50 mg PO QHS PRN PRN 03/24/20 metFORMIN (XR) [Glucophage Xr] 1,000 mg PO BIDCM 03/24/20 Surgical History: Surgical History (Last Reviewed 12/13/19 @ 15:[address] Usman Aaron MD) H/O aortic valve replacement (Chronic) Onset Date: 03/27/18 Z95.2 TAVR w/ 34 mm Corevalve Evolute 03/27/2018 History of permanent cardiac pacemaker placement (Chronic) Onset Date: 03/29/18 Z95.0 Medtronic Micra 03/29/2018 History of hernia repair Z98.890, Z87.19 History of radiofrequency ablation procedure for cardiac arrhythmia Onset Date: 06/08/12 Z98.890 RFA 06/08/2012 History of tonsillectomy Z98.890, Z90.89 Surgical History: herniorrhaphy, pacemaker implantation, tonsillectomy, - - Tonsillectomy, pacemaker placement, hernia repair, TAVR, RFA. Psychiatric History: No pertinent psych hx Lives: With Family Smoking Status: Former smoker Tobacco Use: Non-smoker Alcohol: None Drugs: None - *Family History Paternal Family History: Family History (Last Reviewed 12/13/19 @ 15:[address] Usman Aaron MD) Father CAD (coronary artery disease) Hypertension Restless leg syndrome Mother Hypertension Brother Hyperlipemia Hypertension Sister Hypertension Restless leg syndrome History Items: Heart Disease - CAD; NE; HTN Sibling Family History: Family History (Last Reviewed 12/13/19 @ 15:[address] Usman Aaron MD) Father CAD (coronary artery disease) Hypertension Restless leg syndrome Mother Hypertension Brother Hyperlipemia Hypertension Sister Hypertension Restless leg syndrome History Items: Heart Disease - HTN Maternal Family History: Family History (Last Reviewed 12/13/19 @ 15:[address] Usman Aaron MD) Father CAD (coronary artery disease) Hypertension Restless leg syndrome Mother Hypertension Brother Hyperlipemia Hypertension Sister Hypertension Restless leg syndrome History Items: Heart Disease - HTN Review of Systems Constitutional: Reports: Anorexia, Malaise, Weakness, Fatigue. Denies: Chills, Fever, Weight Change HEENT: Denies: Head Aches, Sinus Congestion, Sinus Drainage Cardiovascular: Denies: Chest Pain, Palpitations Respiratory: Reports: Cough, Shortness of Breath, Shortness of breath at rest, Shortness of breath upon exertion. Denies: Sputum production, Wheezing Gastrointestinal: Reports: Abdominal Pain, Diarrhea, Nausea, Vomiting Genitourinary: Denies: Dysuria Musculoskeletal: Reports: Back Pain, Joint Pain. Denies: Joint Tenderness Skin: Reports: Skin Changes. Denies: Rash, Wounds Neurological: Denies: Numbness, Tingling, Focal weakness Psychiatric: Denies: Anxiety, Depression, Homicidal Ideations, Suicidal Ideations Hematologic/ Lymphatic: Reports: Anemia, Easy Bruising, Easy Bleeding VTE Information - Inpt Only VTE Present on Admission: No VTE Mechan Device Prophylaxis: SCD's VTE Pharm Prophylaxis ordered?: No Reason prophylaxis not ordered:: Treatment Not Indicated Subjective: Patient seated upright in the ED bed, fatigued appearance, very hard of hearing but alert and oriented to questions. Objective: Physical Examination: General: awake, alert, very hard of hearing, oriented to self, place, some recent events, remains cooperative, seated upright in the ED bed in no apparent distress but very fatigued appearing. Skin: normal color, turgor, no icterus, cyanosis except significant venous stasis skin changes bilateral lower extremities and somewhat to the upper suspect underlying significant vascular disease. HEENT: AT/NC, EOMI, PERRLA, moderately dry MM, no carotid bruits, unable to discern JVD secondary to thickened neck. Lungs: Diminished breath sounds, greater bases, moderate effort, no obvious evidence of distress, no obvious evidence of rales, ronchi or wheezing. Heart: Regular rate and rhythm/paced; no gallop, rub audible, SM. Abdomen: soft, mild generalized discomfort with palpation, somewhat distended, mildly hyperactive bowel sounds, no obvious HSM., ND, normal BS, no HSM. Extremities: no cyanosis, clubbing, or significant pitting edema but do note some lower extremity edema with significant venous stasis disease, bilateral upper extremity also affected. Neurological: patient awake, alert, oriented as noted; severely hard of hearing; cognitive function suspect baseline intact and expect that he is diminished baseline also; pupils equally reactive to light and accomodation; cranial nerves II-XII grossly normal, moving all 4 extremities, no specific focal deficits, strength severely globally decreased secondary to acute presentation and comorbidities. Psychiatric: affect appears flat, fatigued, ill-appearing, no acute evidence of depressive or anxiety feelings. - Physical Exam Vitals/I&O's: Vital Signs Temp Pulse Resp BP Pulse Ox 97.4 F L 64 18 139/88 H 91 03/24/20 11:44 03/24/20 11:44 03/24/20 11:44 03/24/20 11:44 03/24/20 11:44 Oxygen Flow Rate (L/min) 3 Oxygen Delivery Method Nasal Cannula Weight: 235 lb 3.732 oz Body Mass Index (BMI) 32.8 Finger Stick Blood Glucose 159 Laboratory Results 03/24/20 12:15: WBC 8.4, RBC 4.79, Hgb 15.4, Hct 47.5, MCV 99.2 H, MCH 32.2 H, MCHC 32.4, RDW Std Deviation 50.4 H, RDW Coeff of [place] 13.8, Plt Count 204, MPV 11.1, Immature Gran % (Auto) 0.400, Neut % (Auto) 78.3 H, Lymph % (Auto) 12.4 L, [place] % (Auto) 7.4, Eos % (Auto) 1.0, Baso % (Auto) 0.5, Absolute Neuts (auto) 6.6, Absolute Lymphs (auto) 1.04, Nucleated RBC % 0 03/24/20 12:15: Sodium 140, Potassium 7.4 H*, Chloride 112 H, Carbon Dioxide 26.0, Anion Gap 2 L, BUN 67 H, Creatinine 2.58 H, Estim Creat Clear Calc 27.16, Est GFR (MDRD) Af Amer 32 L, Est GFR (MDRD) Non-Af 26 L, BUN/Creatinine Ratio 26.0 H, Glucose 102, Calcium 9.4, Total Bilirubin 0.70, AST 22, ALT 18, Alkaline Phosphatase 86, Troponin I 0.096 H, Total Protein 8.7 H, Albumin 3.8, Globulin 4.9 H, Albumin/Globulin Ratio 0.8 L 03/24/20 12:15: Lactic Acid 1.7 Current Medications Sodium Chloride () 1,000 mls @ 150 mls/hr IV .Q6H40M [facility] Last Admin: 03/24/20 12:35 Dose: 150 mls/hr Documented by: Assessment/Plan All Active Problems (Last Reviewed 12/13/19 @ 15:[address] Usman Aaron MD) Encephalopathy acute (Acute) Hypoxia (Acute) Pneumonia (Acute) Cardiac enzymes elevated (Acute) Bacteremia due to Gram-negative bacteria (Acute) COVID-19 virus infection (Acute) Hypoxia (Acute) ANA (acute kidney injury) (Acute) Hyperkalemia (Acute) Hyperkalemia (Acute) Dyspnea on exertion (Resolved) The patient is a 74 y/o M w/ PMHx: Chronic Asthma/COPD, Chronic systolic and diastolic CHF/Dilated Nonischemic Cardiomyopathy, Persistent atrial fibrillationb on coumadin, Diabetes mellitus type II, Valvular Heart Disease s/p TAVR 33 mm Corevalve Evolute Bioprosthesis, Hx complete heart block s/p pacemaker placement, HTN, HLD, DENISA on BIPAP q HS who presents to the [facility] ED on 05/25/19 with history of testing positive with COVID-19 approximately 6+ days prior to current presentation, currently living with his son and notes he is unable to care for himself with urinary incontinence, stooling on himself with significant debility prompting eventual ED presentation for worsening weakness and unable to care for self. 1. Acute Hypoxia, Debility, Weakness secondary to Acute Viral Syndrome, COVID- 19: Will admit to the ICU COVID unit given #2, will maintain on oxygen with wean as tolerated to room air, continue MDI inhaler, PRN albuterol, pending sputum cultures and urine antigens, will obtain D-dimer, procalcitonin, CRP, CPK, Ferritin, LDH, place on decadron 6 mg daily x 10 days given hypoxia, request ICU and ID consultation per protocol although given ANA not candidate for remdesivir, Bld cx x 2 obtained in the ED. 2. Hyperkalemia: Admission K+ 7.4, administered normal saline, calcium gluconate, dextrose, insulin as well as sodium bicarb IV, as noted planned a dmission to the ICU, maintain on telemetry monitoring, serial BMP every 2 hour given significant elevation, hold concerning medications and nephrotoxic regimen given ANA concurrently, continue to judiciously hydrate given history of combined CHF, if not improving plan nephrology consultation, ICU consulted per protocol. 3. Acute kidney injury on CKD stage II: Secondary to acute presentation #1, #2. Admission BUN/Cr 67/2.58, prior baseline creatinine noted to be 0.9-1.2. Will hydrate judiciously given history as noted, hold nephrotoxic medications and repeat chemistry serially, if not improving would obtain renal consultation and renal US, obtain FeNa assessment. 4. Indeterminate cardiac enzyme: Likely secondary to demand especially given recent COVID-19 status, most recent however noted prior to this on 12/19/2019 was 0.234 thus improving since then, EKG paced with no acute evidence of ischemia, will maintain on telemetry monitoring, cycle cardiac enzymes, obtain magnesium level and supplement if appropriate, repeat EKGs as needed, ASA/morphine/NG. 5. Chronic Diastolic and Systolic CHF/nonischemic dilated cardiomyopathy: EKG paced with no acute evidence of ischemia, troponin mildly elevated but improved from prior, no obvious evidence of overload but chest x-ray with mild congested appearance but suspect chronic and given underlying recent Covid possibly associated, will maintain on aspirin, pending INR upon admission and if appropriate continue Coumadin but likely will hold, continue metoprolol and statin therapy, holding spironolactone, lisinopril given acute kidney injury and hyperkalemia. Very cautiously hydrating given combined failure history. 6. Valvular heart disease: 10/10/2019 echocardiogram with severely decreased systolic function, EF 29%, mildly dilated RV, severely dilated LA, moderately dilated right atrium, moderate 2+ MVR, 34 mm porcine bioprosthetic aortic valve present with mild to moderate 1-2+ perivalvular regurgitation with a mean systolic gradient of 7 mmHg with a valve area index 1.1 cm?/meter squared, tricuspid valve moderate 2+ regurgitation, pulmonic valve mild to moderate 1-2+ regurgitation, PASP 60 mmHg. 7. History of complete heart block: Status post pacemaker placement, most recent pacemaker check noted 12/19/2019. 8. Hypertension: Will continue home metoprolol, hold nephrotoxic regimen given ANA and hyperkalemia as noted, add back if appropriate, PRN IV hydralazine. 9. Hyperlipidemia: Continue home statin regimen. 10. Diabetes mellitus type II: Hold oral home regimen, ADA diet, accu checks w/ ISS. Patient as noted is being started on Decadron therefore may need to increase insulin sliding scale. 11. PVD: Significant bilateral lower extremity stasis skin changes, unclear extent, continue aspirin, pending admission INR and continue Coumadin if appropriate with INR trending, continue statin, hypertensive regimen, diabetic regimen. 12. Chronic asthma/COPD: As noted complicated by presentation #1, initiated as noted on Decadron, no obvious wheezing upon presentation, continue patient scheduled inhaler and as needed albuterol, care as noted above. 13. Obesity: Weight loss and lifestyle changes encouraged. 14. DENISA: BIPAP q HS. 15. Persistent atrial fibrillation: Status post RFA prior, status post pacemaker status given history of complete heart block, continue metoprolol, pending admission INR and if appropriate continue Coumadin although suspect elevated status given presentation #2, #3. 16. DVT Prophylaxis: SCDs, obtain INR upon presentation given ANA/K level, continue coumadin if appropriate although give presentation suspect it will be elevated. 17. CODE status: Patient CARMEN is his son he notes and living will is currently in place but patient is significantly hard of hearing therefore required significant repeat discussions. Discussed CODE status at length including difference between FULL code, DNR-CCA and DNR-CC status. Following discussions about the differences in these status, requested DNR-CCA, no intubation status noting very clearly he preferred to pass naturally. Advanced Care Planning Face to Face Time: 16 minutes. Inpatient E&M: 95695 Init Hosp L3 Procedures: [id number] Advncd Care Plan 30 Min
[2020-03-24] MEDS: Calcium Gluconate 1 GM/10 ML Vial IV (13:30)
[2020-03-24] MEDS: Dextrose 50%-Water 25 GM/50 ML DISP.SYRIN IV ×2 (13:37→18:11)
[2020-03-24] MEDS: Insulin Lispro 5 UNIT in Syringe 0 ML 3 UNIT IV (13:40)
[2020-03-24] MEDS: Sodium Bicarbonate 8.4% 50 ML Syringe 50 MEQ IV (13:41)
--- NOTE | 2020-03-24 14:24 | ED.RN ---
[facility] [phone]
[2020-03-24 16:41] LABS: Bacteria 0 SEEN /hpf (None Seen); Mucous, Urine 0 SEEN /hpf (<or=2+); White Blood Cells 0 SEEN /hpf (0-5)
[2020-03-24 16:49] LABS: Prothrombin Time (Protime)PT. 59.1 SECONDS (11.7-14.9)
[2020-03-24 16:51] LABS: Glucose, Dipstick Normal (Normal); Ketone-Dipstick Negative (Negative); Leukocyte Esterase-Dipstick Negative /ul (Negative); Nitrite-Dipstick Negative (Negative); Occult Blood-Urine 10 /ul (Negative); Protein-Dipstick 30 mg/dl (Negative); Urine Bilirubin Dipstick Negative (Negative); Urine Urobilinogen Normal (Normal)
[2020-03-24 16:54] LABS: International Normalized Ratio 6.7
[2020-03-24 16:59] LABS: Urine Sodium 84 mmol/L (Not Establ.)
[2020-03-24] MEDS: 0.9% Normal Saline 1,000 ML 100 ML IV (17:00)
[2020-03-24 17:14] LABS: Procalcitonin 0.07 ng/mL (0.00-0.09)
[2020-03-24 17:18] LABS: Anion Gap 2 (5-15); BUN 64 mg/dL (7-18); BUN/Creat Ratio 27.2 RATIO (10-20); CPK Total, Creatine Kinase 61 U/L (39-308); Calcium,Total 9.8 mg/dL (8.5-10.1); Chloride 111 mmol/L (98-107); Creatinine, Serum 2.35 mg/dL (0.70-1.30); EST Glomerular Filtration Rate 29 mL/min (>60); Est Glom Filt Rate - Afr Amer 35 mL/min (>60); Estimated Creatinine Clearance 29.82 ml/min; Ferritin 595 ng/mL (26-388); Glucose 79 mg/dL (74-106); LDH 230 U/L (87-241); Magnesium 2.4 mg/dL (1.6-2.6); Potassium 6.1 mmol/L (3.5-5.1); Sodium Level 140 mmol/L (136-145)
[2020-03-24 17:22] LABS: Color, Urine Yellow (Yellow); Urine Clarity Sl Cloudy (Clear)
[2020-03-24 17:25] LABS: Amorphous Sediment 1+ PHOS; Red Blood Cells-Urine 0-5 SEEN /hpf (0-5); Squamous Epithelial Cells - UA 0-5 SEEN /hpf (0-5)
[2020-03-24 18:26] LABS: Bedside Glucose 39 mg/dL (70-110)
[2020-03-24] MEDS: dexAMETHasone 4 MG/ML Vial 6 MG IV (18:36)
[2020-03-24 19:01] LABS: Anion Gap 2 (5-15); BUN 61 mg/dL (7-18); Calcium,Total 9.4 mg/dL (8.5-10.1); Chloride 114 mmol/L (98-107); Creatinine, Serum 2.18 mg/dL (0.70-1.30); EST Glomerular Filtration Rate 32 mL/min (>60); Est Glom Filt Rate - Afr Amer 38 mL/min (>60); Estimated Creatinine Clearance 32.14 ml/min; Glucose 145 mg/dL (74-106); Potassium 6.7 mmol/L (3.5-5.1); Sodium Level 142 mmol/L (136-145)
[2020-03-24] MEDS: Sodium Polystyrene Sulfonate 15 GM/60 ML UDC 30 GM PO (20:43)
[2020-03-24 21:41] LABS: Anion Gap 2 (5-15); BUN 58 mg/dL (7-18); BUN/Creat Ratio 28.2 RATIO (10-20); Calcium,Total 9.8 mg/dL (8.5-10.1); Chloride 114 mmol/L (98-107); Creatinine, Serum 2.06 mg/dL (0.70-1.30); EST Glomerular Filtration Rate 34 mL/min (>60); Est Glom Filt Rate - Afr Amer 41 mL/min (>60); Estimated Creatinine Clearance 34.01 ml/min; Glucose 93 mg/dL (74-106); Potassium 6.3 mmol/L (3.5-5.1); Sodium Level 144 mmol/L (136-145)
[2020-03-24] MEDS: Metoprolol Tartrate 50 MG Tablet PO (23:42)
[2020-03-24] MEDS: Albuterol Sulfate 8 gm Inhaler (60 puffs) 2 PUFF INHALATION (23:42)
[2020-03-25] VITALS (24 sets, daily range): BP systolic 114–154; BP diastolic 68–112; PULSE 58–106; RESP 12–25; TEMP 35.9–37.3; O2SAT 92–100
[2020-03-25] MEDS: Glucerna Shake 120 ML LIQUID PO
[2020-03-25] MEDS: 0.9% Normal Saline 1,000 ML 100 ML IV (00:30)
[2020-03-25 01:16] LABS: Bedside Glucose 101 mg/dL (70-110)
[2020-03-25 01:37] LABS: Anion Gap 3 (5-15); BUN 53 mg/dL (7-18); BUN/Creat Ratio 29.3 RATIO (10-20); Calcium,Total 9.1 mg/dL (8.5-10.1); Chloride 117 mmol/L (98-107); Creatinine, Serum 1.81 mg/dL (0.70-1.30); EST Glomerular Filtration Rate 39 mL/min (>60); Est Glom Filt Rate - Afr Amer 47 mL/min (>60); Estimated Creatinine Clearance 38.71 ml/min; Glucose 137 mg/dL (74-106); Sodium Level 145 mmol/L (136-145)
--- NOTE | 2020-03-25 05:36 | PCM.CON.CC ---
Reason for Consult Date of Consultation: 03/25/20 Reason for Consultation: Hyperkalemia History of Present Illness: The patient is a 74-year-old male, with a history as outlined below, who presented to the emergency department on March 24 with complaints of generalized malaise, weakness and failure to thrive. The patient has a history of recurrent atrial fibrillation, aortic valve stenosis status post TAVR, congestive heart failure, sleep apnea, asthma/COPD overlap syndrome and pulmonary hypertension. The patient has reportedly been living with his son and has been unable to care for himself, after testing positive for Covid approximately 1 week ago. On presentation to the emergency department, the patient was noted to be afebrile and hemodynamically stable. He was initially documented to be saturating 88% on room air. Laboratory evaluation revealed no evidence of a leukocytosis. Coagulation profile revealed an elevated INR to 6.7 with a D-dimer of 1.6. Chemistry profile was notable for a potassium of 7.4, chloride of 112 and creatinine of 2.58. Liver function profile was within normal limits. Troponin was mildly elevated to 0.096. Procalcitonin was within normal limits. Glucose was low at 39. Chest x-ray revealed cardiomegaly and pulmonary vascular congestion. Given the patient's hyperkalemia, he was admitted to the medical intensive care unit for further management. Overnight, the patient's hyperkalemia was treated medically. His potassium has improved this morning to 5.6. Past Medical History Past Medical History (Chronic Problems): Chronic Problems (Last Reviewed 12/13/19 @ 15:[address] 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) T82.03XA Complete heart block (Chronic) I44.2 Persistent atrial fibrillation (Chronic) I48.1 Cardiomyopathy, dilated, nonischemic (Chronic) I42.0 Chronic combined systolic and diastolic CHF (congestive heart failure) (Chronic) I50.42 HLD (hyperlipidemia) (Chronic) E78.5 Asthma-chronic obstructive pulmonary disease overlap syndrome J44.9 BMI 37.0-37.9, adult Z68.37 Nonrheumatic mitral valve regurgitation I34.0 DENISA (obstructive sleep apnea) G47.33 BiPAP 20/14 cm of water Patent foramen ovale Q21.1 Stage 2 moderate COPD by GOLD classification J44.9 FEV1 71% of predicted Type 2 diabetes mellitus E11.9 Bicuspid aortic valve Q23.1 Non-ischemic cardiomyopathy I42.8 Rhabdomyolysis M62.82 Chronic diastolic (congestive) heart failure (Inactive) I50.32 Frequent falls R29.6 Nonrheumatic tricuspid (valve) insufficiency (Inactive) I36.1 Allergies prochlorperazine [From Compazine] Adverse Reaction (Severe, Verified 12/18/19 20:30) extrapyramidal symptoms, sedation extrapyramidal symptoms, sedation was taking also pramipexole at the time Home Medications: Ambulatory Orders Medication Instructions Recorded Aspirin [Aspirin, Baby] 81 mg PO DAILY 09/24/14 Rosuvastatin Calcium 10 mg PO QHS #90 tab 03/08/19 lisinopril 2.5 mg tablet 2.5 mg PO DAILY #90 tab 05/30/19 Gabapentin 600 mg PO DINNER 12/20/19 Gabapentin 900 mg PO QHS 12/20/19 Potassium Chloride [K-Dur] 20 meq PO DAILYCM #30 tab 12/22/19 Warfarin [Coumadin] 4 mg PO DAILY #0 12/22/19 budesonide-formoterol HFA 160 2 puff INHALATION QHS #10.2 g 01/15/20 mcg-4.5 mcg/actuation aerosol inhaler metoprolol tartrate 50 mg tablet 50 mg PO BID #180 tab 03/03/20 Cyanocobalamin [Vitamin B12] 500 mcg PO DAILY@0800 03/24/20 Furosemide [Lasix] 40 mg PO BID 03/24/20 Glipizide [Glipizide ER] 2.5 mg PO DAILY 03/24/20 Spironolactone 25 mg PO BID 03/24/20 Tiotropium [place] [Spiriva] 1 inh INHALATION DAILY 03/24/20 Trazodone HCl 25 - 50 mg PO QHS PRN PRN 03/24/20 metFORMIN (XR) [Glucophage Xr] 1,000 mg PO BIDCM 03/24/20 Surgical History: Surgical History (Last Reviewed 12/13/19 @ 15:[address] Usman Aaron MD) H/O aortic valve replacement (Chronic) Onset Date: 03/27/18 Z95.2 TAVR w/ 34 mm Corevalve Evolute 03/27/2018 History of permanent cardiac pacemaker placement (Chronic) Onset Date: 03/29/18 Z95.0 Medtronic Micra 03/29/2018 History of hernia repair Z98.890, Z87.19 History of radiofrequency ablation procedure for cardiac arrhythmia Onset Date: 06/08/12 Z98.890 RFA 06/08/2012 History of tonsillectomy Z98.890, Z90.89 Surgical History: herniorrhaphy, pacemaker implantation, tonsillectomy, - - Tonsillectomy, pacemaker placement, hernia repair, TAVR, RFA. Psychiatric History: No pertinent psych hx Lives: With Family Smoking Status: Former smoker Tobacco Use: Cigars Alcohol: None Drugs: None - *Family History Paternal Family History: Family History (Last Reviewed 12/13/19 @ 15:[address] Usman Aaron MD) Father CAD (coronary artery disease) Hypertension Restless leg syndrome Mother Hypertension Brother Hyperlipemia Hypertension Sister Hypertension Restless leg syndrome History Items: Heart Disease - CAD; [place]; HTN Sibling Family History: Family History (Last Reviewed 12/13/19 @ 15:[address] Usman Aaron MD) Father CAD (coronary artery disease) Hypertension Restless leg syndrome Mother Hypertension Brother Hyperlipemia Hypertension Sister Hypertension Restless leg syndrome History Items: Heart Disease - HTN Maternal Family History: Family History (Last Reviewed 12/13/19 @ 15:[address] Usman Aaron MD) Father CAD (coronary artery disease) Hypertension Restless leg syndrome Mother Hypertension Brother Hyperlipemia Hypertension Sister Hypertension Restless leg syndrome History Items: Heart Disease - HTN Review of Systems Constitutional: Reports: Anorexia, Malaise, Weakness, Fatigue Eyes: Denies: Blurred vision, Double vision HEENT: Denies: Head Aches, Sinus Congestion, Sinus Drainage Cardiovascular: Denies: Chest Pain, Palpitations Respiratory: Reports: Cough, Shortness of Breath Gastrointestinal: Reports: Diarrhea, Nausea, Vomiting Genitourinary: Denies: Dysuria Musculoskeletal: Reports: Back Pain Skin: Denies: Rash, Wounds Neurological: Denies: Numbness, Tingling, Focal weakness Psychiatric: Denies: Anxiety, Depression, Homicidal Ideations, Suicidal Ideations Hematologic/ Lymphatic: Reports: Anemia Patient Problems: Active and Suspected Problems (Last Reviewed 12/13/19 @ 15:[address] Usman Aaron MD) Cardiac enzymes elevated (Acute) COVID-19 virus infection (Acute) Hypoxia (Acute) ANA (acute kidney injury) (Acute) Hyperkalemia (Acute) Objective: The patient's most recent lab work, culture data and imaging studies have all been personally reviewed. Surface echocardiogram from April 2019 revealed moderate concentric LVH with an ejection fraction of 45%. Right ventricular systolic pressure was estimated to be 64 mmHg. - Physical Exam Vitals/I&O's: Vital Signs Temp Pulse Resp BP Pulse Ox 97.9 F 87 14 130/80 H 98 03/25/20 00:00 03/25/20 04:00 03/25/20 03:00 03/25/20 03:00 03/25/20 03:00 Oxygen Flow Rate (L/min) 2 Oxygen Delivery Method Bi-pap Weight: 203 lb 8 oz Body Mass Index (BMI) 28.3 Finger Stick Blood Glucose 159 Intake and Output for Last 24 Hours 03/23/20 03/24/20 03/25/20 23:59 23:59 23:59 Intake Total 662.55 / 662.55 750 / 750 Output Total 800 / 800 Balance -137.45 / -137.45 750 / 750 General: Alert, Cooperative, Confused HEENT: Atraumatic, PERRLA, Normocephalic Oral: No Gingival or Mucosal Lesions/ Ulcerations Neck: Supple, No Nodes, Trachea Midline Lungs: No rhonchi, No wheeze, No rales, Diminished Cardiovascular: Regular rate, Regular Rhythm Abdomen: Bowel Sounds Present, Soft, Non Tender Extremities: No clubbing, No cyanosis, Edema Skin: - - Venous stasis dermatitis Musculoskeletal: No Muscle Wasting Lymphatic: No Cervical, Supraclavicular, or Inguinal Adenopathy Neurological: Neuro grossly intact Psych/Mental Status: Normal Affect Labs (Last 48 Hours) 03/24/20 03/24/20 03/24/20 12:15 12:15 12:15 WBC 8.4 RBC 4.79 Hgb 15.4 Hct 47.5 MCV 99.2 H MCH 32.2 H MCHC 32.4 RDW Std Deviation 50.4 H RDW Coeff of [place] 13.8 Plt Count 204 MPV 11.1 Immature Gran % (Auto) 0.400 Neut % (Auto) 78.3 H Lymph % (Auto) 12.4 L [place] % (Auto) 7.4 Eos % (Auto) 1.0 Baso % (Auto) 0.5 Absolute Neuts (auto) 6.6 Absolute Lymphs (auto) 1.04 Nucleated RBC % 0 PT INR D-Dimer Quant (PE/DVT) Sodium 140 Potassium 7.4 H* Chloride 112 H Carbon Dioxide 26.0 Anion Gap 2 L BUN 67 H Creatinine 2.58 H Estim Creat Clear Calc 27.16 Est GFR (MDRD) Af Amer 32 L Est GFR (MDRD) Non-Af 26 L BUN/Creatinine Ratio 26.0 H Glucose 102 Lactic Acid 1.7 Calcium 9.4 Magnesium Ferritin Total Bilirubin 0.70 AST 22 ALT 18 Alkaline Phosphatase 86 Lactate Dehydrogenase Total Creatine Kinase Troponin I 0.096 H C-React Prot Ext Range Total Protein 8.7 H Albumin 3.8 Globulin 4.9 H Albumin/Globulin Ratio 0.8 L Procalcitonin Urine Color Urine Clarity Urine pH Ur Specific [place] Urine Protein Urine Glucose (UA) Urine Ketones Urine Occult Blood Urine Nitrite Urine Bilirubin Urine Urobilinogen Ur Leukocyte Esterase Urine RBC Urine WBC Ur Squamous Epith Cells Amorphous Sediment Urine Bacteria Urine Mucus Ur Random Sodium Urine Creatinine POC Glucose Blood Type Antibody Screen 03/24/20 03/24/20 03/24/20 12:15 16:00 16:00 WBC RBC Hgb Hct MCV MCH MCHC RDW Std Deviation RDW Coeff of [place] Plt Count MPV Immature Gran % (Auto) Neut % (Auto) Lymph % (Auto) [place] % (Auto) Eos % (Auto) Baso % (Auto) Absolute Neuts (auto) Absolute Lymphs (auto) Nucleated RBC % PT 59.1 H INR 6.7 H* D-Dimer Quant (PE/DVT) 1.60 H* Sodium 140 Potassium 6.1 H* Chloride 111 H Carbon Dioxide 27.0 Anion Gap 2 L BUN 64 H Creatinine 2.35 H Estim Creat Clear Calc 29.82 Est GFR (MDRD) Af Amer 35 L Est GFR (MDRD) Non-Af 29 L BUN/Creatinine Ratio 27.2 H Glucose 79 Lactic Acid Calcium 9.8 Magnesium 2.4 Ferritin 595 H Total Bilirubin AST ALT Alkaline Phosphatase Lactate Dehydrogenase 230 Total Creatine Kinase 61 Troponin I C-React Prot Ext Range 4.80 H Total Protein Albumin Globulin Albumin/Globulin Ratio Procalcitonin Urine Color Urine Clarity Urine pH Ur Specific [place] Urine Protein Urine Glucose (UA) Urine Ketones Urine Occult Blood Urine Nitrite Urine Bilirubin Urine Urobilinogen Ur Leukocyte Esterase Urine RBC Urine WBC Ur Squamous Epith Cells Amorphous Sediment Urine Bacteria Urine Mucus Ur Random Sodium Urine Creatinine POC Glucose Blood Type A POSITIVE Antibody Screen NEGATIVE 03/24/20 03/24/20 03/24/20 16:00 16:10 16:28 WBC RBC Hgb Hct MCV MCH MCHC RDW Std Deviation RDW Coeff of [place] Plt Count MPV Immature Gran % (Auto) Neut % (Auto) Lymph % (Auto) [place] % (Auto) Eos % (Auto) Baso % (Auto) Absolute Neuts (auto) Absolute Lymphs (auto) Nucleated RBC % PT INR D-Dimer Quant (PE/DVT) Sodium Potassium Chloride Carbon Dioxide Anion Gap BUN Creatinine Estim Creat Clear Calc Est GFR (MDRD) Af Amer Est GFR (MDRD) Non-Af BUN/Creatinine Ratio Glucose Lactic Acid Calcium Magnesium Ferritin Total Bilirubin AST ALT Alkaline Phosphatase Lactate Dehydrogenase Total Creatine Kinase Troponin I 0.096 H C-React Prot Ext Range Total Protein Albumin Globulin Albumin/Globulin Ratio Procalcitonin 0.07 Urine Color Yellow Urine Clarity Sl Cloudy Urine pH 7.0 Ur Specific [place] 1.010 Urine Protein 30 H Urine Glucose (UA) Normal Urine Ketones Negative Urine Occult Blood 10 H Urine Nitrite Negative Urine Bilirubin Negative Urine Urobilinogen Normal Ur Leukocyte Esterase Negative Urine RBC 0-5 SEEN Urine WBC 0 SEEN Ur Squamous Epith Cells 0-5 SEEN Amorphous Sediment 1+ PHOS Urine Bacteria 0 SEEN Urine Mucus 0 SEEN Ur Random Sodium Urine Creatinine POC Glucose Blood Type Antibody Screen 03/24/20 03/24/20 03/24/20 16:28 18:03 18:30 WBC RBC Hgb Hct MCV MCH MCHC RDW Std Deviation RDW Coeff of [place] Plt Count MPV Immature Gran % (Auto) Neut % (Auto) Lymph % (Auto) [place] % (Auto) Eos % (Auto) Baso % (Auto) Absolute Neuts (auto) Absolute Lymphs (auto) Nucleated RBC % PT INR D-Dimer Quant (PE/DVT) Sodium 142 Potassium 6.7 H* Chloride 114 H Carbon Dioxide 26.0 Anion Gap 2 L BUN 61 H Creatinine 2.18 H Estim Creat Clear Calc 32.14 Est GFR (MDRD) Af Amer 38 L Est GFR (MDRD) Non-Af 32 L BUN/Creatinine Ratio 28.0 H Glucose 145 H Lactic Acid Calcium 9.4 Magnesium Ferritin Total Bilirubin AST ALT Alkaline Phosphatase Lactate Dehydrogenase Total Creatine Kinase Troponin I C-React Prot Ext Range Total Protein Albumin Globulin Albumin/Globulin Ratio Procalcitonin Urine Color Urine Clarity Urine pH Ur Specific [place] Urine Protein Urine Glucose (UA) Urine Ketones Urine Occult Blood Urine Nitrite Urine Bilirubin Urine Urobilinogen Ur Leukocyte Esterase Urine RBC Urine WBC Ur Squamous Epith Cells Amorphous Sediment Urine Bacteria Urine Mucus Ur Random Sodium 84 Urine Creatinine 41.40 POC Glucose 39 L* Blood Type Antibody Screen 03/24/20 03/24/20 03/24/20 18:30 20:35 23:31 WBC RBC Hgb Hct MCV MCH MCHC RDW Std Deviation RDW Coeff of [place] Plt Count MPV Immature Gran % (Auto) Neut % (Auto) Lymph % (Auto) [place] % (Auto) Eos % (Auto) Baso % (Auto) Absolute Neuts (auto) Absolute Lymphs (auto) Nucleated RBC % PT INR D-Dimer Quant (PE/DVT) Sodium 144 Potassium 6.3 H* Chloride 114 H Carbon Dioxide 28.0 Anion Gap 2 L BUN 58 H Creatinine 2.06 H Estim Creat Clear Calc 34.01 Est GFR (MDRD) Af Amer 41 L Est GFR (MDRD) Non-Af 34 L BUN/Creatinine Ratio 28.2 H Glucose 93 Lactic Acid Calcium 9.8 Magnesium Ferritin Total Bilirubin AST ALT Alkaline Phosphatase Lactate Dehydrogenase Total Creatine Kinase Troponin I 0.102 H C-React Prot Ext Range Total Protein Albumin Globulin Albumin/Globulin Ratio Procalcitonin Urine Color Urine Clarity Urine pH Ur Specific [place] Urine Protein Urine Glucose (UA) Urine Ketones Urine Occult Blood Urine Nitrite Urine Bilirubin Urine Urobilinogen Ur Leukocyte Esterase Urine RBC Urine WBC Ur Squamous Epith Cells Amorphous Sediment Urine Bacteria Urine Mucus Ur Random Sodium Urine Creatinine POC Glucose 101 Blood Type Antibody Screen 03/25/20 03/25/20 00:05 01:00 WBC RBC Hgb Hct MCV MCH MCHC RDW Std Deviation RDW Coeff of [place] Plt Count MPV Immature Gran % (Auto) Neut % (Auto) Lymph % (Auto) [place] % (Auto) Eos % (Auto) Baso % (Auto) Absolute Neuts (auto) Absolute Lymphs (auto) Nucleated RBC % PT INR D-Dimer Quant (PE/DVT) Sodium Cancelled 145 Potassium Cancelled 6.0 H* Chloride Cancelled 117 H Carbon Dioxide Cancelled 25.0 Anion Gap Cancelled 3 L BUN Cancelled 53 H Creatinine Cancelled 1.81 H Estim Creat Clear Calc Cancelled 38.71 Est GFR (MDRD) Af Amer Cancelled 47 L Est GFR (MDRD) Non-Af Cancelled 39 L BUN/Creatinine Ratio Cancelled 29.3 H Glucose Cancelled 137 H Lactic Acid Calcium Cancelled 9.1 Magnesium Ferritin Total Bilirubin AST ALT Alkaline Phosphatase Lactate Dehydrogenase Total Creatine Kinase Troponin I C-React Prot Ext Range Total Protein Albumin Globulin Albumin/Globulin Ratio Procalcitonin Urine Color Urine Clarity Urine pH Ur Specific [place] Urine Protein Urine Glucose (UA) Urine Ketones Urine Occult Blood Urine Nitrite Urine Bilirubin Urine Urobilinogen Ur Leukocyte Esterase Urine RBC Urine WBC Ur Squamous Epith Cells Amorphous Sediment Urine Bacteria Urine Mucus Ur Random Sodium Urine Creatinine POC Glucose Blood Type Antibody Screen Microbiology 03/24/20 15:30 Mucosa - Nose Respiratory Panel (PCR) - Final 03/24/20 16:28 Urine Catheter - Catheter Legionella Antigen - Final 03/24/20 16:28 Urine Catheter - Catheter Streptococcus pneumoniae Antigen (M - Final Clinical Impression(s) from Imaging Studies Chest X-Ray 03/24/20 12:10 IMPRESSION: Borderline cardiomegaly and mild degree of vascular congestion. Electronically Signed: Kenyon Cross, at 12:36 EST , Service support , Current Medications Acetaminophen (Acetaminophen 325 Mg Tablet) 650 mg PO Q6H PRN PRN PRN Reason: Pain Score 1-10/Temp > 100.7 F Al Hydroxide/Mg Hydroxide (Mag Hydrox/Al Hydrox/Simeth 30 Ml Udc) 30 ml PO Q6H PRN PRN PRN Reason: Gastric Burning Albuterol Sulfate (Albuterol Sulfate 8 Gm Inhaler (60 Puffs)) 4 - 8 puff INHALATION Q4H PRN PRN PRN Reason: Dyspnea, wheezing Albuterol Sulfate (Albuterol Sulfate 8 Gm Inhaler (60 Puffs)) 2 puff INHALATION BID [facility] Last Admin: 03/24/20 23:42 Dose: 2 puff Documented by: Aspirin (Aspirin 81 Mg Tab.Chew) 81 mg PO DAILY SAM Atorvastatin Calcium (Atorvastatin Calcium 20 Mg Tablet) 20 mg PO QHS [facility] Last Admin: 03/25/20 00:00 Dose: 20 mg Documented by: Dexamethasone Sodium Phosphate (Dexamethasone 4 Mg/Ml Vial) 6 mg IV DAILY [facility] Last Admin: 03/24/20 18:36 Dose: 6 mg Documented by: Dextrose (Dextrose 50%-Water 25 Gm/50 Ml Disp.Syrin) 0 gm IV X1 PRN; Protocol PRN Reason: Hypoglycemia Last Admin: 03/24/20 18:11 Dose: 25 gm Documented by: Glucagon (Glucagon 1 Mg/Ml Syringe) 1 mg IM .X1 PRN PRN Reason: Hypoglycemia Guaifenesin (Guaifenesin 10 Ml Udc (200mg/10ml)) 10 ml PO Q4H PRN PRN PRN Reason: COUGH Hydralazine HCl (Hydralazine 20 Mg/Ml Vial) 10 mg IV Q4H PRN PRN PRN Reason: SBP > 160 Sodium Chloride () 1,000 mls @ 100 mls/hr IV .Q10H [facility] Last Admin: 03/25/20 00:30 Dose: 100 mls/hr Documented by: Insulin Human Lispro (Insulin Lispro 100 Unit/Ml Insuln.Pen) 0 unit SC ACHS SAM; Protocol Last Admin: 12/14/20 23:41 Dose: Not Given Documented by: Melatonin (Melatonin 3 Mg Tablet) 3 mg PO QHS PRN PRN PRN Reason: INSOMNIA Metoprolol Tartrate (Metoprolol Tartrate 50 Mg Tablet) 50 mg PO BID [facility] Last Admin: 03/24/20 23:42 Dose: 50 mg Documented by: Nitroglycerin (Nitroglycerin (Inpatient Use) 0.4 Mg Tab.Subl) 0.4 mg SUBLINGUAL Q5M PRN PRN Reason: CARDIAC/CHEST PAIN Nutritional Formula (Lactose Free) (Glucerna Shake 120 Ml Liquid) 120 ml PO 4X/DAY [facility] Last Admin: 03/25/20 00:00 Dose: 120 ml Documented by: Ondansetron HCl (Ondansetron 4 Mg/2 Ml Vial) 4 mg IV Q8H PRN PRN PRN Reason: NAUSEA/VOMITING Sodium Chloride (0.9% Saline Lock 10 Ml Syringe) 10 - 40 ml IV UD PRN PRN Reason: SALINE FLUSH Throat Lozenges (Benzocaine/Menthol 1 Lozenge) 1 lozenge MUCOUS MEM Q2H PRN PRN PRN Reason: SORE THROAT Assessment/Plan Active and Suspected Problems (Last Reviewed 12/13/19 @ 15:[address] Usman Aaron MD) Cardiac enzymes elevated (Acute) COVID-19 virus infection (Acute) Hypoxia (Acute) ANA (acute kidney injury) (Acute) Hyperkalemia (Acute) RECOMMENDATIONS: 1. Medical management of hyperkalemia. 2. Continue Decadron x10 days. 3. Will defer need for remdesivir to infectious diseases. 4. Continue bronchodilator therapy. 5. Continue nocturnal BiPAP therapy per home regimen. 6. Continue bronchodilator therapy. 7. Encourage incentive spirometer use and mobilize patient as tolerated. 8. The patient is medically stable for transfer out of the intensive care unit. IMPRESSIONS: 1. Acute hypoxemic respiratory insufficiency secondary to COVID-19 infection Although the patient was initially admitted to the ICU on BiPAP, this was his baseline home regimen for his obstructive sleep apnea. He has since been weaned to room air and is maintaining oxygen saturations in the high 90s. The patient was already started on Decadron, which will be continued x10 days. In addition, remdesivir was started by infectious diseases. Continue to monitor liver and renal function accordingly. 2. Acute on chronic kidney disease/hyperkalemia Likely prerenal in etiology and related to GI losses. Creatinine has improved with volume expansion and his hyperkalemia has been medically managed, with improvement noted this morning. 3. Generalized debility/weakness Likely related to acute illness. Physical therapy to evaluate the patient. 4. Recurrent atrial fibrillation/aortic valve stenosis status post TAVR/congestive heart failure/pulmonary hypertension Continue outpatient cardiac medications. Continue to hold Coumadin and check INR daily. Start patient on a heparin drip once INR is no longer therapeutic. 5. Asthma/COPD overlap syndrome/obstructive sleep apnea Continue bronchodilator therapy per outpatient regimen. Continue nocturnal BiPAP therapy as well. 6. Coagulopathy Continue to hold baseline Coumadin and check INR daily. No indication for emergent reversal. 7. Hypertension/hyperlipidemia/neuropathy/diabetes mellitus Complicates care, management, recovery and prognosis. Start sliding scale insulin coverage. This note was generated with [employer] dictation software. It may contain incorrect words, spelling, and punctuation that were not noted in checking the note before signing. Inpatient E&M: 21446 Init Hosp L3
--- NOTE | 2020-03-25 05:55 | EKG12_ITS ---
Test Reason : AM EKG Blood Pressure : / mmHG Vent. Rate : 080 BPM Atrial Rate : 080 BPM P-R Int : 000 ms QRS Dur : 206 ms QT Int : 434 ms P-R-T Axes : 000 -82 095 degrees QTc Int : 500 ms Electronic ventricular pacemaker Confirmed by KAYE MCBRIDE, ELVIRA ([id number]), editorial assistant RICARDO LUND ([id number]) on 03/27/2020 8:11:04 AM Referred By: SUSU Confirmed By:ELVIRA RESTREPO MD
[2020-03-25 07:02] LABS: Absolute Lymphocyte Count 0.81 X10^3/uL (0.83-4.51); Absolute Neutrophil Count 7.9 X10^3/uL (2.0-7.7); Basophil# 0.03 X10^3/uL; Basophil% 0.3 % (0-1); Hematocrit 48.1 % (40-54); Hemoglobin 15.6 g/dL (13.0-16.5); Lymphocyte # 0.81 X10^3/ul (4.0); Lymphocyte % 8.7 % (19-41); Mean Corp Hgb Conc 32.4 g/dL (32-36); Mean Corpuscular Hgb 32.4 pg (27.0-32.0); Mean Corpuscular Volume 99.8 fL (80-94); Mean Platelet Vol. 11.3 fl (6.2-12.0); Monocyte# 0.48 X10^3/uL; Monocyte% 5.2 % (0-10); NRBC Flagged by Analyzer 0 % (0-5); Neutrophil # 7.94 X10^3/uL (2.7-7.7); Neutrophil % 85.4 % (47-70); Platelet Count 186 K/mm3 (150-450); RBC Distribution Width CV 13.6 % (11.6-14.6); RBC Distribution Width SD 50.1 fl (35.1-43.9); Red Blood Count 4.82 M/mm3 (4.6-6.2); White Blood Count 9.3 K/mm3 (4.4-11.0)
[2020-03-25 07:09] LABS: Prothrombin Time (Protime)PT. 59.8 SECONDS (11.7-14.9)
[2020-03-25 07:10] LABS: International Normalized Ratio 6.8
--- NOTE | 2020-03-25 07:21 | PN_ITS ---
Patient Problems: Active and Suspected Problems (Last Reviewed 12/13/19 @ 15:[address] Usman Aaron MD) Cardiac enzymes elevated (Acute) COVID-19 virus infection (Acute) Hypoxia (Acute) ANA (acute kidney injury) (Acute) Hyperkalemia (Acute) Reason for Visit: Follow-up for acute hypoxic respiratory clear due to COVID-19, ANA and e ncephalopathy Objective: Patient was admitted yesterday in ICU for acute hypoxic respiratory failure. Patient was put on BiPAP 30% FiO2 and overnight oxygenation improved. No fever Physical exam General: Confused, disoriented x3. Patient is incomprehensible. HEENT: Atraumatic, PERRLA, EOMI, Normocephalic Oral: No Gingival or Mucosal Lesions/ Ulcerations Neck: Supple, No JVD, Negative Carotid Bruits Lungs: Air entry diminished in bilateral lung bases. Bilateral fine expiratory rhonchi. Cardiovascular: Regular rate, Regular Rhythm, Normal S1, Normal S2, No murmurs Abdomen: Bowel Sounds Present, Soft, Non Tender, Non-Distended : No renal angle tenderness. No suprapubic tenderness. Extremities: No edema, Capillary Refill Less than 3 Seconds Skin: No rashes, No breakdown Musculoskeletal: No Tenderness to Palpation of Joints or Extremities Neurological: Cranial nerves II-XII grossly intact, Deep Tendon Reflexes 2+/4 and Symmetrical Psych/Mental Status: Flat affect. Vitals/I&O's: Vital Signs Temp Pulse Resp BP Pulse Ox 97.6 F L 89 14 132/76 H 99 03/25/20 04:00 03/25/20 05:30 03/25/20 05:30 03/25/20 05:00 03/25/20 05:30 Oxygen Flow Rate (L/min) 2 Oxygen Delivery Method Bi-pap Weight: 203 lb 8 oz Body Mass Index (BMI) 28.3 Finger Stick Blood Glucose 159 Intake and Output for Last 24 Hours 03/23/20 03/24/20 03/25/20 23:59 23:59 23:59 Intake Total 662.55 / 662.55 750 / 750 Output Total 800 / 800 Balance -137.45 / -137.45 750 / 750 Microbiology Past 72 Hours 03/24/20 15:30 Mucosa - Nose Respiratory Panel (PCR) - Final 03/24/20 16:28 Urine Catheter - Catheter Legionella Antigen - Final 03/24/20 16:28 Urine Catheter - Catheter Streptococcus pneumoniae Antigen (M - Final Laboratory Results 03/24/20 12:15: WBC 8.4, RBC 4.79, Hgb 15.4, Hct 47.5, MCV 99.2 H, MCH 32.2 H, MCHC 32.4, RDW Std Deviation 50.4 H, RDW Coeff of [place] 13.8, Plt Count 204, MPV 11.1, Immature Gran % (Auto) 0.400, Neut % (Auto) 78.3 H, Lymph % (Auto) 12.4 L, [place] % (Auto) 7.4, Eos % (Auto) 1.0, Baso % (Auto) 0.5, Absolute Neuts (auto) 6.6, Absolute Lymphs (auto) 1.04, Nucleated RBC % 0 03/24/20 12:15: Sodium 140, Potassium 7.4 H*, Chloride 112 H, Carbon Dioxide 26.0, Anion Gap 2 L, BUN 67 H, Creatinine 2.58 H, Estim Creat Clear Calc 27.16, Est GFR (MDRD) Af Amer 32 L, Est GFR (MDRD) Non-Af 26 L, BUN/Creatinine Ratio 26.0 H, Glucose 102, Calcium 9.4, Total Bilirubin 0.70, AST 22, ALT 18, Alkaline Phosphatase 86, Troponin I 0.096 H, Total Protein 8.7 H, Albumin 3.8, Globulin 4.9 H, Albumin/Globulin Ratio 0.8 L 03/24/20 12:15: Lactic Acid 1.7 03/24/20 12:15: PT 59.1 H, INR 6.7 H*, D-Dimer Quant (PE/DVT) 1.60 H* 03/24/20 16:00: Sodium 140, Potassium 6.1 H*, Chloride 111 H, Carbon Dioxide 27.0, Anion Gap 2 L, BUN 64 H, Creatinine 2.35 H, Estim Creat Clear Calc 29.82, Est GFR (MDRD) Af Amer 35 L, Est GFR (MDRD) Non-Af 29 L, BUN/Creatinine Ratio 27.2 H, Glucose 79, Calcium 9.8, Magnesium 2.4, Ferritin 595 H, Lactate Dehydrogenase 230, Total Creatine Kinase 61, C-React Prot Ext Range 4.80 H 03/24/20 16:00: Blood Type A POSITIVE, Antibody Screen NEGATIVE 03/24/20 16:00: Troponin I 0.096 H 03/24/20 16:10: Procalcitonin 0.07 03/24/20 16:28: Urine Color Yellow, Urine Clarity Sl Cloudy, Urine pH 7.0, Ur Specific [place] 1.010, Urine Protein 30 H, Urine Glucose (UA) Normal, Urine Ketones Negative, Urine Occult Blood 10 H, Urine Nitrite Negative, Urine Bilirubin Negative, Urine Urobilinogen Normal, Ur Leukocyte Esterase Negative, Urine RBC 0-5 SEEN, Urine WBC 0 SEEN, Ur Squamous Epith Cells 0-5 SEEN, Amorphous Sediment 1+ PHOS, Urine Bacteria 0 SEEN, Urine Mucus 0 SEEN 03/24/20 16:28: Ur Random Sodium 84, Urine Creatinine 41.40 03/24/20 18:03: POC Glucose 39 L* 03/24/20 18:30: Sodium 142, Potassium 6.7 H*, Chloride 114 H, Carbon Dioxide 26.0, Anion Gap 2 L, BUN 61 H, Creatinine 2.18 H, Estim Creat Clear Calc 32.14, Est GFR (MDRD) Af Amer 38 L, Est GFR (MDRD) Non-Af 32 L, BUN/Creatinine Ratio 28.0 H, Glucose 145 H, Calcium 9.4 03/24/20 18:30: Troponin I 0.102 H 03/24/20 20:35: Sodium 144, Potassium 6.3 H*, Chloride 114 H, Carbon Dioxide 28.0, Anion Gap 2 L, BUN 58 H, Creatinine 2.06 H, Estim Creat Clear Calc 34.01, Est GFR (MDRD) Af Amer 41 L, Est GFR (MDRD) Non-Af 34 L, BUN/Creatinine Ratio 28.2 H, Glucose 93, Calcium 9.8 03/24/20 23:31: POC Glucose 101 03/25/20 00:05: Sodium Cancelled, Potassium Cancelled, Chloride Cancelled, Car bon Dioxide Cancelled, Anion Gap Cancelled, BUN Cancelled, Creatinine Cancelled, Estim Creat Clear Calc Cancelled, Est GFR (MDRD) Af Amer Cancelled, Est GFR (MDRD) Non-Af Cancelled, BUN/Creatinine Ratio Cancelled, Glucose Cancelled, Calcium Cancelled 03/25/20 01:00: Sodium 145, Potassium 6.0 H*, Chloride 117 H, Carbon Dioxide 25.0, Anion Gap 3 L, BUN 53 H, Creatinine 1.81 H, Estim Creat Clear Calc 38.71, Est GFR (MDRD) Af Amer 47 L, Est GFR (MDRD) Non-Af 39 L, BUN/Creatinine Ratio 29.3 H, Glucose 137 H, Calcium 9.1 03/25/20 06:30: WBC 9.3, RBC 4.82, Hgb 15.6, Hct 48.1, MCV 99.8 H, MCH 32.4 H, MCHC 32.4, RDW Std Deviation 50.1 H, RDW Coeff of [place] 13.6, Plt Count 186, MPV 11.3, Immature Gran % (Auto) 0.400, Neut % (Auto) 85.4 H, Lymph % (Auto) 8.7 L, [place] % (Auto) 5.2, Eos % (Auto) 0.0, Baso % (Auto) 0.3, Absolute Neuts (auto) 7.9 H, Absolute Lymphs (auto) 0.81 L, Nucleated RBC % 0 03/25/20 06:30: PT 59.8 H, INR 6.8 H* 03/25/20 06:30: Sodium Pending, Potassium Pending, Chloride Pending, Carbon Dioxide Pending, Anion Gap Pending, BUN Pending, Creatinine Pending, Est GFR (MDRD) Af Amer Pending, Est GFR (MDRD) Non-Af Pending, BUN/Creatinine Ratio Pending, Glucose Pending, Calcium Pending, Total Bilirubin Pending, AST Pending, ALT Pending, Alkaline Phosphatase Pending, Total Protein Pending, Albumin Pending Current Medications Acetaminophen (Acetaminophen 325 Mg Tablet) 650 mg PO Q6H PRN PRN PRN Reason: Pain Score 1-10/Temp > 100.7 F Al Hydroxide/Mg Hydroxide (Mag Hydrox/Al Hydrox/Simeth 30 Ml Udc) 30 ml PO Q6H PRN PRN PRN Reason: Gastric Burning Albuterol Sulfate (Albuterol Sulfate 8 Gm Inhaler (60 Puffs)) 4 - 8 puff INHALATION Q4H PRN PRN PRN Reason: Dyspnea, wheezing Albuterol Sulfate (Albuterol Sulfate 8 Gm Inhaler (60 Puffs)) 2 puff INHALATION BID [facility] Last Admin: 03/24/20 23:42 Dose: 2 puff Documented by: Aspirin (Aspirin 81 Mg Tab.Chew) 81 mg PO DAILY [facility] Atorvastatin Calcium (Atorvastatin Calcium 20 Mg Tablet) 20 mg PO QHS [facility] Last Admin: 03/25/20 00:00 Dose: 20 mg Documented by: Dexamethasone Sodium Phosphate (Dexamethasone 4 Mg/Ml Vial) 6 mg IV DAILY [facility] Last Admin: 03/24/20 18:36 Dose: 6 mg Documented by: Dextrose (Dextrose 50%-Water 25 Gm/50 Ml Disp.Syrin) 0 gm IV X1 PRN; Protocol PRN Reason: Hypoglycemia Last Admin: 03/24/20 18:11 Dose: 25 gm Documented by: Glucagon (Glucagon 1 Mg/Ml Syringe) 1 mg IM .X1 PRN PRN Reason: Hypoglycemia Guaifenesin (Guaifenesin 10 Ml Udc (200mg/10ml)) 10 ml PO Q4H PRN PRN PRN Reason: COUGH Hydralazine HCl (Hydralazine 20 Mg/Ml Vial) 10 mg IV Q4H PRN PRN PRN Reason: SBP > 160 Sodium Chloride () 1,000 mls @ 100 mls/hr IV .Q10H [facility] Last Admin: 03/25/20 00:30 Dose: 100 mls/hr Documented by: Insulin Human Lispro (Insulin Lispro 100 Unit/Ml Insuln.Pen) 0 unit SC ACHS [facility]; Protocol Last Admin: 03/24/20 23:41 Dose: Not Given Documented by: Melatonin (Melatonin 3 Mg Tablet) 3 mg PO QHS PRN PRN PRN Reason: INSOMNIA Metoprolol Tartrate (Metoprolol Tartrate 50 Mg Tablet) 50 mg PO BID [facility] Last Admin: 03/24/20 23:42 Dose: 50 mg Documented by: Nitroglycerin (Nitroglycerin (Inpatient Use) 0.4 Mg Tab.Subl) 0.4 mg SUBLINGUAL Q5M PRN PRN Reason: CARDIAC/CHEST PAIN Ondansetron HCl (Ondansetron 4 Mg/2 Ml Vial) 4 mg IV Q8H PRN PRN PRN Reason: NAUSEA/VOMITING Sodium Chloride (0.9% Saline Lock 10 Ml Syringe) 10 - 40 ml IV UD PRN PRN Reason: SALINE FLUSH Throat Lozenges (Benzocaine/Menthol 1 Lozenge) 1 lozenge MUCOUS MEM Q2H PRN PRN PRN Reason: SORE THROAT STROKE Vital Signs/Narrative: Vital Signs Temp Pulse Resp BP Pulse Ox 03/25/20 05:30 89 14 99 03/25/20 05:00 90 15 132/76 H 99 03/25/20 04:00 97.6 F L 88 15 140/81 H 99 Medical Necessity - Tobacco Use Smoking Status: Former smoker Tobacco Use: Cigars Assessment/Plan All Active Problems (Last Reviewed 12/13/19 @ 15:[address] Usman Aaron MD) Encephalopathy acute (Acute) Hypoxia (Acute) Pneumonia (Acute) Cardiac enzymes elevated (Acute) Bacteremia due to Gram-negative bacteria (Acute) COVID-19 virus infection (Acute) Hypoxia (Acute) ANA (acute kidney injury) (Acute) Hyperkalemia (Acute) Hyperkalemia (Acute) Dyspnea on exertion (Resolved) The patient is a 74 y/o M PMHx with multiple comorbidities as listed above was admitted with generalized weakness, failure to thrive and malaise. He was tested positive COVID-19 about 6 days prior to presentation on 03/25. 1. Acute hypoxic respiratory insufficiency secondary to COVID-19 infection: Patient was admitted to ICU COVID-19 cohort unit. Overnight patient oxygenation improved and currently on room air. Patient uses BiPAP home regimen for DENISA. Patient was on 30% FiO2 last night. On IV Decadron. Seen by ID and started on remdesivir. Monitor electrolytes, kidney function and liver test. Urinary antigens are negative. Respiratory panel negative. Blood cultures x2 and urine culture pending. Patient hemodynamically found appropriate for transfer to [facility] floor Covid unit. 2. Hyperkalemia: Admission K+ 7.4. Patient was given kalemia cocktail yesterday. Subsequent potassium is getting better. Most recent 5.6. Hyperkalemia corrected. 3. Acute kidney injury on CKD stage II most likely secondary to COVID-19 infection/ATN: Admission BUN/Cr 67/2.58, prior baseline creatinine noted to be 0.9-1.2. Conservative management with holding nephrotoxic medications and serial follow-up kidney function electrolytes. BUN/creatinine improving trend. 4. Indeterminate cardiac enzyme: Serial troponins are flat and indeterminate troponin 0 0.096, 0.096 and 0.102. Patient denies any chest pain. EKG showed no evidence of ischemia paced rhythm. Magnesium level 2.4. 5. 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 fib, history of complete heart block status post permanent pacemaker and hypertension: Continue metoprolol and statin. INR supratherapeutic therefore Coumadin on hold. Lisinopril, spironolactone on hold due to ANA with hyperkalemia. Last echo on 10/10/2019 showed EF 29%, mildly dilated RV, severely dilated LA, moderately dilated RA, moderate 2+ MR, 14 bioprosthetic aortic valve with mild to moderate perivalvular regurg, moderate T R, mild to moderate ID, RVSP 60 mmHg 6. Dyslipidemia: Continue home statin regimen. 7. Diabetes mellitus type II: Hold oral home regimen, ADA diet, accu checks w/ ISS. Patient as noted is being started on Decadron therefore may need to increase insulin sliding scale. 8. PVD: Continue aspirin. Rest and discharge chronic control of diabetes and hypertension. 9. Asthma/COPD overlap syndrome : Tinea scheduled inhaler and as needed albuterol. 10. Obesity: Weight loss and lifestyle changes encouraged. 11. DENISA: BIPAP q HS. DVT Prophylaxis: SCDs, obtain INR upon presentation given ANA/K level, continue coumadin if appropriate although give presentation suspect it will be elevated. Total time of the visit including total time spent in counseling or coordination of care, (more than 50% of the total time, spent in obtaining medical information from nurses and other ancillary care providers,explaining to the patient about labs, imaging, diagnosis and management), , review of labs and imaging is 30 minutes. Inpatient E&M: [id number] [facility] L3
[2020-03-25 07:34] LABS: ALB/GLOB Ratio 0.8 RATIO (0.9-2.4); AST(SGOT) 19 U/L (15-37); Alanine Aminotransfer ALT/SGPT 14 U/L (16-61); Alkaline Phosphatase 69 U/L (45-117); Anion Gap 4 (5-15); BUN 50 mg/dL (7-18); BUN/Creat Ratio 29.8 RATIO (10-20); Chloride 117 mmol/L (98-107); Creatinine, Serum 1.68 mg/dL (0.70-1.30); EST Glomerular Filtration Rate 43 mL/min (>60); Est Glom Filt Rate - Afr Amer 52 mL/min (>60); Estimated Creatinine Clearance 41.71 ml/min; Glucose 120 mg/dL (74-106); Potassium 5.6 mmol/L (3.5-5.1); Sodium Level 145 mmol/L (136-145)
[2020-03-25] MEDS: dexAMETHasone 4 MG/ML Vial 6 MG IV (08:37)
[2020-03-25] MEDS: Aspirin 81 MG TAB.CHEW PO (08:38)
[2020-03-25] MEDS: Metoprolol Tartrate 50 MG Tablet PO ×2 (08:38→21:08)
[2020-03-25] MEDS: Albuterol Sulfate 8 gm Inhaler (60 puffs) 2 PUFF INHALATION ×2 (08:39→21:09)
--- NOTE | 2020-03-25 10:16 | CASEMGMT ---
DARRELL LYLE Assessment Intro role of CM to patient's son via phone. Son states the patient lives with him and was independent prior to being ill. Was completing own ADL's and making own meals. With illness, noted progressive weakness, requiring assistance, incontinent. Increased confusion also noted. -Son is home until after [place]'s due to recent AAA surgery and has a 5# lifting restriction. DARRELL LYLE spoke with son re: his safety @ home re: taking care of his father and not overextending his restrictions. COVID 19 TESTING: Positive test @ Dr. Caruso's (PCP) office on March 13, 2020. PCP: Dr. Caruso [facility] Benef[facility]: yes LNOK: SonDerik (DPOA) Living arrangements: Lives in one story home with his son. Previously was independent prior to illness. DME: Wheeled Walker, cane, Toilet side rails, shower chair, grab bars in shower, Cpap (no home oxygen) HHC: [place] @ Home past SNF: none Patient DC Goals: undetermined DC PLAN: TBD. PT/OT evaluations pending. Bettie HERRERA RN ACM
--- NOTE | 2020-03-25 11:16 | PCM.HP.ID ---
Problem List (1) COVID-19 virus infection Status: Acute Reason for Consult: covid Consulted by: Dr. Chen History of Present Illness: The patient is a 74 year old M presented 03/24 with confusion, dyspnea, weakness, unable to care for self at home. Per H&P, was tested for covid about 6 days prior. Covid (+) here. Found to have ANA, admitted to icu, put on bipap for hypoxia. Unable to provide history or ROS this AM, denies any pain. - Medical History Past Medical History (Chronic Problems): Chronic Problems (Last Reviewed 12/13/19 @ 15:[address] 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 placement (Chronic 03/29/18) Medtronic Micra 03/29/2018 Complete heart block (Chronic) Persistent atrial fibrillation (Chronic) Cardiomyopathy, dilated, nonischemic (Chronic) Chronic combined systolic and diastolic CHF (congestive heart failure) (Chronic) HLD (hyperlipidemia) (Chronic) correction current use of anticoagulant (Chronic) Allergies/Adverse Reactions: Allergies prochlorperazine [From Compazine] Adverse Reaction (Severe, Verified 12/18/19 20:30) extrapyramidal symptoms, sedation extrapyramidal symptoms, sedation was taking also pramipexole at the time Home Medications: Ambulatory Orders Medication Instructions Recorded Aspirin [Aspirin, Baby] 81 mg PO DAILY 09/24/14 Rosuvastatin Calcium 10 mg PO QHS #90 tab 03/08/19 lisinopril 2.5 mg tablet 2.5 mg PO DAILY #90 tab 05/30/19 Gabapentin 600 mg PO DINNER 12/20/19 Gabapentin 900 mg PO QHS 12/20/19 Potassium Chloride [K-Dur] 20 meq PO DAILYCM #30 tab 12/22/19 Warfarin [Coumadin] 4 mg PO DAILY #0 12/22/19 budesonide-formoterol HFA 160 2 puff INHALATION QHS #10.2 g 01/15/20 mcg-4.5 mcg/actuation aerosol inhaler metoprolol tartrate 50 mg tablet 50 mg PO BID #180 tab 03/03/20 Cyanocobalamin [Vitamin B12] 500 mcg PO DAILY@0800 03/24/20 Furosemide [Lasix] 40 mg PO BID 03/24/20 Glipizide [Glipizide ER] 2.5 mg PO DAILY 03/24/20 Spironolactone 25 mg PO BID 03/24/20 Tiotropium [place] [Spiriva] 1 inh INHALATION DAILY 03/24/20 Trazodone HCl 25 - 50 mg PO QHS PRN PRN 03/24/20 metFORMIN (XR) [Glucophage Xr] 1,000 mg PO BIDCM 03/24/20 - Social History SMOKING STATUS:: Former smoker Vital Signs Temp Pulse Resp BP Pulse Ox 99.1 F 64 13 154/73 H 100 03/25/20 08:00 03/25/20 11:00 03/25/20 11:00 03/25/20 11:00 03/25/20 11:00 Oxygen Flow Rate (L/min) 2 Oxygen Delivery Method Room Air Weight: 92.306 kg Body Mass Index (BMI) 28.3 Finger Stick Blood Glucose 159 Microbiology Past 72 Hours 03/24/20 15:30 Respiratory Panel (PCR) - Final Mucosa - Nose 03/24/20 16:28 Legionella Antigen - Final Urine Catheter - Catheter Streptococcus pneumoniae Antigen (M - Final Laboratory Tests Past 24 Hrs 03/24/20 03/24/20 03/24/20 12:15 12:15 12:15 WBC 8.4 RBC 4.79 Hgb 15.4 Hct 47.5 MCV 99.2 H MCH 32.2 H MCHC 32.4 RDW Std Deviation 50.4 H RDW Coeff of [place] 13.8 Plt Count 204 MPV 11.1 Immature Gran % (Auto) 0.400 Neut % (Auto) 78.3 H Lymph % (Auto) 12.4 L [place] % (Auto) 7.4 Eos % (Auto) 1.0 Baso % (Auto) 0.5 Absolute Neuts (auto) 6.6 Absolute Lymphs (auto) 1.04 Nucleated RBC % 0 PT INR D-Dimer Quant (PE/DVT) Sodium 140 Potassium 7.4 H* Chloride 112 H Carbon Dioxide 26.0 Anion Gap 2 L BUN 67 H Creatinine 2.58 H Estim Creat Clear Calc 27.16 Est GFR (MDRD) Af Amer 32 L Est GFR (MDRD) Non-Af 26 L BUN/Creatinine Ratio 26.0 H Glucose 102 Lactic Acid 1.7 Calcium 9.4 Magnesium Ferritin Total Bilirubin 0.70 AST 22 ALT 18 Alkaline Phosphatase 86 Lactate Dehydrogenase Total Creatine Kinase Troponin I 0.096 H C-React Prot Ext Range Total Protein 8.7 H Albumin 3.8 Globulin 4.9 H Albumin/Globulin Ratio 0.8 L Procalcitonin Urine Color Urine Clarity Urine pH Ur Specific [place] Urine Protein Urine Glucose (UA) Urine Ketones Urine Occult Blood Urine Nitrite Urine Bilirubin Urine Urobilinogen Ur Leukocyte Esterase Urine RBC Urine WBC Ur Squamous Epith Cells Amorphous Sediment Urine Bacteria Urine Mucus Ur Random Sodium Urine Creatinine Blood Type Antibody Screen 03/24/20 03/24/20 03/24/20 12:15 16:00 16:00 WBC RBC Hgb Hct MCV MCH MCHC RDW Std Deviation RDW Coeff of [place] Plt Count MPV Immature Gran % (Auto) Neut % (Auto) Lymph % (Auto) [place] % (Auto) Eos % (Auto) Baso % (Auto) Absolute Neuts (auto) Absolute Lymphs (auto) Nucleated RBC % PT 59.1 H INR 6.7 H* D-Dimer Quant (PE/DVT) 1.60 H* Sodium 140 Potassium 6.1 H* Chloride 111 H Carbon Dioxide 27.0 Anion Gap 2 L BUN 64 H Creatinine 2.35 H Estim Creat Clear Calc 29.82 Est GFR (MDRD) Af Amer 35 L Est GFR (MDRD) Non-Af 29 L BUN/Creatinine Ratio 27.2 H Glucose 79 Lactic Acid Calcium 9.8 Magnesium 2.4 Ferritin 595 H Total Bilirubin AST ALT Alkaline Phosphatase Lactate Dehydrogenase 230 Total Creatine Kinase 61 Troponin I C-React Prot Ext Range 4.80 H Total Protein Albumin Globulin Albumin/Globulin Ratio Procalcitonin Urine Color Urine Clarity Urine pH Ur Specific [place] Urine Protein Urine Glucose (UA) Urine Ketones Urine Occult Blood Urine Nitrite Urine Bilirubin Urine Urobilinogen Ur Leukocyte Esterase Urine RBC Urine WBC Ur Squamous Epith Cells Amorphous Sediment Urine Bacteria Urine Mucus Ur Random Sodium Urine Creatinine Blood Type A POSITIVE Antibody Screen NEGATIVE 03/24/20 03/24/20 03/24/20 16:00 16:10 16:28 WBC RBC Hgb Hct MCV MCH MCHC RDW Std Deviation RDW Coeff of [place] Plt Count MPV Immature Gran % (Auto) Neut % (Auto) Lymph % (Auto) [place] % (Auto) Eos % (Auto) Baso % (Auto) Absolute Neuts (auto) Absolute Lymphs (auto) Nucleated RBC % PT INR D-Dimer Quant (PE/DVT) Sodium Potassium Chloride Carbon Dioxide Anion Gap BUN Creatinine Estim Creat Clear Calc Est GFR (MDRD) Af Amer Est GFR (MDRD) Non-Af BUN/Creatinine Ratio Glucose Lactic Acid Calcium Magnesium Ferritin Total Bilirubin AST ALT Alkaline Phosphatase Lactate Dehydrogenase Total Creatine Kinase Troponin I 0.096 H C-React Prot Ext Range Total Protein Albumin Globulin Albumin/Globulin Ratio Procalcitonin 0.07 Urine Color Yellow Urine Clarity Sl Cloudy Urine pH 7.0 Ur Specific [place] 1.010 Urine Protein 30 H Urine Glucose (UA) Normal Urine Ketones Negative Urine Occult Blood 10 H Urine Nitrite Negative Urine Bilirubin Negative Urine Urobilinogen Normal Ur Leukocyte Esterase Negative Urine RBC 0-5 SEEN Urine WBC 0 SEEN Ur Squamous Epith Cells 0-5 SEEN Amorphous Sediment 1+ PHOS Urine Bacteria 0 SEEN Urine Mucus 0 SEEN Ur Random Sodium Urine Creatinine Blood Type Antibody Screen 03/24/20 03/24/20 03/24/20 16:28 18:30 18:30 WBC RBC Hgb Hct MCV MCH MCHC RDW Std Deviation RDW Coeff of [place] Plt Count MPV Immature Gran % (Auto) Neut % (Auto) Lymph % (Auto) [place] % (Auto) Eos % (Auto) Baso % (Auto) Absolute Neuts (auto) Absolute Lymphs (auto) Nucleated RBC % PT INR D-Dimer Quant (PE/DVT) Sodium 142 Potassium 6.7 H* Chloride 114 H Carbon Dioxide 26.0 Anion Gap 2 L BUN 61 H Creatinine 2.18 H Estim Creat Clear Calc 32.14 Est GFR (MDRD) Af Amer 38 L Est GFR (MDRD) Non-Af 32 L BUN/Creatinine Ratio 28.0 H Glucose 145 H Lactic Acid Calcium 9.4 Magnesium Ferritin Total Bilirubin AST ALT Alkaline Phosphatase Lactate Dehydrogenase Total Creatine Kinase Troponin I 0.102 H C-React Prot Ext Range Total Protein Albumin Globulin Albumin/Globulin Ratio Procalcitonin Urine Color Urine Clarity Urine pH Ur Specific [place] Urine Protein Urine Glucose (UA) Urine Ketones Urine Occult Blood Urine Nitrite Urine Bilirubin Urine Urobilinogen Ur Leukocyte Esterase Urine RBC Urine WBC Ur Squamous Epith Cells Amorphous Sediment Urine Bacteria Urine Mucus Ur Random Sodium 84 Urine Creatinine 41.40 Blood Type Antibody Screen 03/24/20 03/25/20 03/25/20 20:35 00:05 01:00 WBC RBC Hgb Hct MCV MCH MCHC RDW Std Deviation RDW Coeff of [place] Plt Count MPV Immature Gran % (Auto) Neut % (Auto) Lymph % (Auto) [place] % (Auto) Eos % (Auto) Baso % (Auto) Absolute Neuts (auto) Absolute Lymphs (auto) Nucleated RBC % PT INR D-Dimer Quant (PE/DVT) Sodium 144 Cancelled 145 Potassium 6.3 H* Cancelled 6.0 H* Chloride 114 H Cancelled 117 H Carbon Dioxide 28.0 Cancelled 25.0 Anion Gap 2 L Cancelled 3 L BUN 58 H Cancelled 53 H Creatinine 2.06 H Cancelled 1.81 H Estim Creat Clear Calc 34.01 Cancelled 38.71 Est GFR (MDRD) Af Amer 41 L Cancelled 47 L Est GFR (MDRD) Non-Af 34 L Cancelled 39 L BUN/Creatinine Ratio 28.2 H Cancelled 29.3 H Glucose 93 Cancelled 137 H Lactic Acid Calcium 9.8 Cancelled 9.1 Magnesium Ferritin Total Bilirubin AST ALT Alkaline Phosphatase Lactate Dehydrogenase Total Creatine Kinase Troponin I C-React Prot Ext Range Total Protein Albumin Globulin Albumin/Globulin Ratio Procalcitonin Urine Color Urine Clarity Urine pH Ur Specific [place] Urine Protein Urine Glucose (UA) Urine Ketones Urine Occult Blood Urine Nitrite Urine Bilirubin Urine Urobilinogen Ur Leukocyte Esterase Urine RBC Urine WBC Ur Squamous Epith Cells Amorphous Sediment Urine Bacteria Urine Mucus Ur Random Sodium Urine Creatinine Blood Type Antibody Screen 03/25/20 03/25/20 03/25/20 06:30 06:30 06:30 WBC 9.3 RBC 4.82 Hgb 15.6 Hct 48.1 MCV 99.8 H MCH 32.4 H MCHC 32.4 RDW Std Deviation 50.1 H RDW Coeff of [place] 13.6 Plt Count 186 MPV 11.3 Immature Gran % (Auto) 0.400 Neut % (Auto) 85.4 H Lymph % (Auto) 8.7 L [place] % (Auto) 5.2 Eos % (Auto) 0.0 Baso % (Auto) 0.3 Absolute Neuts (auto) 7.9 H Absolute Lymphs (auto) 0.81 L Nucleated RBC % 0 PT 59.8 H INR 6.8 H* D-Dimer Quant (PE/DVT) Sodium 145 Potassium 5.6 H Chloride 117 H Carbon Dioxide 24.0 Anion Gap 4 L BUN 50 H Creatinine 1.68 H Estim Creat Clear Calc 41.71 Est GFR (MDRD) Af Amer 52 L Est GFR (MDRD) Non-Af 43 L BUN/Creatinine Ratio 29.8 H Glucose 120 H Lactic Acid Calcium 9.0 Magnesium Ferritin Total Bilirubin 0.90 AST 19 ALT 14 L Alkaline Phosphatase 69 Lactate Dehydrogenase Total Creatine Kinase Troponin I C-React Prot Ext Range Total Protein 7.0 Albumin 3.0 L Globulin 4.0 Albumin/Globulin Ratio 0.8 L Procalcitonin Urine Color Urine Clarity Urine pH Ur Specific [place] Urine Protein Urine Glucose (UA) Urine Ketones Urine Occult Blood Urine Nitrite Urine Bilirubin Urine Urobilinogen Ur Leukocyte Esterase Urine RBC Urine WBC Ur Squamous Epith Cells Amorphous Sediment Urine Bacteria Urine Mucus Ur Random Sodium Urine Creatinine Blood Type Antibody Screen - Other Studies Radiology: [] reviewed Other Studies: [] Route of nutrition/ use of supplements: [] Nutritional Intake: [] IV Site: [] [place] Catheter: [] - Physical Exam General: Confused, - - oriented x1 HEENT: Atraumatic, PERRLA, EOMI Neck: Supple, No Nodes Lungs: Diminished Cardiovascular: Regular rate, Regular Rhythm Abdomen: Soft, Non Tender, Non-Distended Extremities: No edema Skin: No rashes IV Site: Peripheral, without redness Musculoskeletal: No Tenderness to Palpation of Joints or Extremities Neurological: Cranial nerves II-XII grossly intact - Assessment/Plan Antibiotics: [] Assessment/Plan: [] Active and Suspected Problems (Last Reviewed 12/13/19 @ 15:[address] Usman Aaron MD) Cardiac enzymes elevated (Acute) COVID-19 virus infection (Acute) Hypoxia (Acute) ANA (acute kidney injury) (Acute) Hyperkalemia (Acute) covid with hypoxia, ANA, d-dimer 1.6, INR 7 on admit - ANA improving, oriented x1 this AM. Will cont dex for 10 day course, start remdesivir. Will follow, thank you
[2020-03-25 12:45] LABS: Bedside Glucose 147 mg/dL (70-110)
[2020-03-25] MEDS: Insulin Lispro 100 UNIT/ML INSULN.PEN SC (15:58)
[2020-03-25 16:41] LABS: Bedside Glucose 221 mg/dL (70-110)
[2020-03-25] MEDS: proMETHazine 25 MG/ML Syringe 12.5 MG IV (17:42)
[2020-03-25] MEDS: Haloperidol Lactate 5 MG/ML Vial 2 MG IV (17:43)
[2020-03-25] MEDS: Acetaminophen 325 MG Tablet 650 MG PO (21:08)
[2020-03-25] MEDS: MELATONIN 3 MG TABLET PO (21:08)
[2020-03-25] MEDS: Atorvastatin Calcium 20 MG Tablet PO ×2 (21:08)
--- NOTE | 2020-03-25 21:37 | PCM.PN.BLA ---
Progress Note Notified by patient's nurse notes blood culture showed gram-positive cocci in clusters. At this point it is uncertain whether this is a contaminant or a truly positive bacteremia. Will start patient on vancomycin; pharmacy to dose. Infectious disease and rounding attending to consider for the need of antibiotics. STROKE Vital Signs/Narrative: Vital Signs Temp Pulse Resp BP Pulse Ox 03/25/20 21:23 95 03/25/20 21:21 97.9 F 102 H 18 134/82 H 95 03/25/20 21:08 106 H
[2020-03-25 22:26] LABS: Bedside Glucose 136 mg/dL (70-110)
--- NOTE | 2020-03-25 22:59 | PCS.PANDOC ---
PANDEMIC DOCUMENTATION INITIATED: Date: 03/24/20 Time: 7940
--- NOTE | 2020-03-25 23:04 | PCM.RX.CS ---
Consult Pharmacy has been consulted to manage selected antiobiotic: Vancomycin Type of Consult: New start Prior Doses of Antibiotics Received/Current Regimen: Medications Vancomycin HCl 1,250 mg/ (Sodium Chloride) 275 mls @ 167 mls/hr IV X1 ONE Stop: 03/26/20 00:38 Last Admin: 03/25/20 22:53 Dose: 167 mls/hr Documented by: Labs: Sodium 145 mmol/L (136-145) 03/25/20 06:30 Potassium 5.6 mmol/L (3.5-5.1) H 03/25/20 06:30 Chloride 117 mmol/L (98-107) H 03/25/20 06:30 Carbon Dioxide 24.0 mmol/L (21.0-32.0) 03/25/20 06:30 Anion Gap 4 (5-15) L 03/25/20 06:30 BUN 50 mg/dL (7-18) H 03/25/20 06:30 Creatinine 1.68 mg/dL (0.70-1.30) H 03/25/20 06:30 Est GFR (MDRD) Af Amer 52 mL/min (>60) L 03/25/20 06:30 Est GFR (MDRD) Non-Af 43 mL/min (>60) L 03/25/20 06:30 BUN/Creatinine Ratio 29.8 RATIO (10-20) H 03/25/20 06:30 Glucose 120 mg/dL (74-106) H 03/25/20 06:30 Microbiology: Microbiology 03/24/20 12:30 Blood Culture (Wb) - Anticubital Left Blood Culture - Preliminary 03/24/20 15:30 Mucosa - Nose Respiratory Panel (PCR) - Final 03/24/20 16:28 Urine Catheter - Catheter Legionella Antigen - Final 03/24/20 16:28 Urine Catheter - Catheter Streptococcus pneumoniae Antigen (M - Final Weight used for dosin kg Estimated Creatinine Clearance: 42 Goal Trough: 15-20 mcg/mL Pharmacy Plan for Drug Dosing: Initial dose 1250mg IV x1, 750mg IV q12h to follow with trough prior to 4th dose per policy. Pharmacy Service will continue to monitor and adjust dosing as required. Follow-Up Labs: Trough Vancomycin - 03/27 @ 0930
[2020-03-26] VITALS (15 sets, daily range): BP systolic 114–160; BP diastolic 68–98; PULSE 71–109; RESP 12–19; TEMP 35.9–36.6; O2SAT 92–98
--- NOTE | 2020-03-26 01:54 | PCM.PN.BLA ---
Progress Note Blood culture returned as staph epidermidis. Discontinue vancomycin for now. Likely contaminant. STROKE Vital Signs/Narrative: Vital Signs Pulse Resp Pulse Ox 03/26/20 00:13 95 13 96
[2020-03-26 06:45] LABS: Hematocrit 43.1 % (40-54); Hemoglobin 13.9 g/dL (13.0-16.5); Mean Corp Hgb Conc 32.3 g/dL (32-36); Mean Corpuscular Hgb 31.4 pg (27.0-32.0); Mean Corpuscular Volume 97.5 fL (80-94); Mean Platelet Vol. 11.4 fl (6.2-12.0); Platelet Count 181 K/mm3 (150-450); RBC Distribution Width CV 13.6 % (11.6-14.6); RBC Distribution Width SD 49.1 fl (35.1-43.9); Red Blood Count 4.42 M/mm3 (4.6-6.2); White Blood Count 10.7 K/mm3 (4.4-11.0)
[2020-03-26 07:06] LABS: Bedside Glucose 117 mg/dL (70-110)
[2020-03-26 07:14] LABS: AST(SGOT) 12 U/L (15-37); Alanine Aminotransfer ALT/SGPT 12 U/L (16-61); Albumin, Serum 3.1 g/dL (3.2-5.0); Alkaline Phosphatase 63 U/L (45-117); Anion Gap 6 (5-15); BUN 40 mg/dL (7-18); BUN/Creat Ratio 31.7 RATIO (10-20); Calcium,Total 8.9 mg/dL (8.5-10.1); Chloride 118 mmol/L (98-107); Creatinine, Serum 1.26 mg/dL (0.70-1.30); EST Glomerular Filtration Rate 60 mL/min (>60); Est Glom Filt Rate - Afr Amer 72 mL/min (>60); Estimated Creatinine Clearance 55.61 ml/min; Globulin 3.1 g/dL (2.2-4.2); Glucose 124 mg/dL (74-106); Protein, Total 6.2 g/dL (6.4-8.2); Sodium Level 147 mmol/L (136-145)
--- NOTE | 2020-03-26 07:41 | PN_ITS ---
Patient Problems: Active and Suspected Problems (Last Reviewed 12/13/19 @ 15:[address] Usman Aaron MD) Cardiac enzymes elevated (Acute) COVID-19 virus infection (Acute) Hypoxia (Acute) ANA (acute kidney injury) (Acute) Hyperkalemia (Acute) Subjective: The patient was seen and examined at the bedside this morning. Events from the last 24 hours have been reviewed. The patient is currently afebrile, hemodynamically stable and maintaining appropriate oxygen saturations on room air. Potassium is within normal limits this morning. Creatinine is back to baseline. The patient has remained clinically stable following transfer out of the intensive care unit. Objective: The patient's most recent lab work, culture data and imaging studies have all been personally reviewed. - Physical Exam Vitals/I&O's: Vital Signs Temp Pulse Resp BP Pulse Ox 97.9 F 94 19 H 114/68 95 03/26/20 06:57 03/26/20 06:57 03/26/20 06:57 03/26/20 06:57 03/26/20 07:00 Oxygen Flow Rate (L/min) 2 Oxygen Delivery Method Room Air Weight: 226 lb 13.69 oz Body Mass Index (BMI) 28.3 Finger Stick Blood Glucose 159 Intake and Output for Last 24 Hours 03/24/20 03/25/20 03/26/20 23:59 23:59 23:59 Intake Total 662.55 / 662.55 2545 / 2545 755 / 755 Output Total 800 / 800 150 / 150 Balance -137.45 / -137.45 2545 / 2545 605 / 605 General: Alert, No apparent distress HEENT: Atraumatic, Normocephalic Oral: No Gingival or Mucosal Lesions/ Ulcerations Neck: Supple Lungs: No rhonchi, No wheeze, No rales, Diminished Cardiovascular: Regular rate, Regular Rhythm Abdomen: Bowel Sounds Present, Soft, Non Tender Extremities: No clubbing, No cyanosis, Edema Skin: - - No significant change from previous Musculoskeletal: No Tenderness to Palpation of Joints or Extremities, No Muscle Wasting Lymphatic: No Cervical, Supraclavicular, or Inguinal Adenopathy Neurological: Cranial nerves II-XII grossly intact Psych/Mental Status: Normal Affect Labs (Last 48 Hours) 03/24/20 03/24/20 03/24/20 12:15 12:15 12:15 WBC 8.4 RBC 4.79 Hgb 15.4 Hct 47.5 MCV 99.2 H MCH 32.2 H MCHC 32.4 RDW Std Deviation 50.4 H RDW Coeff of [place] 13.8 Plt Count 204 MPV 11.1 Immature Gran % (Auto) 0.400 Neut % (Auto) 78.3 H Lymph % (Auto) 12.4 L [place] % (Auto) 7.4 Eos % (Auto) 1.0 Baso % (Auto) 0.5 Absolute Neuts (auto) 6.6 Absolute Lymphs (auto) 1.04 Nucleated RBC % 0 PT INR D-Dimer Quant (PE/DVT) Sodium 140 Potassium 7.4 H* Chloride 112 H Carbon Dioxide 26.0 Anion Gap 2 L BUN 67 H Creatinine 2.58 H Estim Creat Clear Calc 27.16 Est GFR (MDRD) Af Amer 32 L Est GFR (MDRD) Non-Af 26 L BUN/Creatinine Ratio 26.0 H Glucose 102 Lactic Acid 1.7 Calcium 9.4 Magnesium Ferritin Total Bilirubin 0.70 AST 22 ALT 18 Alkaline Phosphatase 86 Lactate Dehydrogenase Total Creatine Kinase Troponin I 0.096 H C-React Prot Ext Range Total Protein 8.7 H Albumin 3.8 Globulin 4.9 H Albumin/Globulin Ratio 0.8 L Procalcitonin Urine Color Urine Clarity Urine pH Ur Specific [place] Urine Protein Urine Glucose (UA) Urine Ketones Urine Occult Blood Urine Nitrite Urine Bilirubin Urine Urobilinogen Ur Leukocyte Esterase Urine RBC Urine WBC Ur Squamous Epith Cells Amorphous Sediment Urine Bacteria Urine Mucus Ur Random Sodium Urine Creatinine POC Glucose Blood Type Antibody Screen 03/24/20 03/24/20 03/24/20 12:15 16:00 16:00 WBC RBC Hgb Hct MCV MCH MCHC RDW Std Deviation RDW Coeff of [place] Plt Count MPV Immature Gran % (Auto) Neut % (Auto) Lymph % (Auto) [place] % (Auto) Eos % (Auto) Baso % (Auto) Absolute Neuts (auto) Absolute Lymphs (auto) Nucleated RBC % PT 59.1 H INR 6.7 H* D-Dimer Quant (PE/DVT) 1.60 H* Sodium 140 Potassium 6.1 H* Chloride 111 H Carbon Dioxide 27.0 Anion Gap 2 L BUN 64 H Creatinine 2.35 H Estim Creat Clear Calc 29.82 Est GFR (MDRD) Af Amer 35 L Est GFR (MDRD) Non-Af 29 L BUN/Creatinine Ratio 27.2 H Glucose 79 Lactic Acid Calcium 9.8 Magnesium 2.4 Ferritin 595 H Total Bilirubin AST ALT Alkaline Phosphatase Lactate Dehydrogenase 230 Total Creatine Kinase 61 Troponin I C-React Prot Ext Range 4.80 H Total Protein Albumin Globulin Albumin/Globulin Ratio Procalcitonin Urine Color Urine Clarity Urine pH Ur Specific [place] Urine Protein Urine Glucose (UA) Urine Ketones Urine Occult Blood Urine Nitrite Urine Bilirubin Urine Urobilinogen Ur Leukocyte Esterase Urine RBC Urine WBC Ur Squamous Epith Cells Amorphous Sediment Urine Bacteria Urine Mucus Ur Random Sodium Urine Creatinine POC Glucose Blood Type A POSITIVE Antibody Screen NEGATIVE 03/24/20 03/24/20 03/24/20 16:00 16:10 16:28 WBC RBC Hgb Hct MCV MCH MCHC RDW Std Deviation RDW Coeff of [place] Plt Count MPV Immature Gran % (Auto) Neut % (Auto) Lymph % (Auto) [place] % (Auto) Eos % (Auto) Baso % (Auto) Absolute Neuts (auto) Absolute Lymphs (auto) Nucleated RBC % PT INR D-Dimer Quant (PE/DVT) Sodium Potassium Chloride Carbon Dioxide Anion Gap BUN Creatinine Estim Creat Clear Calc Est GFR (MDRD) Af Amer Est GFR (MDRD) Non-Af BUN/Creatinine Ratio Glucose Lactic Acid Calcium Magnesium Ferritin Total Bilirubin AST ALT Alkaline Phosphatase Lactate Dehydrogenase Total Creatine Kinase Troponin I 0.096 H C-React Prot Ext Range Total Protein Albumin Globulin Albumin/Globulin Ratio Procalcitonin 0.07 Urine Color Yellow Urine Clarity Sl Cloudy Urine pH 7.0 Ur Specific [place] 1.010 Urine Protein 30 H Urine Glucose (UA) Normal Urine Ketones Negative Urine Occult Blood 10 H Urine Nitrite Negative Urine Bilirubin Negative Urine Urobilinogen Normal Ur Leukocyte Esterase Negative Urine RBC 0-5 SEEN Urine WBC 0 SEEN Ur Squamous Epith Cells 0-5 SEEN Amorphous Sediment 1+ PHOS Urine Bacteria 0 SEEN Urine Mucus 0 SEEN Ur Random Sodium Urine Creatinine POC Glucose Blood Type Antibody Screen 03/24/20 03/24/20 03/24/20 16:28 18:03 18:30 WBC RBC Hgb Hct MCV MCH MCHC RDW Std Deviation RDW Coeff of [place] Plt Count MPV Immature Gran % (Auto) Neut % (Auto) Lymph % (Auto) [place] % (Auto) Eos % (Auto) Baso % (Auto) Absolute Neuts (auto) Absolute Lymphs (auto) Nucleated RBC % PT INR D-Dimer Quant (PE/DVT) Sodium 142 Potassium 6.7 H* Chloride 114 H Carbon Dioxide 26.0 Anion Gap 2 L BUN 61 H Creatinine 2.18 H Estim Creat Clear Calc 32.14 Est GFR (MDRD) Af Amer 38 L Est GFR (MDRD) Non-Af 32 L BUN/Creatinine Ratio 28.0 H Glucose 145 H Lactic Acid Calcium 9.4 Magnesium Ferritin Total Bilirubin AST ALT Alkaline Phosphatase Lactate Dehydrogenase Total Creatine Kinase Troponin I C-React Prot Ext Range Total Protein Albumin Globulin Albumin/Globulin Ratio Procalcitonin Urine Color Urine Clarity Urine pH Ur Specific [place] Urine Protein Urine Glucose (UA) Urine Ketones Urine Occult Blood Urine Nitrite Urine Bilirubin Urine Urobilinogen Ur Leukocyte Esterase Urine RBC Urine WBC Ur Squamous Epith Cells Amorphous Sediment Urine Bacteria Urine Mucus Ur Random Sodium 84 Urine Creatinine 41.40 POC Glucose 39 L* Blood Type Antibody Screen 03/24/20 03/24/20 03/24/20 18:30 20:35 23:31 WBC RBC Hgb Hct MCV MCH MCHC RDW Std Deviation RDW Coeff of [place] Plt Count MPV Immature Gran % (Auto) Neut % (Auto) Lymph % (Auto) [place] % (Auto) Eos % (Auto) Baso % (Auto) Absolute Neuts (auto) Absolute Lymphs (auto) Nucleated RBC % PT INR D-Dimer Quant (PE/DVT) Sodium 144 Potassium 6.3 H* Chloride 114 H Carbon Dioxide 28.0 Anion Gap 2 L BUN 58 H Creatinine 2.06 H Estim Creat Clear Calc 34.01 Est GFR (MDRD) Af Amer 41 L Est GFR (MDRD) Non-Af 34 L BUN/Creatinine Ratio 28.2 H Glucose 93 Lactic Acid Calcium 9.8 Magnesium Ferritin Total Bilirubin AST ALT Alkaline Phosphatase Lactate Dehydrogenase Total Creatine Kinase Troponin I 0.102 H C-React Prot Ext Range Total Protein Albumin Globulin Albumin/Globulin Ratio Procalcitonin Urine Color Urine Clarity Urine pH Ur Specific [place] Urine Protein Urine Glucose (UA) Urine Ketones Urine Occult Blood Urine Nitrite Urine Bilirubin Urine Urobilinogen Ur Leukocyte Esterase Urine RBC Urine WBC Ur Squamous Epith Cells Amorphous Sediment Urine Bacteria Urine Mucus Ur Random Sodium Urine Creatinine POC Glucose 101 Blood Type Antibody Screen 03/25/20 03/25/20 03/25/20 00:05 01:00 06:30 WBC 9.3 RBC 4.82 Hgb 15.6 Hct 48.1 MCV 99.8 H MCH 32.4 H MCHC 32.4 RDW Std Deviation 50.1 H RDW Coeff of [place] 13.6 Plt Count 186 MPV 11.3 Immature Gran % (Auto) 0.400 Neut % (Auto) 85.4 H Lymph % (Auto) 8.7 L [place] % (Auto) 5.2 Eos % (Auto) 0.0 Baso % (Auto) 0.3 Absolute Neuts (auto) 7.9 H Absolute Lymphs (auto) 0.81 L Nucleated RBC % 0 PT INR D-Dimer Quant (PE/DVT) Sodium Cancelled 145 Potassium Cancelled 6.0 H* Chloride Cancelled 117 H Carbon Dioxide Cancelled 25.0 Anion Gap Cancelled 3 L BUN Cancelled 53 H Creatinine Cancelled 1.81 H Estim Creat Clear Calc Cancelled 38.71 Est GFR (MDRD) Af Amer Cancelled 47 L Est GFR (MDRD) Non-Af Cancelled 39 L BUN/Creatinine Ratio Cancelled 29.3 H Glucose Cancelled 137 H Lactic Acid Calcium Cancelled 9.1 Magnesium Ferritin Total Bilirubin AST ALT Alkaline Phosphatase Lactate Dehydrogenase Total Creatine Kinase Troponin I C-React Prot Ext Range Total Protein Albumin Globulin Albumin/Globulin Ratio Procalcitonin Urine Color Urine Clarity Urine pH Ur Specific [place] Urine Protein Urine Glucose (UA) Urine Ketones Urine Occult Blood Urine Nitrite Urine Bilirubin Urine Urobilinogen Ur Leukocyte Esterase Urine RBC Urine WBC Ur Squamous Epith Cells Amorphous Sediment Urine Bacteria Urine Mucus Ur Random Sodium Urine Creatinine POC Glucose Blood Type Antibody Screen 03/25/20 03/25/20 03/25/20 06:30 06:30 12:01 WBC RBC Hgb Hct MCV MCH MCHC RDW Std Deviation RDW Coeff of [place] Plt Count MPV Immature Gran % (Auto) Neut % (Auto) Lymph % (Auto) [place] % (Auto) Eos % (Auto) Baso % (Auto) Absolute Neuts (auto) Absolute Lymphs (auto) Nucleated RBC % PT 59.8 H INR 6.8 H* D-Dimer Quant (PE/DVT) Sodium 145 Potassium 5.6 H Chloride 117 H Carbon Dioxide 24.0 Anion Gap 4 L BUN 50 H Creatinine 1.68 H Estim Creat Clear Calc 41.71 Est GFR (MDRD) Af Amer 52 L Est GFR (MDRD) Non-Af 43 L BUN/Creatinine Ratio 29.8 H Glucose 120 H Lactic Acid Calcium 9.0 Magnesium Ferritin Total Bilirubin 0.90 AST 19 ALT 14 L Alkaline Phosphatase 69 Lactate Dehydrogenase Total Creatine Kinase Troponin I C-React Prot Ext Range Total Protein 7.0 Albumin 3.0 L Globulin 4.0 Albumin/Globulin Ratio 0.8 L Procalcitonin Urine Color Urine Clarity Urine pH Ur Specific [place] Urine Protein Urine Glucose (UA) Urine Ketones Urine Occult Blood Urine Nitrite Urine Bilirubin Urine Urobilinogen Ur Leukocyte Esterase Urine RBC Urine WBC Ur Squamous Epith Cells Amorphous Sediment Urine Bacteria Urine Mucus Ur Random Sodium Urine Creatinine POC Glucose 147 H Blood Type Antibody Screen 03/25/20 03/25/20 03/26/20 15:57 21:06 05:30 WBC 10.7 RBC 4.42 L Hgb 13.9 Hct 43.1 MCV 97.5 H MCH 31.4 MCHC 32.3 RDW Std Deviation 49.1 H RDW Coeff of [place] 13.6 Plt Count 181 MPV 11.4 Immature Gran % (Auto) Neut % (Auto) Lymph % (Auto) [place] % (Auto) Eos % (Auto) Baso % (Auto) Absolute Neuts (auto) Absolute Lymphs (auto) Nucleated RBC % PT INR D-Dimer Quant (PE/DVT) Sodium Potassium Chloride Carbon Dioxide Anion Gap BUN Creatinine Estim Creat Clear Calc Est GFR (MDRD) Af Amer Est GFR (MDRD) Non-Af BUN/Creatinine Ratio Glucose Lactic Acid Calcium Magnesium Ferritin Total Bilirubin AST ALT Alkaline Phosphatase Lactate Dehydrogenase Total Creatine Kinase Troponin I C-React Prot Ext Range Total Protein Albumin Globulin Albumin/Globulin Ratio Procalcitonin Urine Color Urine Clarity Urine pH Ur Specific [place] Urine Protein Urine Glucose (UA) Urine Ketones Urine Occult Blood Urine Nitrite Urine Bilirubin Urine Urobilinogen Ur Leukocyte Esterase Urine RBC Urine WBC Ur Squamous Epith Cells Amorphous Sediment Urine Bacteria Urine Mucus Ur Random Sodium Urine Creatinine POC Glucose 221 H 136 H Blood Type Antibody Screen 03/26/20 03/26/20 05:30 06:52 WBC RBC Hgb Hct MCV MCH MCHC RDW Std Deviation RDW Coeff of [place] Plt Count MPV Immature Gran % (Auto) Neut % (Auto) Lymph % (Auto) [place] % (Auto) Eos % (Auto) Baso % (Auto) Absolute Neuts (auto) Absolute Lymphs (auto) Nucleated RBC % PT INR D-Dimer Quant (PE/DVT) Sodium 147 H Potassium 4.0 Chloride 118 H Carbon Dioxide 23.0 Anion Gap 6 BUN 40 H Creatinine 1.26 Estim Creat Clear Calc 55.61 Est GFR (MDRD) Af Amer 72 Est GFR (MDRD) Non-Af 60 BUN/Creatinine Ratio 31.7 H Glucose 124 H Lactic Acid Calcium 8.9 Magnesium Ferritin Total Bilirubin 0.90 AST 12 L ALT 12 L Alkaline Phosphatase 63 Lactate Dehydrogenase Total Creatine Kinase Troponin I C-React Prot Ext Range Total Protein 6.2 L Albumin 3.1 L Globulin 3.1 Albumin/Globulin Ratio 1.0 Procalcitonin Urine Color Urine Clarity Urine pH Ur Specific [place] Urine Protein Urine Glucose (UA) Urine Ketones Urine Occult Blood Urine Nitrite Urine Bilirubin Urine Urobilinogen Ur Leukocyte Esterase Urine RBC Urine WBC Ur Squamous Epith Cells Amorphous Sediment Urine Bacteria Urine Mucus Ur Random Sodium Urine Creatinine POC Glucose 117 H Blood Type Antibody Screen Microbiology 03/24/20 12:30 Blood Culture (Wb) - Anticubital Left Bacteria Detection (PCR) - Final Staphylococcus epidermidis 03/24/20 12:30 Blood Culture (Wb) - Anticubital Left Blood Culture - Preliminary Staphylococcus epidermidis 03/24/20 15:30 Mucosa - Nose Respiratory Panel (PCR) - Final 03/24/20 16:28 Urine Catheter - Catheter Legionella Antigen - Final 03/24/20 16:28 Urine Catheter - Catheter Streptococcus pneumoniae Antigen (M - Final Clinical Impression(s) from Imaging Studies Chest X-Ray 03/24/20 12:10 IMPRESSION: Borderline cardiomegaly and mild degree of vascular congestion. Electronically Signed: Kenyon Cross, at 12:36 EST , Service support , Current Medications Acetaminophen (Acetaminophen 325 Mg Tablet) 650 mg PO Q6H PRN PRN PRN Reason: Pain Score 1-10/Temp > 100.7 F Last Admin: 03/25/20 21:08 Dose: 650 mg Documented by: Al Hydroxide/Mg Hydroxide (Mag Hydrox/Al Hydrox/Simeth 30 Ml Udc) 30 ml PO Q6H PRN PRN PRN Reason: Gastric Burning Albuterol Sulfate (Albuterol Sulfate 8 Gm Inhaler (60 Puffs)) 4 - 8 puff INHALATION Q4H PRN PRN PRN Reason: Dyspnea, wheezing Albuterol Sulfate (Albuterol Sulfate 8 Gm Inhaler (60 Puffs)) 2 puff INHALATION BID [facility] Last Admin: 03/25/20 21:09 Dose: 2 puff Documented by: Aspirin (Aspirin 81 Mg Tab.Chew) 81 mg PO DAILY [facility] Last Admin: 03/25/20 08:38 Dose: 81 mg Documented by: Atorvastatin Calcium (Atorvastatin Calcium 20 Mg Tablet) 20 mg PO QHS [facility] Last Admin: 03/25/20 21:08 Dose: 20 mg Documented by: Dexamethasone Sodium Phosphate (Dexamethasone 4 Mg/Ml Vial) 6 mg IV DAILY [facility] Last Admin: 03/25/20 08:37 Dose: 6 mg Documented by: Dextrose (Dextrose 50%-Water 25 Gm/50 Ml Disp.Syrin) 0 gm IV X1 PRN; Protocol PRN Reason: Hypoglycemia Last Admin: 03/24/20 18:11 Dose: 25 gm Documented by: Glucagon (Glucagon 1 Mg/Ml Syringe) 1 mg IM .X1 PRN PRN Reason: Hypoglycemia Guaifenesin (Guaifenesin 10 Ml Udc (200mg/10ml)) 10 ml PO Q4H PRN PRN PRN Reason: COUGH Hydralazine HCl (Hydralazine 20 Mg/Ml Vial) 10 mg IV Q4H PRN PRN PRN Reason: SBP > 160 Remdesivir 100 mg/ Sodium (Chloride) 250 mls @ 125 mls/hr IV DAILY [facility]; Protocol Stop: 03/29/20 11:59 Insulin Human Lispro (Insulin Lispro 100 Unit/Ml Insuln.Pen) 0 unit SC ACHS [facility]; Protocol Last Admin: 03/26/20 06:58 Dose: Not Given Documented by: Melatonin (Melatonin 3 Mg Tablet) 3 mg PO QHS PRN PRN PRN Reason: INSOMNIA Last Admin: 03/25/20 21:08 Dose: 3 mg Documented by: Metoprolol Tartrate (Metoprolol Tartrate 50 Mg Tablet) 50 mg PO BID [facility] Last Admin: 03/25/20 21:08 Dose: 50 mg Documented by: Nitroglycerin (Nitroglycerin (Inpatient Use) 0.4 Mg Tab.Subl) 0.4 mg SUBLINGUAL Q5M PRN PRN Reason: CARDIAC/CHEST PAIN Ondansetron HCl (Ondansetron 4 Mg/2 Ml Vial) 4 mg IV Q8H PRN PRN PRN Reason: NAUSEA/VOMITING Sodium Chloride (0.9% Saline Lock 10 Ml Syringe) 10 - 40 ml IV UD PRN PRN Reason: SALINE FLUSH Throat Lozenges (Benzocaine/Menthol 1 Lozenge) 1 lozenge MUCOUS MEM Q2H PRN PRN PRN Reason: SORE THROAT Medical Necessity - Tobacco Use Smoking Status: Former smoker Tobacco Use: Cigars Assessment/Plan All Active Problems (Last Reviewed 12/13/19 @ 15:[address] Usman Aaron MD) Encephalopathy acute (Acute) Hypoxia (Acute) Pneumonia (Acute) Cardiac enzymes elevated (Acute) Bacteremia due to Gram-negative bacteria (Acute) COVID-19 virus infection (Acute) Hypoxia (Acute) ANA (acute kidney injury) (Acute) Hyperkalemia (Acute) Hyperkalemia (Acute) Dyspnea on exertion (Resolved) RECOMMENDATIONS: 1. Continue Decadron and remdesivir per ID recommendations. 2. Continue bronchodilator therapy. 3. Continue nocturnal BiPAP therapy per home regimen. 4. Encourage incentive spirometer use and mobilize patient as tolerated. 5. Given the patient's lack of further ICU or pulmonary needs, will sign off. Please call with any additional questions. IMPRESSIONS: 1. Acute hypoxemic respiratory insufficiency secondary to COVID-19 infection Although the patient was initially admitted to the ICU on BiPAP, this was his baseline home regimen for his obstructive sleep apnea. He has since been weaned to room air and is maintaining oxygen saturations in the high 90s. The patient was already started on Decadron, which will be continued x10 days. In addition, remdesivir was started by infectious diseases. Continue to monitor liver and renal function accordingly. 2. Acute on chronic kidney disease/hyperkalemia Likely prerenal in etiology and related to GI losses. Creatinine has improved with volume expansion and his hyperkalemia has been medically managed, with improvement noted this morning. 3. Generalized debility/weakness Likely related to acute illness. Physical therapy to work with the patient. 4. Recurrent atrial fibrillation/aortic valve stenosis status post TAVR/congestive heart failure/pulmonary hypertension Continue outpatient cardiac medications. Continue to hold Coumadin and check INR daily. Start patient on a heparin drip once INR is no longer therapeutic. 5. Asthma/COPD overlap syndrome/obstructive sleep apnea Continue bronchodilator therapy per outpatient regimen. Continue nocturnal BiPAP therapy as well. 6. Coagulopathy Continue to hold baseline Coumadin and check INR daily. No indication for emergent reversal. 7. Hypertension/hyperlipidemia/neuropathy/diabetes mellitus Complicates care, management, recovery and prognosis. Continue sliding scale insulin coverage. This note was generated with [employer] dictation software. It may contain incorrect words, spelling, and punctuation that were not noted in checking the note before signing. Inpatient E&M: 52747 Subs Hosp L2
--- NOTE | 2020-03-26 09:20 | PN_ITS ---
Patient Problems: Active and Suspected Problems (Last Reviewed 12/13/19 @ 15:[address] Usman Aaron MD) Cardiac enzymes elevated (Acute) COVID-19 virus infection (Acute) Hypoxia (Acute) ANA (acute kidney injury) (Acute) Hyperkalemia (Acute) Reason for Visit: Follow-up for COVID-19 pneumonia, acute delirium and behavioral abnormality. Objective: Patient was restless and agitated last evening and required Haldol 2 mg IV along with Phenergan. In the morning once again he got restless and agitated. [place] branch had about 14 beats of NSVT. Repeat EKG was done. QTC prolonged and therefore Haldol was not given. Low-dose Seroquel as needed for agitation. No fever or chills. Physical exam General: Alert, Oriented x3, Cooperative HEENT: Atraumatic, PERRLA, EOMI, Normocephalic Oral: No Gingival or Mucosal Lesions/ Ulcerations Neck: Supple, No JVD, Negative Carotid Bruits Lungs: Air entry diminished in bilateral lung bases. No crepitation/rhonchi Cardiovascular: Occasional PVC and NSVT. Regular rate, Regular Rhythm, Normal S1, Normal S2, No murmurs Abdomen: Bowel Sounds Present, Soft, Non Tender, Non-Distended : No renal angle tenderness. No suprapubic tenderness. Extremities: No edema, Capillary Refill Less than 3 Seconds Skin: No rashes, No breakdown Musculoskeletal: No Tenderness to Palpation of Joints or Extremities Neurological: Cranial nerves II-XII grossly intact, Deep Tendon Reflexes 2+/4 and Symmetrical, Neuro grossly intact Psych/Mental Status: Normal Affect, Appropriate. Vitals/I&O's: Vital Signs Temp Pulse Resp BP Pulse Ox 97.9 F 94 19 H 114/68 95 03/26/20 06:57 03/26/20 06:57 03/26/20 06:57 03/26/20 06:57 03/26/20 07:00 Oxygen Flow Rate (L/min) 2 Oxygen Delivery Method Room Air Weight: 226 lb 13.69 oz Body Mass Index (BMI) 28.3 Finger Stick Blood Glucose 159 Intake and Output for Last 24 Hours 03/24/20 03/25/20 03/26/20 23:59 23:59 23:59 Intake Total 662.55 / 662.55 2545 / 2545 755 / 755 Output Total 800 / 800 150 / 150 Balance -137.45 / -137.45 2545 / 2545 605 / 605 Microbiology Past 72 Hours 03/24/20 12:30 Blood Culture (Wb) - Anticubital Left Bacteria Detection (PCR) - Final Staphylococcus epidermidis 03/24/20 12:30 Blood Culture (Wb) - Anticubital Left Blood Culture - Preliminary Staphylococcus epidermidis 03/24/20 15:30 Mucosa - Nose Respiratory Panel (PCR) - Final 03/24/20 16:28 Urine Catheter - Catheter Legionella Antigen - Final 03/24/20 16:28 Urine Catheter - Catheter Streptococcus pneumoniae Antigen (M - Final Laboratory Results 03/25/20 12:01: POC Glucose 147 H 03/25/20 15:57: POC Glucose 221 H 03/25/20 21:06: POC Glucose 136 H 03/26/20 05:30: WBC 10.7, RBC 4.42 L, Hgb 13.9, Hct 43.1, MCV 97.5 H, MCH 31.4, MCHC 32.3, RDW Std Deviation 49.1 H, RDW Coeff of [place] 13.6, Plt Count 181, MPV 11.4 03/26/20 05:30: Sodium 147 H, Potassium 4.0, Chloride 118 H, Carbon Dioxide 23.0, Anion Gap 6, BUN 40 H, Creatinine 1.26, Estim Creat Clear Calc 55.61, Est GFR (MDRD) Af Amer 72, Est GFR (MDRD) Non-Af 60, BUN/Creatinine Ratio 31.7 H, Glucose 124 H, Calcium 8.9, Total Bilirubin 0.90, AST 12 L, ALT 12 L, Alkaline Phosphatase 63, Total Protein 6.2 L, Albumin 3.1 L, Globulin 3.1, Albumin/Globul in Ratio 1.0 03/26/20 06:52: POC Glucose 117 H Current Medications Acetaminophen (Acetaminophen 325 Mg Tablet) 650 mg PO Q6H PRN PRN PRN Reason: Pain Score 1-10/Temp > 100.7 F Last Admin: 03/25/20 21:08 Dose: 650 mg Documented by: Al Hydroxide/Mg Hydroxide (Mag Hydrox/Al Hydrox/Simeth 30 Ml Udc) 30 ml PO Q6H PRN PRN PRN Reason: Gastric Burning Albuterol Sulfate (Albuterol Sulfate 8 Gm Inhaler (60 Puffs)) 4 - 8 puff INHALATION Q4H PRN PRN PRN Reason: Dyspnea, wheezing Albuterol Sulfate (Albuterol Sulfate 8 Gm Inhaler (60 Puffs)) 2 puff INHALATION BID [facility] Last Admin: 03/25/20 21:09 Dose: 2 puff Documented by: Aspirin (Aspirin 81 Mg Tab.Chew) 81 mg PO DAILY [facility] Last Admin: 03/25/20 08:38 Dose: 81 mg Documented by: Atorvastatin Calcium (Atorvastatin Calcium 20 Mg Tablet) 20 mg PO QHS [facility] Last Admin: 03/25/20 21:08 Dose: 20 mg Documented by: Cyanocobalamin (Cyanocobalamin 500 Mcg Tablet) 500 mcg PO DAILY@0800 [facility] Dexamethasone Sodium Phosphate (Dexamethasone 4 Mg/Ml Vial) 6 mg IV DAILY [facility] Last Admin: 03/25/20 08:37 Dose: 6 mg Documented by: Dextrose (Dextrose 50%-Water 25 Gm/50 Ml Disp.Syrin) 0 gm IV X1 PRN; Protocol PRN Reason: Hypoglycemia Last Admin: 03/24/20 18:11 Dose: 25 gm Documented by: Gabapentin (Gabapentin 600 Mg Tablet) 600 mg PO DAILY [facility] Glucagon (Glucagon 1 Mg/Ml Syringe) 1 mg IM .X1 PRN PRN Reason: Hypoglycemia Guaifenesin (Guaifenesin 10 Ml Udc (200mg/10ml)) 10 ml PO Q4H PRN PRN PRN Reason: COUGH Hydralazine HCl (Hydralazine 20 Mg/Ml Vial) 10 mg IV Q4H PRN PRN PRN Reason: SBP > 160 Remdesivir 100 mg/ Sodium (Chloride) 250 mls @ 125 mls/hr IV DAILY [facility]; Protocol Stop: 03/29/20 11:59 Insulin Human Lispro (Insulin Lispro 100 Unit/Ml Insuln.Pen) 0 unit SC ACHS [facility]; Protocol Last Admin: 03/26/20 06:58 Dose: Not Given Documented by: Lisinopril (Lisinopril 2.5 Mg Tablet) 2.5 mg PO DAILY [facility] Melatonin (Melatonin 10 Mg Tablet) 10 mg PO QHS PRN PRN PRN Reason: insomnia Metoprolol Tartrate (Metoprolol Tartrate 50 Mg Tablet) 50 mg PO BID [facility] Last Admin: 03/25/20 21:08 Dose: 50 mg Documented by: Nitroglycerin (Nitroglycerin (Inpatient Use) 0.4 Mg Tab.Subl) 0.4 mg SUBLINGUAL Q5M PRN PRN Reason: CARDIAC/CHEST PAIN Non-Formulary Medication (Tiotropium [place]) 1 inh INHALATION DAILY [facility] Quetiapine Fumarate (Quetiapine 25 Mg Tablet) 50 mg PO BID [facility] Sodium Chloride (0.9% Saline Lock 10 Ml Syringe) 10 - 40 ml IV UD PRN PRN Reason: SALINE FLUSH Throat Lozenges (Benzocaine/Menthol 1 Lozenge) 1 lozenge MUCOUS MEM Q2H PRN PRN PRN Reason: SORE THROAT STROKE Vital Signs/Narrative: Vital Signs Temp Pulse Resp BP Pulse Ox 03/26/20 07:00 95 03/26/20 06:57 97.9 F 94 19 H 114/68 95 Medical Necessity - Tobacco Use Smoking Status: Former smoker Tobacco Use: Cigars Assessment/Plan All Active Problems (Last Reviewed 12/13/19 @ 15:[address] Usman Aaron MD) Encephalopathy acute (Acute) Hypoxia (Acute) Pneumonia (Acute) Cardiac enzymes elevated (Acute) Bacteremia due to Gram-negative bacteria (Acute) COVID-19 virus infection (Acute) Hypoxia (Acute) ANA (acute kidney injury) (Acute) Hyperkalemia (Acute) Hyperkalemia (Acute) Dyspnea on exertion (Resolved) The patient is a 74 y/o M PMHx with multiple comorbidities as listed above was admitted with generalized weakness, failure to thrive and malaise. He was tested positive COVID-19 about 6 days prior to presentation on 03/25. 1. Acute hypoxic respiratory insufficiency secondary to COVID-19 infection: Patient was admitted to ICU COVID-19 cohort unit. Overnight patient oxygenation improved and currently on room air. Patient uses BiPAP home regimen for DENISA. Patient was on 30% FiO2 last night. On IV Decadron. Seen by ID and started on remdesivir. Monitor electrolytes, kidney function and liver test. Urinary antigens are negative. Respiratory panel negative. Blood cultures x2 and urine culture pending. Patient hemodynamically found appropriate for transfer to [facility] floor Covid unit. 2. Hyperkalemia: Admission K+ 7.4. Patient was given kalemia cocktail yesterday. Subsequent potassium is getting better. Most recent 5.6. Hyperkalemia corrected. Prolongation of QTC: EKG shows ventricular paced rhythm. On 03/24 it was QTC 418 ms. 03/25 500 ms, today 533 ms. Patient also has pacemaker therefore mild expected prolonged QTC is expected. Avoid QTC prolonging medication. Haldol and Seroquel discontinued. K4.0, magnesium 1.7. 2 g IV magnesium sulfate given. Serum phosphorus 2.9. Paroxetine for tomorrow a.m. as it has lowest QTC prolongation effect. Trazodone low-dose as needed for agitation or insomnia. 3. Acute kidney injury on CKD stage II most likely secondary to COVID-19 infection/ATN: Admission BUN/Cr 67/2.58, prior baseline creatinine noted to be 0.9-1.2. Conservative management with holding nephrotoxic medications and serial follow-up kidney function electrolytes. BUN/creatinine improving trend. 4. Indeterminate cardiac enzyme: Serial troponins are flat and indeterminate troponin 0 0.096, 0.096 and 0.102. Patient denies any chest pain. EKG showed no evidence of ischemia paced rhythm. Magnesium level 2.4. 5. 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 fib, history of complete heart block status post permanent pacemaker and hypertension: Continue metoprolol and statin. INR supratherapeutic therefore Coumadin on hold. Lisinopril, spironolactone on hold due to ANA with hyperkalemia. Last echo on 10/10/2019 showed EF 29%, mildly dilated RV, severely dilated LA, moderately dilated RA, moderate 2+ MR, 14 bioprosthetic aortic valve with mild to moderate perivalvular regurg, moderate TR, mild to moderate [place], RVSP 60 mmHg 6. Dyslipidemia: Continue home statin regimen. 7. Diabetes mellitus type II: Hold oral home regimen, ADA diet, accu checks w/ ISS. Patient as noted is being started on Decadron therefore may need to increase insulin sliding scale. 8. PVD: Continue aspirin. Rest and discharge chronic control of diabetes and hypertension. 9. Asthma/COPD overlap syndrome : Tinea scheduled inhaler and as needed albuterol. 10. Obesity: Weight loss and lifestyle changes encouraged. 11. DENISA: BIPAP q HS. DVT Prophylaxis: SCDs, INR supratherapeutic. Vitamin K 5 mg IV given Total time of the visit including total time spent in counseling or coordination of care, (more than 50% of the total time, spent in obtaining medical information from nurses and other ancillary care providers,explaining to the patient about labs, imaging, diagnosis and management), , review of labs and imaging is 30 minutes. Inpatient E&M: 01132 Subs Hosp L2
[2020-03-26] MEDS: proMETHazine 25 MG/ML Syringe 12.5 MG IV (09:25)
[2020-03-26] MEDS: 0.9% Saline Lock 10 ML Syringe IV (09:27)
--- NOTE | 2020-03-26 09:27 | EKG12_ITS ---
Test Reason : MORNING EKG Blood Pressure : / mmHG Vent. Rate : 077 BPM Atrial Rate : 100 BPM P-R Int : 000 ms QRS Dur : 204 ms QT Int : 452 ms P-R-T Axes : 000 -82 098 degrees QTc Int : 511 ms Electronic ventricular pacemaker with occasional PVC's Confirmed by KAYE MCBRIDE, ELVIRA ([id number]), material expeditor RICARDO LUND ([id number]) on 04/03/2020 8:52:58 AM Referred By: JANETTE Confirmed By:ELVIRA RESTREPO MD
[2020-03-26 09:35] LABS: Prothrombin Time (Protime)PT. 48.4 SECONDS (11.7-14.9)
--- NOTE | 2020-03-26 09:44 | NURSING ---
PT WAS ATTEMPTING TO CLIMB OUT OF BED. STAFF RESPONDED, PT BECOMING MORE AGITATED AND SWINGING AT STAFF. DR SAVAGE NOTIFIED AND ORDERS RECEIVED SCHEDULED WELL NOW ORDER FOR HALDOL AND PHENERGAN. WHILE PT WAS STANDING AT BEDSIDE HE WENT INTO VTA. DR SAVAGE NOTIFIED, HALDOL HELD, STAT EKG AND LABS ORDERED. DR SAVAGE REVIEWED, PT WILL RECEIVE 2GM MG IV, HALDOL DC'D AND SEROQUEL CHANGED FROM SCHEDULED TO PRN AT LOWER DOSE. CORPORATE SALES TRAINER WAS NOTIFIED DURING ALL THIS AND PT CURRENTLY HAS SITTER AT BEDSIDE. PT NOT COOPERATING AND TAKING MEDS.
[2020-03-26 09:46] LABS: International Normalized Ratio 5.3
[2020-03-26 09:47] LABS: Magnesium 1.7 mg/dL (1.6-2.6); Phosphorus 2.9 mg/dL (2.5-4.9)
[2020-03-26] MEDS: dexAMETHasone 4 MG/ML Vial 6 MG IV (09:53)
[2020-03-26] MEDS: QUEtiapine 25 MG Tablet PO (10:01)
[2020-03-26] MEDS: Albuterol Sulfate 8 gm Inhaler (60 puffs) 2 PUFF INHALATION ×2 (10:12→20:32)
[2020-03-26 13:25] LABS: Bedside Glucose 140 mg/dL (70-110)
--- NOTE | 2020-03-26 14:44 | CASEMGMT ---
Social Work Phone call placed to pt son Adeel to discuss discharge plan. Adeel does not feel he can provide 24 hour care for pt at this time. Per pt son, prior to illness pt was able to care for himself and was alert and oriented. Son stating pt had pneumonia in December and become weaker and confused but was able to recover from that. Per nursing notes, pt is currently confused and agitated. Discussed SNF placement and pt son feels pt would need SNF with plan that pt would receive rehab and eventually be able to return home with son. [facility] is in network and accepting Covid pt. Pt son agreeable to [facility]. Phone call to [facility] and they have no beds available. Phone call to other facilities in network with pt insurance to determine if they would consider pt as his positive Covid dx was 03/13 at PCP's office. The following facilities would consider pt: [facility] 3. [facility] 4. [facility] SW will touch base with pt son closer to time of discharge and assist with SNF placement. RITA Saab
[2020-03-26] MEDS: Insulin Lispro 100 UNIT/ML INSULN.PEN SC ×2 (15:28→20:37)
--- NOTE | 2020-03-26 15:37 | PCM.PN.ID ---
Patient Problems: Active and Suspected Problems (Last Reviewed 12/13/19 @ 15:[address] Usman Aaron MD) Cardiac enzymes elevated (Acute) COVID-19 virus infection (Acute) Hypoxia (Acute) ANA (acute kidney injury) (Acute) Hyperkalemia (Acute) Subjective: Resting comfortably, no fever - Physical Exam Vitals/I&O's: Vital Signs Temp Pulse Resp BP Pulse Ox 97 F L 99 16 132/86 H 93 03/26/20 15:30 03/26/20 15:30 03/26/20 15:30 03/26/20 15:30 03/26/20 15:30 Oxygen Flow Rate (L/min) 2 Oxygen Delivery Method Room Air Weight: 102.9 kg Body Mass Index (BMI) 28.3 Finger Stick Blood Glucose 159 Intake and Output for Last 24 Hours 03/24/20 03/25/20 03/26/20 23:59 23:59 23:59 Intake Total 662.55 / 662.55 2545 / 2545 1159.5 / 1159.5 Output Total 800 / 800 150 / 150 Balance -137.45 / -137.45 2545 / 2545 1009.5 / 1009.5 General: Cooperative, No apparent distress Lungs: Diminished Cardiovascular: Regular rate, Regular Rhythm Abdomen: Soft, Non Tender, Non-Distended Skin: No rashes Microbiology Past 72 Hours 03/24/20 12:15 Blood Culture (Wb) - Anticubital Right Blood Culture - Preliminary No growth in 48 hours. 03/24/20 16:28 Urine, Catheterized Urine Culture - Preliminary Culture exhibits no growth. 03/24/20 12:30 Blood Culture (Wb) - Anticubital Left Bacteria Detection (PCR) - Final Staphylococcus epidermidis 03/24/20 12:30 Blood Culture (Wb) - Anticubital Left Blood Culture - Preliminary Staphylococcus epidermidis 03/24/20 15:30 Mucosa - Nose Respiratory Panel (PCR) - Final 03/24/20 16:28 Urine Catheter - Catheter Legionella Antigen - Final 03/24/20 16:28 Urine Catheter - Catheter Streptococcus pneumoniae Antigen (M - Final Laboratory Results 03/25/20 15:57: POC Glucose 221 H 03/25/20 21:06: POC Glucose 136 H 03/26/20 05:30: WBC 10.7, RBC 4.42 L, Hgb 13.9, Hct 43.1, MCV 97.5 H, MCH 31.4, MCHC 32.3, RDW Std Deviation 49.1 H, RDW Coeff of [place] 13.6, Plt Count 181, MPV 11.4 03/26/20 05:30: Sodium 147 H, Potassium 4.0, Chloride 118 H, Carbon Dioxide 23.0, Anion Gap 6, BUN 40 H, Creatinine 1.26, Estim Creat Clear Calc 55.61, Est GFR (MDRD) Af Amer 72, Est GFR (MDRD) Non-Af 60, BUN/Creatinine Ratio 31.7 H, Glucose 124 H, Calcium 8.9, Total Bilirubin 0.90, AST 12 L, ALT 12 L, Alkaline Phosphatase 63, Total Protein 6.2 L, Albumin 3.1 L, Globulin 3.1, Albumin/Globulin Ratio 1.0 03/26/20 05:30: PT 48.4 H, INR 5.3 H* 03/26/20 05:30: Phosphorus 2.9, Magnesium 1.7 03/26/20 06:52: POC Glucose 117 H 03/26/20 11:32: POC Glucose 140 H Current Medications Acetaminophen (Acetaminophen 325 Mg Tablet) 650 mg PO Q6H PRN PRN PRN Reason: Pain Score 1-10/Temp > 100.7 F Last Admin: 03/25/20 21:08 Dose: 650 mg Documented by: Al Hydroxide/Mg Hydroxide (Mag Hydrox/Al Hydrox/Simeth 30 Ml Udc) 30 ml PO Q6H PRN PRN PRN Reason: Gastric Burning Albuterol Sulfate (Albuterol Sulfate 8 Gm Inhaler (60 Puffs)) 4 - 8 puff INHALATION Q4H PRN PRN PRN Reason: Dyspnea, wheezing Albuterol Sulfate (Albuterol Sulfate 8 Gm Inhaler (60 Puffs)) 2 puff INHALATION BID [facility] Last Admin: 03/26/20 10:12 Dose: 2 puff Documented by: Aspirin (Aspirin 81 Mg Tab.Chew) 81 mg PO DAILY [facility] Last Admin: 03/26/20 11:26 Dose: Not Given Documented by: Atorvastatin Calcium (Atorvastatin Calcium 20 Mg Tablet) 20 mg PO QHS [facility] Last Admin: 03/25/20 21:08 Dose: 20 mg Documented by: Cyanocobalamin (Cyanocobalamin 500 Mcg Tablet) 500 mcg PO DAILY@0800 [facility] Dexamethasone (Dexamethasone 4 Mg Tablet) 6 mg PO DAILY [facility] Stop: 04/02/20 10:01 Dextrose (Dextrose 50%-Water 25 Gm/50 Ml Disp.Syrin) 0 gm IV X1 PRN; Protocol PRN Reason: Hypoglycemia Last Admin: 03/24/20 18:11 Dose: 25 gm Documented by: Gabapentin (Gabapentin 600 Mg Tablet) 600 mg PO DAILY [facility] Last Admin: 03/26/20 11:27 Dose: Not Given Documented by: Glucagon (Glucagon 1 Mg/Ml Syringe) 1 mg IM .X1 PRN PRN Reason: Hypoglycemia Guaifenesin (Guaifenesin 10 Ml Udc (200mg/10ml)) 10 ml PO Q4H PRN PRN PRN Reason: COUGH Hydralazine HCl (Hydralazine 20 Mg/Ml Vial) 10 mg IV Q4H PRN PRN PRN Reason: SBP > 160 Remdesivir 100 mg/ Sodium (Chloride) 250 mls @ 125 mls/hr IV DAILY [facility]; Protocol Stop: 03/29/20 11:59 Last Infusion: 03/26/20 12:12 Dose: Infused Documented by: Insulin Human Lispro (Insulin Lispro 100 Unit/Ml Insuln.Pen) 0 unit SC ACHS [facility]; Protocol Last Admin: 03/26/20 15:28 Dose: 2 u Documented by: Lisinopril (Lisinopril 2.5 Mg Tablet) 2.5 mg PO DAILY [facility] Last Admin: 03/26/20 11:27 Dose: Not Given Documented by: Melatonin (Melatonin 10 Mg Tablet) 10 mg PO QHS [facility] Metoprolol Tartrate (Metoprolol Tartrate 50 Mg Tablet) 50 mg PO BID [facility] Last Admin: 03/26/20 11:26 Dose: Not Given Documented by: Nitroglycerin (Nitroglycerin (Inpatient Use) 0.4 Mg Tab.Subl) 0.4 mg SUBLINGUAL Q5M PRN PRN Reason: CARDIAC/CHEST PAIN Paroxetine HCl (Paroxetine 20 Mg Tablet) 20 mg PO DAILY [facility] Sodium Chloride (0.9% Saline Lock 10 Ml Syringe) 10 - 40 ml IV UD PRN PRN Reason: SALINE FLUSH Last Admin: 03/26/20 09:27 Dose: 10 ml Documented by: Throat Lozenges (Benzocaine/Menthol 1 Lozenge) 1 lozenge MUCOUS MEM Q2H PRN PRN PRN Reason: SORE THROAT Trazodone HCl (Trazodone 50 Mg Tablet) 50 mg PO QHS PRN PRN Reason: Agitation/insomnia Umeclidinium [place] (Umeclidinium [place] Inhaler) 1 puff INHALATION DAILY [facility] Last Admin: 03/26/20 11:26 Dose: Not Given Documented by: Medical Necessity - Tobacco Use Smoking Status: Former smoker Tobacco Use: Cigars Route of nutrition/ use of supplements: [] Nutritional Intake: [] IV Site: [] [place] Catheter: [] - Assessment/Plan Antibiotics: [] Assessment/Plan: [] Active and Suspected Problems (Last Reviewed 12/13/19 @ 15:[address] Usman Aaron MD) Cardiac enzymes elevated (Acute) COVID-19 virus infection (Acute) Hypoxia (Acute) ANA (acute kidney injury) (Acute) Hyperkalemia (Acute) covid with hypoxia, ANA, d-dimer 1.6, INR 7 on admit - ANA improved, on dex and remdesivir. Will follow
[2020-03-26 16:06] LABS: Bedside Glucose 210 mg/dL (70-110)
--- NOTE | 2020-03-26 16:25 | NURSING ---
ARVIND MELO, WHO WORKS IN [employer] IS TAKING PTS PHONE HOME TO CHARGE
[2020-03-26] MEDS: MELATONIN 10 MG TABLET PO (20:30)
[2020-03-26] MEDS: Metoprolol Tartrate 50 MG Tablet PO (20:30)
[2020-03-26] MEDS: Atorvastatin Calcium 20 MG Tablet PO (20:39)
[2020-03-26] MEDS: traZODone 50 MG Tablet PO (20:47)
[2020-03-26 22:35] LABS: Bedside Glucose 221 mg/dL (70-110)
[2020-03-27] VITALS (11 sets, daily range): BP systolic 129–158; BP diastolic 85–95; PULSE 66–99; RESP 18–20; TEMP 36.2–36.6; O2SAT 93–96
[2020-03-27] MEDS: 0.9% Saline Lock 10 ML Syringe IV (04:37)
[2020-03-27] MEDS: LORazepam 2 MG/ML Syringe IV (04:37)
[2020-03-27 06:14] LABS: Hematocrit 41.8 % (40-54); Hemoglobin 13.6 g/dL (13.0-16.5); Mean Corp Hgb Conc 32.5 g/dL (32-36); Mean Corpuscular Hgb 31.3 pg (27.0-32.0); Mean Corpuscular Volume 96.3 fL (80-94); Mean Platelet Vol. 11.4 fl (6.2-12.0); Platelet Count 192 K/mm3 (150-450); RBC Distribution Width CV 13.4 % (11.6-14.6); RBC Distribution Width SD 47.8 fl (35.1-43.9); Red Blood Count 4.34 M/mm3 (4.6-6.2); White Blood Count 10.2 K/mm3 (4.4-11.0)
[2020-03-27 06:24] LABS: International Normalized Ratio 1.6; Prothrombin Time (Protime)PT. 18.6 SECONDS (11.7-14.9)
[2020-03-27 06:26] LABS: Bedside Glucose 149 mg/dL (70-110)
[2020-03-27 07:05] LABS: ALB/GLOB Ratio 0.9 RATIO (0.9-2.4); AST(SGOT) 13 U/L (15-37); Alanine Aminotransfer ALT/SGPT 11 U/L (16-61); Albumin, Serum 3.1 g/dL (3.2-5.0); Alkaline Phosphatase 64 U/L (45-117); Anion Gap 10 (5-15); BUN 34 mg/dL (7-18); BUN/Creat Ratio 30.6 RATIO (10-20); Calcium,Total 8.9 mg/dL (8.5-10.1); Chloride 117 mmol/L (98-107); Creatinine, Serum 1.11 mg/dL (0.70-1.30); EST Glomerular Filtration Rate 69 mL/min (>60); Est Glom Filt Rate - Afr Amer 83 mL/min (>60); Estimated Creatinine Clearance 63.13 ml/min; Globulin 3.4 g/dL (2.2-4.2); Glucose 148 mg/dL (74-106); Potassium 3.9 mmol/L (3.5-5.1); Protein, Total 6.5 g/dL (6.4-8.2); Sodium Level 148 mmol/L (136-145)
[2020-03-27 08:29] LABS: Vitamin B12 367 pg/mL (211-911)
[2020-03-27] MEDS: Cyanocobalamin 500 MCG Tablet PO (08:43)
[2020-03-27] MEDS: Aspirin 81 MG TAB.CHEW PO (08:43)
[2020-03-27] MEDS: Metoprolol Tartrate 50 MG Tablet PO ×2 (08:44→21:17)
[2020-03-27] MEDS: Gabapentin 600 MG Tablet PO (08:44)
[2020-03-27] MEDS: Lisinopril 2.5 MG Tablet PO (08:44)
[2020-03-27] MEDS: dexAMETHasone 4 MG Tablet 6 MG PO (08:44)
[2020-03-27] MEDS: Paroxetine 20 MG Tablet PO (08:46)
--- NOTE | 2020-03-27 09:46 | EKG12_ITS ---
Test Reason : Blood Pressure : / mmHG Vent. Rate : 092 BPM Atrial Rate : 111 BPM P-R Int : 000 ms QRS Dur : 210 ms QT Int : 428 ms P-R-T Axes : 000 -82 092 degrees QTc Int : 529 ms Electronic ventricular pacemaker Confirmed by KAYE MCBRIDE, ELVIRA ([id number]), editorial manager RICARDO LUND ([id number]) on 04/03/2020 8:56:06 AM Referred By: FISH Confirmed By:ELVIRA RESTREPO MD
--- NOTE | 2020-03-27 11:12 | CASEMGMT ---
Addendum entered by Karine Appiah 03/27/20 13:57: Social Work Return call from [facility] and they are able to accept pt when he is medically ready. Meass[place] left for son Adeel updating that facility can accept. [facility]. RITA Saab Original Note: Social Work Phone call placed to pt son to discuss d/c plans. SW provided names of facilities that would possibly accept pt including [facility], [facility], [facility], [facility], and [facility]. Sons first choice is [facility] and second choice is [facility]. VM left with Leena at [facility] and referral faxed. SW will await determination if pt can be accepted. RITA Saab
[2020-03-27 11:56] LABS: Bedside Glucose 154 mg/dL (70-110)
[2020-03-27] MEDS: Insulin Lispro 100 UNIT/ML INSULN.PEN SC ×3 (12:13→21:15)
--- NOTE | 2020-03-27 13:06 | PCM.PN.HOSP ---
Patient Problems: Active and Suspected Problems (Last Reviewed 12/13/19 @ 15:[address] Usman Aaron MD) Cardiac enzymes elevated (Acute) COVID-19 virus infection (Acute) Hypoxia (Acute) AAN (acute kidney injury) (Acute) Hyperkalemia (Acute) Reason for Visit: Acute encephalopathy on baseline dementia along with COVID-19 infection Objective: Patient was restless and agitated last night and was given Ativan 2 mg IV. Patient also had trazodone 50 mg at night. Patient is confused, disoriented. Sometimes he closed eyes. No fever or chills. Pulse ox 93% on room air Physical exam General: Confused, restless, at times agitated. Disoriented HEENT: Atraumatic, PERRLA, EOMI, Normocephalic Oral: No Gingival or Mucosal Lesions/ Ulcerations Neck: Supple, No JVD, Negative Carotid Bruits Lungs: Air entry diminished in bilateral lung bases. No crepitation/rhonchi Cardiovascular: Regular rate, Regular Rhythm, Normal S1, Normal S2, No murmurs Abdomen: Bowel Sounds Present, Soft, Non Tender, Non-Distended : No renal angle tenderness. No suprapubic tenderness. Extremities: No edema, Capillary Refill Less than 3 Seconds Skin: No rashes, No breakdown Musculoskeletal: No Tenderness to Palpation of Joints or Extremities Neurological: Cranial nerves II-XII grossly intact, Deep Tendon Reflexes 2+/4 and Symmetrical, Neuro grossly intact Psych/Mental Status: Normal Affect, Appropriate. Vitals/I&O's: Vital Signs Temp Pulse Resp BP Pulse Ox 97.1 F L 96 20 H 129/85 H 93 03/27/20 08:35 03/27/20 08:44 03/27/20 08:35 03/27/20 08:35 03/27/20 08:35 Oxygen Flow Rate (L/min) 2 Oxygen Delivery Method Room Air Weight: 225 lb 12.054 oz Body Mass Index (BMI) 28.3 Finger Stick Blood Glucose 159 Intake and Output for Last 24 Hours 03/25/20 03/26/20 03/27/20 23:59 23:59 23:59 Intake Total 2545 / 2545 1559.5 / 1559.5 Output Total 250 / 250 Balance 2545 / 2545 1309.5 / 1309.5 Microbiology Past 72 Hours 03/24/20 16:28 Urine, Catheterized Urine Culture - Final Culture exhibits no growth. 03/24/20 12:15 Blood Culture (Wb) - Anticubital Right Blood Culture - Preliminary No growth in 48 hours. 03/24/20 12:30 Blood Culture (Wb) - Anticubital Left Bacteria Detection (PCR) - Final Staphylococcus epidermidis 03/24/20 12:30 Blood Culture (Wb) - Anticubital Left Blood Culture - Preliminary Staphylococcus epidermidis 03/24/20 15:30 Mucosa - Nose Respiratory Panel (PCR) - Final 03/24/20 16:28 Urine Catheter - Catheter Legionella Antigen - Final 03/24/20 16:28 Urine Catheter - Catheter Streptococcus pneumoniae Antigen (M - Final Laboratory Results 03/26/20 11:32: POC Glucose 140 H 03/26/20 15:23: POC Glucose 210 H 03/26/20 20:36: POC Glucose 221 H 03/27/20 04:56: WBC 10.2, RBC 4.34 L, Hgb 13.6, Hct 41.8, MCV 96.3 H, MCH 31.3, MCHC 32.5, RDW Std Deviation 47.8 H, RDW Coeff of [place] 13.4, Plt Count 192, MPV 11.4 03/27/20 04:56: Sodium 148 H, Potassium 3.9, Chloride 117 H, Carbon Dioxide 21.0, Anion Gap 10, BUN 34 H, Creatinine 1.11, Estim Creat Clear Calc 63.13, Est GFR (MDRD) Af Amer 83, Est GFR (MDRD) Non-Af 69, BUN/Creatinine Ratio 30.6 H, Glucose 148 H, Calcium 8.9, Total Bilirubin 1.40 H, AST 13 L, ALT 11 L, Alkaline Phosphatase 64, Total Protein 6.5, Albumin 3.1 L, Globulin 3.4, Albumin/Globulin Ratio 0.9, Folate 9.00 03/27/20 04:56: Vitamin B12 367 03/27/20 04:56: PT 18.6 H, INR 1.6 03/27/20 05:59: POC Glucose 149 H 03/27/20 11:29: POC Glucose 154 H Current Medications Acetaminophen (Acetaminophen 325 Mg Tablet) 650 mg PO Q6H PRN PRN PRN Reason: Pain Score 1-10/Temp > 100.7 F Last Admin: 03/25/20 21:08 Dose: 650 mg Documented by: Al Hydroxide/Mg Hydroxide (Mag Hydrox/Al Hydrox/Simeth 30 Ml Udc) 30 ml PO Q6H PRN PRN PRN Reason: Gastric Burning Albuterol Sulfate (Albuterol Sulfate 8 Gm Inhaler (60 Puffs)) 4 - 8 puff INHALATION Q4H PRN PRN PRN Reason: Dyspnea, wheezing Albuterol Sulfate (Albuterol Sulfate 8 Gm Inhaler (60 Puffs)) 2 puff INHALATION BID [facility] Last Admin: 03/27/20 11:59 Dose: Not Given Documented by: Aspirin (Aspirin 81 Mg Tab.Chew) 81 mg PO DAILY [facility] Last Admin: 03/27/20 08:43 Dose: 81 mg Documented by: Atorvastatin Calcium (Atorvastatin Calcium 20 Mg Tablet) 20 mg PO QHS [facility] Last Admin: 03/26/20 20:39 Dose: 20 mg Documented by: Cyanocobalamin (Cyanocobalamin 500 Mcg Tablet) 500 mcg PO DAILY [facility] Last Admin: 03/27/20 08:43 Dose: 500 mcg Documented by: Dexamethasone (Dexamethasone 4 Mg Tablet) 6 mg PO DAILY [facility] Stop: 04/02/20 10:01 Last Admin: 03/27/20 08:44 Dose: 6 mg Documented by: Dextrose (Dextrose 50%-Water 25 Gm/50 Ml Disp.Syrin) 0 gm IV X1 PRN; Protocol PRN Reason: Hypoglycemia Last Admin: 03/24/20 18:11 Dose: 25 gm Documented by: Gabapentin (Gabapentin 600 Mg Tablet) 600 mg PO DAILY [facility] Last Admin: 03/27/20 08:44 Dose: 600 mg Documented by: Glucagon (Glucagon 1 Mg/Ml Syringe) 1 mg IM .X1 PRN PRN Reason: Hypoglycemia Guaifenesin (Guaifenesin 10 Ml Udc (200mg/10ml)) 10 ml PO Q4H PRN PRN PRN Reason: COUGH Hydralazine HCl (Hydralazine 20 Mg/Ml Vial) 10 mg IV Q4H PRN PRN PRN Reason: SBP > 160 Remdesivir 100 mg/ Sodium (Chloride) 250 mls @ 125 mls/hr IV DAILY [facility]; Protocol Stop: 03/29/20 11:59 Last Admin: 03/27/20 11:00 Dose: 125 mls/hr Documented by: Insulin Human Lispro (Insulin Lispro 100 Unit/Ml Insuln.Pen) 0 unit SC ACHS [facility]; Protocol Last Admin: 03/27/20 12:13 Dose: 1 u Documented by: Lisinopril (Lisinopril 2.5 Mg Tablet) 2.5 mg PO DAILY [facility] Last Admin: 03/27/20 08:44 Dose: 2.5 mg Documented by: Melatonin (Melatonin 10 Mg Tablet) 10 mg PO QHS [facility] Last Admin: 03/26/20 20:30 Dose: 10 mg Documented by: Metoprolol Tartrate (Metoprolol Tartrate 50 Mg Tablet) 50 mg PO BID [facility] Last Admin: 03/27/20 08:44 Dose: 50 mg Documented by: Nitroglycerin (Nitroglycerin (Inpatient Use) 0.4 Mg Tab.Subl) 0.4 mg SUBLINGUAL Q5M PRN PRN Reason: CARDIAC/CHEST PAIN Paroxetine HCl (Paroxetine 20 Mg Tablet) 20 mg PO DAILY [facility] Last Admin: 03/27/20 08:46 Dose: 20 mg Documented by: Sodium Chloride (0.9% Saline Lock 10 Ml Syringe) 10 - 40 ml IV UD PRN PRN Reason: SALINE FLUSH Last Admin: 03/27/20 04:37 Dose: 20 ml Documented by: Throat Lozenges (Benzocaine/Menthol 1 Lozenge) 1 lozenge MUCOUS MEM Q2H PRN PRN PRN Reason: SORE THROAT Trazodone HCl (Trazodone 50 Mg Tablet) 50 mg PO BID [facility] Last Admin: 03/27/20 11:02 Dose: Not Given Documented by: Umeclidinium [place] (Umeclidinium [place] Inhaler) 1 puff INHALATION DAILY [facility] Last Admin: 03/27/20 11:57 Dose: Not Given Documented by: Medical Necessity - Tobacco Use Smoking Status: Former smoker Tobacco Use: Cigars Assessment/Plan All Active Problems (Last Reviewed 12/13/19 @ 15:[address] Usman Aaron MD) Encephalopathy acute (Acute) Hypoxia (Acute) Pneumonia (Acute) Cardiac enzymes elevated (Acute) Bacteremia due to Gram-negative bacteria (Acute) COVID-19 virus infection (Acute) Hypoxia (Acute) ANA (acute kidney injury) (Acute) Hyperkalemia (Acute) Hyperkalemia (Acute) Dyspnea on exertion (Resolved) The patient is a 74 y/o M PMHx with multiple comorbidities as listed above was admitted with generalized weakness, failure to thrive and malaise. He was tested positive COVID-19 about 6 days prior to presentation on 03/25. 1. Acute hypoxic respiratory insufficiency secondary to COVID-19 infection: Patient was admitted to ICU COVID-19 cohort unit. Overnight patient oxygenation improved and currently on room air. Patient uses BiPAP home regimen for DENISA. Patient was on 30% FiO2 last night. On IV Decadron. Seen by ID and started on remdesivir. Monitor electrolytes, kidney function and liver test. Urinary antigens are negative. Respiratory panel negative. Blood cultures x2 and urine culture pending. [facility] 2. Hyperkalemia: Admission K+ 7.4. Patient was given kalemia cocktail yesterday. Subsequent potassium is getting better. Most recent 5.6. Hyperkalemia corrected. Acute encephalopathy on baseline dementia probably related to COVID-19 infection/metabolic: on 03/26: 03/26: Patient has QTC prolongation and had 14 beats of NSVT. EKG shows ventricular paced rhythm. On 03/24 it was QTC 418 ms. 03/25 500 ms, 03/26 533 ms. Patient also has pacemaker therefore mild expected prolonged QTC is expected. 03/27: Repeat EKG shows improvement in QTC prolongation QTc interval 529 ms. On paroxetine as this 1 one the least QT prolonging effect and trazodone. Patient is also on gabapentin 600 mg dinner and 900 mg nightly. Avoid QTC prolonging medication. Haldol and Seroquel discontinued. Magnesium 1.7 and she had 2 g IV mag sulfate given. 3. Acute kidney injury on CKD stage II most likely secondary to COVID-19 infection/ATN: Admission BUN/Cr 67/2.58, prior baseline creatinine noted to be 0.9-1.2. Conservative management with holding nephrotoxic medications and serial follow-up kidney function electrolytes. BUN/creatinine improving trend. 4. Indeterminate cardiac enzyme: Serial troponins are flat and indeterminate troponin 0 0.096, 0.096 and 0.102. Patient denies any chest pain. EKG showed no evidence of ischemia paced rhythm. Magnesium level 2.4. 5. 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 fib, history of complete heart block status post permanent pacemaker and hypertension: Continue metoprolol and statin. INR supratherapeutic therefore Coumadin on hold. Lisinopril, spironolactone on hold due to ANA with hyperkalemia. Last echo on 10/10/2019 showed EF 29%, mildly dilated RV, severely dilated LA, moderately dilated RA, moderate 2+ MR, 14 bioprosthetic aortic valve with mild to moderate perivalvular regurg, moderate TR, mild to moderate TN, RVSP 60 mmHg 6. Dyslipidemia: Continue home statin regimen. 7. Diabetes mellitus type II: Hold oral home regimen, ADA diet, accu checks w/ ISS. Patient as noted is being started on Decadron therefore may need to increase insulin sliding scale. 8. PVD: Continue aspirin. Rest and discharge chronic control of diabetes and hypertension. 9. Asthma/COPD overlap syndrome : Tinea scheduled inhaler and as needed albuterol. 10. Obesity: Weight loss and lifestyle changes encouraged. 11. DENISA: BIPAP q HS. DVT Prophylaxis: SCDs, INR 1.6. Resume Coumadin. Total time of the visit including total time spent in counseling or coordination of care, (more than 50% of the total time, spent in obtaining medical information from nurses and other ancillary care providers,explaining to the patient about labs, imaging, diagnosis and management), , review of labs and imaging is 30 minutes. Clinical Impression(s) from Imaging Studies Chest X-Ray 03/24/20 12:10 IMPRESSION: Borderline cardiomegaly and mild degree of vascular congestion. Microbiology Past 72 Hours 03/24/20 16:28 Urine, Catheterized Urine Culture - Final Culture exhibits no growth. 03/24/20 12:15 Blood Culture (Wb) - Anticubital Right Blood Culture - Preliminary No growth in 48 hours. 03/24/20 12:30 Blood Culture (Wb) - Anticubital Left Bacteria Detection (PCR) - Final Staphylococcus epidermidis 03/24/20 12:30 Blood Culture (Wb) - Anticubital Left Blood Culture - Preliminary Staphylococcus epidermidis 03/24/20 15:30 Mucosa - Nose Respiratory Panel (PCR) - Final 03/24/20 16:28 Urine Catheter - Catheter Legionella Antigen - Final 03/24/20 16:28 Urine Catheter - Catheter Streptococcus pneumoniae Antigen (M - Final Laboratory Results 03/26/20 15:23: POC Glucose 210 H 03/26/20 20:36: POC Glucose 221 H 03/27/20 04:56: WBC 10.2, RBC 4.34 L, Hgb 13.6, Hct 41.8, MCV 96.3 H, MCH 31.3, MCHC 32.5, RDW Std Deviation 47.8 H, RDW Coeff of [place] 13.4, Plt Count 192, MPV 11.4 03/27/20 04:56: Sodium 148 H, Potassium 3.9, Chloride 117 H, Carbon Dioxide 21.0, Anion Gap 10, BUN 34 H, Creatinine 1.11, Estim Creat Clear Calc 63.13, Est GFR (MDRD) Af Amer 83, Est GFR (MDRD) Non-Af 69, BUN/Creatinine Ratio 30.6 H, Glucose 148 H, Calcium 8.9, Total Bilirubin 1.40 H, AST 13 L, ALT 11 L, Alkaline Phosphatase 64, Total Protein 6.5, Albumin 3.1 L, Globulin 3.4, Albumin/Globulin Ratio 0.9, Folate 9.00 03/27/20 04:56: Vitamin B12 367 03/27/20 04:56: PT 18.6 H, INR 1.6 03/27/20 05:59: POC Glucose 149 H 03/27/20 11:29: POC Glucose 154 H Inpatient E&M: 66737 Subs Hosp L2
[2020-03-27] MEDS: Albuterol Sulfate 8 gm Inhaler (60 puffs) 2 PUFF INHALATION (21:16)
[2020-03-27] MEDS: traZODone 50 MG Tablet PO (21:17)
[2020-03-27] MEDS: Gabapentin 800 MG Tablet PO (21:17)
[2020-03-27] MEDS: MELATONIN 10 MG TABLET PO (21:18)
[2020-03-27] MEDS: Atorvastatin Calcium 20 MG Tablet PO (21:18)
[2020-03-27 21:36] LABS: Bedside Glucose 180 mg/dL (70-110)
[2020-03-27 21:46] LABS: Bedside Glucose 169 mg/dL (70-110)
--- NOTE | 2020-03-27 23:45 | CPS ---
pt refused BIPAP
[2020-03-28] VITALS (10 sets, daily range): BP systolic 108–160; BP diastolic 62–104; PULSE 69–92; RESP 17–20; TEMP 36.4–36.6; O2SAT 91–96
--- NOTE | 2020-03-28 05:55 | EKG12_ITS ---
Test Reason : VTACH Blood Pressure : / mmHG Vent. Rate : 096 BPM Atrial Rate : 074 BPM P-R Int : 000 ms QRS Dur : 164 ms QT Int : 422 ms P-R-T Axes : 000 -83 099 degrees QTc Int : 533 ms Electronic ventricular pacemaker Confirmed by KAYE MCBRIDE, ELVRIA ([id number]), technical editor RICARDO ULND ([id number]) on 04/03/2020 8:57:06 AM Referred By: JANETTE Confirmed By:ELVIRA RESTREPO MD
[2020-03-28 06:30] LABS: Bedside Glucose 149 mg/dL (70-110)
[2020-03-28 07:13] LABS: Hematocrit 46.2 % (40-54); Mean Corp Hgb Conc 32.5 g/dL (32-36); Mean Corpuscular Hgb 31.4 pg (27.0-32.0); Mean Corpuscular Volume 96.7 fL (80-94); Mean Platelet Vol. 11.8 fl (6.2-12.0); Platelet Count 211 K/mm3 (150-450); RBC Distribution Width CV 13.2 % (11.6-14.6); RBC Distribution Width SD 47.7 fl (35.1-43.9); Red Blood Count 4.78 M/mm3 (4.6-6.2); White Blood Count 11.1 K/mm3 (4.4-11.0)
[2020-03-28 07:36] LABS: International Normalized Ratio 1.4; Prothrombin Time (Protime)PT. 16.2 SECONDS (11.7-14.9)
[2020-03-28 07:43] LABS: AST(SGOT) 14 U/L (15-37); Alanine Aminotransfer ALT/SGPT 13 U/L (16-61); Albumin, Serum 3.3 g/dL (3.2-5.0); Alkaline Phosphatase 60 U/L (45-117); Anion Gap 8 (5-15); BUN 35 mg/dL (7-18); BUN/Creat Ratio 30.2 RATIO (10-20); Calcium,Total 9.2 mg/dL (8.5-10.1); Chloride 117 mmol/L (98-107); Creatinine, Serum 1.16 mg/dL (0.70-1.30); EST Glomerular Filtration Rate 65 mL/min (>60); Est Glom Filt Rate - Afr Amer 79 mL/min (>60); Estimated Creatinine Clearance 60.41 ml/min; Globulin 3.4 g/dL (2.2-4.2); Glucose 144 mg/dL (74-106); Potassium 4.1 mmol/L (3.5-5.1); Protein, Total 6.7 g/dL (6.4-8.2); Sodium Level 148 mmol/L (136-145)
--- NOTE | 2020-03-28 08:30 | NURSING ---
RN responded to tele alarm and observed patient on monitor. RN went to bedside. Pt completely naked, hanging out of bed, telemetry had been d/cd by patient. RN attempted to reorient patient and got patient redressed. Pt is confused and combative. Refused all meds. Spitting out the crushed med and applesauce mixture. ok'd dc of tele and notified about pts worsening mental status awaiting order.
--- NOTE | 2020-03-28 08:53 | NURSING ---
Pt not keeping his Telemonitor on, agitated. Wont take his scheduled medication. Dr. Cehn aware of both.
--- NOTE | 2020-03-28 10:31 | NURSING ---
Pt swinging at RN. Refusing to allow blood stick to check blood sugar. Holding mds awaiting MD orders
--- NOTE | 2020-03-28 10:56 | CASEMGMT ---
Social Work Per nursing, pt is agitated and combative this morning and not taking medications. SW placed call to Leena at [facility] to inquired if they can accept pt on this date. [facility] is still able to accept pt however, they would prefer pt not come today due to behaviors. Nursing and physician updated. If pt behaviors improve tomorrow pt can discharge to [facility]. [id number] form completed in [facility] system. Phone call to pt son and updated that pt will not be discharged today but that [facility] is able to accept. Plan: [facility], when pt behaviors improve RITA Saab
[2020-03-28] MEDS: Haloperidol Lactate 5 MG/ML Vial 2 MG IM (11:13)
[2020-03-28] MEDS: proMETHazine 25 MG/ML Syringe 12.5 MG IV (11:18)
--- NOTE | 2020-03-28 11:51 | NURSING ---
Pt to CT for scan
--- NOTE | 2020-03-28 11:55 | CT_ITS ---
STUDY: CT BRAIN WITHOUT CONTRAST REASON FOR EXAM: Male, 74 years old. +COVID. ALTERED MENTAL STATUS. CONFUSED AND WEAKNESS. RADIATION DOSAGE (If Supplied By Facility): CTDIvol = ( 44.99 ) mGy, DLP = ( 897.35 ) mGycm TECHNIQUE: Transaxial CT imaging of the brain was performed without administration of intravenous contrast material. Individualized dose optimization techniques were used for this CT. COMPARISON: Comparison is made with prior study dated 12/18/2019. FINDINGS: Normal soft tissue structures. Normal calvarium. There is moderate cerebral atrophy with widening of the extra-axial spaces and ventricular dilatation. There are areas of decreased attenuation within the white matter tracts of the supratentorial brain, consistent with microvascular disease changes. Normal basal ganglia and thalami. Normal brainstem. Normal cerebellum. There is no intracranial hemorrhage. There are no findings of an acute ischemic infarction. Dense calcification of the vertebral arteries and cavernous portions of the internal carotid arteries bilaterally. Partial opacification of the right maxillary sinus. Stable opacification of the left mastoid air cells. CT/Brain/Head without Contrast IMPRESSION: Chronic involutional changes of the brain. Partial opacification of the right maxillary sinus and stable opacification of the left mastoid air cells. Electronically Signed: Kenyon Cross, at 12:18 EST , Service support ,
--- NOTE | 2020-03-28 14:09 | PN_ITS ---
Patient Problems: Active and Suspected Problems (Last Reviewed 12/13/19 @ 15:[address] Usman Aaron MD) Cardiac enzymes elevated (Acute) COVID-19 virus infection (Acute) Hypoxia (Acute) ANA (acute kidney injury) (Acute) Hyperkalemia (Acute) Reason for Visit: Follow-up for altered mental status, COVID-19 pneumonia Objective: Patient is still confused, restless and trying to get out of the bed. CT head ordered. Physical exam General: Confused, restless, does not follow command. Noncommunicative dis oriented HEENT: Atraumatic, PERRLA, EOMI, Normocephalic Oral: No Gingival or Mucosal Lesions/ Ulcerations Neck: Supple, No JVD, Negative Carotid Bruits Lungs: Air entry diminished in bilateral lung bases. No crepitation/rhonchi Cardiovascular: Regular rate, Regular Rhythm, Normal S1, Normal S2, No murmurs Abdomen: Bowel Sounds Present, Soft, Non Tender, Non-Distended : No renal angle tenderness. No suprapubic tenderness. Extremities: No edema, Capillary Refill Less than 3 Seconds Skin: No rashes, No breakdown Musculoskeletal: No Tenderness to Palpation of Joints or Extremities Neurological: Cranial nerves II-XII grossly intact, Deep Tendon Reflexes 2+/4 and Symmetrical, Neuro grossly intact Psych/Mental Status: Restless. Vitals/I&O's: Vital Signs Temp Pulse Resp BP Pulse Ox 97.8 F 88 17 160/104 H 91 03/28/20 08:28 03/28/20 08:28 03/28/20 08:28 03/28/20 08:28 03/28/20 08:28 Oxygen Flow Rate (L/min) 2 Oxygen Delivery Method Room Air Weight: 225 lb 3 oz Body Mass Index (BMI) 28.3 Finger Stick Blood Glucose 159 Intake and Output for Last 24 Hours 03/26/20 03/27/20 03/28/20 23:59 23:59 23:59 Intake Total 1559.5 / 1559.5 720 / 720 Output Total 250 / 250 2 / 2 Balance 1309.5 / 1309.5 720 / 720 -2 / -2 Microbiology Past 72 Hours 03/24/20 16:28 Urine, Catheterized Urine Culture - Final Culture exhibits no growth. 03/24/20 12:15 Blood Culture (Wb) - Anticubital Right Blood Culture - Preliminary No growth in 48 hours. 03/24/20 12:30 Blood Culture (Wb) - Anticubital Left Bacteria Detection (PCR) - Final Staphylococcus epidermidis 03/24/20 12:30 Blood Culture (Wb) - Anticubital Left Blood Culture - Preliminary Staphylococcus epidermidis Laboratory Results 03/27/20 16:45: POC Glucose 180 H 03/27/20 21:14: POC Glucose 169 H 03/28/20 05:40: WBC 11.1 H, RBC 4.78, Hgb 15.0, Hct 46.2, MCV 96.7 H, MCH 31.4, MCHC 32.5, RDW Std Deviation 47.7 H, RDW Coeff of [place] 13.2, Plt Count 211, MPV 11.8 03/28/20 05:40: Sodium 148 H, Potassium 4.1, Chloride 117 H, Carbon Dioxide 23.0, Anion Gap 8, BUN 35 H, Creatinine 1.16, Estim Creat Clear Calc 60.41, Est GFR (MDRD) Af Amer 79, Est GFR (MDRD) Non-Af 65, BUN/Creatinine Ratio 30.2 H, Glucose 144 H, Calcium 9.2, Total Bilirubin 1.30 H, AST 14 L, ALT 13 L, Alkaline Phosphatase 60, Total Protein 6.7, Albumin 3.3, Globulin 3.4, Albumin/Globulin Ratio 1.0 03/28/20 05:40: PT 16.2 H, INR 1.4 03/28/20 05:59: POC Glucose 149 H 03/28/20 11:45: Ammonia 31.0 Current Medications Acetaminophen (Acetaminophen 325 Mg Tablet) 650 mg PO Q6H PRN PRN PRN Reason: Pain Score 1-10/Temp > 100.7 F Last Admin: 03/25/20 21:08 Dose: 650 mg Documented by: Al Hydroxide/Mg Hydroxide (Mag Hydrox/Al Hydrox/Simeth 30 Ml Udc) 30 ml PO Q6H PRN PRN PRN Reason: Gastric Burning Albuterol Sulfate (Albuterol Sulfate 8 Gm Inhaler (60 Puffs)) 4 - 8 puff INHALATION Q4H PRN PRN PRN Reason: Dyspnea, wheezing Albuterol Sulfate (Albuterol Sulfate 8 Gm Inhaler (60 Puffs)) 2 puff INHALATION BID SAM Last Admin: 03/28/20 08:53 Dose: Not Given Documented by: Aspirin (Aspirin 81 Mg Tab.Chew) 81 mg PO DAILY [facility] Last Admin: 03/28/20 08:52 Dose: Not Given Documented by: Atorvastatin Calcium (Atorvastatin Calcium 20 Mg Tablet) 20 mg PO QHS [facility] Last Admin: 03/27/20 21:18 Dose: 20 mg Documented by: Cyanocobalamin (Cyanocobalamin 500 Mcg Tablet) 500 mcg PO DAILY [facility] Last Admin: 03/28/20 08:53 Dose: Not Given Documented by: Dexamethasone (Dexamethasone 4 Mg Tablet) 6 mg PO DAILY [facility] Stop: 04/02/20 10:01 Last Admin: 03/28/20 08:52 Dose: Not Given Documented by: Dextrose (Dextrose 50%-Water 25 Gm/50 Ml Disp.Syrin) 0 gm IV X1 PRN; Protocol PRN Reason: Hypoglycemia Last Admin: 03/24/20 18:11 Dose: 25 gm Documented by: Gabapentin (Gabapentin 600 Mg Tablet) 600 mg PO DAILY [facility] Last Admin: 03/28/20 08:53 Dose: Not Given Documented by: Gabapentin (Gabapentin 800 Mg Tablet) 800 mg PO QHS [facility] Last Admin: 03/27/20 21:17 Dose: 800 mg Documented by: Glucagon (Glucagon 1 Mg/Ml Syringe) 1 mg IM .X1 PRN PRN Reason: Hypoglycemia Guaifenesin (Guaifenesin 10 Ml Udc (200mg/10ml)) 10 ml PO Q4H PRN PRN PRN Reason: COUGH Hydralazine HCl (Hydralazine 20 Mg/Ml Vial) 10 mg IV Q4H PRN PRN PRN Reason: SBP > 160 Remdesivir 100 mg/ Sodium (Chloride) 250 mls @ 125 mls/hr IV DAILY [facility]; Protocol Stop: 03/29/20 11:59 Last Admin: 03/28/20 10:29 Dose: Not Given Documented by: Insulin Human Lispro (Insulin Lispro 100 Unit/Ml Insuln.Pen) 0 unit SC [facility]; Protocol Last Admin: 03/28/20 10:32 Dose: Not Given Documented by: Lisinopril (Lisinopril 2.5 Mg Tablet) 2.5 mg PO DAILY [facility] Last Admin: 03/28/20 08:53 Dose: Not Given Documented by: Lorazepam (Lorazepam 2 Mg/Ml Syringe) 0.5 mg IV Q6H PRN PRN PRN Reason: severe agitation Melatonin (Melatonin 10 Mg Tablet) 10 mg PO QHS [facility] Last Admin: 03/27/20 21:18 Dose: 10 mg Documented by: Metoprolol Tartrate (Metoprolol Tartrate 50 Mg Tablet) 50 mg PO BID [facility] Last Admin: 03/28/20 08:52 Dose: Not Given Documented by: Nitroglycerin (Nitroglycerin (Inpatient Use) 0.4 Mg Tab.Subl) 0.4 mg SUBLINGUAL Q5M PRN PRN Reason: CARDIAC/CHEST PAIN Paroxetine HCl (Paroxetine 20 Mg Tablet) 20 mg PO DAILY [facility] Last Admin: 03/28/20 08:53 Dose: Not Given Documented by: Sodium Chloride (0.9% Saline Lock 10 Ml Syringe) 10 - 40 ml IV UD PRN PRN Reason: SALINE FLUSH Last Admin: 03/27/20 04:37 Dose: 20 ml Documented by: Throat Lozenges (Benzocaine/Menthol 1 Lozenge) 1 lozenge MUCOUS MEM Q2H PRN PRN PRN Reason: SORE THROAT Trazodone HCl (Trazodone 50 Mg Tablet) 50 mg PO BID [facility] Last Admin: 03/28/20 08:52 Dose: Not Given Documented by: Umeclidinium [place] (Umeclidinium [place] Inhaler) 1 puff INHALATION DAILY [facility] Last Admin: 03/28/20 08:52 Dose: Not Given Documented by: Warfarin Sodium (Warfarin 5 Mg Tablet) 5 mg PO DAILY@1700 [facility] Last Admin: 03/27/20 16:49 Dose: 5 mg Documented by: Medical Necessity - Tobacco Use Smoking Status: Former smoker Tobacco Use: Cigars Assessment/Plan All Active Problems (Last Reviewed 12/13/19 @ 15:[address] Usman Aaron MD) Encephalopathy acute (Acute) Hypoxia (Acute) Pneumonia (Acute) Cardiac enzymes elevated (Acute) Bacteremia due to Gram-negative bacteria (Acute) COVID-19 virus infection (Acute) Hypoxia (Acute) ANA (acute kidney injury) (Acute) Hyperkalemia (Acute) Hyperkalemia (Acute) Dyspnea on exertion (Resolved) The patient is a 74 y/o M PMHx with multiple comorbidities as listed above was admitted with generalized weakness, failure to thrive and malaise. He was tested positive COVID-19 about 6 days prior to presentation on 03/25. 1. Acute hypoxic respiratory insufficiency secondary to COVID-19 infection: Patient was admitted to ICU COVID-19 cohort unit. Overnight patient oxygenation improved and currently on room air. Patient uses BiPAP home regimen for DENISA. Patient was on 30% FiO2 last night. On IV Decadron. Seen by ID and started on remdesivir. Monitor electrolytes, kidney function and liver test. Urinary antigens are negative. Respiratory panel negative. Blood cultures x2 and urine culture pending. Patient hemodynamically found appropriate for transfer to [facility] floor Covid unit. 03/28: Pulse ox is 91% on room air 2. Hyperkalemia: Admission K+ 7.4. Patient was given kalemia cocktail yest erday. Subsequent potassium is getting better. Most recent 5.6. Hyperkalemia corrected. Acute encephalopathy on baseline dementia probably related to COVID-19 infection/metabolic: on 03/26: 03/26: Patient has QTC prolongation and had 14 beats of NSVT. EKG shows ventricular paced rhythm. On 03/24 it was QTC 418 ms. 03/25 500 ms, 03/26 533 ms. Patient also has pacemaker therefore mild expected prolonged QTC is expected. 03/27: Repeat EKG shows improvement in QTC prolongation QTc interval 529 ms. On paroxetine as this 1 one the least QT prolonging effect and trazodone. Patient is also on gabapentin 600 mg dinner and 900 mg nightly. Avoid QTC prolonging medication. Haldol and Seroquel discontinued. Magnesium 1.7 and she had 2 g IV mag sulfate given. 03/28: Repeat EKG shows QTc interval 513 ms. Nursing staff discussed with the patient's daughter. Altered mental status is recent onset and patient was walking and semiindependent in recent past. CT head ordered which did not show acute abnormality. Patient on Paxil and trazodone. Ativan 0.5 mg IV every 6 hourly as needed for severe agitation although we will try to avoid as much as possible. 3. Acute kidney injury on CKD stage II most likely secondary to COVID-19 infection/ATN: Admission BUN/Cr 67/2.58, prior baseline creatinine noted to be 0.9-1.2. Conservative management with holding nephrotoxic medications and serial follow-up kidney function electrolytes. BUN/creatinine improving trend. 03/28: ANA resolved. 4. Indeterminate cardiac enzyme: Serial troponins are flat and indeterminate troponin 0 0.096, 0.096 and 0.102. Patient denies any chest pain. EKG showed no evidence of ischemia paced rhythm. Magnesium level 2.4. 5. 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 fib, history of complete heart block status post permanent pacemaker and hypertension: Continue metoprolol and statin. INR supratherapeutic therefore Coumadin on hold. Lisinopril, spironolactone on hold due to ANA with hyperkalemia. Last echo on 10/10/2019 showed EF 29%, mildly di lated RV, severely dilated LA, moderately dilated RA, moderate 2+ MR, 14 bioprosthetic aortic valve with mild to moderate perivalvular regurg, moderate TR, mild to moderate IN, RVSP 60 mmHg 03/28: INR is still subtherapeutic 1.4. Coumadin was resumed on 03/27. Lovenox 1 mg/kg body weight 1 dose for bridging. 6. Dyslipidemia: Continue home statin regimen. 7. Diabetes mellitus type II: Hold oral home regimen, ADA diet, accu checks w/ ISS. Patient as noted is being started on Decadron therefore may need to increase insulin sliding scale. 8. PVD: Continue aspirin. Rest and discharge chronic control of diabetes and hypertension. 9. Asthma/COPD overlap syndrome : Tinea scheduled inhaler and as needed albuterol. 10. Obesity: Weight loss and lifestyle changes encouraged. 11. DENISA: BIPAP q HS. DVT Prophylaxis: SCDs, as mentioned above. On Coumadin Total time of the visit including total time spent in counseling or coordination of care, (more than 50% of the total time, spent in obtaining medical information from nurses and other ancillary care providers,explaining to the patient about labs, imaging, diagnosis and management), , review of labs and imaging is 30 minutes. Clinical Impression(s) from Imaging Studies Chest X-Ray 03/24/20 12:10 IMPRESSION: Borderline cardiomegaly and mild degree of vascular congestion. Microbiology Past 72 Hours 03/24/20 16:28 Urine, Catheterized Urine Culture - Final Culture exhibits no growth. 03/24/20 12:15 Blood Culture (Wb) - Anticubital Right Blood Culture - Preliminary No growth in 48 hours. 03/24/20 12:30 Blood Culture (Wb) - Anticubital Left Bacteria Detection (PCR) - Final Staphylococcus epidermidis 03/24/20 12:30 Blood Culture (Wb) - Anticubital Left Blood Culture - Preliminary Staphylococcus epidermidis Laboratory Results 03/27/20 16:45: POC Glucose 180 H 03/27/20 21:14: POC Glucose 169 H 03/28/20 05:40: WBC 11.1 H, RBC 4.78, Hgb 15.0, Hct 46.2, MCV 96.7 H, MCH 31.4, MCHC 32.5, RDW Std Deviation 47.7 H, RDW Coeff of [place] 13.2, Plt Count 211, MPV 11.8 03/28/20 05:40: Sodium 148 H, Potassium 4.1, Chloride 117 H, Carbon Dioxide 23.0, Anion Gap 8, BUN 35 H, Creatinine 1.16, Estim Creat Clear Calc 60.41, Est GFR (MDRD) Af Amer 79, Est GFR (MDRD) Non-Af 65, BUN/Creatinine Ratio 30.2 H, Glucose 144 H, Calcium 9.2, Total Bilirubin 1.30 H, AST 14 L, ALT 13 L, Alkaline Phosphatase 60, Total Protein 6.7, Albumin 3.3, Globulin 3.4, Albumin/Globulin Ratio 1.0 03/28/20 05:40: PT 16.2 H, INR 1.4 03/28/20 05:59: POC Glucose 149 H 03/28/20 11:45: Ammonia 31.0 Inpatient E&M: 55688 Subs Hosp L2
[2020-03-28] MEDS: Enoxaparin 100 MG/ML Syringe SC (15:25)
[2020-03-28] MEDS: Insulin Lispro 100 UNIT/ML INSULN.PEN SC (15:26)
[2020-03-28] MEDS: LORazepam 2 MG/ML Syringe 0.5 MG IV (15:27)
--- NOTE | 2020-03-28 15:51 | PN.ID_ITS ---
Patient Problems: Active and Suspected Problems (Last Reviewed 12/13/19 @ 15:[address] Usman Aaron MD) Cardiac enzymes elevated (Acute) COVID-19 virus infection (Acute) Hypoxia (Acute) ANA (acute kidney injury) (Acute) Hyperkalemia (Acute) Subjective: Sleeping, no fever, intermittent agitation per staff. - Physical Exam Vitals/I&O's: Vital Signs Temp Pulse Resp BP Pulse Ox 97.6 F L 90 20 H 145/88 H 91 03/28/20 15:24 03/28/20 15:24 03/28/20 15:24 03/28/20 15:24 03/28/20 15:24 Oxygen Flow Rate (L/min) 2 Oxygen Delivery Method Room Air Weight: 102.143 kg Body Mass Index (BMI) 28.3 Finger Stick Blood Glucose 159 Intake and Output for Last 24 Hours 03/26/20 03/27/20 03/28/20 23:59 23:59 23:59 Intake Total 1559.5 / 1559.5 720 / 720 Output Total 250 / 250 2 / 2 Balance 1309.5 / 1309.5 720 / 720 -2 / -2 General: Lethargic, Non-Cooperative Lungs: Diminished Cardiovascular: Regular rate, Regular Rhythm Abdomen: Soft, Non Tender, Non-Distended Skin: No rashes Microbiology Past 72 Hours 03/24/20 16:28 Urine, Catheterized Urine Culture - Final Culture exhibits no growth. 03/24/20 12:15 Blood Culture (Wb) - Anticubital Right Blood Culture - Preliminary No growth in 48 hours. 03/24/20 12:30 Blood Culture (Wb) - Anticubital Left Bacteria Detection (PCR) - Final Staphylococcus epidermidis 03/24/20 12:30 Blood Culture (Wb) - Anticubital Left Blood Culture - Preliminary Staphylococcus epidermidis Laboratory Results 03/27/20 16:45: POC Glucose 180 H 03/27/20 21:14: POC Glucose 169 H 03/28/20 05:40: WBC 11.1 H, RBC 4.78, Hgb 15.0, Hct 46.2, MCV 96.7 H, MCH 31.4, MCHC 32.5, RDW Std Deviation 47.7 H, RDW Coeff of [place] 13.2, Plt Count 211, MPV 11.8 03/28/20 05:40: Sodium 148 H, Potassium 4.1, Chloride 117 H, Carbon Dioxide 23.0, Anion Gap 8, BUN 35 H, Creatinine 1.16, Estim Creat Clear Calc 60.41, Est GFR (MDRD) Af Amer 79, Est GFR (MDRD) Non-Af 65, BUN/Creatinine Ratio 30.2 H, Glucose 144 H, Calcium 9.2, Total Bilirubin 1.30 H, AST 14 L, ALT 13 L, Alkaline Phosphatase 60, Total Protein 6.7, Albumin 3.3, Globulin 3.4, Albumin/Globulin Ratio 1.0 03/28/20 05:40: PT 16.2 H, INR 1.4 03/28/20 05:59: POC Glucose 149 H 03/28/20 11:45: Ammonia 31.0 Current Medications Acetaminophen (Acetaminophen 325 Mg Tablet) 650 mg PO Q6H PRN PRN PRN Reason: Pain Score 1-10/Temp > 100.7 F Last Admin: 03/25/20 21:08 Dose: 650 mg Documented by: Al Hydroxide/Mg Hydroxide (Mag Hydrox/Al Hydrox/Simeth 30 Ml Udc) 30 ml PO Q6H PRN PRN PRN Reason: Gastric Burning Albuterol Sulfate (Albuterol Sulfate 8 Gm Inhaler (60 Puffs)) 4 - 8 puff INHALATION Q4H PRN PRN PRN Reason: Dyspnea, wheezing Albuterol Sulfate (Albuterol Sulfate 8 Gm Inhaler (60 Puffs)) 2 puff INHALATION BID [facility] Last Admin: 03/28/20 08:53 Dose: Not Given Documented by: Aspirin (Aspirin 81 Mg Tab.Chew) 81 mg PO DAILY [facility] Last Admin: 03/28/20 08:52 Dose: Not Given Documented by: Atorvastatin Calcium (Atorvastatin Calcium 20 Mg Tablet) 20 mg PO QHS [facility] Last Admin: 03/27/20 21:18 Dose: 20 mg Documented by: Cyanocobalamin (Cyanocobalamin 500 Mcg Tablet) 500 mcg PO DAILY [facility] Last Admin: 03/28/20 08:53 Dose: Not Given Documented by: Dexamethasone (Dexamethasone 4 Mg Tablet) 6 mg PO DAILY [facility] Stop: 04/02/20 10:01 Last Admin: 03/28/20 08:52 Dose: Not Given Documented by: Dextrose (Dextrose 50%-Water 25 Gm/50 Ml Disp.Syrin) 0 gm IV X1 PRN; Protocol PRN Reason: Hypoglycemia Last Admin: 03/24/20 18:11 Dose: 25 gm Documented by: Gabapentin (Gabapentin 600 Mg Tablet) 600 mg PO DAILY [facility] Last Admin: 03/28/20 08:53 Dose: Not Given Documented by: Gabapentin (Gabapentin 800 Mg Tablet) 800 mg PO QHS [facility] Last Admin: 03/27/20 21:17 Dose: 800 mg Documented by: Glucagon (Glucagon 1 Mg/Ml Syringe) 1 mg IM .X1 PRN PRN Reason: Hypoglycemia Guaifenesin (Guaifenesin 10 Ml Udc (200mg/10ml)) 10 ml PO Q4H PRN PRN PRN Reason: COUGH Hydralazine HCl (Hydralazine 20 Mg/Ml Vial) 10 mg IV Q4H PRN PRN PRN Reason: SBP > 160 Remdesivir 100 mg/ Sodium (Chloride) 250 mls @ 125 mls/hr IV DAILY [facility]; Protocol Stop: 03/30/20 11:59 Insulin Human Lispro (Insulin Lispro 100 Unit/Ml Insuln.Pen) 0 unit SC ACHS [facility]; Protocol Last Admin: 03/28/20 15:26 Dose: 1 u Documented by: Lisinopril (Lisinopril 2.5 Mg Tablet) 2.5 mg PO DAILY [facility] Last Admin: 03/28/20 08:53 Dose: Not Given Documented by: Lorazepam (Lorazepam 2 Mg/Ml Syringe) 0.5 mg IV Q6H PRN PRN PRN Reason: severe agitation Last Admin: 03/28/20 15:27 Dose: 0.5 mg Documented by: Melatonin (Melatonin 10 Mg Tablet) 10 mg PO QHS [facility] Last Admin: 03/27/20 21:18 Dose: 10 mg Documented by: Metoprolol Tartrate (Metoprolol Tartrate 50 Mg Tablet) 50 mg PO BID [facility] Last Admin: 03/28/20 08:52 Dose: Not Given Documented by: Nitroglycerin (Nitroglycerin (Inpatient Use) 0.4 Mg Tab.Subl) 0.4 mg SUBLINGUAL Q5M PRN PRN Reason: CARDIAC/CHEST PAIN Paroxetine HCl (Paroxetine 20 Mg Tablet) 20 mg PO DAILY [facility] Last Admin: 03/28/20 08:53 Dose: Not Given Documented by: Sodium Chloride (0.9% Saline Lock 10 Ml Syringe) 10 - 40 ml IV UD PRN PRN Reason: SALINE FLUSH Last Admin: 03/27/20 04:37 Dose: 20 ml Documented by: Throat Lozenges (Benzocaine/Menthol 1 Lozenge) 1 lozenge MUCOUS MEM Q2H PRN PRN PRN Reason: SORE THROAT Trazodone HCl (Trazodone 50 Mg Tablet) 50 mg PO BID [facility] Last Admin: 03/28/20 08:52 Dose: Not Given Documented by: Umeclidinium [place] (Umeclidinium [place] Inhaler) 1 puff INHALATION DAILY [facility] Last Admin: 03/28/20 08:52 Dose: Not Given Documented by: Warfarin Sodium (Warfarin 5 Mg Tablet) 5 mg PO DAILY@1700 [facility] Last Admin: 03/28/20 15:06 Dose: Not Given Documented by: Medical Necessity - Tobacco Use Smoking Status: Former smoker Tobacco Use: Cigars Route of nutrition/ use of supplements: [] Nutritional Intake: [] IV Site: [] [place] Catheter: [] - Assessment/Plan Antibiotics: [] Assessment/Plan: [] Active and Suspected Problems (Last Reviewed 12/13/19 @ 15:[address] Usman Aaron MD) Cardiac enzymes elevated (Acute) COVID-19 virus infection (Acute) Hypoxia (Acute) ANA (acute kidney injury) (Acute) Hyperkalemia (Acute) covid with hypoxia, ANA, d-dimer 1.6, INR 7 on admit - ANA improved, on dex and remdesivir. Coumadin restarted. Will follow
[2020-03-28 16:06] LABS: Bedside Glucose 171 mg/dL (70-110)
--- NOTE | 2020-03-28 20:32 | NURSING ---
covid emergency charting in effect.
[2020-03-28] MEDS: Gabapentin 800 MG Tablet PO (22:27)
[2020-03-28] MEDS: Metoprolol Tartrate 50 MG Tablet PO (22:27)
[2020-03-28] MEDS: MELATONIN 10 MG TABLET PO (22:27)
[2020-03-28] MEDS: Atorvastatin Calcium 20 MG Tablet PO (22:27)
[2020-03-28] MEDS: traZODone 50 MG Tablet PO (22:27)
[2020-03-28 22:50] LABS: Bedside Glucose 145 mg/dL (70-110)
[2020-03-29 04:05] VITALS: BP 146/95; PULSE 74; RESP 18; TEMP 36.3; O2SAT 95
[2020-03-29 07:11] LABS: Bedside Glucose 139 mg/dL (70-110)
[2020-03-29 08:16] VITALS: BP 157/85; PULSE 63; RESP 18; TEMP 36.4; O2SAT 94
[2020-03-29 08:17] VITALS: BP 157/85; PULSE 63
[2020-03-29] MEDS: traZODone 50 MG Tablet PO (08:17)
[2020-03-29] MEDS: Metoprolol Tartrate 50 MG Tablet PO (08:17)
[2020-03-29] MEDS: Cyanocobalamin 500 MCG Tablet PO (08:17)
[2020-03-29] MEDS: Lisinopril 2.5 MG Tablet PO (08:18)
[2020-03-29] MEDS: Gabapentin 600 MG Tablet PO (08:18)
[2020-03-29] MEDS: Aspirin 81 MG TAB.CHEW PO (08:18)
[2020-03-29] MEDS: dexAMETHasone 4 MG Tablet 6 MG PO (08:18)
[2020-03-29 08:19] LABS: Hematocrit 46.4 % (40-54); Hemoglobin 15.3 g/dL (13.0-16.5); Mean Corpuscular Hgb 32.1 pg (27.0-32.0); Mean Corpuscular Volume 97.3 fL (80-94); Mean Platelet Vol. 12.3 fl (6.2-12.0); Platelet Count 211 K/mm3 (150-450); RBC Distribution Width CV 13.3 % (11.6-14.6); Red Blood Count 4.77 M/mm3 (4.6-6.2); White Blood Count 10.6 K/mm3 (4.4-11.0)
[2020-03-29] MEDS: Paroxetine 20 MG Tablet PO (08:19)
[2020-03-29 08:46] LABS: ALB/GLOB Ratio 0.9 RATIO (0.9-2.4); AST(SGOT) 18 U/L (15-37); Alanine Aminotransfer ALT/SGPT 16 U/L (16-61); Albumin, Serum 3.3 g/dL (3.2-5.0); Alkaline Phosphatase 62 U/L (45-117); Anion Gap 8 (5-15); BUN 46 mg/dL (7-18); BUN/Creat Ratio 34.3 RATIO (10-20); Calcium,Total 9.5 mg/dL (8.5-10.1); Chloride 124 mmol/L (98-107); Creatinine, Serum 1.34 mg/dL (0.70-1.30); EST Glomerular Filtration Rate 55 mL/min (>60); Est Glom Filt Rate - Afr Amer 67 mL/min (>60); Estimated Creatinine Clearance 52.29 ml/min; Globulin 3.8 g/dL (2.2-4.2); Glucose 154 mg/dL (74-106); Potassium 3.9 mmol/L (3.5-5.1); Protein, Total 7.1 g/dL (6.4-8.2); Sodium Level 154 mmol/L (136-145)
[2020-03-29 08:49] LABS: International Normalized Ratio 1.6
--- NOTE | 2020-03-29 09:38 | PCM.PN.HOSP ---
Patient Problems: Active and Suspected Problems (Last Reviewed 12/13/19 @ 15:[address] Usman Aaron MD) Cardiac enzymes elevated (Acute) COVID-19 virus infection (Acute) Hypoxia (Acute) ANA (acute kidney injury) (Acute) Hyperkalemia (Acute) Objective: Patient is still restless, confused and disoriented. CT head without contrast no acute change. Ammonia level normal. Heart rate and blood pressure normal. No fever. Pulse ox 94% on room air Physical exam General: Confused, restless, does not follow command. Noncommunicative disoriented HEENT: Atraumatic, PERRLA, EOMI, Normocephalic Oral: No Gingival or Mucosal Lesions/ Ulcerations Neck: Supple, No JVD, Negative Carotid Bruits Lungs: Air entry diminished in bilateral lung bases. No crepitation/rhonchi Cardiovascular: Regular rate, Regular Rhythm, Normal S1, Normal S2, No murmurs Abdomen: Bowel Sounds Present, Soft, Non Tender, Non-Distended : No renal angle tenderness. No suprapubic tenderness. Extremities: No edema, Capillary Refill Less than 3 Seconds Skin: No rashes, No breakdown Musculoskeletal: No Tenderness to Palpation of Joints or Extremities Neurological: Cranial nerves II-XII grossly intact, Deep Tendon Reflexes 2+/4 and Symmetrical, Neuro grossly intact Psych/Mental Status: Restless. Vitals/I&O's: Vital Signs Temp Pulse Resp BP Pulse Ox 97.6 F L 63 18 157/85 H 94 03/29/20 08:16 03/29/20 08:17 03/29/20 08:16 03/29/20 08:17 03/29/20 08:16 Oxygen Flow Rate (L/min) 2 Oxygen Delivery Method Room Air Weight: 217 lb 6.012 oz Body Mass Index (BMI) 28.3 Finger Stick Blood Glucose 159 Intake and Output for Last 24 Hours 03/27/20 03/28/20 03/29/20 23:59 23:59 23:59 Intake Total 720 / 720 70 / 70 Output Total 3 / 3 Balance 720 / 720 -3 / -3 70 / 70 Microbiology Past 72 Hours 03/24/20 16:28 Urine, Catheterized Urine Culture - Final Culture exhibits no growth. 03/24/20 12:15 Blood Culture (Wb) - Anticubital Right Blood Culture - Preliminary No growth in 48 hours. 03/24/20 12:30 Blood Culture (Wb) - Anticubital Left Bacteria Detection (PCR) - Final Staphylococcus epidermidis 03/24/20 12:30 Blood Culture (Wb) - Anticubital Left Blood Culture - Preliminary Staphylococcus epidermidis Laboratory Results 03/28/20 11:45: Ammonia 31.0 03/28/20 15:21: POC Glucose 171 H 03/28/20 22:17: POC Glucose 145 H 03/29/20 07:04: POC Glucose 139 H 03/29/20 07:21: WBC 10.6, RBC 4.77, Hgb 15.3, Hct 46.4, MCV 97.3 H, MCH 32.1 H, MCHC 33.0, RDW Std Deviation 48.0 H, RDW Coeff of [place] 13.3, Plt Count 211, MPV 12.3 H 03/29/20 07:21: Sodium 154 H, Potassium 3.9, Chloride 124 H, Carbon Dioxide 22.0, Anion Gap 8, BUN 46 H, Creatinine 1.34 H, Estim Creat Clear Calc 52.29, Est GFR (MDRD) Af Amer 67, Est GFR (MDRD) Non-Af 55 L, BUN/Creatinine Ratio 34.3 H, Glucose 154 H, Calcium 9.5, Total Bilirubin 1.60 H, AST 18, ALT 16, Alkaline Phosphatase 62, Total Protein 7.1, Albumin 3.3, Globulin 3.8, Albumin/Globulin Ratio 0.9 03/29/20 07:21: PT 19.0 H, INR 1.6 Current Medications Acetaminophen (Acetaminophen 325 Mg Tablet) 650 mg PO Q6H PRN PRN PRN Reason: Pain Score 1-10/Temp > 100.7 F Last Admin: 03/25/20 21:08 Dose: 650 mg Documented by: Al Hydroxide/Mg Hydroxide (Mag Hydrox/Al Hydrox/Simeth 30 Ml Udc) 30 ml PO Q6H PRN PRN PRN Reason: Gastric Burning Albuterol Sulfate (Albuterol Sulfate 8 Gm Inhaler (60 Puffs)) 4 - 8 puff INHALATION Q4H PRN PRN PRN Reason: Dyspnea, wheezing Albuterol Sulfate (Albuterol Sulfate 8 Gm Inhaler (60 Puffs)) 2 puff INHALATION BID SAM Last Admin: 03/29/20 08:22 Dose: Not Given Documented by: Aspirin (Aspirin 81 Mg Tab.Chew) 81 mg PO DAILY [facility] Last Admin: 03/29/20 08:18 Dose: 81 mg Documented by: Atorvastatin Calcium (Atorvastatin Calcium 20 Mg Tablet) 20 mg PO QHS [facility] Last Admin: 03/28/20 22:27 Dose: 20 mg Documented by: Cyanocobalamin (Cyanocobalamin 500 Mcg Tablet) 500 mcg PO DAILY [facility] Last Admin: 03/29/20 08:17 Dose: 500 mcg Documented by: Dexamethasone (Dexamethasone 4 Mg Tablet) 6 mg PO DAILY [facility] Stop: 04/02/20 10:01 Last Admin: 03/29/20 08:18 Dose: 6 mg Documented by: Dextrose (Dextrose 50%-Water 25 Gm/50 Ml Disp.Syrin) 0 gm IV X1 PRN; Protocol PRN Reason: Hypoglycemia Last Admin: 03/24/20 18:11 Dose: 25 gm Documented by: Gabapentin (Gabapentin 600 Mg Tablet) 600 mg PO DAILY [facility] Last Admin: 03/29/20 08:18 Dose: 600 mg Documented by: Gabapentin (Gabapentin 800 Mg Tablet) 800 mg PO QHS [facility] Last Admin: 03/28/20 22:27 Dose: 800 mg Documented by: Glucagon (Glucagon 1 Mg/Ml Syringe) 1 mg IM .X1 PRN PRN Reason: Hypoglycemia Guaifenesin (Guaifenesin 10 Ml Udc (200mg/10ml)) 10 ml PO Q4H PRN PRN PRN Reason: COUGH Hydralazine HCl (Hydralazine 20 Mg/Ml Vial) 10 mg IV Q4H PRN PRN PRN Reason: SBP > 160 Remdesivir 100 mg/ Sodium (Chloride) 250 mls @ 125 mls/hr IV DAILY [facility]; Protocol Stop: 03/30/20 11:59 Insulin Human Lispro (Insulin Lispro 100 Unit/Ml Insuln.Pen) 0 unit SC ACHS [facility]; Protocol Last Admin: 03/29/20 07:09 Dose: Not Given Documented by: Lisinopril (Lisinopril 2.5 Mg Tablet) 2.5 mg PO DAILY [facility] Last Admin: 03/29/20 08:18 Dose: 2.5 mg Documented by: Lorazepam (Lorazepam 2 Mg/Ml Syringe) 0.5 mg IV Q6H PRN PRN PRN Reason: severe agitation Last Admin: 03/28/20 15:27 Dose: 0.5 mg Documented by: Melatonin (Melatonin 10 Mg Tablet) 10 mg PO QHS [facility] Last Admin: 03/28/20 22:27 Dose: 10 mg Documented by: Metoprolol Tartrate (Metoprolol Tartrate 50 Mg Tablet) 50 mg PO BID [facility] Last Admin: 03/29/20 08:17 Dose: 50 mg Documented by: Nitroglycerin (Nitroglycerin (Inpatient Use) 0.4 Mg Tab.Subl) 0.4 mg SUBLINGUAL Q5M PRN PRN Reason: CARDIAC/CHEST PAIN Paroxetine HCl (Paroxetine 20 Mg Tablet) 20 mg PO DAILY [facility] Last Admin: 03/29/20 08:19 Dose: 20 mg Documented by: Sodium Chloride (0.9% Saline Lock 10 Ml Syringe) 10 - 40 ml IV UD PRN PRN Reason: SALINE FLUSH Last Admin: 03/27/20 04:37 Dose: 20 ml Documented by: Throat Lozenges (Benzocaine/Menthol 1 Lozenge) 1 lozenge MUCOUS MEM Q2H PRN PRN PRN Reason: SORE THROAT Trazodone HCl (Trazodone 50 Mg Tablet) 50 mg PO BID [facility] Last Admin: 03/29/20 08:17 Dose: 50 mg Documented by: Umeclidinium [place] (Umeclidinium [place] Inhaler) 1 puff INHALATION DAILY [facility] Last Admin: 03/29/20 08:22 Dose: Not Given Documented by: Warfarin Sodium (Warfarin 5 Mg Tablet) 5 mg PO DAILY@1700 [facility] Last Admin: 03/28/20 15:06 Dose: Not Given Documented by: STROKE Vital Signs/Narrative: Vital Signs Temp Pulse Resp BP Pulse Ox 03/29/20 08:17 63 157/85 H 03/29/20 08:16 97.6 F L 63 18 157/85 H 94 Medical Necessity - Tobacco Use Smoking Status: Former smoker Tobacco Use: Cigars Assessment/Plan All Active Problems (Last Reviewed 12/13/19 @ 15:[address] Usman Aaron MD) Encephalopathy acute (Acute) Hypoxia (Acute) Pneumonia (Acute) Cardiac enzymes elevated (Acute) Bacteremia due to Gram-negative bacteria (Acute) COVID-19 virus infection (Acute) Hypoxia (Acute) NAA (acute kidney injury) (Acute) Hyperkalemia (Acute) Hyperkalemia (Acute) Dyspnea on exertion (Resolved)
--- NOTE | 2020-03-29 10:22 | NURSING ---
Spoke with MD. Patient is medically stable to discharge today to [facility]. Left VM for SW to see if it is possible to get him discharged today.
--- NOTE | 2020-03-29 10:54 | PCM.TXEXTCAR ---
- Diet 03/24/20 15:53 Diet: Carbohydrate Controlled Food consistency:: Mechanical (Minced/Moist) Liquid Consistency:: Hospers/Mildly Thick Type of Dietary Supplement:: Glucerna Shake Is pt able to select menu?: No Diet Comments: 120 ml glucerna shake w/ meals, 1:1 staff supervision/sm bite/sip/oral care - Routine Orders/Code Status Suppository Type: Dulcolax 10mg Suppository Frequency: Daily PRN Routine Lab Work: BMP - weekly on lasix and spironolactone, INR Code Status: [facility] - Wound(s) scabbed areas to bilateral legs Wound Type: Abrasion - Therapies Weight Bearing: Weight bearing as tolerated Extremity Affected:: Bilateral Lower Physical Therapy: Eval and Treat Occupational Therapy: Eval and Treat Speech Therapy: Eval and Treat - Allergies/Procedures Done in Hospital Allergies/Adverse Reactions: Allergies prochlorperazine [From Compazine] Adverse Reaction (Severe, Verified 12/18/19 20:30) extrapyramidal symptoms, sedation extrapyramidal symptoms, sedation was taking also pramipexole at the time - Type of Care/Length of Stay Estimated LOS: Convalescent Care Less Than 30 days Type of Care Needed: Skilled Rehab Potential: Fair Prognosis: Fair - Additional Orders/Day of Discharge Day of Discharge: 03/29/20 - Dietary and Speech Recommendations Dietitian Recommendations/Changes: Continue CHO controlled diet- consistency per [employer]. Glucerna w/ meals until adequate PO intake is established. Will check wt. - Follow Up Care Primary Care Physician: Fer Caruso MD [Primary Care Provider] - Please follow up with your Primary Care Physician in: In 2 weeks Please Follow Up With: Travis Jones MD When: In April 2020 Please Follow Up With: Walter Jimenez MD When: On April 09, 2020
--- NOTE | 2020-03-29 10:55 | CASEMGMT ---
SOCIAL WORK Call to [facility]. Per Jill, able to accept patient today and requests nurse call report to Nikki at at [phone]. Nursing staff updated. Plan: D/C to [facility] Luisito Castaneda, [employer], MEASURING MACHINE TENDER
--- NOTE | 2020-03-29 10:57 | PCM.DC.SUM ---
Discharge Date and Diagnosis - Problem List Patient Problems: Active and Suspected Problems (Last Reviewed 12/13/19 @ 15:[address] Usman Aaron MD) Cardiac enzymes elevated (Acute) COVID-19 virus infection (Acute) Hypoxia (Acute) ANA (acute kidney injury) (Acute) Hyperkalemia (Acute) Date of Admission: 03/24/20 Date of Discharge: 03/29/20 - Primary Discharge Diagnosis Acute Problems: Active Problems (Last Reviewed 12/13/19 @ 15:[address] Usman Aaron MD) Cardiac enzymes elevated (Acute) COVID-19 virus infection (Acute) Hypoxia (Acute) ANA (acute kidney injury) (Acute) Hyperkalemia (Acute) - Secondary Discharge Diagnosis Chronic Problems: Chronic Problems (Last Reviewed 12/13/19 @ 15:[address] 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 He was tested positive COVID-19 about 6 days prior to presentation on 03/25. Chest x-ray shows mild degree of vascular congestion. 1. Acute hypoxic respiratory insufficiency secondary to COVID-19 infection: Patient was admitted to ICU COVID-19 cohort unit. Overnight patient oxygenation improved and currently on room air. Patient uses BiPAP home regimen for DENISA. Patient was on 30% FiO2 last night. On IV Decadron. Seen by ID and started on remdesivir. Patient respiratory status improved and completed remdesivir. Blood culture 1 bottle shows staph epidermis, coagulase negative staph contamination. 2. Hyperkalemia: Admission K+ 7.4. Patient was given kalemia cocktail yesterday. Subsequent potassium is getting better. Most recent 5.6. Hyperkalemia corrected. 3. Acute encephalopathy on baseline dementia probably multifactorial related to COVID-19 infection/metabolic and environmental: On 03/26 Patient has QTC prolongation, QTC 533 ms and had 14 beats of NSVT. EKG shows ventricular paced rhythm. Repeat EKG shows improvement in QTc interval. On 03/27 it was QTC 529 ms, 03/28 511 ms, 03/29 487 ms. Patient also has pacemaker therefore mild expected prolonged QTC is expected. Seroquel and Haldol was discontinued. Magnesium 1.7 and had 1 dose of 2 g IV magnesium sulfate. Patient's niece is concerned of altered mental status of recent origin therefore CT head was done which did not show any acute abnormality. Environmental, orientation cues advised. Patient was also last admitted in December 2019 for acute encephalopathy but at that time it got better and resolved. 3. Acute kidney injury on CKD stage II most likely secondary to COVID-19 infection/ATN: Admission BUN/Cr 67/2.58, prior baseline creatinine noted to be 0.9-1.2. Conservative management with holding nephrotoxic medications and serial follow-up kidney function electrolytes. ANA resolved. BUN/creatinine on baseline. 4. Indeterminate cardiac enzyme: Serial troponins are flat and indeterminate troponin 0 0.096, 0.096 and 0.102. Patient denies any chest pain. EKG showed no evidence of ischemia paced rhythm. Magnesium level 2.4. 5. 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 fib, history of complete heart block status post permanent pacemaker and hypertension: Continue metoprolol and statin. Initially INR was supratherapeutic and Coumadin on hold. Vitamin K 1 dose was given as INR was continued high. Subsequently INR came down and Coumadin was resumed along with supplemental Lovenox. Lisinopril, spironolactone on hold due to ANA with hyperkalemia. Last echo on 10/10/2019 showed EF 29%, mildly dilated RV, severely dilated LA, moderately dilated RA, moderate 2+ MR, 14 bioprosthetic aortic valve with mild to moderate perivalvular regurg, moderate TR, mild to moderate ID, RVSP 60 mmHg 6. Dyslipidemia: Continue home statin regimen. 7. Diabetes mellitus type II: Hold oral home regimen, ADA diet, accu checks w/ ISS. Patient as noted is being started on Decadron therefore may need to increase insulin sliding scale. 8. PVD: Continue aspirin. Rest and discharge chronic control of diabetes and hypertension. 9. Asthma/COPD overlap syndrome : Tinea scheduled inhaler and as needed albuterol. 10. Obesity: Weight loss and lifestyle changes encouraged. 11. DENISA: BIPAP q HS. DVT Prophylaxis: SCDs, as mentioned above. On Coumadin Discharge medication reconciliation done. Discharge follow-up instructions completed. Discharge process discussed with the patient and all questions were answered to patient's satisfaction. Patient is being transferred to SNF. Total time spent, exact 35 minutes on discharge meds reconciliation, examination, coordination of care with nurses and ancillary staff, review of imaging and blood test and discussion with the patient on follow-up instructions Clinical Impression(s) from Imaging Studies Chest X-Ray 03/24/20 12:10 IMPRESSION: Borderline cardiomegaly and mild degree of vascular congestion. Brain CT 03/28/20 11:55 IMPRESSION: Chronic involutional changes of the brain. Partial opacification of the right maxillary sinus and stable opacification of the left mastoid air cells. Patient Problems: Active and Suspected Problems (Last Reviewed 12/13/19 @ 15:[address] Usman Aaron MD) Cardiac enzymes elevated (Acute) COVID-19 virus infection (Acute) Hypoxia (Acute) ANA (acute kidney injury) (Acute) Hyperkalemia (Acute) Objective: Patient is CT head without contrast no acute change. Ammonia level normal. Heart rate and blood pressure normal. No fever. Pulse ox 94% on room air Physical exam General: Confused, restless, does not follow command. Noncommunicative, disoriented x3 HEENT: Atraumatic, PERRLA, EOMI, Normocephalic Oral: No Gingival or Mucosal Lesions/ Ulcerations Neck: Supple, No JVD, Negative Carotid Bruits Lungs: Air entry diminished in bilateral lung bases. No crepitation/rhonchi Cardiovascular: Regular rate, Regular Rhythm, Normal S1, Normal S2, No murmurs Abdomen: Bowel Sounds Present, Soft, Non Tender, Non-Distended : No renal angle tenderness. No suprapubic tenderness. Extremities: No edema, Capillary Refill Less than 3 Seconds Skin: No rashes, No breakdown Musculoskeletal: No Tenderness to Palpation of Joints or Extremities Neurological: Cranial nerves II-XII grossly intact, Deep Tendon Reflexes 2+/4 and Symmetrical, Neuro grossly intact Psych/Mental Status: Restless. - Physical Exam Vitals/I&O's: Vital Signs Temp Pulse Resp BP Pulse Ox 97.6 F L 63 18 157/85 H 94 03/29/20 08:16 03/29/20 08:17 03/29/20 08:16 03/29/20 08:17 03/29/20 08:16 Oxygen Flow Rate (L/min) 2 Oxygen Delivery Method Room Air Weight: 217 lb 6.012 oz Body Mass Index (BMI) 28.3 Finger Stick Blood Glucose 159 Intake and Output for Last 24 Hours 03/27/20 03/28/20 03/29/20 23:59 23:59 23:59 Intake Total 720 / 720 70 / 70 Output Total 3 / 3 Balance 720 / 720 -3 / -3 70 / 70 Microbiology Past 72 Hours 03/24/20 16:28 Urine, Catheterized Urine Culture - Final Culture exhibits no growth. 03/24/20 12:15 Blood Culture (Wb) - Anticubital Right Blood Culture - Preliminary No growth in 48 hours. 03/24/20 12:30 Blood Culture (Wb) - Anticubital Left Bacteria Detection (PCR) - Final Staphylococcus epidermidis 03/24/20 12:30 Blood Culture (Wb) - Anticubital Left Blood Culture - Preliminary Staphylococcus epidermidis Laboratory Results 03/28/20 11:45: Ammonia 31.0 03/28/20 15:21: POC Glucose 171 H 03/28/20 22:17: POC Glucose 145 H 03/29/20 07:04: POC Glucose 139 H 03/29/20 07:21: WBC 10.6, RBC 4.77, Hgb 15.3, Hct 46.4, MCV 97.3 H, MCH 32.1 H, MCHC 33.0, RDW Std Deviation 48.0 H, RDW Coeff of [place] 13.3, Plt Count 211, MPV 12.3 H 03/29/20 07:21: Sodium 154 H, Potassium 3.9, Chloride 124 H, Carbon Dioxide 22.0, Anion Gap 8, BUN 46 H, Creatinine 1.34 H, Estim Creat Clear Calc 52.29, Est GFR (MDRD) Af Amer 67, Est GFR (MDRD) Non-Af 55 L, BUN/Creatinine Ratio 34.3 H, Glucose 154 H, Calcium 9.5, Total Bilirubin 1.60 H, AST 18, ALT 16, Alkaline Phosphatase 62, Total Protein 7.1, Albumin 3.3, Globulin 3.8, Albumin/Globulin Ratio 0.9 03/29/20 07:21: PT 19.0 H, INR 1.6 Current Medications Acetaminophen (Acetaminophen 325 Mg Tablet) 650 mg PO Q6H PRN PRN PRN Reason: Pain Score 1-10/Temp > 100.7 F Last Admin: 03/25/20 21:08 Dose: 650 mg Documented by: Al Hydroxide/Mg Hydroxide (Mag Hydrox/Al Hydrox/Simeth 30 Ml Udc) 30 ml PO Q6H PRN PRN PRN Reason: Gastric Burning Albuterol Sulfate (Albuterol Sulfate 8 Gm Inhaler (60 Puffs)) 4 - 8 puff INHALATION Q4H PRN PRN PRN Reason: Dyspnea, wheezing Albuterol Sulfate (Albuterol Sulfate 8 Gm Inhaler (60 Puffs)) 2 puff INHALATION BID [facility] Last Admin: 03/29/20 08:22 Dose: Not Given Documented by: Aspirin (Aspirin 81 Mg Tab.Chew) 81 mg PO DAILY [facility] Last Admin: 03/29/20 08:18 Dose: 81 mg Documented by: Atorvastatin Calcium (Atorvastatin Calcium 20 Mg Tablet) 20 mg PO QHS [facility] Last Admin: 03/28/20 22:27 Dose: 20 mg Documented by: Cyanocobalamin (Cyanocobalamin 500 Mcg Tablet) 500 mcg PO DAILY [facility] Last Admin: 03/29/20 08:17 Dose: 500 mcg Documented by: Dexamethasone (Dexamethasone 4 Mg Tablet) 6 mg PO DAILY [facility] Stop: 04/02/20 10:01 Last Admin: 03/29/20 08:18 Dose: 6 mg Documented by: Dextrose (Dextrose 50%-Water 25 Gm/50 Ml Disp.Syrin) 0 gm IV X1 PRN; Protocol PRN Reason: Hypoglycemia Last Admin: 03/24/20 18:11 Dose: 25 gm Documented by: Gabapentin (Gabapentin 600 Mg Tablet) 600 mg PO DAILY [facility] Last Admin: 03/29/20 08:18 Dose: 600 mg Documented by: Gabapentin (Gabapentin 800 Mg Tablet) 800 mg PO QHS [facility] Last Admin: 03/28/20 22:27 Dose: 800 mg Documented by: Glucagon (Glucagon 1 Mg/Ml Syringe) 1 mg IM .X1 PRN PRN Reason: Hypoglycemia Guaifenesin (Guaifenesin 10 Ml Udc (200mg/10ml)) 10 ml PO Q4H PRN PRN PRN Reason: COUGH Hydralazine HCl (Hydralazine 20 Mg/Ml Vial) 10 mg IV Q4H PRN PRN PRN Reason: SBP > 160 Remdesivir 100 mg/ Sodium (Chloride) 250 mls @ 125 mls/hr IV DAILY [facility]; Protocol Stop: 03/30/20 11:59 Insulin Human Lispro (Insulin Lispro 100 Unit/Ml Insuln.Pen) 0 unit SC ACHS [facility]; Protocol Last Admin: 03/29/20 07:09 Dose: Not Given Documented by: Lactulose (Lactulose 20 Gm/30 Ml Udc) 10 gm PO BID [facility] Lisinopril (Lisinopril 2.5 Mg Tablet) 2.5 mg PO DAILY [facility] Last Admin: 03/29/20 08:18 Dose: 2.5 mg Documented by: Lorazepam (Lorazepam 2 Mg/Ml Syringe) 0.5 mg IV Q6H PRN PRN PRN Reason: severe agitation Last Admin: 03/28/20 15:27 Dose: 0.5 mg Documented by: Melatonin (Melatonin 10 Mg Tablet) 10 mg PO QHS [facility] Last Admin: 03/28/20 22:27 Dose: 10 mg Documented by: Metoprolol Tartrate (Metoprolol Tartrate 50 Mg Tablet) 50 mg PO BID [facility] Last Admin: 03/29/20 08:17 Dose: 50 mg Documented by: Nitroglycerin (Nitroglycerin (Inpatient Use) 0.4 Mg Tab.Subl) 0.4 mg SUBLINGUAL Q5M PRN PRN Reason: CARDIAC/CHEST PAIN Paroxetine HCl (Paroxetine 20 Mg Tablet) 20 mg PO DAILY [facility] Last Admin: 03/29/20 08:19 Dose: 20 mg Documented by: Sodium Chloride (0.9% Saline Lock 10 Ml Syringe) 10 - 40 ml IV UD PRN PRN Reason: SALINE FLUSH Last Admin: 03/27/20 04:37 Dose: 20 ml Documented by: Throat Lozenges (Benzocaine/Menthol 1 Lozenge) 1 lozenge MUCOUS MEM Q2H PRN PRN PRN Reason: SORE THROAT Trazodone HCl (Trazodone 50 Mg Tablet) 50 mg PO QHS [facility] Umeclidinium [place] (Umeclidinium [place] Inhaler) 1 puff INHALATION DAILY [facility] Last Admin: 03/29/20 08:22 Dose: Not Given Documented by: Warfarin Sodium (Warfarin 5 Mg Tablet) 5 mg PO DAILY@1700 [facility] Last Admin: 03/28/20 15:06 Dose: Not Given Documented by: Home Medications: Medications to take at Discharge Aspirin [Aspirin, Baby] 81 mg PO DAILY 09/24/14 Rosuvastatin Calcium 10 mg PO QHS #90 tab 03/08/19 lisinopril 2.5 mg tablet 2.5 mg PO DAILY #90 tab 05/30/19 Gabapentin 600 mg PO DINNER 12/20/19 Gabapentin 900 mg PO QHS 12/20/19 Potassium Chloride [K-Dur] 20 meq PO DAILYCM #30 tab 12/22/19 Warfarin [Coumadin] 4 mg PO DAILY #0 12/22/19 budesonide-formoterol HFA 160 mcg-4.5 mcg/actuation aerosol inhaler 2 puff INHALATION QHS #10.2 g 01/15/20 metoprolol tartrate 50 mg tablet 50 mg PO BID #180 tab 03/03/20 Cyanocobalamin [Vitamin B12] 500 mcg PO DAILY@0800 03/24/20 Glipizide [Glipizide ER] 2.5 mg PO DAILY 03/24/20 Spironolactone 25 mg PO BID 03/24/20 Tiotropium [place] [Spiriva] 1 inh INHALATION DAILY 03/24/20 Trazodone HCl 25 - 50 mg PO QHS PRN PRN 03/24/20 metFORMIN (XR) [Glucophage Xr] 1,000 mg PO BIDCM 03/24/20 Dexamethasone [Decadron] 6 mg PO DAILY 5 Days #5 tab 03/29/20 Furosemide [Lasix] 40 mg PO BID #0 03/29/20 Guaifenesin [Robitussin] 10 ml PO Q4H PRN PRN udc 03/29/20 Primary Care Physician: Fer Caruso MD [Primary Care Provider] - Please follow up with your Primary Care Physician in: In 2 weeks Please Follow Up With: Travis Jones MD When: In April 2020 Please Follow Up With: Walter Jimenez MD When: On April 09, 2020 Medical Necessity - Tobacco Use Smoking Status: Former smoker Tobacco Use: Cigars Meaningful Use Info Meaningful Use Diagnoses (Choose all that apply): None applicable Inpatient E&M: 57662 Disch Hosp
[2020-03-29] MEDS: Lactulose 20 GM/30 ML UDC 10 GM PO (11:09)
[2020-03-29 12:56] LABS: Bedside Glucose 173 mg/dL (70-110)
== END 2020-03-29 14:55 | disposition skilled nursing facility (03) | DRG 177 ==
LOC: ED 12:36 → ICU 14:25 → MS2 03-26 07:52
PROVIDERS: Internal Medicine Infectious Disease; Admitting Provider Family Medicine; Emergency Provider Emergency Medicine; PCP Family Medicine; Visit Provider Internal Medicine
DX: U07.1 COVID-19 (principal); G93.41 Metabolic encephalopathy; N17.0 Acute kidney failure with tubular necrosis; J12.89 Other viral pneumonia; I50.42 Chronic combined systolic (congestive) and diastolic (congestive) heart failure; I48.19 Other persistent atrial fibrillation; I13.0 Hypertensive heart and chronic kidney disease with heart failure and stage 1 through stage 4 chronic kidney disease, or unspecified chronic kidney disease; I42.0 Dilated cardiomyopathy; J44.0 Chronic obstructive pulmonary disease with (acute) lower respiratory infection; R09.02 Hypoxemia; R06.89 Other abnormalities of breathing; E87.5 Hyperkalemia; F03.90 Unspecified dementia, unspecified severity, without behavioral disturbance, psychotic disturbance, mood disturbance, and anxiety; N18.2 Chronic kidney disease, stage 2 (mild); Z95.3 Presence of xenogenic heart valve; Z95.0 Presence of cardiac pacemaker; I27.20 Pulmonary hypertension, unspecified; E78.5 Hyperlipidemia, unspecified; E11.22 Type 2 diabetes mellitus with diabetic chronic kidney disease; E11.51 Type 2 diabetes mellitus with diabetic peripheral angiopathy without gangrene; E66.9 Obesity, unspecified; G47.33 Obstructive sleep apnea (adult) (pediatric); R74.8 Abnormal levels of other serum enzymes; Z79.899 Other long term (current) drug therapy; Z79.01 Long term (current) use of anticoagulants; Z79.84 Long term (current) use of oral hypoglycemic drugs; Z87.891 Personal history of nicotine dependence; Z68.32 Body mass index [BMI] 32.0-32.9, adult; R53.81 Other malaise; Z66 Do not resuscitate; R79.1 Abnormal coagulation profile
CPT/HCPCS: 36415; 70450; 71045; 80048; 80053; 81001; 82140; 82550; 82570; 82607; 82728; 82746; 82962; 83605; 83615; 83735; 84100; 84145; 84300; 84484; 85025; 85027; 85379; 85610; 86140; 86850; 86900; 86901; 87040; 87086; 87149; 87449; 87633; 92526; 92610; 93005; 94002; 94003; 94660; 94667; 97110; 97162; 97166; 99251; 99285; J7030; J7050; A4216; G0463; J0610; J3490